=== PATIENT | male | born 1950 | race Caucasian/White ===

== ENCOUNTER 2018-02-13 09:49 | Inpatient (IN) | payer MEDICARE, MEDICAID ==
[~2018-02-13] VITALS: Ht 180.3 cm; Wt 82.2 kg
[~2018-02-13 09:49] MED LIST: FLUT110A INH; IPRIH IA; PREG100C PO
[2018-02-13 10:42] LABS: Basophils # (auto) 0 uL; Basophils % (auto) 0.3 % (0.0-2.0); Eosinophils # (auto) 0 uL; Hematocrit 46.7 % (41.0-53.0); Hemoglobin 15.4 g/dL (13.5-17.5); Lymphocytes % (auto) 6.3 % (10.0-50.0); Mean Corpuscular Hemoglobin 30.6 pg (28.0-32.0); Mean Corpuscular Hgb Conc. 33.1 g/dL (32.0-36.0); Mean Corpuscular Volume 92.4 fL (80.0-100.0); Monocytes # (auto) 0.9 uL; Monocytes % (auto) 5.9 % (0.0-12.0); Neutrophils # (auto) 13.7 uL; Neutrophils % (auto) 87.5 % (37.0-80.0); Platelet Count (auto) 348 10^3/uL (140-450); Red Blood Cells 5.05 10^6/uL (4.5-5.90); Red Cell Distribution Width 13.7 % (11.8-14.3); White Blood Cell 15.7 10^3/uL (4.4-10.8)
[2018-02-13 10:53] LABS: INR 0.99 (0.9-1.15); Prothrombin Time 10.8 sec (9.37-12.3)
[2018-02-13 10:57] LABS: Albumin 3.9 g/dL (3.4-5.0); BUN/Creatinine Ratio 20.5; Calcium 9.5 mg/dL (8.5-10.1); Magnesium 2.4 mg/dL (1.6-2.6); Potassium 4.2 mmol/L (3.5-5.1)
[2018-02-13 11:00] LABS: Lactic Acid w/Reflex 2.1 mmol/L (0.4-2.0)
[2018-02-13 11:02] LABS: Bilirubin, Total 0.5 mg/dL (0.2-1.0); Total Protein 8.6 g/dL (6.4-8.2)
[2018-02-13] MEDS ORDERED: SODIUM CHLORIDE 0.9% 1,000 ML IV ONE ×3 (12:41→13:30)
[2018-02-13] MEDS ORDERED: SODIUM BICARBONATE 8.4 % INJ 50ML VIAL IV ONE (12:45)
[2018-02-13] MEDS ORDERED: HYDROcodone-ACET 10/325MG TAB PO ONE (13:45)
[2018-02-13] MEDS ORDERED: NITROGLYCERIN 0.4 MG SL TAB SL PRN (15:45)
[2018-02-13] MEDS ORDERED: MORPHINE SULFATE 4 MG/ML SYR/VIAL IV PRN (15:45)
[2018-02-13] MEDS: SODIUM CHLORIDE 0.9% 1,000 ML IV SCH ×2 (15:54→22:10)
[2018-02-13] MEDS ORDERED: IPRATROPIUM BROM 0.5 MG/2.5ML INH SOL NEB SCH (18:00)
[2018-02-13] MEDS ORDERED: ALBUTEROL SULF 2.5 MG/0.5ML(0.5%) NEB SOLN NEB SCH (18:00)
[2018-02-13] MEDS ORDERED: IPRATROPIUM BROMIDE IA PRN (20:30)
[2018-02-13 21:02] VITALS: BP 155/99
[2018-02-13 22:00] VITALS: BP 140/84
[2018-02-13] MEDS: PREGABALIN 25 MG CAP PO SCH (22:09)
[2018-02-13] MEDS: IPRATROPIUM BROM 0.5 MG/2.5ML INH SOL NEB PRN (22:56)
[2018-02-13] MEDS: BUDESONIDE (INHALATION) 0.5 MG/2 ML NEB NEB SCH (22:56)
[2018-02-13] MEDS: ALBUTEROL SULF 2.5 MG/0.5ML(0.5%) NEB SOLN NEB PRN (22:56)
[2018-02-13 23:40] VITALS: BP 140/84
[2018-02-14] MEDS ORDERED: HYDR-4683 PO (00:45)
[2018-02-14] MEDS ORDERED: DOCU-94 PO (00:45)
[2018-02-14 05:30] VITALS: BP 151/78
[2018-02-14] MEDS: PREGABALIN 25 MG CAP PO SCH ×3 (06:00→21:31)
[2018-02-14] MEDS ORDERED: ZOLP-158 PO (06:27)
[2018-02-14 07:20] LABS: Basophils # (auto) 0 uL; Basophils % (auto) 0.3 % (0.0-2.0); Eosinophils # (auto) 0 uL; Eosinophils % (auto) 0.2 % (0.0-7.0); Hematocrit 43.3 % (41.0-53.0); Hemoglobin 14.8 g/dL (13.5-17.5); Lymphocytes # (auto) 2.4 uL; Lymphocytes % (auto) 16.8 % (10.0-50.0); Mean Corpuscular Hemoglobin 31.4 pg (28.0-32.0); Mean Corpuscular Hgb Conc. 34.3 g/dL (32.0-36.0); Mean Corpuscular Volume 91.5 fL (80.0-100.0); Monocytes # (auto) 1.1 uL; Monocytes % (auto) 7.9 % (0.0-12.0); Neutrophils # (auto) 10.7 uL; Neutrophils % (auto) 74.8 % (37.0-80.0); Nucleated Red Blood Cells % 0.1 %; Platelet Count (auto) 316 10^3/uL (140-450); Red Blood Cells 4.73 10^6/uL (4.5-5.90); Red Cell Distribution Width 13.5 % (11.8-14.3); White Blood Cell 14.3 10^3/uL (4.4-10.8)
[2018-02-14 07:43] LABS: BUN/Creatinine Ratio 21.3; Calcium 8.9 mg/dL (8.5-10.1); Potassium 3.5 mmol/L (3.5-5.1)
[2018-02-14 09:01] VITALS: BP 163/95
[2018-02-14 09:20] LABS: Urine Bacteria FEW /hpf (None Seen); Urine Blood 1+ /uL (Negative); Urine Mucus FEW (None Seen); Urine Specific Gravity 1.021 (1.001-1.035); Urine WBC 1 /hpf (0 - 3)
[2018-02-14] MEDS: IPRATROPIUM BROM 0.5 MG/2.5ML INH SOL NEB PRN (10:26)
[2018-02-14] MEDS: ALBUTEROL SULF 2.5 MG/0.5ML(0.5%) NEB SOLN NEB PRN (10:26)
[2018-02-14] MEDS: BUDESONIDE (INHALATION) 0.5 MG/2 ML NEB NEB SCH ×2 (10:26→21:42)
[2018-02-14] MEDS ORDERED: ATOR20TA PO (12:00)
[2018-02-14] MEDS ORDERED: ASPI81TA27 PO (12:00)
[2018-02-14] MEDS ORDERED: HYDR-3682 PO (12:00)
[2018-02-14] MEDS ORDERED: CLOP75TA28 PO (12:00)
[2018-02-14] MEDS ORDERED: DIPH25CA66 PO (12:00)
[2018-02-14] MEDS ORDERED: SENN1TAB14 PO (12:00)
[2018-02-14] MEDS ORDERED: ALPR1TAB2 PO (12:00)
[2018-02-14] MEDS ORDERED: QUET100T38 PO (12:00)
[2018-02-14] MEDS ORDERED: BACL10TA PO (12:00)
[2018-02-14] MEDS: SODIUM CHLORIDE 0.9% 1,000 ML IV SCH ×2 (12:03→21:22)
[2018-02-14 12:49] VITALS: BP 149/76
[2018-02-14 17:00] VITALS: BP 167/96
[2018-02-14 22:00] VITALS: BP 159/93
[2018-02-15] MEDS ORDERED: hydrALAZINE HCL 20 MG/ML VL IV PRN (04:30)
[2018-02-15] MEDS ORDERED: ACETAMINOPHEN 325 MG TAB PO PRN (04:30)
[2018-02-15 05:00] VITALS: BP 168/106
[2018-02-15] MEDS: PREGABALIN 25 MG CAP PO SCH (05:52)
[2018-02-15] MEDS ORDERED: hydrALAZINE HCL 20 MG/ML VL IV ONE (06:00)
[2018-02-15] MEDS: BUDESONIDE (INHALATION) 0.5 MG/2 ML NEB NEB SCH (07:06)
[2018-02-15] MEDS: SODIUM CHLORIDE 0.9% 1,000 ML IV SCH (07:45)
[2018-02-15 09:49] VITALS: BP 165/90
== END 2018-02-15 12:42 | disposition hospice, home (50) | DRG 56 ==
LOC: ER 09:49 → EDBD 09:49 → OVERFLOW 09:50 → TELE-WESTW 20:15 → WEST WING 02-14 21:24
PROVIDERS: ADMIT Hospitalist; ATTEND Internal Medicine
DX: G70.00 Myasthenia gravis without (acute) exacerbation (principal); G93.41 Metabolic encephalopathy; M62.82 Rhabdomyolysis; E11.51 Type 2 diabetes mellitus with diabetic peripheral angiopathy without gangrene; G62.9 Polyneuropathy, unspecified; F03.90 Unspecified dementia, unspecified severity, without behavioral disturbance, psychotic disturbance, mood disturbance, and anxiety; E86.0 Dehydration; M06.9 Rheumatoid arthritis, unspecified; D72.829 Elevated white blood cell count, unspecified; F17.210 Nicotine dependence, cigarettes, uncomplicated; F32.9 Major depressive disorder, single episode, unspecified; G40.909 Epilepsy, unspecified, not intractable, without status epilepticus; I10 Essential (primary) hypertension; J44.9 Chronic obstructive pulmonary disease, unspecified; K21.9 Gastro-esophageal reflux disease without esophagitis; K73.9 Chronic hepatitis, unspecified; Z90.81 Acquired absence of spleen; Z95.1 Presence of aortocoronary bypass graft; M19.90 Unspecified osteoarthritis, unspecified site; M54.9 Dorsalgia, unspecified
CPT/HCPCS: 36415; 70450; 70551; 72125; 74176; 80048; 80053; 81001; 82550; 83605; 83735; 84484; 85025; 85610; 87040; 87081; 93005; 94640; 94761; 96360; 96361

== ENCOUNTER 2018-12-15 10:13 | Emergency (ER) | payer MEDICARE, MEDICAID ==
[~2018-12-15] VITALS: Ht 180.3 cm; Wt 59.0 kg
[~2018-12-15 10:13] MED LIST changes: +ALPR1TAB2 PO; +ASPI81TA27 PO; +ATOR20TA PO; +CLOP75TA28 PO; +HYDR-4683 PO; +QUET100T38 PO; +SENN1TAB14 PO
[2018-12-15 10:21] VITALS: BP 118/82
[2018-12-15] MEDS ORDERED: HYDROcodone-ACET 7.5/325MG TAB PO ONE (11:30)
== END 2018-12-15 11:39 | disposition home or self-care (01) ==
LOC: ER 10:16
DX: M54.5 Low back pain (principal); G89.29 Other chronic pain; F41.9 Anxiety disorder, unspecified; J44.9 Chronic obstructive pulmonary disease, unspecified; F32.9 Major depressive disorder, single episode, unspecified; E11.9 Type 2 diabetes mellitus without complications; K21.9 Gastro-esophageal reflux disease without esophagitis; E78.5 Hyperlipidemia, unspecified; I10 Essential (primary) hypertension; F17.210 Nicotine dependence, cigarettes, uncomplicated; Z76.0 Encounter for issue of repeat prescription; Z95.1 Presence of aortocoronary bypass graft

== ENCOUNTER 2018-12-17 18:00 | Emergency (ER) | payer MEDICARE, MEDICAID ==
[~2018-12-17] VITALS: Ht 180.3 cm; Wt 68.0 kg
[2018-12-17 20:03] LABS: Basophils # (auto) 0.1 uL; Basophils % (auto) 1.5 % (0.0-2.0); Eosinophils # (auto) 0.1 uL; Hematocrit 44.7 % (41.0-53.0); Hemoglobin 14.7 g/dL (13.5-17.5); Lymphocytes % (auto) 31.7 % (10.0-50.0); Mean Corpuscular Hemoglobin 29.1 pg (28.0-32.0); Mean Corpuscular Hgb Conc. 32.9 g/dL (32.0-36.0); Mean Corpuscular Volume 88.4 fL (80.0-100.0); Monocytes % (auto) 10.1 % (0.0-12.0); Neutrophils # (auto) 5.3 uL; Neutrophils % (auto) 55.7 % (37.0-80.0); Nucleated Red Blood Cells % 0.2 %; Platelet Count (auto) 432 10^3/uL (140-450); Red Blood Cells 5.06 10^6/uL (4.5-5.90); Red Cell Distribution Width 15.9 % (11.8-14.3); White Blood Cell 9.5 10^3/uL (4.4-10.8)
[2018-12-17 20:20] LABS: Albumin 3.7 g/dL (3.4-5.0); Anion Gap 10 (5-15); Blood Urea Nitrogen 13 mg/dL (7-18); Calcium 9.5 mg/dL (8.5-10.1); Carbon Dioxide 18 mmol/L (21-32); Chloride 114 mmol/L (98-107); Glucose 103 mg/dL (74-106); Magnesium 2.4 mg/dL (1.6-2.6); Potassium 3.7 mmol/L (3.5-5.1); Sodium 142 mmol/L (136-145)
[2018-12-17 20:26] LABS: Alanine Aminotransferase 36 U/L (16-61); Alkaline Phosphatase 83 U/L (45-117); Aspartate Aminotransferase 26 U/L (15-37); BUN/Creatinine Ratio 14.8; Bilirubin, Total 0.3 mg/dL (0.2-1.0); GFR African American 111 mL/min; GFR Non-African American 92 mL/min; Total Protein 7.9 g/dL (6.4-8.2)
[2018-12-17] MEDS ORDERED: SODIUM CHLORIDE 0.9% 1,000 ML IV ONE (23:45)
[2018-12-17] MEDS ORDERED: HYDROcodone-ACET 5/325MG TAB PO ONE (23:45)
[2018-12-17] MEDS ORDERED: KETOROLAC TROMETH 30 MG/ML 1ML VIAL IV ONE (23:45)
[2018-12-18] MEDS ORDERED: SODIUM CHLORIDE 0.9% 1,000 ML IV ONE (05:45)
[2018-12-18] MEDS ORDERED: HYDROcodone-ACET 5/325MG TAB PO ONE (05:45)
[2018-12-18 07:44] VITALS: BP 140/85
== END 2018-12-18 11:26 | disposition home or self-care (01) ==
LOC: EDBD 18:00 → ER 18:00
DX: R19.7 Diarrhea, unspecified (principal); E86.0 Dehydration; M19.90 Unspecified osteoarthritis, unspecified site; J44.9 Chronic obstructive pulmonary disease, unspecified; E11.9 Type 2 diabetes mellitus without complications; K21.9 Gastro-esophageal reflux disease without esophagitis; E78.5 Hyperlipidemia, unspecified; I10 Essential (primary) hypertension; F17.210 Nicotine dependence, cigarettes, uncomplicated; Z79.01 Long term (current) use of anticoagulants; Z79.82 Long term (current) use of aspirin; Z79.899 Other long term (current) drug therapy; Z95.1 Presence of aortocoronary bypass graft
CPT/HCPCS: 36415; 71045; 74176; 80053; 82140; 83735; 84484; 85025; 93005; 96361; 96374; 99284; J1885; J7030

== ENCOUNTER 2019-07-21 01:35 | Emergency (ER) | payer OTHER, MEDICAID ==
[~2019-07-21] VITALS: Ht 180.3 cm; Wt 63.5 kg
[~2019-07-21 01:35] MED LIST changes: +ASPI-404 PO; -ASPI81TA27 PO; -HYDR-4683 PO; +HYDR-4833 PO
[2019-07-21] MEDS ORDERED: MORPHINE SULF INJ 2 MG/ML SYRINGE 1ML IV ONE (03:15)
[2019-07-21] MEDS ORDERED: ONDANSETRON HCL 4 MG/2 ML VIAL IV ONE (03:15)
[2019-07-21 03:16] LABS: Basophils # (auto) 0.1 uL; Basophils % (auto) 0.8 % (0.0-2.0); Eosinophils # (auto) 0.5 uL; Eosinophils % (auto) 4.9 % (0.0-7.0); Hematocrit 40.5 % (41.0-53.0); Hemoglobin 13.6 g/dL (13.5-17.5); Lymphocytes # (auto) 2.8 uL; Lymphocytes % (auto) 29.1 % (10.0-50.0); Mean Corpuscular Hemoglobin 31.1 pg (28.0-32.0); Mean Corpuscular Hgb Conc. 33.6 g/dL (32.0-36.0); Mean Corpuscular Volume 92.4 fL (80.0-100.0); Monocytes # (auto) 1.1 uL; Monocytes % (auto) 11.5 % (0.0-12.0); Neutrophils # (auto) 5.1 uL; Neutrophils % (auto) 53.7 % (37.0-80.0); Platelet Count (auto) 335 10^3/uL (140-450); Red Blood Cells 4.38 10^6/uL (4.5-5.90); Red Cell Distribution Width 14.1 % (11.8-14.3); White Blood Cell 9.6 10^3/uL (4.4-10.8)
[2019-07-21 03:45] LABS: Potassium 4.3 mmol/L (3.5-5.1)
[2019-07-21 03:49] LABS: Albumin 3.1 g/dL (3.4-5.0); BUN/Creatinine Ratio 21.3
[2019-07-21 03:52] LABS: Bilirubin, Total 0.2 mg/dL (0.2-1.0); Total Protein 6.7 g/dL (6.4-8.2)
[2019-07-21 06:54] VITALS: BP 129/87
[2019-07-21] MEDS ORDERED: NEOMYCIN-BACITRACIN-POLYM 15GM TOP OINT TOP ONE (07:00)
== END 2019-07-21 09:31 | disposition home or self-care (01) ==
LOC: EDBD 01:35 → ER 01:39
DX: S22.019A Unspecified fracture of first thoracic vertebra, initial encounter for closed fracture (principal); S00.01XA Abrasion of scalp, initial encounter; M54.2 Cervicalgia; J44.9 Chronic obstructive pulmonary disease, unspecified; M19.90 Unspecified osteoarthritis, unspecified site; E11.9 Type 2 diabetes mellitus without complications; K21.9 Gastro-esophageal reflux disease without esophagitis; E78.5 Hyperlipidemia, unspecified; I10 Essential (primary) hypertension; F17.210 Nicotine dependence, cigarettes, uncomplicated; Z86.2 Personal history of diseases of the blood and blood-forming organs and certain disorders involving the immune mechanism; Z95.0 Presence of cardiac pacemaker; Z79.899 Other long term (current) drug therapy; Z79.82 Long term (current) use of aspirin; W06.XXXA Fall from bed, initial encounter; Y93.89 Activity, other specified; Y92.89 Other specified places as the place of occurrence of the external cause; Y99.8 Other external cause status
CPT/HCPCS: 36415; 70450; 72125; 80053; 85025; 96374; 96375; 99284; J2270; J2405

== ENCOUNTER 2020-04-19 23:56 | Emergency (ER) | payer OTHER, MEDICAID ==
[~2020-04-19] VITALS: Ht 182.9 cm; Wt 81.6 kg
[~2020-04-19 23:56] MED LIST changes: -ASPI-404 PO; +ASPI-543 PO
[2020-04-20 00:41] LABS: Basophils # (auto) 0.1 10 ^3/uL (0-0.2); Eosinophils # (auto) 0.1 10 ^3/uL (0-0.8); Eosinophils % (auto) 1.2 % (0.0-7.0); Monocytes # (auto) 1.2 10 ^3/uL (0-1.3)
[2020-04-20 00:43] LABS: Basophils % (auto) 0.5 % (0.0-2.0); Hematocrit 47.8 % (41.0-53.0); Lymphocytes # (auto) 2.1 10 ^3/uL (0.4-5.4); Lymphocytes % (auto) 17.8 % (10.0-50.0); Mean Corpuscular Hemoglobin 31.1 pg (28.0-32.0); Mean Corpuscular Hgb Conc. 33.5 g/dL (32.0-36.0); Mean Corpuscular Volume 92.9 fL (80.0-100.0); Monocytes % (auto) 9.9 % (0.0-12.0); Neutrophils # (auto) 8.5 10 ^3/uL (1.6-8.6); Neutrophils % (auto) 70.6 % (37.0-80.0); Nucleated Red Blood Cells % 0.1 %; Platelet Count (auto) 469 10^3/uL (140-450); Red Blood Cells 5.14 10^6/uL (4.5-5.90); Red Cell Distribution Width 15.1 % (11.8-14.3)
[2020-04-20 00:59] LABS: INR 1.01 (0.9-1.15); Partial Thromboplastin Time 27.4 sec (23.64-32.05)
[2020-04-20 01:01] LABS: Alanine Aminotransferase 36 U/L (16-61); Albumin 3.3 g/dL (3.4-5.0); Anion Gap 7 (5-15); Aspartate Aminotransferase 31 U/L (15-37); BUN/Creatinine Ratio 17.8; Blood Urea Nitrogen 19 mg/dL (7-18); Calcium 8.7 mg/dL (8.5-10.1); Carbon Dioxide 22 mmol/L (21-32); Chloride 107 mmol/L (98-107); GFR African American 88 mL/min; GFR Non-African American 73 mL/min; Glucose 98 mg/dL (74-106); Magnesium 2.4 mg/dL (1.6-2.6); Potassium 3.8 mmol/L (3.5-5.1); Sodium 136 mmol/L (136-145)
[2020-04-20 01:08] LABS: Alkaline Phosphatase 96 U/L (45-117); Bilirubin, Total 0.4 mg/dL (0.2-1.0); Total Protein 7.6 g/dL (6.4-8.2)
[2020-04-20] MEDS ORDERED: HYDROcodone-ACET 5/325MG TAB PO ONE ×2 (06:15→13:00)
[2020-04-20] MEDS ORDERED: IOHEXOL 350 MG/ML 100ML IJ ONE ×4 (06:50→06:51)
[2020-04-20] MEDS ORDERED: FUROSEMIDE 20 MG TAB PO ONE (12:30)
[2020-04-20] MEDS ORDERED: SPIRONOLACTONE 25 MG TAB PO ONE (12:30)
[2020-04-20 13:30] VITALS: BP 164/105
== END 2020-04-20 14:20 | disposition home or self-care (01) ==
LOC: EDBD 23:56 → ER 04-20 00:02
DX: R07.89 Other chest pain (principal); J44.9 Chronic obstructive pulmonary disease, unspecified; F17.210 Nicotine dependence, cigarettes, uncomplicated; R55 Syncope and collapse
CPT/HCPCS: 36415; 71045; 71275; 80053; 83735; 83880; 84443; 84484; 85025; 85379; 85610; 85730; 93005; 99285; Q9967

== ENCOUNTER 2022-08-20 16:18 | Inpatient (IN) | payer OTHER, MEDICARE, MEDICAID ==
[~2022-08-20] VITALS: Ht 177.8 cm; Wt 78.7 kg
[2022-08-20 18:50] LABS: Basophils # (auto) 0.1 10 ^3/uL (0-0.2); Basophils % (auto) 0.8 % (0.0-2.0); Eosinophils # (auto) 0.1 10 ^3/uL (0-0.8); Eosinophils % (auto) 0.4 % (0.0-7.0); Hematocrit 51.8 % (41.0-53.0); Lymphocytes # (auto) 1.9 10 ^3/uL (0.4-5.4); Lymphocytes % (auto) 15.2 % (10.0-50.0); Mean Corpuscular Hemoglobin 30.7 pg (28.0-32.0); Mean Corpuscular Hgb Conc. 32.7 g/dL (32.0-36.0); Mean Corpuscular Volume 93.7 fL (80.0-100.0); Monocytes # (auto) 0.9 10 ^3/uL (0-1.3); Monocytes % (auto) 7.4 % (0.0-12.0); Neutrophils # (auto) 9.6 10 ^3/uL (1.6-8.6); Neutrophils % (auto) 76.2 % (37.0-80.0); Nucleated Red Blood Cells % 0.1 %; Red Blood Cells 5.53 10^6/uL (4.5-5.90); Red Cell Distribution Width 14.3 % (11.8-14.3); White Blood Cell 12.6 10^3/uL (4.4-10.8)
[2022-08-20 19:02] LABS: Albumin 2.7 g/dL (3.4-5.0); BUN/Creatinine Ratio 9.4; Calcium 8.7 mg/dL (8.5-10.1); Potassium 3.4 mmol/L (3.5-5.1)
[2022-08-20 19:05] LABS: Bilirubin, Total 0.8 mg/dL (0.2-1.0); Total Protein 6.4 g/dL (6.4-8.2)
[2022-08-20 22:54] LABS: Urine Bacteria FEW /hpf (None Seen); Urine Blood 3+ /uL (Negative); Urine Specific Gravity 1.012 (1.001-1.035); Urine WBC 152 /hpf (0 - 3); Urine WBC Clumps PRESENT /hpf (None Seen)
[2022-08-21] MEDS ORDERED: MORPHINE SULFATE INJ 2 MG/ml SYRG IV PRN (11:15)
[2022-08-21] MEDS ORDERED: SENNA 8.6 MG TAB PO PRN (11:15)
[2022-08-21] MEDS ORDERED: PANTOPRAZOLE 40 MG/10 ML VIAL INJ IV ONE (11:15)
[2022-08-21] MEDS ORDERED: ACETAMINOPHEN 325 MG TAB PO PRN (11:15)
[2022-08-21] MEDS ORDERED: NITROGLYCERIN 0.4 MG SL TAB SL PRN (11:15)
[2022-08-21 13:05] LABS: Cholesterol 166 mg/dL (< 200); LDL Cholesterol 108 mg/dL (< 100); Triglycerides 105 mg/dL (< 150)
[2022-08-21 13:06] LABS: HDL Cholesterol 52 mg/dL (40-59)
[2022-08-21] MEDS: SODIUM CHLORIDE 0.9% 1,000 ML IV SCH ×2 (13:44→22:12)
[2022-08-21] MEDS ORDERED: POTASSIUM CHL 20 Meq TABLET PO ONE (14:00)
[2022-08-21] MEDS: PREGABALIN 25 MG CAP PO SCH ×2 (14:16→22:11)
[2022-08-21] MEDS ORDERED: IOHEXOL 350 MG/ML 100ML IJ ONE (14:25)
[2022-08-21 18:40] VITALS: BP 161/85
[2022-08-21] MEDS ORDERED: OXYC325T14 PO (19:56)
[2022-08-21] MEDS ORDERED: FURO40TA4 PO (19:56)
[2022-08-21] MEDS ORDERED: OLAN1TAB7 PO (19:56)
[2022-08-21] MEDS ORDERED: GAB100C PO (19:56)
[2022-08-21] MEDS ORDERED: DIVA1TAB38 PO (19:56)
[2022-08-21] MEDS ORDERED: FLUO10TA18 PO (19:56)
[2022-08-21 21:46] VITALS: BP 161/85
[2022-08-21] MEDS ORDERED: ATORVASTATIN 20 MG TAB PO SCH (22:00)
[2022-08-21] MEDS ORDERED: QUEtiapine FUMARATE 100 MG TAB PO SCH (22:00)
[2022-08-21] MEDS: ATORVASTATIN 20 MG TAB PO SCH (22:11)
[2022-08-21] MEDS: QUEtiapine FUMARATE 100 MG TAB PO SCH (22:11)
[2022-08-22] MEDS: ACETAMINOPHEN 325 MG TAB PO PRN ×2 (03:43→20:06)
[2022-08-22 04:46] VITALS: BP 160/83
[2022-08-22] MEDS: PREGABALIN 25 MG CAP PO SCH ×3 (06:00→22:17)
[2022-08-22] MEDS: SODIUM CHLORIDE 0.9% 1,000 ML IV SCH ×3 (07:15→20:07)
[2022-08-22 09:18] VITALS: BP 128/73
[2022-08-22] MEDS ORDERED: ASPirin-EC 81 mg tab PO SCH (10:00)
[2022-08-22] MEDS ORDERED: CLOPIDOGREL BISULFATE 75 MG TAB PO SCH (10:00)
[2022-08-22] MEDS ORDERED: ENOXAPARIN SOD 40 MG/0.4 ML SYRINGE SC SCH (10:00)
[2022-08-22] MEDS: ASPirin-EC 81 mg tab PO SCH (10:17)
[2022-08-22] MEDS: CLOPIDOGREL BISULFATE 75 MG TAB PO SCH (10:18)
[2022-08-22] MEDS: ENOXAPARIN SOD 40 MG/0.4 ML SYRINGE SC SCH (10:18)
[2022-08-22] MEDS: PANTOPRAZOLE 40 MG/10 ML VIAL INJ IV SCH (10:18)
[2022-08-22] MEDS: cefTRIAXone 1GM/50ML D5W 50 ML IV SCH (10:18)
[2022-08-22 13:00] VITALS: BP 115/70
[2022-08-22 17:00] VITALS: BP 135/78
[2022-08-22 20:00] VITALS: BP 145/79
[2022-08-22 20:42] LABS: Basophils # (auto) 0.1 10 ^3/uL (0-0.2); Basophils % (auto) 0.8 % (0.0-2.0); Eosinophils # (auto) 0.2 10 ^3/uL (0-0.8); Eosinophils % (auto) 2.5 % (0.0-7.0); Hematocrit 45.2 % (41.0-53.0); Hemoglobin 14.8 g/dL (13.5-17.5); Lymphocytes # (auto) 1.1 10 ^3/uL (0.4-5.4); Lymphocytes % (auto) 11.8 % (10.0-50.0); Mean Corpuscular Hemoglobin 31.5 pg (28.0-32.0); Mean Corpuscular Hgb Conc. 32.8 g/dL (32.0-36.0); Mean Corpuscular Volume 95.9 fL (80.0-100.0); Monocytes # (auto) 0.7 10 ^3/uL (0-1.3); Neutrophils # (auto) 7.5 10 ^3/uL (1.6-8.6); Neutrophils % (auto) 77.9 % (37.0-80.0); Red Blood Cells 4.71 10^6/uL (4.5-5.90); Red Cell Distribution Width 14.4 % (11.8-14.3); White Blood Cell 9.6 10^3/uL (4.4-10.8)
[2022-08-22 21:03] LABS: Albumin 2.2 g/dL (3.4-5.0); BUN/Creatinine Ratio 18.1; Calcium 8.2 mg/dL (8.5-10.1); Potassium 4.2 mmol/L (3.5-5.1)
[2022-08-22 21:06] LABS: Bilirubin, Total 0.2 mg/dL (0.2-1.0); Total Protein 5.8 g/dL (6.4-8.2)
[2022-08-22 22:00] VITALS: BP 145/79
[2022-08-22] MEDS: ATORVASTATIN 20 MG TAB PO SCH (22:18)
[2022-08-22] MEDS: QUEtiapine FUMARATE 100 MG TAB PO SCH (22:18)
[2022-08-23 05:00] VITALS: BP 109/79
[2022-08-23] MEDS: PREGABALIN 25 MG CAP PO SCH ×3 (05:45→21:40)
[2022-08-23 06:15] LABS: Basophils # (auto) 0.1 10 ^3/uL (0-0.2); Eosinophils # (auto) 0.3 10 ^3/uL (0-0.8); Eosinophils % (auto) 2.9 % (0.0-7.0); Hemoglobin 14.3 g/dL (13.5-17.5); Lymphocytes # (auto) 1.4 10 ^3/uL (0.4-5.4); Lymphocytes % (auto) 15.3 % (10.0-50.0); Mean Corpuscular Hemoglobin 30.7 pg (28.0-32.0); Mean Corpuscular Hgb Conc. 32.5 g/dL (32.0-36.0); Mean Corpuscular Volume 94.4 fL (80.0-100.0); Monocytes # (auto) 0.7 10 ^3/uL (0-1.3); Monocytes % (auto) 7.2 % (0.0-12.0); Neutrophils # (auto) 6.6 10 ^3/uL (1.6-8.6); Neutrophils % (auto) 73.6 % (37.0-80.0); Red Blood Cells 4.66 10^6/uL (4.5-5.90); Red Cell Distribution Width 14.2 % (11.8-14.3)
[2022-08-23] MEDS: SODIUM CHLORIDE 0.9% 1,000 ML IV SCH (06:28)
[2022-08-23 07:05] LABS: BUN/Creatinine Ratio 23.3; Calcium 7.9 mg/dL (8.5-10.1); Potassium 4.3 mmol/L (3.5-5.1)
[2022-08-23 08:00] VITALS: BP 145/79
[2022-08-23 08:30] VITALS: BP 139/84
[2022-08-23] MEDS: cefTRIAXone 1GM/50ML D5W 50 ML IV SCH (10:33)
[2022-08-23] MEDS: PANTOPRAZOLE 40 MG/10 ML VIAL INJ IV SCH (10:34)
[2022-08-23] MEDS: CLOPIDOGREL BISULFATE 75 MG TAB PO SCH (10:36)
[2022-08-23] MEDS: ENOXAPARIN SOD 40 MG/0.4 ML SYRINGE SC SCH (10:36)
[2022-08-23] MEDS: ASPirin-EC 81 mg tab PO SCH (10:47)
[2022-08-23 12:30] VITALS: BP 120/72
[2022-08-23] MEDS ORDERED: DIVA1TAB58 PO (14:18)
[2022-08-23] MEDS ORDERED: TRAM50TA2 PO (14:18)
[2022-08-23 16:30] VITALS: BP 137/78
[2022-08-23] MEDS ORDERED: LORazepam 2MG/ML-1ML VIAL IV PRN (21:15)
[2022-08-23] MEDS: ATORVASTATIN 20 MG TAB PO SCH (21:41)
[2022-08-23] MEDS: QUEtiapine FUMARATE 100 MG TAB PO SCH (21:41)
[2022-08-23] MEDS: ACETAMINOPHEN 325 MG TAB PO PRN (21:50)
[2022-08-23 22:00] VITALS: BP 162/85
[2022-08-23] MEDS ORDERED: HYDROcodone-ACET 5/325MG TAB PO ONE (22:15)
[2022-08-24] VITALS (21 sets, daily range): BP systolic 95–165; BP diastolic 62–91
[2022-08-24 05:43] LABS: Basophils # (auto) 0.1 10 ^3/uL (0-0.2); Basophils % (auto) 0.8 % (0.0-2.0); Eosinophils # (auto) 0.3 10 ^3/uL (0-0.8); Eosinophils % (auto) 3.4 % (0.0-7.0); Hematocrit 47.1 % (41.0-53.0); Hemoglobin 15.4 g/dL (13.5-17.5); Lymphocytes # (auto) 1.8 10 ^3/uL (0.4-5.4); Lymphocytes % (auto) 17.9 % (10.0-50.0); Mean Corpuscular Hemoglobin 30.6 pg (28.0-32.0); Mean Corpuscular Hgb Conc. 32.6 g/dL (32.0-36.0); Mean Corpuscular Volume 93.7 fL (80.0-100.0); Monocytes # (auto) 0.8 10 ^3/uL (0-1.3); Monocytes % (auto) 8.4 % (0.0-12.0); Neutrophils % (auto) 69.5 % (37.0-80.0); Nucleated Red Blood Cells % 0.1 %; Red Blood Cells 5.03 10^6/uL (4.5-5.90); White Blood Cell 10.1 10^3/uL (4.4-10.8)
[2022-08-24] MEDS: PREGABALIN 25 MG CAP PO SCH ×3 (06:00→21:37)
[2022-08-24 06:02] LABS: Calcium 8.9 mg/dL (8.5-10.1); Potassium 3.8 mmol/L (3.5-5.1)
[2022-08-24 06:03] LABS: BUN/Creatinine Ratio 17.4
[2022-08-24 06:09] LABS: INR 0.97 (0.9-1.15); Partial Thromboplastin Time 29.5 sec (24.6-33.4)
[2022-08-24 06:15] LABS: Folate (Folic Acid) 5.33 ng/mL (5.38-24)
[2022-08-24] MEDS ORDERED: LIDOCAINE 2%HCL (LOCAL ANESTH.) INJ 20ML MDV ONE ×4 (07:21→13:36)
[2022-08-24] MEDS ORDERED: IODIXANOL 320MG/ML 100ML BTL IV ONE (07:21)
[2022-08-24] MEDS ORDERED: IOHEXOL 350 MG/ML 100ML IJ ONE ×2 (07:21→13:18)
[2022-08-24] MEDS ORDERED: ANGIOMAX 250 MG VIAL IV ONE ×2 (07:42→13:25)
[2022-08-24] MEDS ORDERED: VERAPAMIL 2.5MG/ML INJ 2ML VIAL IV ONE (07:43)
[2022-08-24] MEDS ORDERED: fentaNYL CITRATE 100 MCG/2 ML VL ONE ×2 (07:43→13:26)
[2022-08-24] MEDS ORDERED: MIDAZOLAM HCL 2MG/2ML 2ml VIAL (1mg/ml) ONE ×2 (07:43→13:26)
[2022-08-24] MEDS ORDERED: HEPARIN SODIUM (PORCINE) 5000 UNITS/ML 1ML VIAL ONE (07:43)
[2022-08-24] MEDS ORDERED: SODIUM CHL 0.9% 0 ML ONE (07:43)
[2022-08-24] MEDS: ASPirin-EC 81 mg tab PO SCH (09:28)
[2022-08-24] MEDS: PANTOPRAZOLE 40 MG/10 ML VIAL INJ IV SCH (09:28)
[2022-08-24] MEDS: cefTRIAXone 1GM/50ML D5W 50 ML IV SCH (09:28)
[2022-08-24] MEDS: CLOPIDOGREL BISULFATE 75 MG TAB PO SCH (09:29)
[2022-08-24] MEDS ORDERED: PERCOT PO (13:24)
[2022-08-24] MEDS ORDERED: SODIUM CHL 0.9% 50 ML ONE (13:26)
[2022-08-24] MEDS ORDERED: ASPirin 81 mg TAB ONE (13:59)
[2022-08-24] MEDS ORDERED: CLOPIDOGREL BISULFATE 75 MG TAB ONE (13:59)
[2022-08-24] MEDS: ACETAMINOPHEN 325 MG TAB PO PRN (17:41)
[2022-08-24] MEDS: SODIUM CHLORIDE 0.9% 1,000 ML IV SCH (20:54)
[2022-08-24] MEDS: ATORVASTATIN 20 MG TAB PO SCH (21:33)
[2022-08-24] MEDS: QUEtiapine FUMARATE 100 MG TAB PO SCH (21:37)
[2022-08-25 05:00] VITALS: BP 136/86
[2022-08-25] MEDS: PREGABALIN 25 MG CAP PO SCH ×3 (05:56→22:32)
[2022-08-25] MEDS: SODIUM CHLORIDE 0.9% 1,000 ML IV SCH ×2 (06:29→17:00)
[2022-08-25 09:00] VITALS: BP 145/86
[2022-08-25] MEDS: cefTRIAXone 1GM/50ML D5W 50 ML IV SCH (10:11)
[2022-08-25] MEDS: ASPirin-EC 81 mg tab PO SCH (10:11)
[2022-08-25] MEDS: PANTOPRAZOLE 40 MG/10 ML VIAL INJ IV SCH (10:11)
[2022-08-25] MEDS: CLOPIDOGREL BISULFATE 75 MG TAB PO SCH (10:12)
[2022-08-25 13:00] VITALS: BP 129/78
[2022-08-25] MEDS: FOLIC ACID 1 MG in D5W 5% 50 ML INJ SCH (13:05)
[2022-08-25 17:00] VITALS: BP 138/75
[2022-08-25 22:00] VITALS: BP 131/71
[2022-08-25] MEDS: ATORVASTATIN 20 MG TAB PO SCH (22:33)
[2022-08-25] MEDS: QUEtiapine FUMARATE 100 MG TAB PO SCH (22:33)
[2022-08-26] MEDS: ACETAMINOPHEN 325 MG TAB PO PRN (00:43)
[2022-08-26] MEDS ORDERED: TEMAZEPAM 15 MG CAP PO ONE (02:45)
[2022-08-26] MEDS: SODIUM CHLORIDE 0.9% 1,000 ML IV SCH ×3 (03:00→23:00)
[2022-08-26 05:00] VITALS: BP 116/75
[2022-08-26] MEDS: PREGABALIN 25 MG CAP PO SCH ×2 (06:12→14:18)
[2022-08-26 09:00] VITALS: BP 139/86
[2022-08-26] MEDS: CLOPIDOGREL BISULFATE 75 MG TAB PO SCH (09:31)
[2022-08-26] MEDS: PANTOPRAZOLE 40 MG/10 ML VIAL INJ IV SCH (09:31)
[2022-08-26] MEDS: ASPirin-EC 81 mg tab PO SCH (09:31)
[2022-08-26] MEDS: cefTRIAXone 1GM/50ML D5W 50 ML IV SCH (09:31)
[2022-08-26] MEDS: FOLIC ACID 1 MG in D5W 5% 50 ML INJ SCH (12:18)
[2022-08-26 12:48] VITALS: BP 101/59
[2022-08-26 17:00] VITALS: BP 117/76
[2022-08-26 22:00] VITALS: BP 115/66
[2022-08-27] MEDS: QUEtiapine FUMARATE 100 MG TAB PO SCH (02:05)
[2022-08-27] MEDS: ATORVASTATIN 20 MG TAB PO SCH (02:05)
[2022-08-27] MEDS: PREGABALIN 25 MG CAP PO SCH ×3 (02:05→13:58)
[2022-08-27 04:58] VITALS: BP 135/68
[2022-08-27 05:14] LABS: Basophils # (auto) 0.1 10 ^3/uL (0-0.2); Basophils % (auto) 1.4 % (0.0-2.0); Eosinophils # (auto) 0.4 10 ^3/uL (0-0.8); Eosinophils % (auto) 4.8 % (0.0-7.0); Hematocrit 45.3 % (41.0-53.0); Hemoglobin 14.8 g/dL (13.5-17.5); Lymphocytes % (auto) 23.8 % (10.0-50.0); Mean Corpuscular Hemoglobin 30.9 pg (28.0-32.0); Mean Corpuscular Hgb Conc. 32.8 g/dL (32.0-36.0); Mean Corpuscular Volume 94.2 fL (80.0-100.0); Monocytes # (auto) 0.8 10 ^3/uL (0-1.3); Monocytes % (auto) 9.5 % (0.0-12.0); Neutrophils # (auto) 5.1 10 ^3/uL (1.6-8.6); Neutrophils % (auto) 60.5 % (37.0-80.0); Nucleated Red Blood Cells % 0.3 %; Red Blood Cells 4.81 10^6/uL (4.5-5.90); Red Cell Distribution Width 14.5 % (11.8-14.3); White Blood Cell 8.5 10^3/uL (4.4-10.8)
[2022-08-27 05:29] LABS: Albumin 2.3 g/dL (3.4-5.0); BUN/Creatinine Ratio 23.2; Calcium 8.5 mg/dL (8.5-10.1); Potassium 4.7 mmol/L (3.5-5.1)
[2022-08-27 05:32] LABS: Bilirubin, Total 0.2 mg/dL (0.2-1.0); Total Protein 5.6 g/dL (6.4-8.2)
[2022-08-27 08:00] VITALS: BP 100/63
[2022-08-27 09:00] VITALS: BP 100/63
[2022-08-27] MEDS: SODIUM CHLORIDE 0.9% 1,000 ML IV SCH (09:00)
[2022-08-27] MEDS: cefTRIAXone 1GM/50ML D5W 50 ML IV SCH (09:13)
[2022-08-27] MEDS: CLOPIDOGREL BISULFATE 75 MG TAB PO SCH (09:14)
[2022-08-27] MEDS: ASPirin-EC 81 mg tab PO SCH (09:14)
[2022-08-27] MEDS: FOLIC ACID 1 MG in D5W 5% 50 ML INJ SCH (09:15)
[2022-08-27] MEDS ORDERED: PANTOPRAZOLE 40 MG TAB PO SCH (10:00)
[2022-08-27 12:38] VITALS: BP 120/71
[2022-08-27] MEDS ORDERED: ASPI1TAB20 PO (14:26)
[2022-08-27] MEDS ORDERED: CLOP75TA28 PO (14:26)
[2022-08-27] MEDS ORDERED: ATOR20TA50 PO (14:27)
[2022-08-27 17:10] VITALS: BP 114/68
== END 2022-08-27 18:00 | disposition hospice, home (50) | DRG 247 ==
LOC: EDBD 16:18 → ER 16:22 → TELE 08-21 11:11 → TELE-CENTR 08-21 18:41
PROVIDERS: ADMIT Nurse Practitioner Family; ATTEND Internal Medicine
PROC: 027034Z Dilation of Coronary Artery, One Artery with Drug-eluting Intraluminal Device, Percutaneous Approach (ICD-10-PCS; principal; 2022-08-24)
PROC: 02703ZZ Dilation of Coronary Artery, One Artery, Percutaneous Approach (ICD-10-PCS; 2022-08-24)
PROC: 4A023N7 Measurement of Cardiac Sampling and Pressure, Left Heart, Percutaneous Approach (ICD-10-PCS; 2022-08-24)
PROC: B211YZZ Fluoroscopy of Multiple Coronary Arteries using Other Contrast (ICD-10-PCS; 2022-08-24)
PROC: B215YZZ Fluoroscopy of Left Heart using Other Contrast (ICD-10-PCS; 2022-08-24)
DX: I24.9 Acute ischemic heart disease, unspecified (principal); T82.855A Stenosis of coronary artery stent, initial encounter; E46 Unspecified protein-calorie malnutrition; N39.0 Urinary tract infection, site not specified; I25.10 Atherosclerotic heart disease of native coronary artery without angina pectoris; I95.1 Orthostatic hypotension; E78.5 Hyperlipidemia, unspecified; E87.6 Hypokalemia; E53.8 Deficiency of other specified B group vitamins; Z20.822 Contact with and (suspected) exposure to COVID-19; D72.829 Elevated white blood cell count, unspecified; Y83.1 Surgical operation with implant of artificial internal device as the cause of abnormal reaction of the patient, or of later complication, without mention of misadventure at the time of the procedure; I10 Essential (primary) hypertension; G62.9 Polyneuropathy, unspecified; F17.210 Nicotine dependence, cigarettes, uncomplicated; J44.9 Chronic obstructive pulmonary disease, unspecified; Z99.81 Dependence on supplemental oxygen; Z82.49 Family history of ischemic heart disease and other diseases of the circulatory system; Z90.81 Acquired absence of spleen; Z80.42 Family history of malignant neoplasm of prostate; Z68.24 Body mass index [BMI] 24.0-24.9, adult; Y92.89 Other specified places as the place of occurrence of the external cause
CPT/HCPCS: 36415; 70450; 71045; 71275; 80048; 80053; 80061; 81001; 82607; 82746; 83036; 83735; 84155; 84165; 84443; 84484; 85025; 85610; 85730; 87040; 87081; 87426; 92920; 92928; 93005; 93306; 93458; 93886; 95819; 96374; 99152; 99153; C1874; C9113; G0378; J0696; J2250; J7060; Q9967

== ENCOUNTER 2022-09-19 11:34 | Inpatient (IN) | payer OTHER, MEDICARE, MEDICAID ==
[~2022-09-19] VITALS: Ht 185.4 cm; Wt 79.0 kg
[~2022-09-19 11:34] MED LIST changes: -ALPR1TAB2 PO; +ASPI1TAB20 PO; +ATOR20TA50 PO; +DIVA1TAB58 PO; +FLUO10TA18 PO; +FURO40TA4 PO; +GAB100C PO; -HYDR-4833 PO; +OLAN1TAB7 PO; +PERCOT PO; +TRAM50TA2 PO
[2022-09-19] MEDS ORDERED: SODIUM CHLORIDE 0.9% 1,000 ML IV ONE (12:30)
[2022-09-19] MEDS ORDERED: SODIUM CHLORIDE 0.9% 500 ML IVB ONE (12:30)
[2022-09-19 14:10] LABS: Basophils # (auto) 0.1 10 ^3/uL (0-0.2); Basophils % (auto) 0.9 % (0.0-2.0); Eosinophils # (auto) 0.1 10 ^3/uL (0-0.8); Eosinophils % (auto) 1.1 % (0.0-7.0); Hematocrit 48.2 % (41.0-53.0); Hemoglobin 15.6 g/dL (13.5-17.5); Lymphocytes # (auto) 2.5 10 ^3/uL (0.4-5.4); Lymphocytes % (auto) 22.8 % (10.0-50.0); Mean Corpuscular Hemoglobin 30.4 pg (28.0-32.0); Mean Corpuscular Hgb Conc. 32.4 g/dL (32.0-36.0); Mean Corpuscular Volume 93.8 fL (80.0-100.0); Monocytes # (auto) 1.3 10 ^3/uL (0-1.3); Monocytes % (auto) 12.1 % (0.0-12.0); Neutrophils % (auto) 63.1 % (37.0-80.0); Nucleated Red Blood Cells % 0.1 %; Red Blood Cells 5.14 10^6/uL (4.5-5.90); Red Cell Distribution Width 15.2 % (11.8-14.3); White Blood Cell 11.1 10^3/uL (4.4-10.8)
[2022-09-19 14:36] LABS: Albumin 2.4 g/dL (3.4-5.0); Calcium 8.6 mg/dL (8.5-10.1)
[2022-09-19 14:40] LABS: BUN/Creatinine Ratio 7.8; Bilirubin, Total 0.7 mg/dL (0.2-1.0); Total Protein 7.5 g/dL (6.4-8.2)
[2022-09-19 14:42] LABS: Potassium 2.9 mmol/L (3.5-5.1)
[2022-09-19] MEDS ORDERED: POTASSIUM EFFERVESENT TAB 25 MEQ PO ONE (15:00)
[2022-09-19] MEDS ORDERED: NITROGLYCERIN 0.4 MG SL TAB SL PRN (17:30)
[2022-09-19] MEDS ORDERED: FUROSEMIDE 40 MG/4 ML VIAL IV ONE (17:30)
[2022-09-19] MEDS ORDERED: MORPHINE SULFATE INJ 2 MG/ml SYRG IV PRN (17:30)
[2022-09-19 17:35] LABS: Urine Bacteria NONE SEEN /hpf (None Seen); Urine Blood Negative /uL (Negative); Urine Specific Gravity 1.006 (1.001-1.035); Urine WBC 1 /hpf (0 - 3)
[2022-09-19 17:53] LABS: Alcohol, Urine < 3.0 mg/dL (0-10); Amphetamine Screen, Urine NEGATIVE (NEGATIVE); Barbiturate Scree,Urine NEGATIVE (NEGATIVE); Benzodiazephine Screen, Urine NEGATIVE (NEGATIVE); Cannabinoid Screen, Urine NEGATIVE (NEGATIVE); Cocaine Screen, Urine NEGATIVE (NEGATIVE); Opiate Scree,Urine NEGATIVE (NEGATIVE); Phencyclidine Screen, Urine NEGATIVE (NEGATIVE)
[2022-09-19] MEDS: D5W/SOD CHL 0.45%/KCL 40MEQ 1,000 ML IV SCH (18:41)
[2022-09-19 20:27] LABS: INR 1.07 (0.9-1.15); Partial Thromboplastin Time 27.4 sec (24.6-33.4)
[2022-09-19 20:49] LABS: Cholesterol 124 mg/dL (< 200)
[2022-09-19 20:52] LABS: HDL Cholesterol 37 mg/dL (40-59); LDL Cholesterol 79 mg/dL (< 100); Triglycerides 97 mg/dL (< 150)
[2022-09-19] MEDS: PREGABALIN 100 MG PO SCH (22:00)
[2022-09-19] MEDS ORDERED: IOHEXOL 350 MG/ML 100ML IJ ONE (23:03)
[2022-09-19] MEDS: GABAPENTIN 100 MG CAP PO SCH (23:34)
[2022-09-20] MEDS: QUEtiapine FUMARATE 100 MG TAB PO SCH ×2 (00:15→22:46)
[2022-09-20] MEDS: PREGABALIN 100 MG PO SCH ×3 (06:00→22:00)
[2022-09-20] MEDS: GABAPENTIN 100 MG CAP PO SCH ×3 (06:46→22:46)
[2022-09-20 07:37] LABS: Basophils # (auto) 0.1 10 ^3/uL (0-0.2); Basophils % (auto) 0.9 % (0.0-2.0); Eosinophils # (auto) 0.2 10 ^3/uL (0-0.8); Eosinophils % (auto) 1.5 % (0.0-7.0); Hematocrit 45.8 % (41.0-53.0); Hemoglobin 14.9 g/dL (13.5-17.5); Lymphocytes # (auto) 2.1 10 ^3/uL (0.4-5.4); Lymphocytes % (auto) 17.8 % (10.0-50.0); Mean Corpuscular Hemoglobin 30.2 pg (28.0-32.0); Mean Corpuscular Hgb Conc. 32.5 g/dL (32.0-36.0); Monocytes % (auto) 8.7 % (0.0-12.0); Neutrophils # (auto) 8.3 10 ^3/uL (1.6-8.6); Neutrophils % (auto) 71.1 % (37.0-80.0); Nucleated Red Blood Cells % 0.1 %; Red Blood Cells 4.93 10^6/uL (4.5-5.90); Red Cell Distribution Width 15.3 % (11.8-14.3); White Blood Cell 11.6 10^3/uL (4.4-10.8)
[2022-09-20 07:57] LABS: Albumin 2.2 g/dL (3.4-5.0); Calcium 8.3 mg/dL (8.5-10.1); Potassium 4.2 mmol/L (3.5-5.1)
[2022-09-20 08:01] LABS: BUN/Creatinine Ratio 7.7; Bilirubin, Total 0.8 mg/dL (0.2-1.0); Total Protein 6.5 g/dL (6.4-8.2)
[2022-09-20] MEDS: FUROSEMIDE 20 MG/2 ML VIAL IV SCH (10:21)
[2022-09-20] MEDS: FLUoxetine HCL 10 MG CAP PO SCH (10:22)
[2022-09-20] MEDS: ASPirin-EC 81 mg tab PO SCH (10:22)
[2022-09-20] MEDS: ATORVASTATIN 20 MG TAB PO SCH (10:22)
[2022-09-20] MEDS: OLANZapine 5 MG TAB PO SCH (10:22)
[2022-09-20] MEDS: ENOXAPARIN SOD 40 MG/0.4 ML SYRINGE SC SCH (10:24)
[2022-09-20] MEDS: NICOTINE 7MG/24HR TOPICAL PATCH TD SCH (10:30)
[2022-09-20] MEDS: D5W/SOD CHL 0.45%/KCL 40MEQ 1,000 ML IV SCH (13:51)
[2022-09-20] MEDS: cefTRIAXone 1GM/50ML D5W 50 ML IV SCH (14:29)
[2022-09-20] MEDS: AZITHROMYCIN 500MG/ 250ML 250 ML IV SCH (15:22)
[2022-09-21 05:00] VITALS: BP 92/68
[2022-09-21] MEDS: GABAPENTIN 100 MG CAP PO SCH ×2 (05:09→13:56)
[2022-09-21] MEDS: PREGABALIN 100 MG PO SCH ×2 (05:11→14:00)
[2022-09-21 06:32] LABS: Chloride 104 mmol/L (98-107); Sodium 142 mmol/L (136-145)
[2022-09-21 06:41] LABS: BUN/Creatinine Ratio 11.5; Blood Urea Nitrogen 11 mg/dL (7-18); Calcium 8.4 mg/dL (8.5-10.1); GFR African American 99 mL/min; GFR Non-African American 82 mL/min; Glucose 98 mg/dL (74-106)
[2022-09-21 07:28] LABS: Basophils # (auto) 0 10 ^3/uL (0-0.2); Basophils % (auto) 0.4 % (0.0-2.0); Eosinophils # (auto) 0.4 10 ^3/uL (0-0.8); Eosinophils % (auto) 4.1 % (0.0-7.0); Hematocrit 44.1 % (41.0-53.0); Hemoglobin 15.3 g/dL (13.5-17.5); Lymphocytes # (auto) 1.3 10 ^3/uL (0.4-5.4); Mean Corpuscular Hemoglobin 32.4 pg (28.0-32.0); Mean Corpuscular Hgb Conc. 34.8 g/dL (32.0-36.0); Mean Corpuscular Volume 93.1 fL (80.0-100.0); Monocytes # (auto) 0.6 10 ^3/uL (0-1.3); Monocytes % (auto) 6.1 % (0.0-12.0); Neutrophils # (auto) 7.4 10 ^3/uL (1.6-8.6); Neutrophils % (auto) 76.4 % (37.0-80.0); Nucleated Red Blood Cells % 0.1 %; Red Blood Cells 4.74 10^6/uL (4.5-5.90); Red Cell Distribution Width 15.3 % (11.8-14.3); White Blood Cell 9.7 10^3/uL (4.4-10.8)
[2022-09-21 08:27] LABS: Anion Gap 10 (5-15); Carbon Dioxide 28 mmol/L (21-32); Potassium 3.7 mmol/L (3.5-5.1)
[2022-09-21 09:00] VITALS: BP 113/75
[2022-09-21] MEDS: cefTRIAXone 1GM/50ML D5W 50 ML IV SCH (09:06)
[2022-09-21] MEDS: FUROSEMIDE 20 MG/2 ML VIAL IV SCH ×3 (09:07→22:32)
[2022-09-21] MEDS: ENOXAPARIN SOD 40 MG/0.4 ML SYRINGE SC SCH (09:09)
[2022-09-21] MEDS: NICOTINE 7MG/24HR TOPICAL PATCH TD SCH (09:09)
[2022-09-21] MEDS: OLANZapine 5 MG TAB PO SCH (09:11)
[2022-09-21] MEDS: ASPirin-EC 81 mg tab PO SCH (09:20)
[2022-09-21] MEDS: ATORVASTATIN 20 MG TAB PO SCH (09:20)
[2022-09-21] MEDS: AZITHROMYCIN 500MG/ 250ML 250 ML IV SCH (09:21)
[2022-09-21] MEDS: D5W/SOD CHL 0.45%/KCL 40MEQ 1,000 ML IV SCH (09:21)
[2022-09-21] MEDS: FLUoxetine HCL 10 MG CAP PO SCH (09:31)
[2022-09-21] MEDS ORDERED: FUROSEMIDE 20 MG/2 ML VIAL IV ONE (10:00)
[2022-09-21] MEDS ORDERED: CLOPIDOGREL 300 MG TAB PO ONE (10:00)
[2022-09-21 13:00] VITALS: BP 81/52
[2022-09-21] MEDS: ALBUMIN 25% 50 ML IV SCH ×2 (14:04→19:57)
[2022-09-21] MEDS: PREGABALIN 25 MG CAP PO SCH ×2 (16:46→22:22)
[2022-09-21 17:00] VITALS: BP 111/70
[2022-09-21 22:00] VITALS: BP 103/71
[2022-09-21] MEDS: QUEtiapine FUMARATE 100 MG TAB PO SCH (22:22)
[2022-09-22] MEDS: ALBUMIN 25% 50 ML IV SCH ×2 (03:53→21:00)
[2022-09-22 05:00] VITALS: BP 105/67
[2022-09-22] MEDS: PREGABALIN 25 MG CAP PO SCH ×3 (05:30→22:35)
[2022-09-22 09:00] VITALS: BP 109/72
[2022-09-22] MEDS: ASPirin-EC 81 mg tab PO SCH (09:02)
[2022-09-22] MEDS: FLUoxetine HCL 10 MG CAP PO SCH (09:03)
[2022-09-22] MEDS: CLOPIDOGREL BISULFATE 75 MG TAB PO SCH (09:03)
[2022-09-22] MEDS: OLANZapine 5 MG TAB PO SCH (09:03)
[2022-09-22] MEDS: FUROSEMIDE 20 MG/2 ML VIAL IV SCH ×2 (09:04→22:00)
[2022-09-22] MEDS: cefTRIAXone 1GM/50ML D5W 50 ML IV SCH (09:09)
[2022-09-22] MEDS: AZITHROMYCIN 500MG/ 250ML 250 ML IV SCH (09:10)
[2022-09-22] MEDS: ATORVASTATIN 20 MG TAB PO SCH (09:44)
[2022-09-22] MEDS: ENOXAPARIN SOD 40 MG/0.4 ML SYRINGE SC SCH (09:44)
[2022-09-22] MEDS: NICOTINE 7MG/24HR TOPICAL PATCH TD SCH (09:52)
[2022-09-22 13:00] VITALS: BP 99/64
[2022-09-22 16:38] VITALS: BP 117/71
[2022-09-22] MEDS ORDERED: SODIUM CHLORIDE 0.9% 250 ML IV ONE (20:30)
[2022-09-22] MEDS ORDERED: PREGABALIN 25 MG CAP PO ONE (20:30)
[2022-09-22] MEDS ORDERED: ALBUMIN 25% 100 ML IV SCH (20:30)
[2022-09-22 22:00] VITALS: BP 99/68
[2022-09-22] MEDS: QUEtiapine FUMARATE 100 MG TAB PO SCH (22:36)
[2022-09-23 05:00] VITALS: BP 88/57
[2022-09-23] MEDS: ALBUMIN 25% 50 ML IV SCH ×2 (05:00→14:10)
[2022-09-23] MEDS: PREGABALIN 25 MG CAP PO SCH ×3 (05:34→22:21)
[2022-09-23 08:26] LABS: Basophils # (auto) 0 10 ^3/uL (0-0.2); Basophils % (auto) 0.6 % (0.0-2.0); Eosinophils # (auto) 0.7 10 ^3/uL (0-0.8); Eosinophils % (auto) 12.2 % (0.0-7.0); Hematocrit 45.2 % (41.0-53.0); Hemoglobin 14.7 g/dL (13.5-17.5); Lymphocytes # (auto) 1.2 10 ^3/uL (0.4-5.4); Mean Corpuscular Hemoglobin 31.3 pg (28.0-32.0); Mean Corpuscular Hgb Conc. 32.5 g/dL (32.0-36.0); Mean Corpuscular Volume 96.1 fL (80.0-100.0); Monocytes # (auto) 0.6 10 ^3/uL (0-1.3); Neutrophils # (auto) 3.2 10 ^3/uL (1.6-8.6); Neutrophils % (auto) 56.2 % (37.0-80.0); Nucleated Red Blood Cells % 0.1 %; Red Blood Cells 4.71 10^6/uL (4.5-5.90); Red Cell Distribution Width 15.8 % (11.8-14.3); White Blood Cell 5.8 10^3/uL (4.4-10.8)
[2022-09-23 08:46] LABS: BUN/Creatinine Ratio 26.1; Potassium 3.3 mmol/L (3.5-5.1)
[2022-09-23 09:00] VITALS: BP 116/70
[2022-09-23] MEDS ORDERED: POTASSIUM EFFERVESENT TAB 25 MEQ PO ONE (09:00)
[2022-09-23] MEDS: ATORVASTATIN 20 MG TAB PO SCH (09:27)
[2022-09-23] MEDS: ASPirin-EC 81 mg tab PO SCH (09:27)
[2022-09-23] MEDS: AZITHROMYCIN 250 MG TAB PO SCH (09:27)
[2022-09-23] MEDS: CLOPIDOGREL BISULFATE 75 MG TAB PO SCH (09:27)
[2022-09-23] MEDS: FLUoxetine HCL 10 MG CAP PO SCH (09:27)
[2022-09-23] MEDS: cefTRIAXone 1GM/50ML D5W 50 ML IV SCH (09:28)
[2022-09-23] MEDS: ENOXAPARIN SOD 40 MG/0.4 ML SYRINGE SC SCH (09:28)
[2022-09-23] MEDS: FUROSEMIDE 20 MG/2 ML VIAL IV SCH ×2 (09:34→22:21)
[2022-09-23] MEDS: OLANZapine 5 MG TAB PO SCH (09:41)
[2022-09-23] MEDS: NICOTINE 7MG/24HR TOPICAL PATCH TD SCH (09:43)
[2022-09-23] MEDS ORDERED: AZIT500T66 PO (09:59)
[2022-09-23] MEDS ORDERED: MID10T PO (10:00)
[2022-09-23 12:29] VITALS: BP 116/70
[2022-09-23 13:00] VITALS: BP 92/60
[2022-09-23] MEDS: MIDODRINE HCL 10 MG TAB PO SCH ×2 (13:13→18:01)
[2022-09-23 17:00] VITALS: BP 109/76
[2022-09-23 22:00] VITALS: BP 143/78
[2022-09-23] MEDS: QUEtiapine FUMARATE 100 MG TAB PO SCH (22:21)
[2022-09-24 05:00] VITALS: BP 91/61
[2022-09-24] MEDS: MIDODRINE HCL 10 MG TAB PO SCH ×2 (05:59→12:08)
[2022-09-24] MEDS: PREGABALIN 25 MG CAP PO SCH (05:59)
[2022-09-24] MEDS ORDERED: POTASSIUM EFFERVESENT TAB 25 MEQ PO ONE (08:15)
[2022-09-24] MEDS: cefTRIAXone 1GM/50ML D5W 50 ML IV SCH (09:00)
[2022-09-24] MEDS: FUROSEMIDE 20 MG/2 ML VIAL IV SCH (10:00)
[2022-09-24] MEDS: AZITHROMYCIN 250 MG TAB PO SCH (10:00)
[2022-09-24] MEDS: ATORVASTATIN 20 MG TAB PO SCH (10:26)
[2022-09-24] MEDS: CLOPIDOGREL BISULFATE 75 MG TAB PO SCH (10:26)
[2022-09-24] MEDS: OLANZapine 5 MG TAB PO SCH (10:26)
[2022-09-24] MEDS: FLUoxetine HCL 10 MG CAP PO SCH (10:26)
[2022-09-24] MEDS: ASPirin-EC 81 mg tab PO SCH (10:26)
[2022-09-24] MEDS: NICOTINE 7MG/24HR TOPICAL PATCH TD SCH (10:27)
[2022-09-24] MEDS: ENOXAPARIN SOD 40 MG/0.4 ML SYRINGE SC SCH (10:27)
== END 2022-09-24 12:45 | disposition hospice, home (50) | DRG 280 ==
LOC: EDBD 11:34 → ER 11:34 → TELE 17:57 → TELE-CENTR 09-20 21:00
PROVIDERS: ADMIT Registered Nurse; ATTEND Internal Medicine
DX: I11.0 Hypertensive heart disease with heart failure (principal); I21.A1 Myocardial infarction type 2; I50.31 Acute diastolic (congestive) heart failure; J18.9 Pneumonia, unspecified organism; J96.21 Acute and chronic respiratory failure with hypoxia; J44.0 Chronic obstructive pulmonary disease with (acute) lower respiratory infection; E87.6 Hypokalemia; E78.5 Hyperlipidemia, unspecified; E86.0 Dehydration; E86.1 Hypovolemia; F17.210 Nicotine dependence, cigarettes, uncomplicated; F31.9 Bipolar disorder, unspecified; G62.9 Polyneuropathy, unspecified; I25.10 Atherosclerotic heart disease of native coronary artery without angina pectoris; G89.29 Other chronic pain; M54.9 Dorsalgia, unspecified; M19.90 Unspecified osteoarthritis, unspecified site; Z20.822 Contact with and (suspected) exposure to COVID-19; Z98.61 Coronary angioplasty status; Z80.42 Family history of malignant neoplasm of prostate; Z71.6 Tobacco abuse counseling; Z68.23 Body mass index [BMI] 23.0-23.9, adult
CPT/HCPCS: 36415; 71045; 71275; 80048; 80053; 80061; 80307; 81001; 83605; 83735; 83880; 84132; 84443; 84484; 84520; 85025; 85379; 85610; 85730; 87040; 87081; 87426; 87804; 93005; 93970; 96361; 96365; 96367; 96368; 96372; 96375; 96376; 97110; 97116; 97163; 97530; G0378; J0696; P9047

== ENCOUNTER 2023-03-22 16:37 | Inpatient (IN) | payer MEDICARE, MEDICAID ==
[~2023-03-22] VITALS: Ht 182.9 cm; Wt 80.0 kg
[~2023-03-22 16:37] MED LIST changes: +AZIT500T66 PO; +MID10T PO
[2023-03-22 20:06] LABS: Basophils # (auto) 0.1 10 ^3/uL (0-0.2); Eosinophils # (auto) 0.5 10 ^3/uL (0-0.8); Eosinophils % (auto) 4.4 % (0.0-7.0); Hematocrit 50.6 % (41.0-53.0); Hemoglobin 16.9 g/dL (13.5-17.5); Lymphocytes # (auto) 3.2 10 ^3/uL (0.4-5.4); Lymphocytes % (auto) 27.5 % (10.0-50.0); Mean Corpuscular Hemoglobin 31.7 pg (28.0-32.0); Mean Corpuscular Hgb Conc. 33.5 g/dL (32.0-36.0); Mean Corpuscular Volume 94.7 fL (80.0-100.0); Monocytes # (auto) 1.3 10 ^3/uL (0-1.3); Monocytes % (auto) 11.5 % (0.0-12.0); Neutrophils # (auto) 6.4 10 ^3/uL (1.6-8.6); Neutrophils % (auto) 55.6 % (37.0-80.0); Nucleated Red Blood Cells % 0.1 %; Red Blood Cells 5.35 10^6/uL (4.5-5.90); Red Cell Distribution Width 15.1 % (11.8-14.3); White Blood Cell 11.6 10^3/uL (4.4-10.8)
[2023-03-22 20:10] LABS: Albumin 2.9 g/dL (3.4-5.0); Calcium 8.4 mg/dL (8.5-10.1); Potassium 4.3 mmol/L (3.5-5.1)
[2023-03-22 20:11] LABS: Lactic Acid w/Reflex 2.2 mmol/L (0.4-2.0)
[2023-03-22 20:13] LABS: BUN/Creatinine Ratio 8.7 (10.0-20.0); Bilirubin, Total 0.4 mg/dL (0.2-1.0); CRP High Sensitivity 0.48 mg/dL (< 0.3); Total Protein 8.2 g/dL (6.4-8.2)
[2023-03-22] MEDS ORDERED: HYDROcodone-ACET 5/325MG TAB PO ONE (21:30)
[2023-03-22] MEDS ORDERED: CLINDAMYCIN 900MG IV 50 ML IV ONE (21:45)
[2023-03-22] MEDS ORDERED: VANCOMYCIN PER PHARMACY 0 MG IV SCH (22:00)
[2023-03-22] MEDS ORDERED: ACETAMINOPHEN 325 MG TAB PO PRN (22:00)
[2023-03-22] MEDS ORDERED: TEMAZEPAM 15 MG CAP PO PRN (22:00)
[2023-03-22] MEDS ORDERED: ALBUTEROL SULF 2.5 MG/0.5ML(0.5%) NEB SOLN NEB PRN (22:00)
[2023-03-22] MEDS ORDERED: ONDANSETRON HCL 4 MG/2 ML VIAL IV PRN (22:00)
[2023-03-22] MEDS ORDERED: VANCOMYCIN 1GM/250ML 250 ML IV NR (23:00)
[2023-03-22 23:21] VITALS: BP 100/61
[2023-03-23] MEDS: ATORVASTATIN 20 MG TAB PO SCH ×2 (01:16→22:00)
[2023-03-23] MEDS: CLINDAMYCIN HCL 150 MG CAP PO SCH ×3 (06:50→22:00)
[2023-03-23 08:52] LABS: Basophils # (auto) 0.1 10 ^3/uL (0-0.2); Basophils % (auto) 0.9 % (0.0-2.0); Eosinophils # (auto) 0.3 10 ^3/uL (0-0.8); Eosinophils % (auto) 4.2 % (0.0-7.0); Hematocrit 44.4 % (41.0-53.0); Hemoglobin 14.9 g/dL (13.5-17.5); Lymphocytes # (auto) 2.5 10 ^3/uL (0.4-5.4); Lymphocytes % (auto) 31.1 % (10.0-50.0); Mean Corpuscular Hemoglobin 31.4 pg (28.0-32.0); Mean Corpuscular Hgb Conc. 33.5 g/dL (32.0-36.0); Mean Corpuscular Volume 93.7 fL (80.0-100.0); Monocytes # (auto) 1.1 10 ^3/uL (0-1.3); Monocytes % (auto) 14.3 % (0.0-12.0); Neutrophils % (auto) 49.5 % (37.0-80.0); Nucleated Red Blood Cells % 0.1 %; Red Blood Cells 4.74 10^6/uL (4.5-5.90); Red Cell Distribution Width 14.6 % (11.8-14.3)
[2023-03-23 09:01] LABS: Potassium 3.6 mmol/L (3.5-5.1)
[2023-03-23 09:11] LABS: Albumin 2.5 g/dL (3.4-5.0); BUN/Creatinine Ratio 11.2 (10.0-20.0); Bilirubin, Total 0.6 mg/dL (0.2-1.0); Calcium 8.1 mg/dL (8.5-10.1); Total Protein 6.7 g/dL (6.4-8.2)
[2023-03-23] MEDS ORDERED: ENOXAPARIN SOD 40 MG/0.4 ML SYRINGE SC SCH (10:00)
[2023-03-23] MEDS ORDERED: PANTOPRAZOLE 40 MG TAB PO SCH (10:00)
[2023-03-23] MEDS: CLOPIDOGREL BISULFATE 75 MG TAB PO SCH (10:55)
[2023-03-23] MEDS: ASPirin 81 mg TAB PO SCH (10:55)
[2023-03-23] MEDS: FUROSEMIDE 40 MG TAB PO SCH (10:56)
[2023-03-23] MEDS: ENOXAPARIN SOD 100 MG/1 ML SYRINGE SC SCH ×2 (10:58→22:01)
[2023-03-23 13:26] VITALS: BP 142/68
[2023-03-23] MEDS: HYDROcodone-ACET 5/325MG TAB PO PRN ×2 (15:33→20:01)
[2023-03-23 16:59] VITALS: BP 119/67
[2023-03-23 22:00] VITALS: BP 104/64
[2023-03-24] MEDS: HYDROcodone-ACET 5/325MG TAB PO PRN ×4 (02:35→21:44)
[2023-03-24 05:00] VITALS: BP 147/64
[2023-03-24] MEDS: CLINDAMYCIN HCL 150 MG CAP PO SCH ×3 (05:53→21:45)
[2023-03-24 08:00] VITALS: BP 156/71
[2023-03-24 09:05] VITALS: BP_SYST 103; BP_SYST 151; BP_SYST 156; BP_DIAS 70; BP_DIAS 71
[2023-03-24] MEDS: ASPirin 81 mg TAB PO SCH (10:19)
[2023-03-24] MEDS: CLOPIDOGREL BISULFATE 75 MG TAB PO SCH (10:20)
[2023-03-24] MEDS: FUROSEMIDE 40 MG TAB PO SCH (10:20)
[2023-03-24] MEDS: ENOXAPARIN SOD 100 MG/1 ML SYRINGE SC SCH ×2 (10:20→21:44)
[2023-03-24 12:27] VITALS: BP 129/70
[2023-03-24 16:00] VITALS: BP 101/66
[2023-03-24] MEDS: ATORVASTATIN 20 MG TAB PO SCH (21:44)
[2023-03-24 22:00] VITALS: BP 132/70
[2023-03-25 05:00] VITALS: BP 100/61
[2023-03-25] MEDS: CLINDAMYCIN HCL 150 MG CAP PO SCH ×3 (05:21→21:44)
[2023-03-25] MEDS: HYDROcodone-ACET 5/325MG TAB PO PRN ×3 (05:29→21:43)
[2023-03-25 09:02] VITALS: BP 122/71
[2023-03-25] MEDS: FUROSEMIDE 40 MG TAB PO SCH (10:18)
[2023-03-25] MEDS: ASPirin 81 mg TAB PO SCH (10:18)
[2023-03-25] MEDS: CLOPIDOGREL BISULFATE 75 MG TAB PO SCH (10:18)
[2023-03-25] MEDS: ENOXAPARIN SOD 100 MG/1 ML SYRINGE SC SCH (10:21)
[2023-03-25 12:26] VITALS: BP 107/62
[2023-03-25 17:13] VITALS: BP 90/45
[2023-03-25] MEDS: APIXABAN 5 MG TAB PO SCH ×2 (21:43→22:00)
[2023-03-25] MEDS: ATORVASTATIN 20 MG TAB PO SCH (21:44)
[2023-03-25 22:00] VITALS: BP 116/70
[2023-03-26 02:17] VITALS: BP 116/70
[2023-03-26 05:19] VITALS: BP 121/60
[2023-03-26] MEDS: CLINDAMYCIN HCL 150 MG CAP PO SCH ×2 (06:14→14:03)
[2023-03-26] MEDS: HYDROcodone-ACET 5/325MG TAB PO PRN ×2 (06:15→10:23)
[2023-03-26 08:00] VITALS: BP 131/71
[2023-03-26 09:00] VITALS: BP 131/71
[2023-03-26] MEDS: APIXABAN 5 MG TAB PO SCH ×2 (10:00→10:24)
[2023-03-26] MEDS: FUROSEMIDE 40 MG TAB PO SCH (10:22)
[2023-03-26] MEDS: CLOPIDOGREL BISULFATE 75 MG TAB PO SCH (10:22)
[2023-03-26] MEDS: ASPirin 81 mg TAB PO SCH (10:22)
[2023-03-26 12:37] VITALS: BP 116/68
[2023-03-26] MEDS ORDERED: APIX5TAB PO (14:18)
[2023-03-26] MEDS ORDERED: CLIN300C70 PO (14:18)
[2023-03-26 15:11] VITALS: BP 116/68
== END 2023-03-26 15:41 | disposition home or self-care (01) | DRG 300 ==
LOC: EDBD 16:37 → ER 16:42 → OVERFLOW 21:55 → WEST WING 03-23 13:30
PROVIDERS: ADMIT Nurse Practitioner; ATTEND Internal Medicine
DX: I82.432 Acute embolism and thrombosis of left popliteal vein (principal); E44.0 Moderate protein-calorie malnutrition; L03.115 Cellulitis of right lower limb; L03.116 Cellulitis of left lower limb; I11.0 Hypertensive heart disease with heart failure; J44.9 Chronic obstructive pulmonary disease, unspecified; I50.9 Heart failure, unspecified; F17.210 Nicotine dependence, cigarettes, uncomplicated; G89.29 Other chronic pain; Z90.81 Acquired absence of spleen; Z68.23 Body mass index [BMI] 23.0-23.9, adult
CPT/HCPCS: 36415; 71045; 80053; 83605; 83880; 85025; 85652; 86141; 87040; 87081; 93970; G0378; J3490

== ENCOUNTER 2024-02-10 15:51 | Inpatient (IN) | payer MEDICARE, MEDICAID ==
[~2024-02-10] VITALS: Ht 180.3 cm; Wt 96.0 kg
[~2024-02-10 15:51] MED LIST changes: +APIX5TAB PO; +CLIN1CAP70 PO
[2024-02-10 16:10] VITALS: PULSE 84; RESP 17; O2SAT 92
[2024-02-10 16:58] LABS: Base Excess 5.9 mmol/L (-2.0-2.0)
[2024-02-10 18:08] LABS: Basophils # (auto) 0.1 10 ^3/uL (0-0.2); Basophils % (auto) 0.5 % (0.0-2.0); Eosinophils # (auto) 0.1 10 ^3/uL (0-0.8); Eosinophils % (auto) 0.3 % (0.0-7.0); Hematocrit 48.1 % (41.0-53.0); Lymphocytes # (auto) 2.1 10 ^3/uL (0.4-5.4); Mean Corpuscular Hemoglobin 30.7 pg (28.0-32.0); Mean Corpuscular Hgb Conc. 33.3 g/dL (32.0-36.0); Mean Corpuscular Volume 92.2 fL (80.0-100.0); Monocytes # (auto) 1.2 10 ^3/uL (0-1.3); Monocytes % (auto) 6.1 % (0.0-12.0); Neutrophils # (auto) 15.8 10 ^3/uL (1.6-8.6); Neutrophils % (auto) 82.1 % (37.0-80.0); Red Blood Cells 5.22 10^6/uL (4.5-5.90); Red Cell Distribution Width 14.3 % (11.8-14.3); White Blood Cell 19.2 10^3/uL (4.4-10.8)
[2024-02-10 18:25] LABS: Alanine Aminotransferase 38 U/L (7-40); Albumin 4.3 g/dL (3.2-4.8); Alkaline Phosphatase 96 U/L (46-116); Anion Gap 8 (5-15); Aspartate Aminotransferase 39 U/L (13-40); BUN/Creatinine Ratio 7.8 (10.0-20.0); Bilirubin, Total 0.7 mg/dL (0.2-1.0); Blood Urea Nitrogen 10 mg/dL (9-23); Calcium 9.1 mg/dL (8.7-10.4); Carbon Dioxide 34 mmol/L (20-30); Chloride 97 mmol/L (98-107); Glucose 118 mg/dL (74-106); Lipase 55 U/L (12-53); Potassium 2.6 mmol/L (3.5-5.1); Sodium 139 mmol/L (136-145); Total Protein 7.8 g/dL (5.7-8.2)
[2024-02-10 19:30] VITALS: PULSE 71; RESP 18; O2SAT 91
[2024-02-10] MEDS: POTASSIUM CHL 20MEQ/100ML 100 ML IV SCH (20:44)
[2024-02-10] MEDS ORDERED: ONDANSETRON HCL 4 MG/2 ML VIAL IV PRN (22:45)
[2024-02-10] MEDS ORDERED: DOCUSATE SOD 100 MG CAP PO PRN (22:45)
[2024-02-10 23:44] VITALS: O2SAT 93
[2024-02-10 23:45] VITALS: BP 111/68; PULSE 82; RESP 20; TEMP 98; O2SAT 93
[2024-02-10] MEDS: cefTRIAXone 1GM/50ML D5W 50 ML IV ONE (23:48)
[2024-02-11] MEDS ORDERED: NITROGLYCERIN 0.4 MG SL TAB SL PRN
[2024-02-11] MEDS ORDERED: MORPHINE SULFATE INJ 2 MG/ml SYRG IV PRN
[2024-02-11 03:08] LABS: Urine Bacteria FEW /hpf (None Seen); Urine Blood Negative /uL (Negative); Urine Clarity Turbid (Clear); Urine Color Yellow (Yellow); Urine Hyaline Cast FEW /lpf (0 - 2); Urine Mucus FEW (None Seen); Urine Protein, UAD Negative (Negative); Urine Specific Gravity 1.012 (1.001-1.035); Urine Urobilinogen Normal (Negative); Urine WBC 2 /hpf (0 - 3)
[2024-02-11] MEDS: ACETAMINOPHEN 325 MG TAB PO PRN (05:44)
[2024-02-11] MEDS: SODIUM CHLOR 0.9% PF (SALINE LOCK) 10ML VIAL/SYR IV SCH (06:13)
[2024-02-11 06:16] LABS: Hematocrit 44.7 % (41.0-53.0); Hemoglobin 14.8 g/dL (13.5-17.5); Mean Corpuscular Hemoglobin 30.9 pg (28.0-32.0); Mean Corpuscular Hgb Conc. 33.2 g/dL (32.0-36.0); Mean Corpuscular Volume 93.1 fL (80.0-100.0); Red Blood Cells 4.81 10^6/uL (4.5-5.90); Red Cell Distribution Width 14.6 % (11.8-14.3); White Blood Cell 24.8 10^3/uL (4.4-10.8)
[2024-02-11 06:34] LABS: Alanine Aminotransferase 33 U/L (7-40); Albumin 3.5 g/dL (3.2-4.8); Alkaline Phosphatase 82 U/L (46-116); Anion Gap 8 (5-15); Aspartate Aminotransferase 48 U/L (13-40); BUN/Creatinine Ratio 11.5 (10.0-20.0); Blood Urea Nitrogen 11 mg/dL (9-23); Calcium 8.3 mg/dL (8.7-10.4); Carbon Dioxide 28 mmol/L (20-30); Chloride 103 mmol/L (98-107); Glucose 107 mg/dL (74-106); Potassium 2.6 mmol/L (3.5-5.1); Sodium 139 mmol/L (136-145)
[2024-02-11 06:35] LABS: Total Protein 6.5 g/dL (5.7-8.2)
[2024-02-11 07:06] LABS: Basophils % (manual) 0 (0.0-2.0); Blast Cells 0; Eosinophils % (manual) 0 (0-7); Metamyelocytes % 0; Myelocytes % 0; Promyelocytes % 0; Reactive Lymphocytes 0
[2024-02-11 08:00] VITALS: PULSE 82; RESP 15; O2SAT 93
[2024-02-11] MEDS: POTASSIUM CHL 20MEQ/100ML 100 ML IV SCH ×2 (08:12→15:53)
[2024-02-11 08:31] LABS: Band Neutrophils % (manual) 17; Lymphocytes % (manual) 5 (10.0-50.0); Monocytes % (manual) 8 (0-12)
[2024-02-11 08:32] LABS: Platelet Estimate Adequate
[2024-02-11] MEDS: APIXABAN 5 MG TAB PO SCH (10:45)
[2024-02-11 10:52] VITALS: O2SAT 92
[2024-02-11] MEDS ORDERED: VANCOMYCIN PER PHARMACY 0 MG IV SCH (13:45)
[2024-02-11] MEDS ORDERED: VANCOMYCIN 1GM/200ML 200 ML IV ONE (13:45)
[2024-02-11] MEDS ORDERED: POTASSIUM CHL 20MEQ/100ML 100 ML IV SCH (13:45)
[2024-02-11] MEDS: VANCOMYCIN 1GM/200ML 200 ML IV SCH (14:42)
[2024-02-11 20:47] VITALS: BP 116/72; PULSE 82; RESP 16; TEMP 99.3; O2SAT 98
[2024-02-11 21:00] VITALS: BP 84/46; PULSE 82; RESP 16; TEMP 100.4; O2SAT 91
[2024-02-11] MEDS: ATORVASTATIN 20 MG TAB PO SCH (21:13)
[2024-02-11] MEDS: cefTRIAXone 1GM/50ML D5W 50 ML IV SCH (21:15)
[2024-02-11 23:56] VITALS: BP 116/72; PULSE 82; TEMP 99.3; O2SAT 98
[2024-02-12] VITALS (10 sets, daily range): BP systolic 95–137; BP diastolic 61–81; PULSE 42–91; RESP 17–20; TEMP 98–99.3; O2SAT 91–96
[2024-02-12] MEDS ORDERED: DICL1GEL73 TD (00:53)
[2024-02-12] MEDS ORDERED: ATOR-47 PO (00:53)
[2024-02-12] MEDS ORDERED: POTA-36 PO (00:53)
[2024-02-12] MEDS ORDERED: NITR0.4S29 SL (00:53)
[2024-02-12 05:55] LABS: Basophils # (auto) 0 10 ^3/uL (0-0.2); Basophils % (auto) 0.1 % (0.0-2.0); Eosinophils # (auto) 0.5 10 ^3/uL (0-0.8); Eosinophils % (auto) 2.7 % (0.0-7.0); Hematocrit 40.8 % (41.0-53.0); Hemoglobin 13.5 g/dL (13.5-17.5); Lymphocytes % (auto) 4.9 % (10.0-50.0); Mean Corpuscular Hemoglobin 31.2 pg (28.0-32.0); Mean Corpuscular Hgb Conc. 33.1 g/dL (32.0-36.0); Mean Corpuscular Volume 94.1 fL (80.0-100.0); Neutrophils % (auto) 87.3 % (37.0-80.0); Nucleated Red Blood Cells % 0.1 %; Red Blood Cells 4.33 10^6/uL (4.5-5.90); Red Cell Distribution Width 14.9 % (11.8-14.3); White Blood Cell 19.5 10^3/uL (4.4-10.8)
[2024-02-12 07:24] LABS: Alanine Aminotransferase 27 U/L (7-40); Albumin 3.3 g/dL (3.2-4.8); Alkaline Phosphatase 71 U/L (46-116); Anion Gap 9 (5-15); Aspartate Aminotransferase 45 U/L (13-40); BUN/Creatinine Ratio 15.8 (10.0-20.0); Bilirubin, Total 0.6 mg/dL (0.2-1.0); Blood Urea Nitrogen 12 mg/dL (9-23); Calcium 8.7 mg/dL (8.5-10.1); Carbon Dioxide 22 mmol/L (20-30); Chloride 108 mmol/L (98-107); Glucose 92 mg/dL (74-106); Potassium 3.7 mmol/L (3.5-5.1); Sodium 139 mmol/L (136-145)
[2024-02-12] MEDS: HYDROcodone-ACET 5/325MG TAB PO PRN (09:34)
[2024-02-12] MEDS: ALBUTEROL SULF 2.5 MG/0.5ML(0.5%) NEB SOLN NEB PRN (15:41)
[2024-02-12] MEDS: IPRATROPIUM BROM 0.5 MG/2.5ML INH SOL NEB PRN (15:41)
[2024-02-12 18:10] LABS: COVID19 ANTIGEN SOFIA FIA NEGATIVE (NEGATIVE); Rapid Influenza A Negative (Negative); Rapid Influenza B Negative (Negative)
[2024-02-13] VITALS (10 sets, daily range): BP systolic 98–152; BP diastolic 58–83; PULSE 75–93; RESP 18–21; TEMP 97.1–99.1; O2SAT 90–96
[2024-02-13 06:47] LABS: Basophils # (auto) 0 10 ^3/uL (0-0.2); Basophils % (auto) 0.3 % (0.0-2.0); Eosinophils # (auto) 0.6 10 ^3/uL (0-0.8); Eosinophils % (auto) 3.8 % (0.0-7.0); Hematocrit 41.7 % (41.0-53.0); Hemoglobin 13.5 g/dL (13.5-17.5); Lymphocytes # (auto) 1.5 10 ^3/uL (0.4-5.4); Lymphocytes % (auto) 10.3 % (10.0-50.0); Mean Corpuscular Hemoglobin 30.5 pg (28.0-32.0); Mean Corpuscular Hgb Conc. 32.4 g/dL (32.0-36.0); Mean Corpuscular Volume 94.1 fL (80.0-100.0); Monocytes # (auto) 1.3 10 ^3/uL (0-1.3); Monocytes % (auto) 9.1 % (0.0-12.0); Neutrophils # (auto) 11.3 10 ^3/uL (1.6-8.6); Neutrophils % (auto) 76.5 % (37.0-80.0); Red Blood Cells 4.43 10^6/uL (4.5-5.90); Red Cell Distribution Width 14.6 % (11.8-14.3); White Blood Cell 14.8 10^3/uL (4.4-10.8)
[2024-02-13 07:45] LABS: Alanine Aminotransferase 25 U/L (7-40); Albumin 3.4 g/dL (3.2-4.8); Alkaline Phosphatase 72 U/L (46-116); Anion Gap 7 (5-15); Aspartate Aminotransferase 38 U/L (13-40); BUN/Creatinine Ratio 14.7 (10.0-20.0); Blood Urea Nitrogen 10 mg/dL (9-23); Calcium 8.8 mg/dL (8.5-10.1); Carbon Dioxide 24 mmol/L (20-30); Chloride 106 mmol/L (98-107); Glucose 83 mg/dL (74-106); Potassium 3.5 mmol/L (3.5-5.1); Sodium 137 mmol/L (136-145)
[2024-02-13 07:46] LABS: Bilirubin, Total 0.6 mg/dL (0.2-1.0)
[2024-02-13] MEDS: GABAPENTIN 100 MG CAP PO SCH (14:48)
[2024-02-13] MEDS ORDERED: LORazepam 2MG/ML-1ML VIAL IV PRN (23:00)
[2024-02-14] VITALS (8 sets, daily range): BP systolic 94–169; BP diastolic 54–102; PULSE 69–102; RESP 16–20; TEMP 97–98.6; O2SAT 90–100
[2024-02-14 06:54] LABS: Basophils # (auto) 0 10 ^3/uL (0-0.2); Basophils % (auto) 0.5 % (0.0-2.0); Eosinophils # (auto) 0.6 10 ^3/uL (0-0.8); Hematocrit 39.4 % (41.0-53.0); Hemoglobin 13.2 g/dL (13.5-17.5); Lymphocytes % (auto) 20.1 % (10.0-50.0); Mean Corpuscular Hemoglobin 31.2 pg (28.0-32.0); Mean Corpuscular Hgb Conc. 33.6 g/dL (32.0-36.0); Mean Corpuscular Volume 92.9 fL (80.0-100.0); Monocytes # (auto) 1.3 10 ^3/uL (0-1.3); Monocytes % (auto) 13.8 % (0.0-12.0); Neutrophils # (auto) 5.8 10 ^3/uL (1.6-8.6); Neutrophils % (auto) 59.6 % (37.0-80.0); Nucleated Red Blood Cells % 0.1 %; Red Blood Cells 4.24 10^6/uL (4.5-5.90); Red Cell Distribution Width 14.2 % (11.8-14.3); White Blood Cell 9.7 10^3/uL (4.4-10.8)
[2024-02-14 07:23] LABS: Alanine Aminotransferase 23 U/L (7-40); Albumin 3.3 g/dL (3.2-4.8); Alkaline Phosphatase 65 U/L (46-116); Anion Gap 5 (5-15); Aspartate Aminotransferase 27 U/L (13-40); BUN/Creatinine Ratio 20.3 (10.0-20.0); Blood Urea Nitrogen 12 mg/dL (9-23); Calcium 8.6 mg/dL (8.7-10.4); Carbon Dioxide 27 mmol/L (20-30); Chloride 106 mmol/L (98-107); Glucose 91 mg/dL (74-106); Sodium 138 mmol/L (136-145)
[2024-02-14 07:24] LABS: Total Protein 5.9 g/dL (5.7-8.2)
[2024-02-14 07:26] LABS: Bilirubin, Total 0.6 mg/dL (0.2-1.0); Free T4 (Free Thyroxine) 1.24 ng/dL (0.89-1.76)
[2024-02-14 07:45] LABS: Folate (Folic Acid) 8.66 ng/mL (>5.38)
[2024-02-14] MEDS: FUROSEMIDE 40 MG TAB PO SCH (10:00)
[2024-02-14] MEDS: OLANZapine 5 MG TAB PO SCH (11:00)
[2024-02-14] MEDS: POTASSIUM EFFERVESENT TAB 25 MEQ PO ONE (12:56)
[2024-02-14] MEDS: NICOTINE 21MG/24 HR TOPICAL PATCH TD ONE (15:27)
[2024-02-14] MEDS: POTASSIUM EFFERVESENT TAB 25 MEQ PO SCH (18:40)
[2024-02-15] VITALS (8 sets, daily range): BP systolic 107–160; BP diastolic 66–82; PULSE 76–86; RESP 18–20; TEMP 97.8–98.4; O2SAT 92–95
[2024-02-15 06:23] LABS: Basophils # (auto) 0.1 10 ^3/uL (0-0.2); Basophils % (auto) 0.7 % (0.0-2.0); Eosinophils # (auto) 0.5 10 ^3/uL (0-0.8); Eosinophils % (auto) 4.4 % (0.0-7.0); Hematocrit 40.8 % (41.0-53.0); Hemoglobin 13.6 g/dL (13.5-17.5); Lymphocytes # (auto) 2.4 10 ^3/uL (0.4-5.4); Lymphocytes % (auto) 22.6 % (10.0-50.0); Mean Corpuscular Hgb Conc. 33.4 g/dL (32.0-36.0); Mean Corpuscular Volume 92.8 fL (80.0-100.0); Monocytes # (auto) 1.4 10 ^3/uL (0-1.3); Monocytes % (auto) 13.4 % (0.0-12.0); Neutrophils # (auto) 6.4 10 ^3/uL (1.6-8.6); Neutrophils % (auto) 58.9 % (37.0-80.0); Nucleated Red Blood Cells % 0.1 %; Red Blood Cells 4.39 10^6/uL (4.5-5.90); Red Cell Distribution Width 14.3 % (11.8-14.3); White Blood Cell 10.8 10^3/uL (4.4-10.8)
[2024-02-15 06:37] LABS: Alanine Aminotransferase 21 U/L (7-40); Alkaline Phosphatase 66 U/L (46-116); Anion Gap 4 (5-15); Aspartate Aminotransferase 25 U/L (13-40); BUN/Creatinine Ratio 20.7 (10.0-20.0); Blood Urea Nitrogen 12 mg/dL (9-23); Calcium 8.7 mg/dL (8.7-10.4); Carbon Dioxide 27 mmol/L (20-30); Chloride 107 mmol/L (98-107); Glucose 92 mg/dL (74-106); Potassium 3.3 mmol/L (3.5-5.1); Sodium 138 mmol/L (136-145)
[2024-02-15 06:38] LABS: Albumin 3.3 g/dL (3.2-4.8); Bilirubin, Total 0.3 mg/dL (0.2-1.0); Total Protein 6.2 g/dL (5.7-8.2)
[2024-02-15] MEDS: NICOTINE 21MG/24 HR TOPICAL PATCH TD SCH (09:36)
[2024-02-15 13:17] LABS: INR 1.06 (0.9-1.15); Partial Thromboplastin Time 27.4 SEC (24.5-34.5); Prothrombin Time 11.2 sec (9.3-11.8)
[2024-02-15] MEDS: LIDOCAINE 1% (LOCAL ANESTH.) PF 5ml SDV ID ONE (15:15)
[2024-02-15] MEDS ORDERED: SODIUM CHLOR 0.9% PF (SALINE LOCK) 10ML VIAL/SYR IV SCH (22:00)
== END 2024-02-15 19:00 | DRG 871 ==
LOC: EDBD 15:51 → ER 15:51 → TELE 02-11 → TELE-WESTW 02-11 20:15
PROVIDERS: ADMIT Nurse Practitioner Family; ATTEND Family Medicine
PROC: 4A00X4Z Measurement of Central Nervous Electrical Activity, External Approach (ICD-10-PCS; principal; 2024-02-14)
PROC: 02H633Z Insertion of Infusion Device into Right Atrium, Percutaneous Approach (ICD-10-PCS; 2024-02-15)
DX: A41.9 Sepsis, unspecified organism (principal); G93.41 Metabolic encephalopathy; R65.21 Severe sepsis with septic shock; J69.0 Pneumonitis due to inhalation of food and vomit; J18.9 Pneumonia, unspecified organism; J44.1 Chronic obstructive pulmonary disease with (acute) exacerbation; F02.83 Dementia in other diseases classified elsewhere, unspecified severity, with mood disturbance; J44.0 Chronic obstructive pulmonary disease with (acute) lower respiratory infection; I50.32 Chronic diastolic (congestive) heart failure; I11.0 Hypertensive heart disease with heart failure; Z20.822 Contact with and (suspected) exposure to COVID-19; E87.6 Hypokalemia; D72.829 Elevated white blood cell count, unspecified; E78.00 Pure hypercholesterolemia, unspecified; F32.A Depression, unspecified; K40.20 Bilateral inguinal hernia, without obstruction or gangrene, not specified as recurrent; N20.0 Calculus of kidney; I48.91 Unspecified atrial fibrillation; G62.9 Polyneuropathy, unspecified; G30.9 Alzheimer's disease, unspecified; F17.210 Nicotine dependence, cigarettes, uncomplicated; Z79.01 Long term (current) use of anticoagulants; Z79.899 Other long term (current) drug therapy; Z80.42 Family history of malignant neoplasm of prostate; Z82.49 Family history of ischemic heart disease and other diseases of the circulatory system; Z90.81 Acquired absence of spleen
CPT/HCPCS: 36415; 36600; 70450; 70551; 71045; 74176; 80053; 80202; 81001; 82140; 82607; 82746; 82805; 83690; 83735; 83880; 84132; 84439; 84443; 84484; 85007; 85025; 85027; 85610; 85730; 87040; 87086; 87426; 87804; 93005; 93306; 94640; 95819; 96365; 96366; 96368; 97163; G0378; J3480

== ENCOUNTER 2024-10-15 23:28 | Inpatient (IN) | payer MEDICARE, MEDICAID ==
[~2024-10-15] VITALS: Ht 180.3 cm; Wt 78.2 kg
[~2024-10-15 23:28] MED LIST changes: -APIX5TAB PO; -ASPI-543 PO; -ASPI1TAB20 PO; +ATOR-47 PO; -ATOR20TA PO; -ATOR20TA50 PO; -AZIT500T66 PO; -CLIN1CAP70 PO; -CLOP75TA28 PO; +DICL1GEL73 TD; -FLUT110A INH; -IPRIH IA; -MID10T PO; +NITR0.4S29 SL; -PERCOT PO; +POTA-36 PO; -PREG100C PO; -QUET100T38 PO; -SENN1TAB14 PO; -TRAM50TA2 PO
[2024-10-15 23:45] VITALS: RESP 22; O2SAT 94
--- NOTE | 2024-10-15 23:49 | ECG ---
[facility] Test Date: 2024-10-15 Test Time: 23:32:12 Pat Name: ELVIS SHARMA Department: ED Room: 0274T Gender: M Teaching Fellow: MANDEEP : 1950 Requested By: EMERGENCY EMERGENCY Order Number: [id number] Reading MD: Sean Beverly Measurements Intervals [place] Rate: 89 P: 30 OK: 160 QRS: 20 QRSD: 93 T: 32 QT: 436 QTc: 531 Interpretive Statements Sinus rhythm Low voltage, precordial leads Minimal ST depression, diffuse leads Prolonged QT interval Electronically Signed On 10-21-2024 15:11:57 PST by Sean Beverly Please click the below link to view image of tracing.
[2024-10-16] VITALS (36 sets, daily range): BP systolic 96–122; BP diastolic 59–85; PULSE 75–156; RESP 14–35; TEMP 97.7–97.9; O2SAT 85–100
[2024-10-16 00:16] LABS: Urine Bacteria None Seen /hpf (None Seen)
[2024-10-16] MEDS: SODIUM CHLORIDE 0.9% 1,000 ML IV ONE ×3 (00:29→02:04)
[2024-10-16] MEDS: ALBUTEROL SULF 2.5 MG/0.5ML(0.5%) NEB SOLN NEB ONE (00:38)
[2024-10-16] MEDS: IPRATROPIUM BROM 0.5 MG/2.5ML INH SOL NEB ONE ×2 (00:39→04:09)
[2024-10-16 00:43] LABS: Base Excess -4.4 mmol/L (-2.0-3.0)
[2024-10-16 00:44] LABS: Urine Blood Negative /uL (Negative); Urine Clarity Clear (Clear); Urine Color Yellow (Yellow); Urine Hyaline Cast FEW /lpf (0 - 2); Urine Protein, UAD Negative (Negative); Urine Specific Gravity 1.018 (1.001-1.035); Urine Squamous Epithelial Cell FEW /hpf (<5); Urine Urobilinogen 2 mg/dL (Negative); Urine WBC 1 /hpf (0 - 3)
[2024-10-16 00:54] LABS: Hematocrit 30.6 % (41.0-53.0); Hemoglobin 10.1 g/dL (13.5-17.5); Mean Corpuscular Hemoglobin 31.4 pg (28.0-32.0); Mean Corpuscular Hgb Conc. 33.2 g/dL (32.0-36.0); Mean Corpuscular Volume 94.6 fL (80.0-100.0); Platelet Count (auto) 385 10^3/uL (140-450); Red Blood Cells 3.24 10^6/uL (4.5-5.90); Red Cell Distribution Width 14.5 % (11.8-14.3); White Blood Cell 26.3 10^3/uL (4.4-10.8)
[2024-10-16 00:58] LABS: Basophils % (manual) 0 (0.0-2.0); Blast Cells 0; Eosinophils % (manual) 0 (0-7); Metamyelocytes % 0; Myelocytes % 0; Promyelocytes % 0; Reactive Lymphocytes 0
--- NOTE | 2024-10-16 01:04 | ED.PDOC ---
History of Present Illness HPI Comments 74 M presents via EMS after he slipped and fell and couldnt get up. He is reporting shortness of breath ongoing for a long time. He has redness and swelling of the left ankle which she states is also ongoing for a long time. Patient is a poor historian. Patient's past medical history of COPD, smoking and diabetes. Per EMS He is found to be 70% on room air by EMS he was started on 15 L non-rebreather mask. He was found to be hypotensive with a blood pressure 63/44. Chief Complaint: Shortness of Breath Time Seen by MD: 00:24 Primary Care Provider: UNKNOWN Allergies: Coded Allergies: NO KNOWN ALLERGIES (Unverified , 03/22/23) Home Meds Reported Medications Diclofenac Sodium (Topical) (Diclofenac Sodium) 1 % Gel, 1 % TD DAILY, GEL 02/12/24 Atorvastatin Calcium (ATORVASTATIN CALCIUM) 80 Mg Tab, 80 MG PO HS, TAB 02/12/24 Nitroglycerin (NTROSTAT SUBLINGUAL) 0.4 Mg Sl, 0.4 MG SL PRN PRN for FOR CHEST PAIN, TAB *MAY REPEAT EVERY 5 MINUTES X 3 TOTAL IF NO RELIEF, INITIATE ANALGESIC THERAPY. NOTIFY PHYSICIAN *Do not crush. 02/12/24 Potassium Chloride (POTASSIUM CHLORIDE CR) 10 Meq Tb, 10 MEQ PO BID, TAB 02/12/24 Divalproex Sodium (Divalproex Sodium Dr) 250 Mg Tab, 1 TAB PO TID, TAB 08/23/22 Olanzapine (OLANZAPINE) 5 Mg Tab, 1 TAB PO DAILY 08/21/22 Fluoxetine Hcl (Fluoxetine Hcl) 10 Mg Tab, 1 TAB PO DAILY 08/21/22 Furosemide (Furosemide) 40 Mg Tab, 1 TAB PO DAILY 08/21/22 Gabapentin (Gabapentin) 100 Mg Cap, 1 CAP PO TID 08/21/22 Mode of Arrival: EMS Review of Systems: As stated in HPI Vital Signs Vital Signs Date Time Temp Pulse Resp B/P (MAP) Pulse Ox O2 Delivery O2 Flow Rate FiO2 10/16/24 02:30 87 15 73/46 (55) 89 10/16/24 00:46 Nasal Cannula* 2 28 10/15/24 23:42 97.7 97.7 Physical Exam General: Awake, alert and oriented. No acute distress. Skin: Skin in warm, dry and intact. Appropriate color for ethnicity. Nailbeds pink with no cyanosis. HEENT: The head is normocephalic and atraumatic. Conjunctivae are clear without exudates or hemorrhage. Sclera is non-icteric. EOM are intact. No signs of nystagmus. Eyelids are normal in appearance without swelling or lesions. Oral mucosa is pink and moist Neck: The neck is supple with normal range of motion. No JVD. Cardiac: Heart rate and rhythm are normal. No murmurs, gallops, or rubs are auscultated. Respiratory: Nasal cannula in place, wheezes in rhonchi noted next. Abdominal: Abdomen is soft, non-tender without distention. Bowel sounds are pre sent and normoactive in all four quadrants. Extremities: Left lower extremity edematous, erythematous, tender with multiple overlying ulcerations Neurological: The patient is awake, alert and oriented to person, place, and time with normal speech. Speech is clear. There is no facial asymmetry. Psychiatric: Appropriate mood and affect. Good judgement and insight. No visual or auditory hallucinations. Past Medical History PAST MEDICAL HISTORY: Arthritis, CHF, COPD, HTN Surgical History: Tonsillectomy Family History Family History: Reviewed,noncontributory to illness Social History Smoker: Cigarettes, Less Than 1 Pack/Day Alcohol: Denies ETOH Use Drugs: Denies Drug Use Lives In: Home Was a procedure done? Was a procedure done?: No Differential Dx Considerations may include: Differential diagnoses considered includebut arenot limited to acute Bronchitis, Asthma, COPD, Pneumothorax, PE, CHF, Pulmonary HTN, Anemia, CO Poisoning, Methemoglobinemia, Hyperventilation, Metabolic Acidosis, Pulmonary Edema, Pneumonia, ACS, Pericardial Tamponade, Anxiety, other X-Ray, Labs, Meds, VS Vital Signs Date Time Temp Pulse Resp B/P (MAP) Pulse Ox O2 Delivery O2 Flow Rate FiO2 10/16/24 02:30 87 15 73/46 (55) 89 10/16/24 02:15 80 15 87/47 (60) 92 10/16/24 02:00 96 15 95/52 (66) 93 10/16/24 01:00 86 15 92/42 (59) 93 10/16/24 00:46 20 92 Nasal Cannula* 2 28 10/16/24 00:00 95 15 109/92 (98) 91 10/15/24 23:45 22 94 Nasal Cannula* 2 10/15/24 23:42 97.7 88 17 74/39 (51) 100 97.7 10/15/24 23:42 97.7 90 18 63/44 (50) 96 10/15/24 23:40 20 94 Nasal Cannula* 2 10/15/24 23:32 89 Lab Test 10/16/24 02:26 10/16/24 00:36 10/16/24 00:32 10/16/24 00:20 Range/Units Lactic Acid Level 2.0 3.7 *H 0.4-2.0 mmol/L Blood Gas Specimen Type Arterial Blood Gas Sample Site Right radial Blood Gas Patient Temperature 37.0 Arterial Blood Date Drawn [id number] Arterial Blood pH 7.370 7.350-7.450 Arterial Blood Partial Pressure CO2 35.9 35.0-48.0 mmHg Arterial Blood Partial Pressure O2 54.1 *L 83.0-108.0 mmHg Arterial Blood HCO3 20.3 L 21.0-28.0 mmol/L Arterial Blood Oxygen Saturation 83.8 *L 94.0-98.0 % Arterial Blood Base Excess -4.4 L -2.0-3.0 mmol/L Arterial Blood Oxyhemoglobin 81.8 L 94.0-98.0 % Arterial Blood Carboxyhemoglobin 2.2 H 0.5-1.5 % Arterial Blood Methemoglobin 0.2 0.0-1.5 % Jony Test Yes Blood Gas Total Hemoglobin 10.40 L 13.5-17.5 g/dL Blood Gas Liter Flow 2.00 Blood Gas Modality Nasal cannula Blood Gas Spontaneous Rate 18 FiO2 % 28.0 Specimen Drawn By Kylie brady Blood Gas Critical Value Read Back Yes Blood Gas Notified Whom ilan Venegas md Blood Gas Notified Time [id number] Blood Gas Notified By Kylie bolton rt White Blood Count 26.3 H 4.4-10.8 10^3/uL Red Blood Count 3.24 L 4.5-5.90 10^6/uL Hemoglobin 10.1 L 13.5-17.5 g/dL Hematocrit 30.6 L 41.0-53.0 % Mean Corpuscular Volume 94.6 80.0-100.0 fL Mean Corpuscular Hemoglobin 31.4 28.0-32.0 pg Mean Corpuscular Hemoglobin Concent 33.2 32.0-36.0 g/dL Red Cell Distribution Width 14.5 H 11.8-14.3 % Platelet Count 385 140-450 10^3/uL Mean Platelet Volume 7.8 6.9-10.8 fL Neutrophils (%) (Auto) 37.0-80.0 % Lymphocytes (%) (Auto) 10.0-50.0 % Monocytes (%) (Auto) 0.0-12.0 % Basophils (%) (Auto) 0.0-2.0 % Neutrophils # (Auto) 1.6-8.6 10 ^3/uL Lymphocytes # (Auto) 0.4-5.4 10 ^3/uL Monocytes # (Auto) 0-1.3 10 ^3/uL Differential Total Cells Counted 100.0 100 Neutrophils % (Manual) 71 37.0-80.0 Band Neutrophils % (Manual) 14 Lymphocytes % (Manual) 11 10.0-50.0 Monocytes % (Manual) 4 0-12 Eosinophils % (Manual) 0 0-7 Basophils % (Manual) 0 0.0-2.0 Metamyelocytes % (manual) 0 Myelocytes % (Manual) 0 Promyelocytes % (Manual) 0 Blast Cells % (Manual) 0 Reactive Lymphocytes 0 Platelet Estimate Adequate Anisocytosis (manual) Slight Ranjit Cells Few Schistocytes Few Sodium Level 137 136-145 mmol/L Potassium Level 3.9 3.5-5.1 mmol/L Chloride Level 104 98-107 mmol/L Carbon Dioxide Level 21 20-31 mmol/L Anion Gap 12 5-15 Blood Urea Nitrogen 45 H 9-23 mg/dL Creatinine 1.37 H 0.700-1.30 mg/dL Glomerular Filtration Rate Calc 54 >90 mL/min BUN/Creatinine Ratio 32.8 H 10.0-20.0 Serum Glucose 94 74-106 mg/dL Calcium Level 8.7 8.7-10.4 mg/dL Total Bilirubin 0.4 0.2-1.0 mg/dL Aspartate Amino Transferase (AST) 89 H 13-40 U/L Alanine Aminotransferase (ALT) 25 7-40 U/L Alkaline Phosphatase 70 46-116 U/L B-Type Natriuretic Peptide 511.92 0-100 pg/mL Total Protein 5.9 5.7-8.2 g/dL Albumin 3.2 3.2-4.8 g/dL Urine Creatinine 80.29 30.0-125.0 mg/dL Urine Sodium 14 L 40-220 mmol/L Urine Opiates Screen Pos NEGATIVE Urine Fentanyl Screen Neg NEGATIVE Urine Barbiturates Screen Neg NEGATIVE Urine Phencyclidine Screen Neg NEGATIVE Urine Amphetamines Screen Neg NEGATIVE Urine Benzodiazepines Screen Neg NEGATIVE Urine Cocaine Screen Neg NEGATIVE Urine Cannabinoids Screen Neg NEGATIVE Test 10/16/24 00:00 Range/Units Urine Color Yellow Yellow Urine Clarity Clear Clear Urine pH 5.0 5.0-9.0 Urine Specific [place] 1.018 1.001-1.035 Urine Protein Negative Negative Urine Ketones Negative Negative Urine Blood Negative Negative /uL Urine Nitrite Negative Negative Urine Bilirubin Negative Negative Urine Urobilinogen 2 H Negative mg/dL Urine Leukocyte Esterase Negative Negative /uL Urine RBC 3 0 - 3 /hpf Urine WBC 1 0 - 3 /hpf Urine Squamous Epithelial Cells Few <5 /hpf Urine Bacteria None seen None Seen /hpf Urine Hyaline Casts Few 0 - 2 /lpf Urine Glucose Normal Normal mg/dL Current Medications Medications (Trade) Dose Ordered Sig/Roseanna Route Start Time Stop Time Status Last Admin Sodium Chloride 1,000 ml @ 1,000 mls/hr Q1H ONCE IV 10/16/24 00:30 10/16/24 01:29 DC 10/16/24 00:29 Albuterol (Ventolin Medneb) 2.5 mg ONCE ONCE NEB 10/16/24 00:30 10/16/24 00:31 DC 10/16/24 00:38 Ipratropium [place] (Atrovent Medneb) 0.5 mg ONCE ONCE NEB 10/16/24 00:30 10/16/24 00:31 DC 10/16/24 00:39 Methylprednisolone Sodium Succinate (Solu Medrol) 80 mg ONCE ONCE IV 10/16/24 01:00 10/16/24 01:01 DC 10/16/24 01:27 Ceftriaxone Sodium 50 ml @ 100 mls/hr ONCE ONCE IV 10/16/24 01:00 10/16/24 01:29 DC 10/16/24 01:27 Sodium Chloride 1,000 ml @ 1,000 mls/hr Q1H ONCE IV 10/16/24 01:15 10/16/24 02:14 DC 10/16/24 01:27 Sodium Chloride 1,000 ml @ 130 mls/hr Q7H42M ONCE IV 10/16/24 01:15 10/16/24 03:50 DC 10/16/24 02:04 Vancomycin HCl 250 ml @ 250 mls/hr ONCE ONCE IV 10/16/24 02:00 10/16/24 02:59 DC 10/16/24 02:04 Time of 1ST Reevaluation: 01:03 Reevaluation 1ST: Unchanged Patient Education/Counseling: Diagnosis, Treatment, Other (Need for admission) Family Education/Counseling: No Family Present Departure 1 Departure Time of Disposition: 01:03 Impression: Primary Impression: acute exacerbation of COPD Additional Impressions: Sepsis Lower extremity cellulitis Disposition: 09 ADMITTED INPATIENT Condition: Stable Comments 74-year-old male presenting with dyspnea. Appears to be septic source possibly pulmonary or cellulitis of the left lower extremity. IV fluids, antibiotics, respiratory treatments initiated in the emergency department. Patient admitted for further treatment, evaluation and monitoring. Extensive evaluation was performed in attempt to identify or rule out: (See differential diagnosis section) The following tests were ordered, and results were reviewed by me: (See diagnostic results section) The following test were independently interpreted by me: EKG I reviewed and agreed with the following test results read by other providers: Chest x-ray I reviewed the following notes from the pt's past medical encounters: February 20, 2024 for metabolic encephalopathy. Additional information was gathered from interviewing the following independent historians: N/A Discussion of management or test interpretation with external physician/other qualified health care mgr: N/A Addressed an acute or chronic illness that poses a threat to life or bodily func tion: Hypoxia, sepsis, COPD exacerbation, cellulitis Decision regarding hospitalization or escalation of hospital level of care: Risk and benefits of admission for further treatment of patient's condition was considered. Due to patient's current clinical condition, high risk of decline and poor outcome if discharged and need for further inpatient management and monitoring, patient will be admitted to the hospital. Drug therapy requiring intensive monitoring for toxicity: N/A Parenteral controlled substances: N/A Decision regarding elective major surgery with identified patient or procedure risk factors: N/A Decision regarding emergency major surgery: N/A Decision not to resuscitate or to de-escalate care because of poor prognosis: N/A Diagnosis or treatment significantly limited by social determinants of health: N/A Critical Care Note Critical Care Time?: No Stability Stability form required: CAMILLA Sheriff MD Oct 16, 2024 01:03
[2024-10-16 01:06] LABS: Alanine Aminotransferase 25 U/L (7-40); Alkaline Phosphatase 70 U/L (46-116); Anion Gap 12 (5-15); BUN/Creatinine Ratio 32.8 (10.0-20.0); Bilirubin, Total 0.4 mg/dL (0.2-1.0); Carbon Dioxide 21 mmol/L (20-31); Chloride 104 mmol/L (98-107); Glucose 94 mg/dL (74-106); Potassium 3.9 mmol/L (3.5-5.1); Sodium 137 mmol/L (136-145)
[2024-10-16 01:07] LABS: Total Protein 5.9 g/dL (5.7-8.2)
[2024-10-16 01:11] LABS: Albumin 3.2 g/dL (3.2-4.8); Aspartate Aminotransferase 89 U/L (13-40); Blood Urea Nitrogen 45 mg/dL (9-23); Calcium 8.7 mg/dL (8.7-10.4)
[2024-10-16 01:17] LABS: Lactic Acid w/Reflex 3.7 mmol/L (0.4-2.0)
[2024-10-16 01:23] LABS: Anisocytosis Slight; Band Neutrophils % (manual) 14; Lymphocytes % (manual) 11 (10.0-50.0); Monocytes % (manual) 4 (0-12); Platelet Estimate Adequate
[2024-10-16] MEDS: methylPREDNISolone SOD SUCC 125 MG/2 ML VL IV ONE (01:27)
[2024-10-16] MEDS: cefTRIAXone 1GM/50ML D5W 50 ML IV ONE ×2 (01:27→03:50)
--- NOTE | 2024-10-16 01:32 | DVH ---
CHEST RADIOGRAPH Indication: Suspected Sepsis Technique: Single frontal view of the chest was obtained COMPARISON: XY CHEST PORTABLE on DOS: 02/15/24, XY CHEST XRAY 1 VIEW on DOS: 02/12/24, XY CHEST XRAY 1 VIEW on DOS: 03/22/23, CHEST PORTABLE on DOS: 09/19/22, CXRP on DOS: 09/19/22 FINDINGS: Lines and Tubes: None Lungs: Multifocal pneumonia throughout both lungs Pleura: Small left effusion No pneumothorax. Cardiomediastinal contours: Unremarkable Bones: Unremarkable IMPRESSION: 1. Multifocal pneumonia throughout both lungs. 2. Small left effusion.
[2024-10-16] MEDS: VANCOMYCIN 1GM/250ML KIT 250 ML IV ONE (02:04)
--- NOTE | 2024-10-16 02:06 | DVH ---
INDICATION: r/o Left ankle osteomyelitis left ankle pain COMPARISON: None TECHNIQUE: CT of the left ankle was performed without contrast. Volume transverse images were obtaine d and reconstructed in multiple planes using bone and soft tissue algorithms. All CT scans at this medical facility are performed using dose modulation techniques as appropriate t o a performed exam including the following: Automated exposure control was utilized; adjustment of th e MA and/or KV according to patient size; and use of iterative reconstruction technique. Radiation Dose Information: CT Dose: CTDI volume is 7.75 mGy. Dose-length product is 300.07 mGy*cm FINDINGS: There is bony demineralization. Alignment is maintained. Ankle mortise is intact. There is no acute fracture. No focal osteopenia or cortical destruction to suggest osteomyelitis. There is no fluid col lection or soft tissue gas. There is calcified atherosclerosis. There is mild subcutaneous edema in t he distal left lower extremity and about the left ankle more pronounced laterally. The tendons and li gaments are grossly intact although not optimally evaluated by CT. IMPRESSION: 1. Bony demineralization. No acute fracture or traumatic malalignment. 2. No definite acute osteomyelitis although bony demineralization slightly limits evaluation. 3. No fluid collection or soft tissue gas 4. Mild subcutaneous edema in the distal left lower extremity and about the left ankle, more pronounc ed laterally.
[2024-10-16] MEDS ORDERED: NITROGLYCERIN 0.4 MG SL TAB SL PRN (02:45)
[2024-10-16 03:18] LABS: Rapid Influenza A Negative (Negative); Rapid Influenza B Negative (Negative)
[2024-10-16 03:19] LABS: COVID19 ANTIGEN SOFIA FIA NEGATIVE (NEGATIVE)
[2024-10-16] MEDS ORDERED: VANCOMYCIN PER PHARMACY 0 MG IV SCH ×2 (03:30→12:30)
[2024-10-16] MEDS ORDERED: DOXYCYCLINE 100MG/100ML 100 ML IV SCH ×2 (03:30→16:00)
[2024-10-16] MEDS: DOXYCYCLINE 100MG/100ML 100 ML IV ONE (03:56)
--- NOTE | 2024-10-16 04:22 | DVH ---
EXAM: CT STROKE CTH INDICATION: Hx of fall TECHNIQUE: CT of the head without intravenous contrast. Coronal and sagittal reformatted images are submitted. Radiation Dose : 1. Head: CT Dose: CTDI volume is 55.66 mGy. Dose-length product is 892.27 mGy*cm The dose indicators for CT are the volume Computed Tomography (CT) Dose Index (CTDIvol) and the Dose Length Product (DLP), and are measured in units of mGy and mGy-cm, respectively. These indicators are not patient dose, but values generated from the CT scanner acquisition factors. The report includes radiation exposure data for exposures received during this examination. All CT scans at this medical facility are performed using dose modulation techniques as appropriate to a performed exam including the following: Automated exposure control was utilized; adjustment of the MA and/or KV according to patient size; and use of iterative reconstruction technique. COMPARISON: CT HEAD WITHOUT CONTRAST on DOS: 02/10/24 FINDINGS: There is no evidence of acute intracranial hemorrhage, extra-axial collection, mass effect, midline s hift, herniation or hydrocephalus. There are periventricular and subcortical hypodensities, nonspecific, but likely reflecting sequelae of chronic microvascular ischemic changes. The ventricles, sulci and cisterns are age appropriate. The stewart-white differentiation is intact. The visualized paranasal sinuses and mastoid air cells are clear. No depressed calvarial fracture. The surrounding soft tissues are unremarkable. IMPRESSION: 1. No evidence of acute intracranial abnormality. Critical result: Negative code stroke Findings discussed with Dr. Venegas on at 6:19 a.m. 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
[2024-10-16 04:24] LABS: Amphetamine Screen, Urine Neg (NEGATIVE); Cannabinoid Screen, Urine Neg (NEGATIVE); Creatinine, Urine 80.29 mg/dL (30.0-125.0)
--- NOTE | 2024-10-16 04:25 | DVHHPRES ---
History of Present Illness Resident Creating Document: SHI ACOSTA RESDIENT History of Present Illness This is a 47-year-old male with past medical history of hypertension, hyperlipidemia, atrial fibrillation, COPD (on home oxygen), depression brought from [facility]ber living [facility] after a fall. Per patient, he has shortness of breaths and productive cough with sputum since 1 week which has progressively worsened. He was also complaining generalized weakness. Today, patient fell and hit the head. Patient denies fever, nausea, vomiting, abdominal pain, any recent changes in bowel and bladder habits, and sick contact. PMHx: hypertension, hyperlipidemia, atrial fibrillation, COPD (on home oxygen), depression, left lower limb DVT, bilateral lower limb cellulitis PSHx: tonsillectomy Family history: Noncontributing Social history: Patient lives in a sober living facility, current smoker, denies drinking alcohol or any other drug use. Home medication: Insulin Allergic history: Noncontributing PCP: Dr. Shaw Review of Systems Review of Systems General: patient denies fever, sweating, any recent changes in appetite and weight weakness and fatigue HEENT: No headaches, visiual changes, hearing loss, tinnitus, nasal congestion and discharge, and sore throat. Cardiovascular: Denies chest pain, palpitations, dyspnea on exertion, orthopnea, or claudication. Respiratory: Reports shortness of breath, cough and sputum Gastrointestinal: Denies nausea, vomiting, dysphagia, odynophagia, heartburn, abdominal pain, flatulence, bloating, diarrhea, constipation, change in stool, or blood in stool. Genitourinary: No dysuria, hematuria, discharge, frequency, urgency, nocturia, incontinence, and urinary retention. Endocrine: No heat or cold intolerance, polydipsia, polyuria, and polyphagia. Neurological: No dizziness, extremity weakness and numbness, tremors, gait dist urbance, seizures, and memory impairment. Psychiatric: Denies depression, anxiety,or insomnia. Musculoskeletal: Denies neck pain, stiffness and swelling, back pain, muscle weakness, joint pain, stiffness, swelling, or limited range of motion. Skin: No rashes, itching, skin lesion, changes in hair, nail, skin texture and breast. Hematologic/Lymphatic: Denies easy bruising, bleeding tendencies, or lymph node enlargement. Allergies: Coded Allergies: NO KNOWN ALLERGIES (Unverified , 03/22/23) Medications Current Medications Medications Dose Ordered Sig/Roseanna Route Start Time Stop Time Status Last Admin Dose Admin Nitroglycerin 0.4 mg Q5MINP PRN SL 10/16/24 02:45 Norepinephrine Bitartrate 250 ml @ 3.75 mls/hr Q24H IV 10/16/24 03:30 UNV Vancomycin HCl 0 ml @ 0 mls/hr UD IV 10/16/24 03:30 UNV Levalbuterol HCl 0.625 mg Q6HR NEB 10/16/24 06:00 UNV Doxycycline Hyclate 100 ml @ 50 mls/hr Q12H IV 10/16/24 03:30 UNV Exam Vital Signs Vital Signs Date Time Temp Pulse Resp B/P (MAP) Pulse Ox O2 Delivery O2 Flow Rate FiO2 10/16/24 02:44 87 15 85/43 (57) 96 10/16/24 00:46 Nasal Cannula* 2 28 10/15/24 23:42 97.7 97.7 Exam General Appearance: Alert, Oriented X3, Cooperative, in moderate respiratory distress HEENT: Atraumatic, PERRLA, EOMI, Mucous membrane moist/pink Respiratory: Bilaterally crackles, more on the right side Cardiovascular: Regular rate, Normal S1, Normal S2, No murmurs, no chest wall tenderness Abdominal: Normal bowel sounds, Soft, No tenderness, No hepatospenomegaly, No masses Extremities: Bilateral upper limb ecchymosis, left lower limb erythema with superficial ulcers at ankle level Skin: No rashes, No breakdown, No significant lesion Neuro: Grossly intact Labs/Xrays Labs Test 10/16/24 02:35 10/16/24 02:26 10/16/24 00:36 10/16/24 00:32 Range/Units Influenza Type A Antigen Negative Negative Influenza Type B Antigen Negative Negative SARS-CoV-2 Antigen (Rapid) Negative NEGATIVE Blood Gas Specimen Type Arterial Blood Gas Sample Site Right radial Blood Gas Patient Temperature 37.0 Arterial Blood Date Drawn [id number] Arterial Blood pH 7.370 7.350-7.450 Arterial Blood Partial Pressure CO2 35.9 35.0-48.0 mmHg Arterial Blood Partial Pressure O2 54.1 *L 83.0-108.0 mmHg Arterial Blood HCO3 20.3 L 21.0-28.0 mmol/L Arterial Blood Oxygen Saturation 83.8 *L 94.0-98.0 % Arterial Blood Base Excess -4.4 L -2.0-3.0 mmol/L Arterial Blood Oxyhemoglobin 81.8 L 94.0-98.0 % Arterial Blood Carboxyhemoglobin 2.2 H 0.5-1.5 % Arterial Blood Methemoglobin 0.2 0.0-1.5 % Jony Test Yes Blood Gas Total Hemoglobin 10.40 L 13.5-17.5 g/dL Blood Gas Liter Flow 2.00 Blood Gas Modality Nasal cannula Blood Gas Spontaneous Rate 18 FiO2 % 28.0 Specimen Drawn By Kylie brayd Blood Gas Critical Value Read Back Yes Blood Gas Notified Whom ilan Venegas md Blood Gas Notified Time [id number] Blood Gas Notified By Kylie bolton rt White Blood Count 26.3 H 4.4-10.8 10^3/uL Red Blood Count 3.24 L 4.5-5.90 10^6/uL Hemoglobin 10.1 L 13.5-17.5 g/dL Hematocrit 30.6 L 41.0-53.0 % Mean Corpuscular Volume 94.6 80.0-100.0 fL Mean Corpuscular Hemoglobin 31.4 28.0-32.0 pg Mean Corpuscular Hemoglobin Concent 33.2 32.0-36.0 g/dL Red Cell Distribution Width 14.5 H 11.8-14.3 % Platelet Count 385 140-450 10^3/uL Mean Platelet Volume 7.8 6.9-10.8 fL Neutrophils (%) (Auto) 37.0-80.0 % Lymphocytes (%) (Auto) 10.0-50.0 % Monocytes (%) (Auto) 0.0-12.0 % Basophils (%) (Auto) 0.0-2.0 % Neutrophils # (Auto) 1.6-8.6 10 ^3/uL Lymphocytes # (Auto) 0.4-5.4 10 ^3/uL Monocytes # (Auto) 0-1.3 10 ^3/uL Differential Total Cells Counted 100.0 100 Neutrophils % (Manual) 71 37.0-80.0 Band Neutrophils % (Manual) 14 Lymphocytes % (Manual) 11 10.0-50.0 Monocytes % (Manual) 4 0-12 Eosinophils % (Manual) 0 0-7 Basophils % (Manual) 0 0.0-2.0 Metamyelocytes % (manual) 0 Myelocytes % (Manual) 0 Promyelocytes % (Manual) 0 Blast Cells % (Manual) 0 Reactive Lymphocytes 0 Platelet Estimate Adequate Anisocytosis (manual) Slight Ranjit Cells Few Schistocytes Few Sodium Level 137 136-145 mmol/L Potassium Level 3.9 3.5-5.1 mmol/L Chloride Level 104 98-107 mmol/L Carbon Dioxide Level 21 20-31 mmol/L Anion Gap 12 5-15 Blood Urea Nitrogen 45 H 9-23 mg/dL Creatinine 1.37 H 0.700-1.30 mg/dL Glomerular Filtration Rate Calc 54 >90 mL/min BUN/Creatinine Ratio 32.8 H 10.0-20.0 Serum Glucose 94 74-106 mg/dL Calcium Level 8.7 8.7-10.4 mg/dL Total Bilirubin 0.4 0.2-1.0 mg/dL Aspartate Amino Transferase (AST) 89 H 13-40 U/L Alanine Aminotransferase (ALT) 25 7-40 U/L Alkaline Phosphatase 70 46-116 U/L B-Type Natriuretic Peptide 511.92 0-100 pg/mL Total Protein 5.9 5.7-8.2 g/dL Albumin 3.2 3.2-4.8 g/dL Test 10/16/24 00:00 Range/Units Urine Color Yellow Yellow Urine Clarity Clear Clear Urine pH 5.0 5.0-9.0 Urine Specific [place] 1.018 1.001-1.035 Urine Protein Negative Negative Urine Ketones Negative Negative Urine Blood Negative Negative /uL Urine Nitrite Negative Negative Urine Bilirubin Negative Negative Urine Urobilinogen 2 H Negative mg/dL Urine Leukocyte Esterase Negative Negative /uL Urine RBC 3 0 - 3 /hpf Urine WBC 1 0 - 3 /hpf Urine Squamous Epithelial Cells Few <5 /hpf Urine Bacteria None seen None Seen /hpf Urine Hyaline Casts Few 0 - 2 /lpf Urine Glucose Normal Normal mg/dL Assessment/Plan Assessment/Plan Acute metabolic encephalopathy, likely due to respiratory failure/sepsis Septic shock, likely due to pneumonia/cellulitis Acute on chronic hypoxic respiratory failure, likely due to COPD exacerbation Chronic respiratory failure, likely due to COPD COPD exacerbation Acute pneumonitis Pneumonia, likely due to Gram-positive Gram-negative/viral Left-sided effusion, likely parapneumonic Lactic acidosis Chest x-ray shows multifocal pneumonia throughout the both lung, with small left effusion WBCs raised at 26.3, lactic acid is raised at 3.7 Influenza type a, B and COVID-19 negative ABGs shows metabolic acidosis with respiratory compensation Check MRSA nares, blood/sputum/urine culture Empiric antibiotics including vancomycin, cefepime and doxycycline Breathing treatment Oxygen through nasal cannula IV normal saline Levophed drip History of fall Patient has bruising on the right forehead Head CT scan is normal History of AFib and DVT EKG shows, normal sinus rate Doppler of lower limb Possible acute on chronic diastolic heart failure History of hypertension BNP is raised at 519, Due to low BP, no antihypertensive indicated Echo 02/11/2024 shows, normal left ventricular systolic function estimated ejection fraction of 60%. There is a grade 1 diastolic dysfunction Left leg Cellulitis CT scan of the leg shows, bony demineralization and mild subcutaneous edema in distal left lower extremity. No acute fracture or traumatic malalignment Wound consultation Empiric IV antibiotics BRENNAN, likely VMN Check FENa Transaminitis Mild protein malnutrition Albumin is decreased at 3.2 Nutrition consultation DIET: Diabetic diet DVT PROPHYLAXIS: Lovenox CODE STATUS: Goal of care discussed for more than 23 minutes, full code DISPOSITION: ICU status, patient requires vasopressor Patient's status discussed with the patient. Case discussed with Dr. Carreno Plan discussed with: Patient, Other (RN) My Orders Orders - SHI ACOSTA RESDIBÁRBARA Procedure Category Date Status Time Admit ADMIT 10/16/24 Transmitted 02:33 Oxygen By Nasal RT 10/16/24 Transmitted Cannula 02:33 Notify Of Changes CARMELINA 10/16/24 In Process From Base 02:33 Nurse Plastics For CARMELINA 10/16/24 In Process 24 Hours 02:33 Nitroglycerin PHA 10/16/24 In Process Sublingual (Ntrostat 02:45 Norepinephrine 8 PHA 10/16/24 Logged Mg/250ml Kit 03:30 Vancomycin Per PHA 10/16/24 Logged Pharmacy 03:30 Ceftriaxone 1gm/50ml PHA 10/16/24 Logged D5w (Rocephin) 03:30 Levalbuterol Hcl PHA 10/16/24 Transmitted (Xopenex Medneb) 06:00 Ipratropium Medneb PHA 10/16/24 Transmitted (Atrovent Medneb) 03:[address] 10/16/24 Logged 03:28 * Wound Consult CONS 10/16/24 Transmitted Magnesium LAB 10/16/24 Logged 03:28 Urine Sodium LAB 10/16/24 Logged 03:28 Urine Creatinine LAB 10/16/24 Logged 03:28 Acute Hepatitis Panel LAB 10/16/24 Logged 03:28 Hiv 1&2 Antibody LAB 10/16/24 Logged 03:28 Drug Screen LAB 10/16/24 Logged 03:28 Vitamin B12 LAB 10/16/24 Logged 03:28 Vitamin D, 25-Hydroxy LAB 10/16/24 Logged 03:28 Folate (Folic Acid) LAB 10/16/24 Logged 03:28 Blood Alcohol LAB 10/16/24 Logged 03:28 Mrsa Screen RAMO 10/16/24 Logged 03:28 Rapid Influenza A&B LAB 10/16/24 Logged 03:28 Lactic Acid W/ Reflex LAB 10/16/24 Logged Order 03:28 Hemoglobin A1c LAB 10/16/24 Logged 03:28 Urine Bacterial RAMO 10/16/24 Logged Culture 03:28 Respiratory Culture RAMO 10/16/24 Logged W/ Gs 03:28 Doxycycline PHA 10/16/24 Transmitted 100mg/100ml 03:30 Doxycycline PHA 10/16/24 Transmitted 100mg/100ml 03:30 Date of Service: Oct 16, 2024 Billing Provider: MARCIAL CARRENO MD Common Visit Codes: [id number] INP/OBS CARE (HIGH) ANKITANIKKOSHI EDWARDS RESDIENT Oct 16, 2024 04:25 MARCIAL CARRENO MD Oct 18, 2024 22:29
[2024-10-16 04:34] LABS: Barbiturate Scree,Urine Neg (NEGATIVE); Benzodiazephine Screen, Urine Neg (NEGATIVE); Cocaine Screen, Urine Neg (NEGATIVE); Opiate Scree,Urine Pos (NEGATIVE); Phencyclidine Screen, Urine Neg (NEGATIVE)
[2024-10-16 04:45] LABS: Magnesium 2.2 mg/dL (1.6-2.6)
[2024-10-16 04:46] LABS: Folate (Folic Acid) 8.75 ng/mL (>5.38)
[2024-10-16 04:50] LABS: Blood Alcohol < 3.0 mg/dL (<10)
[2024-10-16 05:45] LABS: % Iron Saturation 8.8 % (20-55)
[2024-10-16] MEDS: SODIUM CHLORIDE 0.9% 1,000 ML IV SCH (05:45)
[2024-10-16] MEDS ORDERED: LEVALBUTEROL HCL 1.25 MG/3 ML NEB NEB SCH ×2 (06:00)
[2024-10-16] MEDS ORDERED: IPRATROPIUM BROM 0.5 MG/2.5ML INH SOL NEB SCH (06:00)
[2024-10-16] MEDS: NOREPINEPHRINE 8 MG/250ML KIT 250 ML IV SCH (06:12)
[2024-10-16 06:28] LABS: Basophils # (auto) 0.1 10 ^3/uL (0-0.2); Basophils % (auto) 0.2 % (0.0-2.0); Eosinophils # (auto) 0 10 ^3/uL (0-0.8); Hematocrit 29.5 % (41.0-53.0); Lymphocytes # (auto) 0.7 10 ^3/uL (0.4-5.4); Mean Corpuscular Hemoglobin 31.7 pg (28.0-32.0); Mean Corpuscular Hgb Conc. 33.7 g/dL (32.0-36.0); Mean Corpuscular Volume 94.2 fL (80.0-100.0); Monocytes # (auto) 1.2 10 ^3/uL (0-1.3); Monocytes % (auto) 4.9 % (0.0-12.0); Neutrophils # (auto) 21.9 10 ^3/uL (1.6-8.6); Neutrophils % (auto) 91.9 % (37.0-80.0); Platelet Count (auto) 334 10^3/uL (140-450); Red Blood Cells 3.13 10^6/uL (4.5-5.90); Red Cell Distribution Width 14.2 % (11.8-14.3); White Blood Cell 23.8 10^3/uL (4.4-10.8)
[2024-10-16] MEDS: IPRATROPIUM BROM 0.5 MG/2.5ML INH SOL NEB SCH (06:48)
[2024-10-16] MEDS: LEVALBUTEROL HCL 1.25 MG/3 ML NEB NEB SCH (06:48)
[2024-10-16 06:58] LABS: Alanine Aminotransferase 26 U/L (7-40); Alkaline Phosphatase 70 U/L (46-116); Anion Gap 8 (5-15); BUN/Creatinine Ratio 38.3 (10.0-20.0); Carbon Dioxide 25 mmol/L (20-31); Potassium 3.6 mmol/L (3.5-5.1); Sodium 140 mmol/L (136-145)
[2024-10-16 07:00] LABS: Bilirubin, Total 0.3 mg/dL (0.2-1.0); Total Protein 5.7 g/dL (5.7-8.2)
[2024-10-16 07:01] LABS: Lactic Acid w/Reflex 2.2 mmol/L (0.4-2.0)
[2024-10-16 07:02] LABS: Albumin 3.1 g/dL (3.2-4.8); Aspartate Aminotransferase 96 U/L (13-40); Blood Urea Nitrogen 49 mg/dL (9-23); Calcium 8.3 mg/dL (8.7-10.4); Chloride 107 mmol/L (98-107); Glucose 122 mg/dL (74-106)
--- NOTE | 2024-10-16 08:18 | DVH ---
Bilateral Chest Sonogram Date: 10/16/2024 07:22 AM Clinical history: left pleural effusion Technique: Limited sonographic evaluation of the bilateral chest was performed to evaluate for pleur al effusion. Finding/Impression: There are no pleural effusions visualized.
--- NOTE | 2024-10-16 09:50 | DVH ---
Procedure: CT CHEST WITHOUT CONTRAST Reason for study/Clinical History: Pneumonia Comparison Study: Chest radiograph performed same date. Exam Date: 10/16/2024 08:40 AM TECHNIQUE: Multidetector CT of the chest was performed from the lung apices to the upper abdomen with out the use of intravenous contract. Axial, coronal and sagittal multiplanar reformats were performed . Radiation Dose Information: CT Dose: CTDI volume is 14.45 mGy. Dose-length product is 513.52 mGy*cm The dose indicators for CT are the volume Computed Tomography (CT) Dose Index (CTDIvol) and the Dose Length Product (DLP), and are measured in units of mGy and mGy-cm, respectively. These indicators are not patient dose, but values generated from the CT scanner acquisition factors. The report includes radiation exposure data for exposures received during this examination. FINDINGS: Lower neck: Normal thyroid. Lungs: Diffuse bilateral ground-glass opacities. Bibasilar atelectasis. Emphysema. Trachea and central airways: Patent. Heart/Vascular Structures: Normal heart size. Coronary artery calcifications. No pericardial effusion . Lymph Nodes: There is an enlarged right paratracheal lymph node which measures 2.0 cm in short axis. Pleura: No pleural effusion or significant pneumothorax. Musculoskeletal: No acute osseous abnormality. Subacute to chronic right posterior 11th rib fracture. Soft tissues: Normal. Upper abdomen: Limited portions of the upper abdomen are unremarkable. IMPRESSION: 1. Diffuse bilateral infiltrates which may reflect pneumonitis or pneumonia. 2. Emphysema. 3. Coronary artery disease. Radiation optimization: All CT scans at this facility use at least one of these dose optimization libertad hniques: automated exposure control mA and/or kV adjustment per patient size (includes targeted exam s where dose is matched to clinical indication) or iterative reconstruction.
[2024-10-16] MEDS ORDERED: ENOXAPARIN SOD 40 MG/0.4 ML SYRINGE SC SCH (10:00)
[2024-10-16] MEDS: CEFEPIME 1GM/ 50ML 50 ML IV SCH (10:29)
[2024-10-16] MEDS: ENOXAPARIN SOD 100 MG/1 ML SYRINGE SC SCH (10:29)
--- NOTE | 2024-10-16 10:41 | DVH ---
BILATERAL LOWER EXTREMITY VENOUS DOPPLER CLINICAL HISTORY: bilateral leg swelling, redness, pain, r/o dvt Technique: Duplex Doppler evaluation of the deep venous systems of both lower extremities from the co mmon femoral veins to the popliteal veins including color Doppler and spectral/pulsed waveform analys is was performed. COMPARISON: US BILAT LOWER DVT on DOS: 03/22/23, BI LOWER DVT on DOS: 09/19/22 FINDINGS: The right and left common femoral, superficial femoral, popliteal, posterior tibial veins appear pat ent with normal augmentation, phasicity, compressibility and color-flow. IMPRESSION: 1. There is no sonographic evidence for DVT in the lower extremities. HS:Y
--- NOTE | 2024-10-16 10:45 | DVHPNRES ---
Progress Note Date Seen: Oct 16, 2024 Resident Creating Document: MURPHY MARTINEZ RESIDENT Has the PT tested + for MRSA If YES, has PT been informed?: No Medical Necessity Reason Pt with a Central, PICC or Fol: Yes The following are medically ne: Central Line Subjective Review of Systems ELVIS SHARMA is a 74 with a PMH of HTN, HLA, AFib, COPD on home oxygen as needed, CHF,CAD, depression, left lower limb DVT, bilateral lower limb cellulitis, peripheral vascular disease, peripheral neuropathy brought to the ED from [facility]ber living [facility] after multiple falls. Patient reported for due times on the day of admission and day before admission Without LOC from bed. Per patient, he has shortness of breaths and productive cough with sputum since 1 week which has progressively worsened. He was also complaining generalized weakness. Patient denies fever, nausea, vomiting, abdominal pain, any recent changes in bowel and bladder habits, and sick contact. Surgical history: Tonsillectomy,S/P angioplasty stent placement in circumflex artery, peripheral vascular disease s/p stenting in lower extremities Family history: Noncontributing Social history: Patient lives in a sober living facility, current smoker, denies drinking alcohol or any other drug use. Home medication: Insulin Allergic history: Noncontributing Previous admissions: Due to pneumonia, DVT/cellulitis, S/P angioplasty stent placement in circumflex artery, peripheral vascular disease s/p stenting in lower extremities Patient seen and examined at bedside. Patient is afebrile, reported no new complaints except sob,cough. Patient is currently Bipap. Due to low bloodpressure patient is started on Levophed. Objective vital signs Vital Sign Date Time Temp Pulse Resp B/P (MAP) Pulse Ox O2 Delivery O2 Flow Rate FiO2 10/16/24 10:00 91 Nasal Cannula 4.0 10/16/24 10:00 36 10/16/24 10:00 85 18 10/16/24 10:00 100/58 10/16/24 07:30 98.3 98.3 Total Intake and Output 10/15/24 10/15/24 10/16/24 15:00 23:00 07:00 Intake Total 2432.8125 ml Output Total 400 ml Balance 2032.8125 ml medications Current Medications Medications Dose Ordered Sig/Roseanna Route Start Time Stop Time Status Last Admin Dose Admin Nitroglycerin 0.4 mg Q5MINP PRN SL 10/16/24 02:45 Norepinephrine Bitartrate 250 ml @ 3.75 mls/hr Q24H IV 10/16/24 03:30 10/16/24 06:12 3.75 MLS/HR Vancomycin HCl 0 ml @ 0 mls/hr UD IV 10/16/24 03:30 UNV Doxycycline Hyclate 100 ml @ 50 mls/hr Q12H IV 10/16/24 16:00 Cefepime HCl 50 ml @ 12.5 mls/hr Q12HR IV 10/16/24 10:00 10/16/24 10:29 12.5 MLS/HR Ipratropium [place] 0.5 mg Q4HR NEB 10/16/24 04:15 10/16/24 10:00 0.5 MG Levalbuterol HCl 0.625 mg Q4HR NEB 10/16/24 04:15 10/16/24 09:59 0.625 MG Enoxaparin Sodium 80 mg Q12HR SC 10/16/24 10:00 10/16/24 10:29 80 MG Sodium Chloride 1,000 ml @ 130 mls/hr Q7H42M IV 10/16/24 05:45 Examination Male patient lying on bed, in moderate respiratory distress General:Alert, Oriented X3, Cooperative, moderate distress HEENT: Atraumatic, PERRLA, EOMI, Mucous membrane moist/pink Cardiovascular: Regular S1 and S2. No murmurs, gallops or rubs. No JVD elevation. Respiratory: Decreased basilar b/l breath sounds. B/l crackles, more on the right side Abdominal: Normal bowel sounds, Soft, No tenderness, No hepatospenomegaly, No masses Genitourinary: Deferred MSK/skin: Skin is dry and warm Neurological: Pupils are constricted and sluggish to light reflex. No sensory motor deficits for now laboratory and microbiology Laboratory Tests 10/16/24 06:04 Test 10/16/24 06:04 Range/Units Serum Glucose 122 H 74-106 mg/dL Labs and/or images reviewed: Labs reviewed by me, Image(s) reviewed by me Problem List/Assessment/Plan Problem List/Assessment/Plan NEUROLOGY # Mechanical fall without LOC # ?Acute metabolic encephalopathy likely secondary to likely due to respiratory failure/sepsis # H/o peripheral neuropathy - Patient has bruising on the right forehead - Head CT scan is normal CARDIOVASCULAR # ? Acute on chronic diastolic heart failure # History of AFib with secondary Hypercoagulable state # H/O CAD with S/P angioplasty stent placement in circumflex artery # H/o peripheral vascular disease s/p stenting in lower extremities # H/o DVT # HTN # HLD - echocardiogram, pending - elevated BNP - EKG shows, normal sinus rate - Due to low BP, no antihypertensive indicated - Started on Levophed for blood pressure support - discontinued cefepime and doxycycline today - IV antibiotics Zosyn and vancomycin 10/16 - Currently diuresing with lasix 20. - Strict I&Os, discontinued IVF, fluid restriction - Lower extremity venous Doppler negative for DVT - lower extremity arterial Doppler showed occlusion of the left superficial femoral artery from the proximal to the distal segment no intraluminal flow - Lovenox 60 bid - ativan for anxiety RESPIRATORY # Acute hypoxic respiratory failure in setting of pneumonia/COPD exacerbation # COPD exacerbation # ? acute Gram-positive/negative bacterial PNA # Acute pneumonitis # Left-sided effusion, likely parapneumonic # Septic shock, likely due to pneumonia/cellulitis - Chest x-ray shows multifocal pneumonia throughout the both lung, with small left effusion - WBCs raised at 26.3, lactic acid is raised at 3.7 - Influenza type a, B and COVID-19 negative - discontinued cefepime and doxycycline today - IV antibiotics Zosyn and vancomycin 10/16 along with breathing treatments - ABGs shows metabolic acidosis with respiratory compensation - Diurese w/ Lasix, monitor renal function and electrolytes - ordered respiratory and blood culture, pending - chest CT showed diffuse bilateral infiltrates, emphysema, CAD - Initially given 1 dose of 80 methyl pred, later changed to 40 mg bid - Due to desaturation patient is on BiPAP GI - Diabetic diet # Mild protein malnutrition # Transaminitis - Albumin is decreased at 3.2 - Nutrition consultation - monitor lab /KIDNEY # BRENNAN likely VMN on chronic # Lactic acidosis - Diurese w/ Lasix, monitor renal function and electrolytes ENDO # Hyperglycemia likely in setting of sepsis - HbA1c 5.3 - mild ISS # vitamin-D deficiency - rebleeding MUSCULOSKELETAL # Left leg Cellulitis - CT scan of the leg shows, bony demineralization and mild subcutaneous edema in distal left lower extremity. No acute fracture or traumatic malalignment - Wound consultation - Empiric IV antibiotics HEME-ONC # Normocytic anemia # ? iron deficiency anemia # Ruled out DVT/PE - monitor lab - venous Doppler showed no signs of dvt - ordered iron panel LINES Central line on right internal jugular vein today DRIPS Levophed started today PUD prophylaxis:Not indicated DVT PPX: Lovenox for now Goals of care discussed with the patient for more than 27 minutes, full code status Critical care time spent with patient discussing and formulating plan of care, monitoring blood gases, bipap settings: 83 minutes. This does not include time spent performing procedures. Patient reported, is going to arrange phone number tomorrow to call and update family regarding patient clinical status. Case discussed with Dr Westfall Plan discussed with: Patient Date of Service: Oct 16, 2024 Billing Provider: LEEANNE WESTFALL MD Common Visit Codes: [id number] CARE 30-74 MIN, [id number] CARE-EACH +30MIN MURPHY MARTINEZ RESIDENT Oct 16, 2024 10:45 LEEANNE WESTFALL MD Oct 17, 2024 16:11
--- NOTE | 2024-10-16 10:57 | DVH ---
Left lower EXTREMITY ARTERIAL DOPPLER EXAM CLINICAL HISTORY: foot ulcer, possible art insuficiency TECHNIQUE: Left lower extremity arterial Doppler ultrasound evaluation. COMPARISON: None FINDINGS: There is occlusion of the left superficial femoral artery from the proximal to the distal segment no intraluminal flow. There are predominantly monophasic waveforms throughout the remaining lower extremity arteries. There are decreased peak systolic velocities distal to left SFA occlusion. There is elevated peak systolic velocity in the left profunda measuring 375 cm/s. IMPRESSION: 1. Occlusion of the left superficial femoral artery from the proximal to the distal segment no intral uminal flow. 2. Elevated peak systolic velocity in the left profunda artery corresponding to 50-75% flow limiting stenosis. Further evaluation with CT angiography is recommended. HS:Y
[2024-10-16] MEDS ORDERED: DEXTROSE (50%) 50ML SYRG IV PRN (12:30)
--- NOTE | 2024-10-16 12:37 | DVH ---
EXAM: XY CHEST PORTABLE Indication: s/p central line placement Technique: Single frontal view of the chest was obtained Comparison: XY CHEST XRAY 1 VIEW on DOS: 10/16/24, XY CHEST PORTABLE on DOS: 02/15/24, XY CHEST XRAY 1 VIEW on DOS: 02/12/24, XY CHEST XRAY 1 VIEW on DOS: 03/22/23, CHEST PORTABLE on DOS: 09/19/22 FINDINGS: Lines and Tubes: Right internal jugular central venous catheter tip projects over the superior vena c deion. Lungs: Diffuse interstitial opacities. Pleura: No effusion. No pneumothorax. Cardiomediastinal contours: Unchanged. Bones: No acute osseous abnormality. IMPRESSION: Right internal jugular central venous catheter tip projects in appropriate position. Multifocal pneum onia versus pulmonary edema.
[2024-10-16] MEDS: PIPERACILLIN-TAZO 4.5GM 100 ML IV ONE (12:39)
[2024-10-16] MEDS: PIPERACILLIN-TAZOB 3.375GM 100 ML IV SCH (14:17)
[2024-10-16] MEDS: FUROSEMIDE 20 MG/2 ML VIAL IV ONE ×2 (15:20→16:46)
[2024-10-16] MEDS: NICOTINE 14 MG/24HR TOPICAL PATCH TD ONE (15:35)
[2024-10-16 15:49] LABS: Lactic Acid w/Reflex 3.4 mmol/L (0.4-2.0)
[2024-10-16] MEDS ORDERED: LORazepam 2MG/ML-1ML VIAL IV PRN (16:30)
[2024-10-16] MEDS: methylPREDNISolone SOD SUCC 40 MG/ML VL IV ONE (16:43)
[2024-10-16 16:57] LABS: Base Excess -0.1 mmol/L (-2.0-3.0)
[2024-10-16] MEDS: ACCU-CHEK COMFORT CURVE STRIP VI SCH (17:32)
[2024-10-16] MEDS: InsuLIN REG 1unit/0.01ml Soln (100units/ml) SC SCH (17:33)
[2024-10-16 17:38] LABS: INR 1.48 (0.9-1.15); Prothrombin Time 15.1 sec (9.3-11.8)
--- NOTE | 2024-10-16 21:27 | DVHNC2 ---
Central Line Recorder of insertion practice: Professor Of Economics (resident physician) Indication: Hypotension, Inability to obtain IV Room prepared for procedure: Yes Professor Of Economics performed hand hygien: Yes Maximal sterile barrier precau: Mask/Eye shield, Sterile gown, Cap, Sterlie gloves, Large sterlie drape Skin Preparation: Chlorhexidine gluconate Skin preparation completely dr: Yes Insertion site: Right, Internal jugular Central line catheter type: [id number] dialysis Number of lumens: 3 Post Assessment: Chest X-Ray Notes The patient was lying in the Trendelenburg position with head turned 30 degrees away from the insertion site. The skin was thoroughly sponged with chlorhexidine and allowed to dry. All persons involved were shielded with hair nets, face masks and sterile gowns. With sterile-gloved hands the right neck area was draped with the large disposable sterile field provided in the pre-manufactured kit. The skin and subcutaneous tissues superficial to the RIGHT internal jugular vein were anesthetized with 2 mL of 1% lidocaine. The RIGHT internal jugular vein was identified on ultrasound from the angle of t he mandible down into the supraclavicular fossa using the linear ultrasound probe in the transverse orientation. The carotid artery was identified and avoided utilizing color-flow. The internal jugular vein was then placed in the center of the ultrasound field and compressed for patency. A movement artifact was identified as the needle was advanced through the skin and advanced toward the vessel. A real time hyperechoic signal revealed visualization of vascular needle entry into the lumen as blood was noted to flashback in the syringe. The needle was then held in place while the guide wire was advanced. The needle was then removed. Direct visualization of guide wire location within the vein was noted on ultrasound indicating proper placement and was document in the electronic medical record chart. A skin dilator was advanced over the guidewire and removed, and the triple-lumen catheter was then advanced over the guide wire into proper position. The guide wire was removed and discarded. The ports were aspirated which showed good blood return and then carefully flushed with normal saline. The catheter was stabilized and sutured to the skin with 2-0 silk at 2 anchor points. A sterile bio-patch and dressing was placed over the catheter, including the insertion site. The patient tolerated the procedure well. A chest x-ray was ordered for position confirmation. Post-procedure chest x-ray was ordered. Krista Marcelinoha, Joseph MD Date of Service: Oct 16, 2024 Billing Provider: LEEANNE WESTFALL MD Common Visit Codes: PROCEDURE ONLY Procedure Codes: [id number] NON-TUNNEL CV CATH KRISTA MARCELINO Oct 16, 2024 21:27 LEEANNE WESTFALL MD Oct 21, 2024 16:33
[2024-10-16] MEDS: methylPREDNISolone SOD SUCC 40 MG/ML VL IV SCH (22:22)
[2024-10-16] MEDS: ENOXAPARIN SOD 60 MG/0.6 ML SYRINGE SC SCH (22:23)
[2024-10-16] MEDS: LORazepam 2MG/ML-1ML VIAL IV PRN (23:27)
[2024-10-17] VITALS (43 sets, daily range): BP systolic 100–144; BP diastolic 59–104; PULSE 51–128; RESP 15–36; TEMP 97.7–98.2; O2SAT 83–96
[2024-10-17 00:03] LABS: Base Excess 3.7 mmol/L (-2.0-3.0)
[2024-10-17 06:24] LABS: Hemoglobin 10.5 g/dL (13.5-17.5); Platelet Count (auto) 410 10^3/uL (140-450)
[2024-10-17 06:25] LABS: Anion Gap 7 (5-15); Carbon Dioxide 31 mmol/L (20-31)
[2024-10-17 06:26] LABS: Calcium 9.6 mg/dL (8.7-10.4); Hematocrit 31.5 % (41.0-53.0); Mean Corpuscular Hemoglobin 31.4 pg (28.0-32.0); Mean Corpuscular Hgb Conc. 33.3 g/dL (32.0-36.0); Mean Corpuscular Volume 94.3 fL (80.0-100.0); Red Blood Cells 3.34 10^6/uL (4.5-5.90); Red Cell Distribution Width 14.4 % (11.8-14.3)
[2024-10-17 06:31] LABS: BUN/Creatinine Ratio 34.5 (10.0-20.0); Magnesium 2.2 mg/dL (1.6-2.6)
[2024-10-17 06:32] LABS: Blood Urea Nitrogen 38 mg/dL (9-23); Chloride 108 mmol/L (98-107); Glucose 133 mg/dL (74-106); Potassium 3.3 mmol/L (3.5-5.1); Sodium 146 mmol/L (136-145)
[2024-10-17 06:40] LABS: White Blood Cell 34.5 10^3/uL (4.4-10.8)
[2024-10-17 06:42] LABS: Basophils % (manual) 0 (0.0-2.0); Blast Cells 0; Eosinophils % (manual) 0 (0-7); Metamyelocytes % 0; Myelocytes % 0; Promyelocytes % 0; Reactive Lymphocytes 0
[2024-10-17 06:52] LABS: Band Neutrophils % (manual) 10; Lymphocytes % (manual) 9 (10.0-50.0); Monocytes % (manual) 5 (0-12); Platelet Estimate Adequate; Target Cell FEW
[2024-10-17] MEDS: POTASSIUM EFFERVESENT TAB 25 MEQ PO ONE (07:52)
[2024-10-17] MEDS: VANCOMYCIN 500mg/100mL 100 ML IV SCH (10:00)
[2024-10-17] MEDS: FUROSEMIDE 20 MG/2 ML VIAL IV SCH (10:08)
[2024-10-17] MEDS: NICOTINE 14 MG/24HR TOPICAL PATCH TD SCH (10:09)
--- NOTE | 2024-10-17 10:25 | DVHPNRES ---
Progress Note Date Seen: Oct 17, 2024 Resident Creating Document: MURPHY MARTINEZ RESIDENT Has the PT tested + for MRSA If YES, has PT been informed?: No Medical Necessity Reason Pt with a Central, PICC or Fol: Yes The following are medically ne: Central Line Subjective Review of Systems ELVIS SHARMA is a 74 with a PMH of HTN, HLA, AFib, COPD on home oxygen as needed, CHF,CAD, depression, left lower limb DVT, bilateral lower limb cellulitis, peripheral vascular disease, peripheral neuropathy brought [facility] the ED from [facility] after multiple falls. Patient reported for due times on the day of admission and day before admission Without LOC from bed. Per patient, he has shortness of breaths and productive cough with sputum since 1 week which has progressively worsened. He was also complaining generalized weakness. Patient denies fever, nausea, vomiting, abdominal pain, any recent changes in bowel and bladder habits, and sick contact. Patient seen and examined at bedside. Patient is afebrile, overnight events reviewed, reported no new complaints except sob,cough. Patient is currently Bipap. Discontinued Levophed yesterday. Currently CORA status. Objective vital signs Vital Sign Date Time Temp Pulse Resp B/P (MAP) Pulse Ox O2 Delivery O2 Flow Rate FiO2 10/17/24 10:03 85 117/70 93 Facial BiPAP Mask 50 10/17/24 09:30 20 10/17/24 07:30 98.1 98.1 10/16/24 15:14 8.0 Total Intake and Output 10/16/24 10/16/24 10/17/24 14:59 22:59 06:59 Intake Total 217.625 ml 100 ml 220 ml Output Total 200 ml 1300 ml Balance 217.625 ml -100 ml -1080 ml medications Current Medications Medications Dose Ordered Sig/Roseanna Route Start Time Stop Time Status Last Admin Dose Admin Norepinephrine Bitartrate 250 ml @ 3.75 mls/hr Q24H IV 10/16/24 03:30 10/16/24 06:12 3.75 MLS/HR Vancomycin HCl 0 ml @ 0 mls/hr UD IV 10/16/24 03:30 UNV Ipratropium [place] 0.5 mg Q4HR NEB 10/16/24 04:15 10/17/24 10:03 0.5 MG Levalbuterol HCl 0.625 mg Q4HR NEB 10/16/24 04:15 10/17/24 10:03 0.625 MG Vancomycin HCl 0 ml @ 0 mls/hr UD IV 10/16/24 12:30 Piperacillin Sod/ Tazobactam Sod 100 ml @ 25 mls/hr Q8HR IV 10/16/24 14:00 10/17/24 06:16 25 MLS/HR Diagnostic Test (Pha) 1 strip ACHS 10/16/24 17:00 10/17/24 07:12 1 STRIP Insulin Human Regular ACHS SC 10/16/24 17:00 10/16/24 17:33 2 UNITS Dextrose 50 ml UD PRN IV 10/16/24 12:30 Furosemide 20 mg DAILY IV 10/17/24 10:00 Nicotine 1 patch DAILY TD 10/17/24 10:00 Enoxaparin Sodium 60 mg Q12HR SC 10/16/24 22:00 10/16/24 22:23 60 MG Methylprednisolone Sodium Succinate 40 mg BID IV 10/16/24 22:00 10/16/24 22:22 40 MG Lorazepam 0.5 mg Q6HP PRN IV 10/16/24 17:30 10/16/24 23:27 0.5 MG Vancomycin HCl 100 ml @ 200 mls/hr Q12H IV 10/17/24 10:00 Examination Male patient lying on bed General:Alert, Oriented X3, Cooperative, mild distress HEENT: Atraumatic, PERRLA, EOMI, Mucous membrane moist/pink Cardiovascular: Regular S1 and S2. No murmurs, gallops or rubs. No JVD elevation. Respiratory: Decreased basilar b/l breath sounds. B/l crackles, more on the right side, on BiPAP Abdominal: Normal bowel sounds, Soft, No tenderness, No hepatospenomegaly, No masses Genitourinary: Herbert in place MSK/skin: Skin is dry and warm Neurological: Pupils are constricted and sluggish to light reflex. No sensory motor deficits for now laboratory and microbiology Laboratory Tests 10/17/24 05:41 Test 10/17/24 05:41 Range/Units Serum Glucose 133 H 74-106 mg/dL Microbiology Date/Time Source Procedure Growth Status 10/16/24 08:27 Nose MRSA Screen - Final Complete 1/14/25 00:32 Blood Blood Culture - Preliminary NO GROWTH AFTER 24 HOURS OF INCUBATION. Resulted Labs and/or images reviewed: Labs reviewed by me, Image(s) reviewed by me Problem List/Assessment/Plan Problem List/Assessment/Plan NEUROLOGY # Mechanical fall without LOC # ?Acute metabolic encephalopathy likely secondary to likely due to respiratory failure/sepsis # H/o peripheral neuropathy - Patient has bruising on the right forehead - Head CT scan is normal CARDIOVASCULAR # ? Acute on chronic diastolic heart failure # History of AFib with secondary Hypercoagulable state # H/O CAD with S/P angioplasty stent placement in circumflex artery # H/o peripheral vascular disease s/p stenting in lower extremities # H/o DVT # HTN # HLD - Currently CORA status, on BiPAP FiO2 50% saturating b/w - echocardiogram, ef 60% with diastolic dysfunction - elevated BNP - EKG shows, normal sinus rate - Due to low BP, no antihypertensive indicated - Started on Levophed for blood pressure support but discontinued yesterday 10/16 - discontinued cefepime and doxycycline yesterday 10/16, started below - IV antibiotics Zosyn and vancomycin 10/16 - Currently diuresing with lasix 20. - Strict I&Os, discontinued IVF, fluid restriction - Lower extremity venous Doppler negative for DVT - lower extremity arterial Doppler showed occlusion of the left superficial femoral artery from the proximal to the distal segment no intraluminal flow - Lovenox 60 bid - ativan for anxiety RESPIRATORY # Acute hypoxic respiratory failure in setting of pneumonia/COPD exacerbation # COPD exacerbation # ? acute Gram-positive/negative bacterial PNA # Acute pneumonitis # Left-sided effusion, likely parapneumonic # Septic shock, likely due to pneumonia/cellulitis - Currently CORA status, on BiPAP FiO2 50% saturating b/w - Chest x-ray shows multifocal pneumonia throughout the both lung, with small left effusion - Influenza type a, B and COVID-19 negative - IV antibiotics Zosyn and vancomycin 10/16 along with breathing treatments - ABGs reviewed and it is compensating - Diurese w/ Lasix, monitor renal function and electrolytes - ordered respiratory and blood culture, pending - chest CT showed diffuse bilateral infiltrates, emphysema, CAD - Initially given 1 dose of 80 methyl pred, later changed to 40 mg bid, to 20 mg today - Due to desaturation patient is on BiPAP - Monitor lab GI - Diabetic diet # Mild protein malnutrition # Transaminitis - Albumin is decreased at 3.2 - Nutrition consultation - monitor lab /KIDNEY/METABOLIC # BRENNAN likely VMN on chronic- improving # Lactic acidosis # Hypokalemia - Repleting - Monitor lab - Diurese w/ Lasix, monitor renal function and electrolytes - remove herbert tommorrow - IV lasix 40 dialy ENDO # Hyperglycemia likely in setting of sepsis - HbA1c 5.3 - mild ISS # vitamin-D deficiency - repleting MUSCULOSKELETAL # Left leg Cellulitis - CT scan of the leg shows, bony demineralization and mild subcutaneous edema in distal left lower extremity. No acute fracture or traumatic malalignment - Wound consultation - Empiric IV antibiotics HEME-ONC # Normocytic anemia # ? iron deficiency anemia # Ruled out DVT/PE - monitor lab - venous Doppler showed no signs of dvt - ordered iron panel LINES Central line on right internal jugular vein yesterdat 10/16 DRIPS Levophed stopped yesterday 10/16 PUD prophylaxis:Not indicated DVT PPX: Lovenox for now Goals of care discussed with the patient for more than 27 minutes, full code status Critical care time spent with patient discussing and formulating plan of care: 43 minutes. This does not include time spent performing procedures. Patient reported, is going to arrange phone number to call and update family regarding patient clinical status. Case discussed with Dr Westfall. Currently CORA status. Plan discussed with: Patient My Orders My Orders Orders - MURPHY MARTINEZ RESIDENT Procedure Category Date Status Time Vancomycin Per PHA 10/16/24 In Process Pharmacy 12:30 Piperacillin-Tazob PHA 10/16/24 In Process 3.375gm (Zosyn 3.375g 14:00 Glucose Blood PHA 10/16/24 In Process (Accu-Chek Comfort 17:00 Insulin R (Human) PHA 10/16/24 In Process (Insulin R) 17:00 Dextrose 50% Syringe PHA 10/16/24 In Process 12:30 Furosemide Injection PHA 10/17/24 In Process (Lasix Injection) 10:00 Nicotine 14mg/24hr PHA 10/17/24 In Process (Nicoderm 14mg/24hr) 10:00 Enoxaparin Sodium PHA 10/16/24 In Process (Lovenox) 22:00 Methylprednisolone PHA 10/16/24 In Process Sod Succ (Solu Medrol 22:00 Lorazepam 2mg/Ml Inj PHA 10/16/24 In Process (Ativan Inj) 17:30 Vancomycin 500mg/100ml PHA 10/17/24 In Process 10:00 Vancomycin Per CARMELINA 10/18/24 In Process Pharmacy Protoc 09:00 Vancomycin,Trough LAB 10/18/24 Verified 09:00 Basic Metabolic Panel LAB 10/18/24 Verified 04:00 Ergocalciferol PHA 10/17/24 Logged (Vitamin D 50,000 10:30 Date of Service: Oct 17, 2024 Billing Provider: LEEANNE WESTFALL MD Common Visit Codes: [id number] CARE 30-74 MIN MURPHY MARTINEZ RESIDENT Oct 17, 2024 10:25 LEEANNE WESTFALL MD Oct 18, 2024 15:35
[2024-10-17] MEDS: ERGOCALCIFEROL 50,000 UNIT(1.25MG) CAP PO SCH (10:46)
[2024-10-17 11:09] LABS: Base Excess 4.6 mmol/L (-2.0-3.0)
--- NOTE | 2024-10-17 11:58 | DVH ---
EXAM: XY CHEST XRAY 1 VIEW Indication: sob Technique: Single frontal view of the chest was obtained Comparison: XY CHEST PORTABLE on DOS: 10/16/24, XY CHEST XRAY 1 VIEW on DOS: 10/16/24, XY CHEST PORTABL E on DOS: 02/15/24, XY CHEST XRAY 1 VIEW on DOS: 02/12/24, XY CHEST XRAY 1 VIEW on DOS: 03/22/23 FINDINGS: Lines and Tubes: Right internal jugular central venous catheter tip projects over the superior vena c deion. Lungs: Multifocal consolidative opacities. Pleura: No effusion. No pneumothorax. Cardiomediastinal contours: Cardiomegaly. Bones: No acute osseous abnormality. IMPRESSION: No significant change compared to prior exam.
--- NOTE | 2024-10-17 12:43 | DVHSR ---
APPROVED REPORT EXAM: LIMITED Two-dimensional and M-mode echocardiogram with Doppler and color Doppler. Blood Pressure: 85/53 mmHg INDICATION elevated bnp RISK FACTORS Height: 5'11, Weight: 180 DIMENSIONS LVDd4.3 (3.8-5.7cm)LA (2D)2.8 (1.9-4.0cm)Aortic Root3.7 (2.0-3.7cm) LVDs2.8 (2.5-4.0cm)LA (MM) (1.9-4.0cm)Aortic Cusp Exc1.4 (1.5-2.0cm) EF (%) 60.0 (55-70%)Rt. Atrium (1.9-4.0cm)Asc. Aorta3.2 cm IVSd0.7 (0.7-1.1cm)RV (D) (1.8-2.4cm) PWd0.8 (0.7-1.1cm) Mitral Valve MitralMitral Stenosis E wave0.57m/sMV Mean GR.mmHg A wave0.75m/sMV Peak GR.mmHg E/A ratio0.82D MVAcm2 DECEL [id number] 1/2 Timems Aortic Valve Aortic ValveAortic Stenosis LVOT Diameter2.2 (1.8-2.4cm)Doppler AVAcm2 Pulmonic Valve V20.81m/s Other Information Quality : Technically LimitedRhythm : Technically limited study due to body habitus.patient position. Conclusion lvef 60% by visual estimate grade 1 diastolic dysfunction RV enlarged, abnormal function noted, no severe valve abnormalities noted
[2024-10-17] MEDS: FUROSEMIDE 20 MG/2 ML VIAL IV ONE (16:56)
[2024-10-17] MEDS: methylPREDNISolone SOD SUCC 40 MG/ML VL IV SCH (21:34)
[2024-10-18] VITALS (13 sets, daily range): BP systolic 115–141; BP diastolic 69–97; PULSE 80–105; RESP 20–24; O2SAT 91–95
--- NOTE | 2024-10-18 06:29 | DVH ---
CHEST RADIOGRAPH Indication: soc and chf Technique: Single frontal view of the chest was obtained Comparison: XY CHEST XRAY 1 VIEW on DOS: 10/17/24, XY CHEST PORTABLE on DOS: 10/16/24, XY CHEST XRAY 1 VIEW on DOS: 10/16/24, XY CHEST PORTABLE on DOS: 02/15/24, XY CHEST XRAY 1 VIEW on DOS: 02/12/24, XY ADELSO ST XRAY 1 VIEW on DOS: 10/17/24 FINDINGS: Lines and Tubes: Right internal jugular central venous catheter tip projects over the superior vena c deion. Lungs: Multifocal consolidative opacities. Pleura: No effusion. No pneumothorax. Cardiomediastinal contours: Cardiomegaly. Bones: No acute osseous abnormality. IMPRESSION: No significant change compared to prior exam.
[2024-10-18 06:36] LABS: Anion Gap 7 (5-15); Calcium 9.8 mg/dL (8.7-10.4); Carbon Dioxide 31 mmol/L (20-31); Potassium 3.5 mmol/L (3.5-5.1)
[2024-10-18 06:40] LABS: Glucose 106 mg/dL (74-106)
[2024-10-18 06:41] LABS: BUN/Creatinine Ratio 33.3 (10.0-20.0); Magnesium 2.3 mg/dL (1.6-2.6)
[2024-10-18 06:44] LABS: Blood Urea Nitrogen 31 mg/dL (9-23); Chloride 111 mmol/L (98-107); Sodium 149 mmol/L (136-145)
[2024-10-18 07:48] LABS: Hematocrit 30.5 % (41.0-53.0); Hemoglobin 9.8 g/dL (13.5-17.5); Mean Corpuscular Hemoglobin 30.3 pg (28.0-32.0); Mean Corpuscular Hgb Conc. 32.1 g/dL (32.0-36.0); Mean Corpuscular Volume 94.4 fL (80.0-100.0); Platelet Count (auto) 384 10^3/uL (140-450); Red Blood Cells 3.23 10^6/uL (4.5-5.90); Red Cell Distribution Width 14.6 % (11.8-14.3)
[2024-10-18 07:52] LABS: White Blood Cell 33.6 10^3/uL (4.4-10.8)
[2024-10-18 07:54] LABS: Basophils % (manual) 0 (0.0-2.0); Blast Cells 0; Eosinophils % (manual) 0 (0-7); Metamyelocytes % 0; Myelocytes % 0; Promyelocytes % 0; Reactive Lymphocytes 0
[2024-10-18 08:23] LABS: Band Neutrophils % (manual) 5; Lymphocytes % (manual) 10 (10.0-50.0); Monocytes % (manual) 6 (0-12)
[2024-10-18 08:25] LABS: Large Platelets FEW; Polychromasia Slight
[2024-10-18 08:26] LABS: Platelet Estimate Adequa
[2024-10-18] MEDS ORDERED: FUROSEMIDE 40 MG/4 ML VIAL IV SCH (10:00)
[2024-10-18] MEDS: NICOTINE 21MG/24 HR TOPICAL PATCH TD SCH (10:10)
[2024-10-18] MEDS: VANCOMYCIN 1.25GM/250ML 250 ML IV ONE (10:21)
[2024-10-18] MEDS: FUROSEMIDE 40 MG/4 ML VIAL IV SCH (10:22)
[2024-10-18 10:30] LABS: Hepatitis A Ab IgM Negative
[2024-10-18 10:31] LABS: Hepatitis B Surface Antigen Negative (Negative)
--- NOTE | 2024-10-18 10:31 | DVHPNRES ---
Progress Note Date Seen: Oct 18, 2024 Resident Creating Document: MURPYH MARTINEZ RESIDENT Has the PT tested + for MRSA If YES, has PT been informed?: No Medical Necessity Reason Pt with a Central, PICC or Fol: Yes The following are medically ne: Central Line Subjective Review of Systems ELVIS SHARMA is a 74 with a PMH of HTN, HLA, AFib, COPD on home oxygen as needed, CHF,CAD, depression, left lower limb DVT, bilateral lower limb cellulitis, peripheral vascular disease, peripheral neuropathy brought [facility] the ED from [facility] after multiple falls. Patient reported for due times on the day of admission and day before admission Without LOC from bed. Per patient, he has shortness of breaths and productive cough with sputum since 1 week which has progressively worsened. He was also complaining generalized weakness. Patient denies fever, nausea, vomiting, abdominal pain, any recent changes in bowel and bladder habits, and sick contact. Patient seen and examined at bedside. Patient is afebrile, overnight events reviewed, reported no new complaints except mild sob, but patient is little anxious agitated likely due to BiPAP/ nicotine cravings. Patient is switching to high-flow NC from BiPAP. Currently CORA status. Added Azithro. Objective vital signs Vital Sign Date Time Temp Pulse Resp B/P (MAP) Pulse Ox O2 Delivery O2 Flow Rate FiO2 10/18/24 09:31 101 141/97 91 Nasal BiPAP Mask 50 10/18/24 08:45 22 10/18/24 07:30 99.2 99.2 10/16/24 15:14 8.0 Total Intake and Output 10/17/24 10/17/24 10/18/24 15:00 23:00 07:00 Intake Total 200 ml 184 ml 150 ml Output Total 50 ml 1650 ml 1700 ml Balance 150 ml -1466 ml -1550 ml medications Current Medications Medications Dose Ordered Sig/Roseanna Route Start Time Stop Time Status Last Admin Dose Admin Norepinephrine Bitartrate 250 ml @ 3.75 mls/hr Q24H IV 10/16/24 03:30 10/16/24 06:12 3.75 MLS/HR Vancomycin HCl 0 ml @ 0 mls/hr UD IV 10/16/24 03:30 UNV Ipratropium [place] 0.5 mg Q4HR NEB 10/16/24 04:15 10/18/24 09:31 0.5 MG Levalbuterol HCl 0.625 mg Q4HR NEB 10/16/24 04:15 10/18/24 09:31 0.625 MG Vancomycin HCl 0 ml @ 0 mls/hr UD IV 10/16/24 12:30 Piperacillin Sod/ Tazobactam Sod 100 ml @ 25 mls/hr Q8HR IV 10/16/24 14:00 10/18/24 05:38 25 MLS/HR Diagnostic Test (Pha) 1 strip ACHS 10/16/24 17:00 10/18/24 06:36 1 STRIP Insulin Human Regular ACHS SC 10/16/24 17:00 10/17/24 11:28 2 UNITS Dextrose 50 ml UD PRN IV 10/16/24 12:30 Enoxaparin Sodium 60 mg Q12HR SC 10/16/24 22:00 10/17/24 21:34 60 MG Lorazepam 0.5 mg Q6HP PRN IV 10/16/24 17:30 10/17/24 22:43 0.5 MG Ergocalciferol 50,000 unit Q7D PO 10/17/24 10:30 10/17/24 10:46 50,000 UNIT Methylprednisolone Sodium Succinate 20 mg BID IV 10/17/24 22:00 10/17/24 21:34 20 MG Furosemide 40 mg DAILY IV 10/18/24 10:00 Nicotine 1 patch DAILY TD 10/18/24 10:00 10/18/24 10:10 1 PATCH Examination Male patient lying on bed General:Alert, Oriented X3, Cooperative, mild distress HEENT: Atraumatic, PERRLA, EOMI, Mucous membrane moist/pink Cardiovascular: Regular S1 and S2. No murmurs, gallops or rubs. No JVD elevation. Respiratory: Decreased basilar b/l breath sounds. B/l crackles, more on the right side, on BiPAP Abdominal: Normal bowel sounds, Soft, No tenderness, No hepatospenomegaly, No masses Genitourinary: Herbert in place MSK/skin: Skin is dry and warm Neurological: Pupils are constricted and sluggish to light reflex. No sensory motor deficits for now laboratory and microbiology Laboratory Tests 10/18/24 05:27 Test 10/18/24 05:27 Range/Units Serum Glucose 106 74-106 mg/dL Microbiology Date/Time Source Procedure Growth Status 10/16/24 08:27 Nose MRSA Screen - Final Complete 10/16/24 00:32 Blood Blood Culture - Preliminary NO GROWTH AFTER 48 HOURS OF INCUBATION. Resulted 10/16/24 00:20 Voided Urine Urine Culture - Preliminary Resulted Labs and/or images reviewed: Labs reviewed by me, Image(s) reviewed by me Problem List/Assessment/Plan Problem List/Assessment/Plan NEUROLOGY # Mechanical fall without LOC # ?Acute metabolic encephalopathy likely secondary to likely due to respiratory failure/sepsis # H/o peripheral neuropathy - Patient has bruising on the right forehead - Head CT scan is normal CARDIOVASCULAR # ? Acute on chronic diastolic heart failure # History of AFib with secondary Hypercoagulable state # H/O CAD with S/P angioplasty stent placement in circumflex artery # H/o peripheral vascular disease s/p stenting in lower extremities # H/o DVT # HTN # HLD - Currently CORA status, switching to high-flow NC from BiPAP. - echocardiogram, pending - elevated BNP - EKG shows, normal sinus rate - Started on Levophed for blood pressure support but discontinued 10/16 - discontinued cefepime and doxycycline 10/16, started below - IV antibiotics Zosyn and vancomycin 10/16 - Currently diuresing with lasix 40. - Strict I&Os, discontinued IVF, fluid restriction - Lower extremity venous Doppler negative for DVT - lower extremity arterial Doppler showed occlusion of the left superficial femoral artery from the proximal to the distal segment no intraluminal flow - Lovenox 60 bid - ativan for anxiety RESPIRATORY # Acute hypoxic respiratory failure in setting of pneumonia/COPD exacerbation # COPD exacerbation # ? acute Gram-positive/negative bacterial PNA # Acute pneumonitis # Left-sided effusion, likely parapneumonic # Septic shock, likely due to pneumonia/cellulitis - Currently CORA status, switching to high-flow NC from BiPAP. - Chest x-ray shows multifocal pneumonia throughout the both lung, with small left effusion - Influenza type a, B and COVID-19 negative - IV antibiotics Zosyn and vancomycin 10/16 along with breathing treatments - Started Azithromycin Today - ABGs reviewed and it is compensating - Diurese w/ Lasix, monitor renal function and electrolytes - ordered respiratory and blood culture, pending - chest CT showed diffuse bilateral infiltrates, emphysema, CAD - Repeat Chest CT today showed Severe bilateral pulmonary infiltrates, increased since the previous CT study of 10/16/2024 - Changed methylprednisolone dose to 20mg - Due to desaturation patient is on BiPAP initially but today changed to HIgh flow NC - Monitor lab GI/LIVER - Diabetic diet # Mild protein malnutrition # Transaminitis # Chronic HBV # Hepatitis C antibody positive status - Albumin is decreased at 3.2 - Nutrition consultation - monitor lab /KIDNEY/METABOLIC # BRENNAN likely VMN on chronic- improving # Lactic acidosis # Hypokalemia - Repleting - Monitor lab - Diurese w/ Lasix, monitor renal function and electrolytes - remove herbert tommorrow - IV lasix 40 dialy ENDO # Hyperglycemia likely in setting of sepsis - HbA1c 5.3 - mild ISS # vitamin-D deficiency - repleting MUSCULOSKELETAL # Left leg Cellulitis - CT scan of the leg shows, bony demineralization and mild subcutaneous edema in distal left lower extremity. No acute fracture or traumatic malalignment - Wound consultation - Empiric IV antibiotics HEME-ONC # Normocytic anemia # ? iron deficiency anemia # Ruled out DVT/PE - monitor lab - venous Doppler showed no signs of dvt - ordered iron panel # tobacco dependence # tobacco abuse disorder - counseled regarding cessation for more than 17 minutes - currently on nicotine patch LINES Central line on right internal jugular vein 10/16 DRIPS Levophed stopped 10/16 PUD prophylaxis:Not indicated DVT PPX: Lovenox for now Goals of care discussed with the patient for more than 27 minutes, full code status Critical care time spent with patient discussing and formulating plan of care: 43 minutes. This does not include time spent performing procedures. Patient reported, is unable to arrange phone number to update family regarding patient clinical status. Case discussed with Dr Westfall. Currently CORA status. Plan discussed with: Patient My Orders My Orders Orders - MURPHY MARTINEZ RESIDENT Procedure Category Date Status Time Sputum Induction RT 10/17/24 Logged 10:46 Respiratory Culture RAMO 10/17/24 Logged W/ Gs 10:46 Abg W/ Co-Ox RT 10/17/24 Logged 10:47 Chest Xray 1 View XY 10/17/24 Resulted 10:47 Furosemide Injection PHA 10/18/24 In Process (Lasix Injection) 10:00 Transfer Orders XFER 10/17/24 Transmitted 16:34 Chest Xray 1 View XY 10/18/24 Resulted 04:00 Nicotine 21mg/24hr PHA 10/18/24 In Process (Nicoderm 21mg/24hr) 10:00 Vancomycin PHA 10/18/24 In Process 1.25gm/250ml 10:15 Abg W/ Co-Ox RT 10/18/24 Logged 10:05 Abg W/ Co-Ox RT 10/18/24 Transmitted 12:00 Date of Service: Oct 18, 2024 Billing Provider: LEEANNE WESTFALL MD Common Visit Codes: [id number] CARE 30-74 MIN MURPHY MARTINEZ RESIDENT Oct 18, 2024 10:31 LEEANNE WESTFALL MD Oct 21, 2024 16:46
[2024-10-18 10:32] LABS: Hepatitis B Core IgM Positive (Negative); Hepatitis C Antibody Positive (Negative)
[2024-10-18 12:10] LABS: Base Excess 8.4 mmol/L (-2.0-3.0)
--- NOTE | 2024-10-18 12:54 | ECG ---
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
--- NOTE | 2024-10-18 15:52 | DVH ---
Procedure: CT CHEST WITHOUT CONTRAST Reason for study/Clinical History: severe pna Comparison Study: Chest X-ray 10/17 2024, CT study of 10/16/2024 Exam Date: 10/18/2024 03:23 PM TECHNIQUE: Multidetector CT of the chest was performed from the lung apices to the upper abdomen with out the use of intravenous contract. Axial, coronal and sagittal multiplanar reformats were performed . Radiation dose Information: CT Dose: CTDI volume is 18 mGy. Dose-length product is 693 mGy*cm The dose indicators for CT are the volume computed tomography (CT) dose index (CTDIvol) and the dose length product (DLP), and are measured in units of mGy and mGy-cm, respectively. These indicators are not patient dose, but values generated from the CT scanner acquisition factors. The report includes radiation exposure data for exposures received during this examination. FINDINGS: Lower neck: Normal thyroid. Lungs: Severe bilateral ground glass infiltrates in both lung acevedo, increase when compared to the p rior CTA 10/16/2024. No pneumothorax. No consolidation. Tiny right pleural effusion. Stable mild cardi omegaly. No aortic dissection. Vascular calcification of the thoracic aorta. No central airway lesion s. No malignant adenopathy. No adrenal mass is. No gallstones. Heart/Vascular Structures: Normal heart size. No pericardial effusion. Lymph Nodes: No adenopathy Pleura: No pleural effusion or significant pneumothorax. Musculoskeletal: No acute osseous abnormality. Soft tissues: Normal. Upper abdomen: Limited portions of the upper abdomen are unremarkable. IMPRESSION: 1. Severe bilateral pulmonary infiltrates, increased since the previous CT study of 10/16/2024. Radiation optimization: All CT scans at this facility use at least one of these dose optimization libertad hniques: Automated exposure control mA and/or kV adjustment per patient size (includes targeted exams where dose is matched to clinical indication) or iterative reconstruction.
[2024-10-18] MEDS: AZITHROMYCIN 500MG/ 250ML 250 ML IV ONE (17:31)
[2024-10-19] VITALS (14 sets, daily range): BP systolic 138–165; BP diastolic 77–90; PULSE 55–118; RESP 18–28; O2SAT 91–97
[2024-10-19] MEDS: VANCOMYCIN 1.25GM/250ML 250 ML IV SCH (03:10)
--- NOTE | 2024-10-19 05:25 | DVH ---
CHEST RADIOGRAPH Indication: PNA Technique: Single frontal view of the chest was obtained Comparison: XY CHEST XRAY 1 VIEW on DOS: 10/18/24 FINDINGS: Lines and Tubes: There is a right central venous catheter with its tip terminating in the superior ve na cava. Open reduction internal fixation left humeral head. Lungs: Bilateral interstitial prominence. Bilateral superimposed opacities. Pleura: No effusion. No pneumothorax. Cardiomediastinal contours: Unremarkable Bones: No acute osseous abnormality. IMPRESSION: 1. Diffuse bilateral interstitial prominence which may reflect interstitial lung disease. Bilateral p neumonia may be superimposed.
[2024-10-19 05:51] LABS: Mean Corpuscular Hemoglobin 31.4 pg (28.0-32.0); Mean Corpuscular Hgb Conc. 33.4 g/dL (32.0-36.0); Mean Corpuscular Volume 93.9 fL (80.0-100.0); Platelet Count (auto) 387 10^3/uL (140-450); Red Cell Distribution Width 14.5 % (11.8-14.3)
[2024-10-19 06:04] LABS: Potassium 3.6 mmol/L (3.5-5.1); White Blood Cell 32.6 10^3/uL (4.4-10.8)
[2024-10-19 06:05] LABS: Anion Gap 8 (5-15); Calcium 9.8 mg/dL (8.7-10.4); Carbon Dioxide 29 mmol/L (20-31)
[2024-10-19 06:07] LABS: Band Neutrophils % (manual) 0; Basophils % (manual) 0 (0.0-2.0); Blast Cells 0; Eosinophils % (manual) 0 (0-7); Metamyelocytes % 0; Myelocytes % 0; Promyelocytes % 0; Reactive Lymphocytes 0
[2024-10-19 06:10] LABS: BUN/Creatinine Ratio 27.8 (10.0-20.0); Magnesium 2.3 mg/dL (1.6-2.6)
[2024-10-19 06:20] LABS: Blood Urea Nitrogen 25 mg/dL (9-23); Chloride 108 mmol/L (98-107); Glucose 112 mg/dL (74-106); Sodium 145 mmol/L (136-145)
[2024-10-19 06:51] LABS: Lymphocytes % (manual) 14 (10.0-50.0); Monocytes % (manual) 7 (0-12)
[2024-10-19 06:52] LABS: Large Platelets FEW; Platelet Estimate Adequa
[2024-10-19 09:04] LABS: Base Excess 2.8 mmol/L (-2.0-3.0)
[2024-10-19] MEDS: AZITHROMYCIN 500MG/ 250ML 250 ML IV SCH (10:22)
--- NOTE | 2024-10-19 15:26 | ECG ---
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
--- NOTE | 2024-10-19 15:59 | DVHPNRES ---
Progress Note Date Seen: Oct 19, 2024 Resident Creating Document: MURPHY MARTINEZ RESIDENT Has the PT tested + for MRSA If YES, has PT been informed?: No Medical Necessity Reason Pt with a Central, PICC or Fol: Yes The following are medically ne: Central Line Subjective Review of Systems Patient seen and examined at bedside. Patient is afebrile, overnight events reviewed, reported no new complaints except mild sob. Patient is switched to Oxymizer Today. Downgraded to telemetry from CORA status. Patient reports: No new complaints, Feels better Objective vital signs Vital Sign Date Time Temp Pulse Resp B/P (MAP) Pulse Ox O2 Delivery O2 Flow Rate FiO2 10/19/24 13:39 94 18 96 10/19/24 13:31 Venturi Mask 12 N/A 10/19/24 11:04 134/86 (102) 10/19/24 07:30 98.3 98.3 Total Intake and Output 10/18/24 10/18/24 10/19/24 15:00 23:00 07:00 Intake Total 500 ml Output Total 2100 ml 3000 ml Balance -1600 ml -3000 ml medications Current Medications Medications Dose Ordered Sig/Roseanna Route Start Time Stop Time Status Last Admin Dose Admin Vancomycin HCl 0 ml @ 0 mls/hr UD IV 10/16/24 03:30 UNV Ipratropium [place] 0.5 mg Q4HR NEB 10/16/24 04:15 10/19/24 13:31 0.5 MG Levalbuterol HCl 0.625 mg Q4HR NEB 10/16/24 04:15 10/19/24 13:31 0.625 MG Vancomycin HCl 0 ml @ 0 mls/hr UD IV 10/16/24 12:30 Piperacillin Sod/ Tazobactam Sod 100 ml @ 25 mls/hr Q8HR IV 10/16/24 14:00 10/19/24 14:09 25 MLS/HR Diagnostic Test (Pha) 1 strip ACHS 10/16/24 17:00 10/19/24 11:25 1 STRIP Insulin Human Regular ACHS SC 10/16/24 17:00 10/17/24 11:28 2 UNITS Dextrose 50 ml UD PRN IV 10/16/24 12:30 Enoxaparin Sodium 60 mg Q12HR SC 10/16/24 22:00 10/19/24 10:31 60 MG Lorazepam 0.5 mg Q6HP PRN IV 10/16/24 17:30 10/17/24 22:43 0.5 MG Ergocalciferol 50,000 unit Q7D PO 10/17/24 10:30 10/17/24 10:46 50,000 UNIT Methylprednisolone Sodium Succinate 20 mg BID IV 10/17/24 22:00 10/19/24 10:24 20 MG Furosemide 40 mg DAILY IV 10/18/24 10:00 10/19/24 10:31 40 MG Nicotine 1 patch DAILY TD 10/18/24 10:00 10/19/24 10:38 1 PATCH Azithromycin 250 ml @ 125 mls/hr DAILY IV 10/19/24 10:00 10/19/24 10:22 125 MLS/HR Vancomycin HCl 250 ml @ 200 mls/hr Q16H IV 10/19/24 02:00 10/19/24 03:10 200 MLS/HR Examination Male patient lying on bed General:Alert, Oriented X3, Cooperative, mild distress HEENT: Atraumatic, PERRLA, EOMI, Mucous membrane moist/pink Cardiovascular: Regular S1 and S2. No murmurs, gallops or rubs. No JVD elevation. Respiratory: Decreased basilar b/l breath sounds. B/l crackles, more on the right side, on BiPAP Abdominal: Normal bowel sounds, Soft, No tenderness, No hepatospenomegaly, No masses Genitourinary: Herbert in place MSK/skin: Skin is dry and warm Neurological: Pupils are constricted and sluggish to light reflex. No sensory motor deficits for now laboratory and microbiology Laboratory Tests 10/19/24 05:33 Test 10/19/24 05:33 Range/Units Serum Glucose 112 H 74-106 mg/dL Microbiology Date/Time Source Procedure Growth Status 10/16/24 08:27 Nose MRSA Screen - Final Complete 10/16/24 00:32 Blood Blood Culture - Preliminary NO GROWTH AFTER 72 HOURS OF INCUBATION. Resulted 10/16/24 00:20 Voided Urine Urine Culture - Final Complete Labs and/or images reviewed: Labs reviewed by me, Image(s) reviewed by me Problem List/Assessment/Plan Problem List/Assessment/Plan NEUROLOGY # Mechanical fall without LOC # ?Acute metabolic encephalopathy likely secondary to likely due to respiratory failure/sepsis # H/o peripheral neuropathy - Patient has bruising on the right forehead - Head CT scan is normal CARDIOVASCULAR # ? Acute on chronic diastolic heart failure # History of AFib with secondary Hypercoagulable state # H/O CAD with S/P angioplasty stent placement in circumflex artery # H/o peripheral vascular disease s/p stenting in lower extremities # H/o DVT # HTN # HLD - Downgraded to telemetry from CORA status. - Patient is switching to Oxymizer - echocardiogram, LVEF 60% with a grade 1 diastolic dysfunction - EKG shows, normal sinus rate - Started on Levophed for blood pressure support but discontinued 10/16 - discontinued cefepime and doxycycline 10/16, started below - IV antibiotics Zosyn and vancomycin 10/16, started azithromycin on 10/18 - Currently diuresing with lasix 40. - Strict I&Os, discontinued IVF, fluid restriction - Lower extremity venous Doppler negative for DVT - lower extremity arterial Doppler showed occlusion of the left superficial femoral artery from the proximal to the distal segment no intraluminal flow - Lovenox 60 bid - ativan for anxiety RESPIRATORY # Acute hypoxic respiratory failure in setting of pneumonia/COPD exacerbation # COPD exacerbation # ? acute Gram-positive/negative bacterial PNA # Acute pneumonitis # Left-sided effusion, likely parapneumonic # Septic shock, likely due to pneumonia/cellulitis - Downgraded to telemetry from CORA status. - Patient is switching to Oxymizer- Chest x-ray shows multifocal pneumonia throughout the both lung, with small left effusion - Influenza type a, B and COVID-19 negative - IV antibiotics Zosyn and vancomycin 10/16 along with breathing treatments - started azithromycin on 10/18 - ABGs reviewed and it is compensating - Diurese w/ Lasix, monitor renal function and electrolytes - ordered respiratory and blood culture, pending - chest CT showed diffuse bilateral infiltrates, emphysema, CAD - Repeat Chest CT today showed Severe bilateral pulmonary infiltrates, increased since the previous CT study of 10/16/2024 - Changed methylprednisolone dose to 20mg - Monitor lab GI/LIVER - Diabetic diet # Mild protein malnutrition # Transaminitis # Chronic HBV # Hepatitis C antibody positive status - Albumin is decreased at 3.2 - Nutrition consultation - monitor lab /KIDNEY/METABOLIC # BRENNAN likely VMN on chronic- improving # Lactic acidosis # Hypokalemia - Repleting - Monitor lab - Diurese w/ Lasix, monitor renal function and electrolytes - remove herbert tommorrow - IV lasix 40 dialy ENDO # Hyperglycemia likely in setting of sepsis - HbA1c 5.3 - mild ISS # vitamin-D deficiency - repleting MUSCULOSKELETAL # Left leg Cellulitis - CT scan of the leg shows, bony demineralization and mild subcutaneous edema in distal left lower extremity. No acute fracture or traumatic malalignment - Wound consultation - Empiric IV antibiotics HEME-ONC # Normocytic anemia # ? iron deficiency anemia # Ruled out DVT/PE - monitor lab - venous Doppler showed no signs of dvt - ordered iron panel # tobacco dependence # tobacco abuse disorder - counseled regarding cessation for more than 17 minutes - currently on nicotine patch LINES Central line on right internal jugular vein 10/16 DRIPS Levophed stopped 10/16 PUD prophylaxis:Not indicated DVT PPX: Lovenox for now Goals of care discussed with the patient for more than 27 minutes, full code status Critical care time spent with patient discussing and formulating plan of care: 43 minutes. This does not include time spent performing procedures. Patient reported, is unable to arrange phone number to update family regarding patient clinical status. Case discussed with Dr Millan Plan discussed with: Patient My Orders My Orders Orders - MURPHY MARTINEZ RESIDENT Procedure Category Date Status Time Vancomycin PHA 10/19/24 In Process 1.25gm/250ml 02:00 Vancomycin,Trough LAB 10/20/24 Verified 09:00 Vancomycin Per CARMELINA 10/20/24 In Process Pharmacy Protoc 10:00 Creatinine LAB 10/20/24 Verified 09:00 Chest Xray 1 View XY 10/19/24 Resulted 04:00 Abg W/ Co-Ox RT 10/19/24 Logged 07:00 MURPHY MARTINEZ RESIDENT Oct 19, 2024 15:59
[2024-10-20] VITALS (18 sets, daily range): BP systolic 98–135; BP diastolic 53–72; PULSE 66–87; RESP 18–24; TEMP 98–98.8; O2SAT 90–99
[2024-10-20 05:07] LABS: Hematocrit 29.9 % (41.0-53.0); Hemoglobin 9.9 g/dL (13.5-17.5); Mean Corpuscular Hemoglobin 31.1 pg (28.0-32.0); Mean Corpuscular Volume 94.4 fL (80.0-100.0); Platelet Count (auto) 409 10^3/uL (140-450); Red Blood Cells 3.17 10^6/uL (4.5-5.90); Red Cell Distribution Width 14.9 % (11.8-14.3); White Blood Cell 27.6 10^3/uL (4.4-10.8)
[2024-10-20 05:26] LABS: Potassium 3.5 mmol/L (3.5-5.1)
[2024-10-20 05:27] LABS: Anion Gap 7 (5-15); Calcium 9.6 mg/dL (8.7-10.4); Carbon Dioxide 30 mmol/L (20-31)
[2024-10-20 05:32] LABS: BUN/Creatinine Ratio 30.4 (10.0-20.0); Band Neutrophils % (manual) 0; Basophils % (manual) 0 (0.0-2.0); Blast Cells 0; Eosinophils % (manual) 0 (0-7); Metamyelocytes % 0; Myelocytes % 0; Promyelocytes % 0; Reactive Lymphocytes 0
[2024-10-20 05:36] LABS: Blood Urea Nitrogen 28 mg/dL (9-23); Chloride 110 mmol/L (98-107); Glucose 124 mg/dL (74-106); Sodium 147 mmol/L (136-145)
--- NOTE | 2024-10-20 06:06 | DVH ---
CHEST RADIOGRAPH Indication: PNA Technique: Single frontal view of the chest was obtained Comparison: XY CHEST XRAY 1 VIEW on DOS: 10/19/24, XY CHEST XRAY 1 VIEW on DOS: 10/18/24, XY CHEST XRAY 1 VIEW on DOS: 10/17/24 IMPRESSION: Heart is prominent size. There are coarsened interstitial markings. No focal airspace opacity, sizab le effusion or pneumothorax. Right IJ catheter tip in the region of the superior vena cava.
[2024-10-20 07:39] LABS: Lymphocytes % (manual) 15 (10.0-50.0); Monocytes % (manual) 5 (0-12)
[2024-10-20 07:41] LABS: Large Platelets FEW; Platelet Estimate Adequa
--- NOTE | 2024-10-20 20:59 | DVHPN2 ---
Subjective in bed resting Changes from previous H/P or p: No Changes Objective Vitals Vital Signs Date Time Temp Pulse Resp B/P (MAP) Pulse Ox O2 Delivery O2 Flow Rate FiO2 10/20/24 18:45 72 20 99 10/20/24 18:35 Oxymizer 10 N/A 10/20/24 17:02 98.0 104/60 (75) 98.0 Intake/Output Intake and Output 10/20/24 04:59 Intake Total 775 ml Output Total 2950 ml Balance -2175 ml IV Total 775 ml Output Urine Total 2950 ml Medications Current Medications Medications Dose Ordered Sig/Roseanna Route Start Time Stop Time Status Last Admin Dose Admin Vancomycin HCl 0 ml @ 0 mls/hr UD IV 10/16/24 03:30 UNV Ipratropium [place] 0.5 mg Q4HR NEB 10/16/24 04:15 10/20/24 18:35 0.5 MG Levalbuterol HCl 0.625 mg Q4HR NEB 10/16/24 04:15 10/20/24 18:35 0.625 MG Vancomycin HCl 0 ml @ 0 mls/hr UD IV 10/16/24 12:30 Piperacillin Sod/ Tazobactam Sod 100 ml @ 25 mls/hr Q8HR IV 10/16/24 14:00 10/20/24 16:11 25 MLS/HR Diagnostic Test (Pha) 1 strip ACHS 10/16/24 17:00 10/20/24 16:28 1 STRIP Insulin Human Regular ACHS SC 10/16/24 17:00 10/20/24 11:30 2 UNITS Dextrose 50 ml UD PRN IV 10/16/24 12:30 Enoxaparin Sodium 60 mg Q12HR SC 10/16/24 22:00 10/20/24 10:35 60 MG Lorazepam 0.5 mg Q6HP PRN IV 10/16/24 17:30 10/20/24 00:06 0.5 MG Ergocalciferol 50,000 unit Q7D PO 10/17/24 10:30 10/17/24 10:46 50,000 UNIT Methylprednisolone Sodium Succinate 20 mg BID IV 10/17/24 22:00 10/20/24 10:00 20 MG Furosemide 40 mg DAILY IV 10/18/24 10:00 10/20/24 10:00 40 MG Nicotine 1 patch DAILY TD 10/18/24 10:00 10/20/24 10:35 1 PATCH Azithromycin 250 ml @ 125 mls/hr DAILY IV 10/19/24 10:00 10/20/24 10:34 125 MLS/HR Vancomycin HCl 250 ml @ 200 mls/hr Q16H IV 10/19/24 02:00 10/20/24 10:34 200 MLS/HR Laboratory Results Laboratory Tests 10/20/24 04:40 Chemistry Test 10/20/24 04:40 Calcium Level 9.6 mg/dL (8.7-10.4) Urinalysis Test 10/16/24 00:00 10/16/24 00:20 Urine Color Yellow (Yellow) Urine Clarity Clear (Clear) Urine pH 5.0 (5.0-9.0) Urine Specific [place] 1.018 (1.001-1.035) Urine Protein Negative (Negative) Urine Ketones Negative (Negative) Urine Blood Negative /uL (Negative) Urine Nitrite Negative (Negative) Urine Bilirubin Negative (Negative) Urine Urobilinogen 2 mg/dL (Negative) H Urine Leukocyte Esterase Negative /uL (Negative) Urine RBC 3 /hpf (0 - 3) Urine WBC 1 /hpf (0 - 3) Urine Squamous Epithelial Cells Few /hpf (<5) Urine Bacteria None seen /hpf (None Seen) Urine Hyaline Casts Few /lpf (0 - 2) Urine Glucose Normal mg/dL (Normal) Urine Creatinine 80.29 mg/dL (30.0-125.0) Urine Sodium 14 mmol/L (40-220) L Microbiology Microbiology Date/Time Source Procedure Growth Status 10/16/24 08:27 Nose MRSA Screen - Final Complete 10/16/24 00:32 Blood Blood Culture - Preliminary NO GROWTH AFTER 72 HOURS OF INCUBATION. Resulted 10/16/24 00:20 Voided Urine Urine Culture - Final Complete Assessment/Plan Assessment/Plan NEUROLOGY # Mechanical fall without LOC # ?Acute metabolic encephalopathy likely secondary to likely due to respiratory failure/sepsis # H/o peripheral neuropathy - Patient has bruising on the right forehead - Head CT scan is normal CARDIOVASCULAR # ? Acute on chronic diastolic heart failure # History of AFib with secondary Hypercoagulable state # H/O CAD with S/P angioplasty stent placement in circumflex artery # H/o peripheral vascular disease s/p stenting in lower extremities # H/o DVT # HTN # HLD - Downgraded to telemetry from CORA status. - Patient is switching to Oxymizer - echocardiogram, LVEF 60% with a grade 1 diastolic dysfunction - EKG shows, normal sinus rate - Started on Levophed for blood pressure support but discontinued 10/16 - discontinued cefepime and doxycycline 10/16, started below - IV antibiotics Zosyn and vancomycin 10/16, started azithromycin on 10/18 - Currently diuresing with lasix 40. - Strict I&Os, discontinued IVF, fluid restriction - Lower extremity venous Doppler negative for DVT - lower extremity arterial Doppler showed occlusion of the left superficial femoral artery from the proximal to the distal segment no intraluminal flow - Lovenox 60 bid - ativan for anxiety RESPIRATORY # Acute hypoxic respiratory failure in setting of pneumonia/COPD exacerbation # COPD exacerbation # ? acute Gram-positive/negative bacterial PNA # Acute pneumonitis # Left-sided effusion, likely parapneumonic # Septic shock, likely due to pneumonia/cellulitis - Downgraded to telemetry from CORA status. - Patient is switching to Oxymizer- Chest x-ray shows multifocal pneumonia throughout the both lung, with small left effusion - Influenza type a, B and COVID-19 negative - IV antibiotics Zosyn and vancomycin 10/16 along with breathing treatments - started azithromycin on 10/18 - ABGs reviewed and it is compensating - Diurese w/ Lasix, monitor renal function and electrolytes - ordered respiratory and blood culture, pending - chest CT showed diffuse bilateral infiltrates, emphysema, CAD - Repeat Chest CT today showed Severe bilateral pulmonary infiltrates, increased since the previous CT study of 10/16/2024 - Changed methylprednisolone dose to 20mg - Monitor lab GI/LIVER - Diabetic diet # Mild protein malnutrition # Transaminitis # Chronic HBV # Hepatitis C antibody positive status - Albumin is decreased at 3.2 - Nutrition consultation - monitor lab /KIDNEY/METABOLIC # BRENNAN likely VMN on chronic- improving # Lactic acidosis # Hypokalemia - Repleting - Monitor lab - Diurese w/ Lasix, monitor renal function and electrolytes - remove herbert tommorrow - IV lasix 40 dialy ENDO # Hyperglycemia likely in setting of sepsis - HbA1c 5.3 - mild ISS # vitamin-D deficiency - repleting MUSCULOSKELETAL # Left leg Cellulitis - CT scan of the leg shows, bony demineralization and mild subcutaneous edema in distal left lower extremity. No acute fracture or traumatic malalignment - Wound consultation - Empiric IV antibiotics HEME-ONC # Normocytic anemia # ? iron deficiency anemia # Ruled out DVT/PE - monitor lab - venous Doppler showed no signs of dvt - ordered iron panel # tobacco dependence # tobacco abuse disorder - counseled regarding cessation for more than 17 minutes - currently on nicotine patch LINES Central line on right internal jugular vein 10/16 DRIPS Levophed stopped 10/16 PUD prophylaxis:Not indicated DVT PPX: Lovenox for now Goals of care discussed with the patient for more than 27 minutes, full code status Critical care time spent with patient discussing and formulating plan of care: 43 minutes. This does not include time spent performing procedures. Plan discussed with: Patient Date of Service: Oct 20, 2024 Billing Provider: ZVE ALDANA MD Common Visit Codes: [id number] CARE 30-74 MIN ZEV ALDANA MD Oct 20, 2024 20:59
[2024-10-21] VITALS (18 sets, daily range): BP systolic 93–131; BP diastolic 54–69; PULSE 69–90; RESP 16–20; TEMP 98.6–98.9; O2SAT 91–99
--- NOTE | 2024-10-21 20:10 | DVHPN2 ---
Subjective in bed resting Changes from previous H/P or p: No Changes Objective Vitals Vital Signs Date Time Temp Pulse Resp B/P (MAP) Pulse Ox O2 Delivery O2 Flow Rate FiO2 10/21/24 18:35 82 18 94 10/21/24 18:25 Oxymizer 6.0 10/21/24 18:25 N/A 10/21/24 17:11 98.9 93/54 (67) 98.9 Intake/Output Intake and Output 10/21/24 05:00 Intake Total 2625 ml Output Total 1650 ml Balance 975 ml Intake Oral 2000 ml IV Total 625 ml Output Urine Total 1650 ml Medications Current Medications Medications Dose Ordered Sig/Roseanna Route Start Time Stop Time Status Last Admin Dose Admin Vancomycin HCl 0 ml @ 0 mls/hr UD IV 10/16/24 03:30 UNV Ipratropium [place] 0.5 mg Q4HR NEB 10/16/24 04:15 10/21/24 18:25 0.5 MG Levalbuterol HCl 0.625 mg Q4HR NEB 10/16/24 04:15 10/21/24 18:25 0.625 MG Vancomycin HCl 0 ml @ 0 mls/hr UD IV 10/16/24 12:30 Piperacillin Sod/ Tazobactam Sod 100 ml @ 25 mls/hr Q8HR IV 10/16/24 14:00 10/21/24 16:49 25 MLS/HR Diagnostic Test (Pha) 1 strip ACHS 10/16/24 17:00 10/21/24 16:52 1 STRIP Insulin Human Regular ACHS SC 10/16/24 17:00 10/21/24 17:01 2 UNITS Dextrose 50 ml UD PRN IV 10/16/24 12:30 Enoxaparin Sodium 60 mg Q12HR SC 10/16/24 22:00 10/21/24 09:32 60 MG Lorazepam 0.5 mg Q6HP PRN IV 10/16/24 17:30 10/20/24 00:06 0.5 MG Ergocalciferol 50,000 unit Q7D PO 10/17/24 10:30 10/17/24 10:46 50,000 UNIT Methylprednisolone Sodium Succinate 20 mg BID IV 10/17/24 22:00 10/21/24 09:31 20 MG Furosemide 40 mg DAILY IV 10/18/24 10:00 10/21/24 09:31 40 MG Nicotine 1 patch DAILY TD 10/18/24 10:00 10/21/24 09:34 1 PATCH Azithromycin 250 ml @ 125 mls/hr DAILY IV 10/19/24 10:00 10/21/24 09:31 125 MLS/HR Vancomycin HCl 250 ml @ 200 mls/hr Q16H IV 10/19/24 02:00 10/21/24 02:21 200 MLS/HR Laboratory Results Laboratory Tests 10/20/24 04:40 10/21/24 01:36 Urinalysis Test 10/16/24 00:00 10/16/24 00:20 Urine Color Yellow (Yellow) Urine Clarity Clear (Clear) Urine pH 5.0 (5.0-9.0) Urine Specific [place] 1.018 (1.001-1.035) Urine Protein Negative (Negative) Urine Ketones Negative (Negative) Urine Blood Negative /uL (Negative) Urine Nitrite Negative (Negative) Urine Bilirubin Negative (Negative) Urine Urobilinogen 2 mg/dL (Negative) H Urine Leukocyte Esterase Negative /uL (Negative) Urine RBC 3 /hpf (0 - 3) Urine WBC 1 /hpf (0 - 3) Urine Squamous Epithelial Cells Few /hpf (<5) Urine Bacteria None seen /hpf (None Seen) Urine Hyaline Casts Few /lpf (0 - 2) Urine Glucose Normal mg/dL (Normal) Urine Creatinine 80.29 mg/dL (30.0-125.0) Urine Sodium 14 mmol/L (40-220) L Microbiology Microbiology Date/Time Source Procedure Growth Status 10/16/24 08:27 Nose MRSA Screen - Final Complete 10/16/24 00:32 Blood Blood Culture - Final NO GROWTH AFTER 5 DAYS OF INCUBATION. Complete 10/16/24 00:20 Voided Urine Urine Culture - Final Complete Assessment/Plan Assessment/Plan NEUROLOGY # Mechanical fall without LOC # ?Acute metabolic encephalopathy likely secondary to likely due to respiratory failure/sepsis # H/o peripheral neuropathy - Patient has bruising on the right forehead - Head CT scan is normal CARDIOVASCULAR # ? Acute on chronic diastolic heart failure # History of AFib with secondary Hypercoagulable state # H/O CAD with S/P angioplasty stent placement in circumflex artery # H/o peripheral vascular disease s/p stenting in lower extremities # H/o DVT # HTN # HLD - Downgraded to telemetry from CORA status. - Patient is switching to Oxymizer - echocardiogram, LVEF 60% with a grade 1 diastolic dysfunction - EKG shows, normal sinus rate - Started on Levophed for blood pressure support but discontinued 10/16 - discontinued cefepime and doxycycline 10/16, started below - IV antibiotics Zosyn and vancomycin 10/16, started azithromycin on 10/18 - Currently diuresing with lasix 40. - Strict I&Os, discontinued IVF, fluid restriction - Lower extremity venous Doppler negative for DVT - lower extremity arterial Doppler showed occlusion of the left superficial femoral artery from the proximal to the distal segment no intraluminal flow - Lovenox 60 bid - ativan for anxiety RESPIRATORY # Acute hypoxic respiratory failure in setting of pneumonia/COPD exacerbation # COPD exacerbation # ? acute Gram-positive/negative bacterial PNA # Acute pneumonitis # Left-sided effusion, likely parapneumonic # Septic shock, likely due to pneumonia/cellulitis - Downgraded to telemetry from CORA status. - Patient is switching to Oxymizer- Chest x-ray shows multifocal pneumonia throughout the both lung, with small left effusion - Influenza type a, B and COVID-19 negative - IV antibiotics Zosyn and vancomycin 10/16 along with breathing treatments - started azithromycin on 10/18 - ABGs reviewed and it is compensating - Diurese w/ Lasix, monitor renal function and electrolytes - ordered respiratory and blood culture, pending - chest CT showed diffuse bilateral infiltrates, emphysema, CAD - Repeat Chest CT today showed Severe bilateral pulmonary infiltrates, increased since the previous CT study of 10/16/2024 - Changed methylprednisolone dose to 20mg - Monitor lab GI/LIVER - Diabetic diet # Mild protein malnutrition # Transaminitis # Chronic HBV # Hepatitis C antibody positive status - Albumin is decreased at 3.2 - Nutrition consultation - monitor lab /KIDNEY/METABOLIC # BRENNAN likely VMN on chronic- improving # Lactic acidosis # Hypokalemia - Repleting - Monitor lab - Diurese w/ Lasix, monitor renal function and electrolytes - remove herbert tommorrow - IV lasix 40 dialy ENDO # Hyperglycemia likely in setting of sepsis - HbA1c 5.3 - mild ISS # vitamin-D deficiency - repleting MUSCULOSKELETAL # Left leg Cellulitis - CT scan of the leg shows, bony demineralization and mild subcutaneous edema in distal left lower extremity. No acute fracture or traumatic malalignment - Wound consultation - Empiric IV antibiotics HEME-ONC # Normocytic anemia # ? iron deficiency anemia # Ruled out DVT/PE - monitor lab - venous Doppler showed no signs of dvt - ordered iron panel # tobacco dependence # tobacco abuse disorder - counseled regarding cessation for more than 17 minutes - currently on nicotine patch LINES Central line on right internal jugular vein 10/16 DRIPS Levophed stopped 10/16 PUD prophylaxis:Not indicated DVT PPX: Lovenox for now Plan discussed with: Patient Date of Service: Oct 21, 2024 Billing Provider: ZEV ALDANA MD Common Visit Codes: [id number] INP/OBS CARE(HIGH) ZEV ALDANA MD Oct 21, 2024 20:10
[2024-10-21] MEDS: HYDROcodone-ACET 5/325MG TAB PO ONE (23:20)
[2024-10-22] VITALS (21 sets, daily range): BP systolic 92–115; BP diastolic 55–60; PULSE 71–103; RESP 14–19; TEMP 97.5–98.3; O2SAT 83–100
[2024-10-22] MEDS: SODIUM CHLORIDE 0.9% 1,000 ML IV ONE (06:39)
[2024-10-22 08:17] LABS: Hemoglobin 9.7 g/dL (13.5-17.5); Red Cell Distribution Width 14.7 % (11.8-14.3)
[2024-10-22 08:20] LABS: Hematocrit 30.5 % (41.0-53.0); Mean Corpuscular Hemoglobin 30.4 pg (28.0-32.0); Mean Corpuscular Hgb Conc. 31.9 g/dL (32.0-36.0); Mean Corpuscular Volume 95.3 fL (80.0-100.0); Platelet Count (auto) 551 10^3/uL (140-450)
[2024-10-22 08:26] LABS: White Blood Cell 30.7 10^3/uL (4.4-10.8)
[2024-10-22 08:27] LABS: Basophils % (manual) 0 (0.0-2.0); Blast Cells 0; Eosinophils % (manual) 0 (0-7); Promyelocytes % 0; Reactive Lymphocytes 0
[2024-10-22 08:48] LABS: Alanine Aminotransferase 23 U/L (7-40); Albumin 3.3 g/dL (3.2-4.8); Alkaline Phosphatase 59 U/L (46-116); Anion Gap 5 (5-15); Aspartate Aminotransferase 23 U/L (13-40); BUN/Creatinine Ratio 47.3 (10.0-20.0); Calcium 9.2 mg/dL (8.7-10.4); Carbon Dioxide 28 mmol/L (20-31); Magnesium 2.6 mg/dL (1.6-2.6); Sodium 141 mmol/L (136-145)
[2024-10-22 08:49] LABS: Bilirubin, Total 0.4 mg/dL (0.2-1.0); Total Protein 5.8 g/dL (5.7-8.2)
[2024-10-22 08:50] LABS: Blood Urea Nitrogen 44 mg/dL (9-23); Chloride 108 mmol/L (98-107); Glucose 128 mg/dL (74-106)
--- NOTE | 2024-10-22 09:24 | ECG ---
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
[2024-10-22 09:25] LABS: Band Neutrophils % (manual) 1; Lymphocytes % (manual) 17 (10.0-50.0); Metamyelocytes % 1; Monocytes % (manual) 2 (0-12); Myelocytes % 1; Platelet Estimate Increased
[2024-10-22 09:26] LABS: Giant Platelets Few; Large Platelets FEW
--- NOTE | 2024-10-22 09:40 | DVH ---
CHEST RADIOGRAPH Indication: pna Technique: Single frontal view of the chest was obtained Comparison: XY CHEST XRAY 1 VIEW on DOS: 10/20/24, XY CHEST XRAY 1 VIEW on DOS: 10/19/24, XY CHEST XRAY 1 VIEW on DOS: 10/18/24, XY CHEST XRAY 1 VIEW on DOS: 10/17/24, XY CHEST PORTABLE on DOS: 10/16/24 FINDINGS: Lines and Tubes: Right CVC tip in SVC. Lungs: No focal consolidation. Pleura: No effusion. No pneumothorax. Cardiomediastinal contours: Unremarkable Bones: Surgical hardware in the left IMPRESSION: No acute cardiopulmonary disease.
[2024-10-22] MEDS ORDERED: Ensure HIGH Protein Chocolate 8oz Bottle PO SCH (18:00)
[2024-10-22] MEDS: Glucerna Carbsteady SHAKE Vanilla 8oz PO SCH (18:15)
--- NOTE | 2024-10-22 19:51 | DVHPNRES ---
Progress Note Date Seen: Oct 22, 2024 Resident Creating Document: MURPHY MARTINEZ RESIDENT Has the PT tested + for MRSA If YES, has PT been informed?: No Medical Necessity Reason Pt with a Central, PICC or Fol: Yes The following are medically ne: Central Line Subjective Review of Systems Patient seen and examined at bedside. Patient is afebrile, overnight events reviewed, reported no new complaints. Patient is switched to Oxymizer Today. Downgraded to telemetry status. removed Borges and central in today. Patient reports: No new complaints, Feels better Objective vital signs Vital Sign Date Time Temp Pulse Resp B/P (MAP) Pulse Ox O2 Delivery O2 Flow Rate FiO2 10/22/24 18:40 75 16 97 10/22/24 17:00 98.3 106/57 (73) 98.3 10/22/24 10:00 Oxymizer 6.0 10/22/24 10:00 N/A Total Intake and Output 10/21/24 10/21/24 10/22/24 15:00 23:00 07:00 Intake Total 1240 ml 1100 ml Output Total 1350 ml 800 ml Balance -110 ml 300 ml medications Current Medications Medications Dose Ordered Sig/Roseanna Route Start Time Stop Time Status Last Admin Dose Admin Vancomycin HCl 0 ml @ 0 mls/hr UD IV 10/16/24 03:30 UNV Ipratropium [place] 0.5 mg Q4HR NEB 10/16/24 04:15 10/22/24 18:30 0.5 MG Levalbuterol HCl 0.625 mg Q4HR NEB 10/16/24 04:15 10/22/24 18:30 0.625 MG Vancomycin HCl 0 ml @ 0 mls/hr UD IV 10/16/24 12:30 Piperacillin Sod/ Tazobactam Sod 100 ml @ 25 mls/hr Q8HR IV 10/16/24 14:00 10/22/24 13:43 25 MLS/HR Diagnostic Test (Pha) 1 strip ACHS 10/16/24 17:00 10/22/24 11:30 1 STRIP Insulin Human Regular ACHS SC 10/16/24 17:00 10/22/24 11:34 2 UNITS Dextrose 50 ml UD PRN IV 10/16/24 12:30 Enoxaparin Sodium 60 mg Q12HR SC 10/16/24 22:00 10/22/24 09:58 60 MG Lorazepam 0.5 mg Q6HP PRN IV 10/16/24 17:30 10/20/24 00:06 0.5 MG Ergocalciferol 50,000 unit Q7D PO 10/17/24 10:30 10/17/24 10:46 50,000 UNIT Furosemide 40 mg DAILY IV 10/18/24 10:00 10/22/24 09:58 40 MG Nicotine 1 patch DAILY TD 10/18/24 10:00 10/22/24 09:59 1 PATCH Vancomycin HCl 250 ml @ 200 mls/hr Q16H IV 10/19/24 02:00 10/22/24 09:57 200 MLS/HR Prednisone 40 mg DAILY PO 10/23/24 10:00 Enteral Nutritional Formula 240 ml BIDWM PO 10/22/24 18:15 10/22/24 18:15 240 ML Examination Male patient lying on bed General:Alert, Oriented X3, Cooperative, mild distress HEENT: Atraumatic, PERRLA, EOMI, Mucous membrane moist/pink Cardiovascular: Regular S1 and S2. No murmurs, gallops or rubs. No JVD elevation. Respiratory: Decreased basilar b/l breath sounds. B/l crackles, more on the right side, on BiPAP Abdominal: Normal bowel sounds, Soft, No tenderness, No hepatospenomegaly, No masses Genitourinary: Borges in place MSK/skin: Skin is dry and warm Neurological: Pupils are constricted and sluggish to light reflex. No sensory motor deficits for now laboratory and microbiology Laboratory Tests 10/22/24 06:32 Test 10/22/24 06:32 Range/Units Serum Glucose 128 H 74-106 mg/dL Microbiology Date/Time Source Procedure Growth Status 10/16/24 08:27 Nose MRSA Screen - Final Complete 10/16/24 00:32 Blood Blood Culture - Final NO GROWTH AFTER 5 DAYS OF INCUBATION. Complete 10/16/24 00:20 Voided Urine Urine Culture - Final Complete Problem List/Assessment/Plan Problem List/Assessment/Plan NEUROLOGY # Mechanical fall without LOC # ?Acute metabolic encephalopathy likely secondary to likely due to respiratory failure/sepsis # H/o peripheral neuropathy - Patient has bruising on the right forehead - Head CT scan is normal CARDIOVASCULAR # ? Acute on chronic diastolic heart failure # History of AFib with secondary Hypercoagulable state # H/O CAD with S/P angioplasty stent placement in circumflex artery # H/o peripheral vascular disease s/p stenting in lower extremities # H/o DVT # HTN # HLD - Downgraded to telemetry from CORA status. - Patient is switching to Oxymizer - echocardiogram, LVEF 60% with a grade 1 diastolic dysfunction - EKG shows, normal sinus rate - Started on Levophed for blood pressure support but discontinued 10/16 - discontinued cefepime and doxycycline 10/16, started below - IV antibiotics Zosyn and vancomycin 10/16, started azithromycin on 10/18 - Currently diuresing with lasix 40. - Strict I&Os, discontinued IVF, fluid restriction - Lower extremity venous Doppler negative for DVT - lower extremity arterial Doppler showed occlusion of the left superficial femoral artery from the proximal to the distal segment no intraluminal flow - Lovenox 60 bid - ativan for anxiety RESPIRATORY # Acute hypoxic respiratory failure in setting of pneumonia/COPD exacerbation # COPD exacerbation # ? acute Gram-positive/negative bacterial PNA # Acute pneumonitis # Left-sided effusion, likely parapneumonic # Septic shock, likely due to pneumonia/cellulitis - Downgraded to telemetry from CORA status. - Patient is switching to Oxymizer- Chest x-ray shows multifocal pneumonia throughout the both lung, with small left effusion - Influenza type a, B and COVID-19 negative - IV antibiotics Zosyn and vancomycin 10/16 along with breathing treatments - started azithromycin on 10/18 - ABGs reviewed and it is compensating - Diurese w/ Lasix, monitor renal function and electrolytes - ordered respiratory and blood culture, pending - chest CT showed diffuse bilateral infiltrates, emphysema, CAD - Repeat Chest CT today showed Severe bilateral pulmonary infiltrates, increased since the previous CT study of 10/16/2024 - Changed methylprednisolone dose to 20mg - Monitor lab GI/LIVER - Diabetic diet # Mild protein malnutrition # Transaminitis # Chronic HBV # Hepatitis C antibody positive status - Albumin is decreased at 3.2 - Nutrition consultation - monitor lab Add ensure /KIDNEY/METABOLIC # BRENNAN likely VMN on chronic- improving # Lactic acidosis # Hypokalemia - Repleting - Monitor lab - Diurese w/ Lasix, monitor renal function and electrolytes - remove Borges and central line - IV lasix 40 dialy ENDO # Hyperglycemia likely in setting of sepsis - HbA1c 5.3 - mild ISS # vitamin-D deficiency - repleting MUSCULOSKELETAL # Left leg Cellulitis - CT scan of the leg shows, bony demineralization and mild subcutaneous edema in distal left lower extremity. No acute fracture or traumatic malalignment - Wound consultation - Empiric IV antibiotics HEME-ONC # Normocytic anemia # ? iron deficiency anemia # Ruled out DVT/PE - monitor lab - venous Doppler showed no signs of dvt - ordered iron panel # tobacco dependence # tobacco abuse disorder - counseled regarding cessation for more than 17 minutes - currently on nicotine patch LINES Central line on right internal jugular vein dc 10/22 DRIPS Levophed stopped 10/16 PUD prophylaxis:Not indicated DVT PPX: Lovenox for now Goals of care discussed with the patient for more than 27 minutes, full code status Critical care time spent with patient discussing and formulating plan of care: 43 minutes. This does not include time spent performing procedures. Patient reported, is unable to arrange phone number to update family regarding patient clinical status. Case discussed with Dr Westfall Plan discussed with: Patient My Orders My Orders Orders - MURPHY MARTINEZ RESIDENT Procedure Category Date Status Time Chest Xray 1 View XY 10/22/24 Resulted 06:40 Pt Request For Service PT 10/22/24 Logged 08:29 Complete Blood Count LAB 10/23/24 Verified 04:00 Creatinine LAB 10/23/24 Verified 04:00 Vancomycin,Trough LAB 10/23/24 Verified 17:00 Vancomycin Per CARMELINA 10/22/24 In Process Pharmacy Protoc 14:11 Communication Order ORDERS 10/22/24 Transmitted 16:03 Comprehensive LAB 10/23/24 Verified Metabolic Panel 04:00 Lactic Acid W/ Reflex LAB 10/23/24 Verified Order 04:00 Magnesium LAB 10/23/24 Verified 04:00 Chest Xray 1 View XY 10/23/24 Logged 04:00 Discontinue Borges CARMELINA 10/22/24 In Process Catheter 18:12 Nutritional PHA 10/22/24 In Process Supplements (Glucerna 18:15 Date of Service: Oct 22, 2024 Billing Provider: LEEANNE WESTFALL MD Common Visit Codes: [id number] CARE 30-74 MIN MURPHY MARTINEZ Oct 22, 2024 19:51 LEEANNE WESTFALL MD Oct 23, 2024 16:20
[2024-10-22] MEDS: ACETAMINOPHEN 325 MG TAB PO PRN (22:33)
[2024-10-23] VITALS (23 sets, daily range): BP systolic 95–130; BP diastolic 54–60; PULSE 71–107; RESP 14–21; TEMP 98–98.6; O2SAT 91–100
[2024-10-23 06:43] LABS: Red Blood Cells 3.18 10^6/uL (4.5-5.90)
[2024-10-23 06:45] LABS: Hematocrit 30.7 % (41.0-53.0); Hemoglobin 9.9 g/dL (13.5-17.5); Mean Corpuscular Hemoglobin 31.1 pg (28.0-32.0); Mean Corpuscular Hgb Conc. 32.1 g/dL (32.0-36.0); Mean Corpuscular Volume 96.7 fL (80.0-100.0); Platelet Count (auto) 591 10^3/uL (140-450); Red Cell Distribution Width 14.8 % (11.8-14.3)
[2024-10-23 06:55] LABS: Alanine Aminotransferase 26 U/L (7-40); Albumin 3.5 g/dL (3.2-4.8); Alkaline Phosphatase 61 U/L (46-116); Anion Gap 7 (5-15); Aspartate Aminotransferase 28 U/L (13-40); BUN/Creatinine Ratio 35.2 (10.0-20.0); Bilirubin, Total 0.4 mg/dL (0.2-1.0); Calcium 9.3 mg/dL (8.7-10.4); Carbon Dioxide 28 mmol/L (20-31); Chloride 107 mmol/L (98-107); Glucose 92 mg/dL (74-106); Magnesium 2.3 mg/dL (1.6-2.6); Potassium 3.5 mmol/L (3.5-5.1); Sodium 142 mmol/L (136-145); Total Protein 5.9 g/dL (5.7-8.2)
[2024-10-23 06:57] LABS: Blood Urea Nitrogen 31 mg/dL (9-23)
[2024-10-23 07:11] LABS: White Blood Cell 35.1 10^3/uL (4.4-10.8)
[2024-10-23 07:12] LABS: Basophils % (manual) 0 (0.0-2.0); Blast Cells 0; Promyelocytes % 0; Reactive Lymphocytes 0
[2024-10-23 07:48] LABS: Band Neutrophils % (manual) 3; Eosinophils % (manual) 1 (0-7); Lymphocytes % (manual) 23 (10.0-50.0); Metamyelocytes % 3; Monocytes % (manual) 6 (0-12); Myelocytes % 1
[2024-10-23 07:49] LABS: Large Platelets FEW; Platelet Estimate Increased
--- NOTE | 2024-10-23 08:48 | DVH ---
CHEST RADIOGRAPH Indication: PNA Technique: Single frontal view of the chest was obtained Comparison: XY CHEST XRAY 1 VIEW on DOS: 10/22/24, XY CHEST XRAY 1 VIEW on DOS: 10/20/24, XY CHEST XRAY 1 VIEW on DOS: 10/19/24, XY CHEST XRAY 1 VIEW on DOS: 10/18/24, XY CHEST XRAY 1 VIEW on DOS: 10/17/24, XY CHEST XRAY 1 VIEW on DOS: 10/22/24 FINDINGS: Lines and Tubes: Right CVC removed Lungs: No focal consolidation. Pleura: No effusion. No pneumothorax. Cardiomediastinal contours: Unremarkable Bones: Surgical hardware in the left IMPRESSION: No acute cardiopulmonary disease.
[2024-10-23] MEDS: PANTOPRAZOLE 40 MG/10 ML VIAL INJ IV SCH (09:47)
[2024-10-23] MEDS: DOCUSATE SOD 100 MG CAP PO SCH (09:49)
[2024-10-23] MEDS: predniSONE 20 MG TAB PO SCH (09:49)
[2024-10-23] MEDS: AZITHROMYCIN 500MG/ 250ML 250 ML IV ONE (16:15)
[2024-10-23 17:13] LABS: Urine Bacteria None Seen /hpf (None Seen)
[2024-10-23 17:36] LABS: Urine Blood Negative /uL (Negative); Urine Clarity Clear (Clear); Urine Color Light-Yellow (Yellow); Urine Protein, UAD Negative (Negative); Urine Specific Gravity 1.018 (1.001-1.035); Urine Squamous Epithelial Cell None Seen /hpf (<5); Urine Urobilinogen Normal (Negative); Urine WBC 1 /HPF (0-3)
--- NOTE | 2024-10-23 18:29 | DVHPNRES ---
Progress Note Date Seen: Oct 23, 2024 Resident Creating Document: MURPHY MARTINEZ RESIDENT Has the PT tested + for MRSA If YES, has PT been informed?: No Medical Necessity Reason Pt with a Central, PICC or Fol: Yes The following are medically ne: Central Line Subjective Review of Systems Patient seen and examined at bedside. Patient is afebrile, overnight events reviewed, reported no new complaints. Patient is Oxymizer 6 L telemetry status, remove Borges's and central venous catheter yesterday. Continuously monitoring. Patient reports: No new complaints, Feels better Objective vital signs Vital Sign Date Time Temp Pulse Resp B/P (MAP) Pulse Ox O2 Delivery O2 Flow Rate FiO2 10/23/24 17:10 98.0 90 18 112/60 (77) 93 98.0 10/23/24 10:00 Oxymizer 6.0 10/23/24 10:00 N/A Total Intake and Output 10/22/24 10/22/24 10/23/24 14:59 22:59 06:59 Intake Total 1550 ml 990 ml 450 ml Output Total 2200 ml 420 ml Balance 1550 ml -1210 ml 30 ml medications Current Medications Medications Dose Ordered Sig/Roseanna Route Start Time Stop Time Status Last Admin Dose Admin Vancomycin HCl 0 ml @ 0 mls/hr UD IV 10/16/24 03:30 UNV Ipratropium [place] 0.5 mg Q4HR NEB 10/16/24 04:15 10/23/24 14:00 0.5 MG Levalbuterol HCl 0.625 mg Q4HR NEB 10/16/24 04:15 10/23/24 14:00 0.625 MG Vancomycin HCl 0 ml @ 0 mls/hr UD IV 10/16/24 12:30 Piperacillin Sod/ Tazobactam Sod 100 ml @ 25 mls/hr Q8HR IV 10/16/24 14:00 10/23/24 14:31 25 MLS/HR Diagnostic Test (Pha) 1 strip ACHS 10/16/24 17:00 10/23/24 17:00 1 STRIP Insulin Human Regular ACHS SC 10/16/24 17:00 10/23/24 17:57 2 UNITS Dextrose 50 ml UD PRN IV 10/16/24 12:30 Enoxaparin Sodium 60 mg Q12HR SC 10/16/24 22:00 10/23/24 09:48 60 MG Lorazepam 0.5 mg Q6HP PRN IV 10/16/24 17:30 10/20/24 00:06 0.5 MG Ergocalciferol 50,000 unit Q7D PO 10/17/24 10:30 10/17/24 10:46 50,000 UNIT Furosemide 40 mg DAILY IV 10/18/24 10:00 10/23/24 09:48 40 MG Nicotine 1 patch DAILY TD 10/18/24 10:00 10/23/24 09:49 1 PATCH Vancomycin HCl 250 ml @ 200 mls/hr Q16H IV 10/19/24 02:00 10/23/24 02:23 200 MLS/HR Enteral Nutritional Formula 240 ml BIDWM PO 10/22/24 18:15 10/23/24 08:00 240 ML Acetaminophen 650 mg Q6HP PRN PO 10/22/24 20:15 10/22/24 22:33 650 MG Pantoprazole Sodium 40 mg DAILY IV 10/23/24 10:00 10/23/24 09:47 40 MG Docusate Sodium 100 mg BID PO 10/23/24 10:00 10/23/24 09:49 100 MG Prednisone 30 mg DAILY PO 10/24/24 10:00 Azithromycin 250 ml @ 125 mls/hr DAILY IV 10/24/24 10:00 Examination Male patient lying on bed General:Alert, Oriented X3, Cooperative, mild distress HEENT: Atraumatic, PERRLA, EOMI, Mucous membrane moist/pink Cardiovascular: Regular S1 and S2. No murmurs, gallops or rubs. No JVD elevation. Respiratory: Decreased basilar b/l breath sounds. B/l crackles, more on the right side, on BiPAP Abdominal: Normal bowel sounds, Soft, No tenderness, No hepatospenomegaly, No masses Genitourinary: Borges in place MSK/skin: Skin is dry and warm Neurological: Pupils are constricted and sluggish to light reflex. No sensory motor deficits for now laboratory and microbiology Laboratory Tests 10/23/24 05:38 Test 10/23/24 05:38 Range/Units Serum Glucose 92 74-106 mg/dL Microbiology Date/Time Source Procedure Growth Status 10/16/24 08:27 Nose MRSA Screen - Final Complete 10/16/24 00:32 Blood Blood Culture - Final NO GROWTH AFTER 5 DAYS OF INCUBATION. Complete 10/16/24 00:20 Voided Urine Urine Culture - Final Complete Labs and/or images reviewed: Labs reviewed by me, Image(s) reviewed by me Problem List/Assessment/Plan Problem List/Assessment/Plan # Mechanical fall without LOC # ?Acute metabolic encephalopathy likely secondary to likely due to respiratory failure/sepsis # H/o peripheral neuropathy - Patient has bruising on the right forehead - Head CT scan is normal # Acute hypoxic respiratory failure in setting of pneumonia/COPD exacerbation # COPD exacerbation # ? acute Gram-positive/negative bacterial PNA # Acute pneumonitis # Left-sided effusion, likely parapneumonic # Septic shock, likely due to pneumonia/cellulitis # rule out systemic fungal infection - currently on 6 L Oxymizer - evident on CT and CXR, monitoring - currently on vancomycin, Zosyn and azithromycin IV - reduced prednisolone to 30 mg p.o. - started voriconazole for possible fungal infection, ordered antigen tests # ? Acute on chronic diastolic heart failure # History of AFib with secondary Hypercoagulable state # H/O CAD with S/P angioplasty stent placement in circumflex artery # H/o peripheral vascular disease s/p stenting in lower extremities - Patient is switching to Oxymizer - echocardiogram, LVEF 60% with a grade 1 diastolic dysfunction - EKG shows, normal sinus rate - continue Lasix 40 - Strict I&Os, # Mild protein malnutrition # Transaminitis # Chronic HBV # Hepatitis C antibody positive status - Albumin is decreased at 3.2 - Nutrition consultation - monitor lab - Added ensure # BRENNAN likely VMN on chronic- improving # Lactic acidosis # Hypokalemia - Repleting - Monitor lab - Diurese w/ Lasix, monitor renal function and electrolytes # Hyperglycemia likely in setting of sepsis - HbA1c 5.3 - mild ISS # vitamin-D deficiency - repleting # Left leg Cellulitis resolving - CT scan of the leg shows, bony demineralization and mild subcutaneous edema in distal left lower extremity. No acute fracture or traumatic malalignment - Wound consultation - Empiric IV antibiotics Normocytic anemia # ? iron deficiency anemia # Ruled out DVT/PE - monitor lab - venous Doppler showed no signs of dvt - ordered iron panel # tobacco dependence # tobacco abuse disorder - counseled regarding cessation for more than 17 minutes - currently on nicotine patch Goals of care discussed with the patient for more than 27 minutes, full code status Case discussed with Dr Westfall Plan discussed with: Patient My Orders My Orders Orders - MURPHY MARTINEZ Procedure Category Date Status Time Pantoprazole PHA 10/23/24 In Process (Protonix) 10:00 Docusate Sodium PHA 10/23/24 In Process Capsule (Colace 10:00 Voriconazole Inj PHA 10/23/24 Logged (Vfend Inj) 18:30 Voriconazole Inj PHA 10/24/24 Logged (Vfend Inj) 18:30 Complete Blood Count LAB 10/24/24 Verified 04:00 Basic Metabolic Panel LAB 10/24/24 Verified 04:00 Magnesium LAB 10/24/24 Verified 04:00 Date of Service: Oct 23, 2024 Billing Provider: LEEANNE WESTFALL MD Common Visit Codes: [id number] INP/OBS CARE(HIGH) Secondary Visit Codes: [id number] CARE PLAN 30 MINUTES MURPHY MARTINEZ Oct 23, 2024 18:29 LEEANNE WESTFALL MD Oct 24, 2024 15:36
[2024-10-23] MEDS: D5W 5% IV SCH (18:30)
[2024-10-23] MEDS: VORICONAZOLE IV SCH (18:30)
[2024-10-24] VITALS (22 sets, daily range): BP systolic 86–120; BP diastolic 44–61; PULSE 59–94; RESP 16–20; TEMP 97.7–98.4; O2SAT 92–100
[2024-10-24 07:38] LABS: Hemoglobin 9.9 g/dL (13.5-17.5)
[2024-10-24 07:42] LABS: Hematocrit 30.4 % (41.0-53.0); Mean Corpuscular Hemoglobin 31.7 pg (28.0-32.0); Mean Corpuscular Hgb Conc. 32.7 g/dL (32.0-36.0); Mean Corpuscular Volume 96.9 fL (80.0-100.0); Platelet Count (auto) 609 10^3/uL (140-450); Red Blood Cells 3.14 10^6/uL (4.5-5.90); Red Cell Distribution Width 15.1 % (11.8-14.3)
[2024-10-24 07:44] LABS: Potassium 3.5 mmol/L (3.5-5.1); Sodium 142 mmol/L (136-145)
[2024-10-24 07:45] LABS: Anion Gap 6 (5-15); Calcium 9.1 mg/dL (8.7-10.4); Carbon Dioxide 28 mmol/L (20-31)
[2024-10-24 07:50] LABS: BUN/Creatinine Ratio 26.8 (10.0-20.0); Blood Urea Nitrogen 22 mg/dL (9-23); Glucose 102 mg/dL (74-106)
[2024-10-24 07:51] LABS: Magnesium 2.1 mg/dL (1.6-2.6)
[2024-10-24 07:52] LABS: Basophils % (manual) 0 (0.0-2.0); Blast Cells 0; Eosinophils % (manual) 0 (0-7); Promyelocytes % 0; Reactive Lymphocytes 0
[2024-10-24 07:55] LABS: Chloride 108 mmol/L (98-107)
[2024-10-24] MEDS: predniSONE 20 MG TAB PO SCH (09:47)
[2024-10-24] MEDS: AZITHROMYCIN 500MG/ 250ML 250 ML IV SCH (09:48)
[2024-10-24 10:05] LABS: Band Neutrophils % (manual) 2; Giant Platelets Few; Large Platelets FEW; Lymphocytes % (manual) 20 (10.0-50.0); Metamyelocytes % 2; Monocytes % (manual) 4 (0-12); Myelocytes % 1; Platelet Estimate Increa
[2024-10-24] MEDS: POTASSIUM EFFERVESENT TAB 25 MEQ PO ONE (11:02)
--- NOTE | 2024-10-24 16:50 | DVHPNRES ---
Progress Note Date Seen: Oct 24, 2024 Resident Creating Document: MURPHY MARTINEZ RESIDENT Has the PT tested + for MRSA If YES, has PT been informed?: No Medical Necessity Reason Pt with a Central, PICC or Fol: No Subjective Review of Systems Patient seen and examined at bedside. Patient is afebrile, overnight events reviewed, reported no new complaints. Patient is currently on 2 L oxygen [place], continuously monitoring. Discontinued steroids, Lasix and added oral azithromycin. Patient reports: Feels better Objective vital signs Vital Sign Date Time Temp Pulse Resp B/P (MAP) Pulse Ox O2 Delivery O2 Flow Rate FiO2 10/24/24 16:39 97.9 82 18 95/61 (72) 94 97.9 10/24/24 14:32 Nasal Cannula* 2 28 Total Intake and Output 10/23/24 10/23/24 10/24/24 15:00 23:00 07:00 Intake Total 900 ml 240 ml Output Total 740 ml 860 ml Balance 160 ml -620 ml medications Current Medications Medications Dose Ordered Sig/Roseanna Route Start Time Stop Time Status Last Admin Dose Admin Vancomycin HCl 0 ml @ 0 mls/hr UD IV 10/16/24 03:30 UNV Ipratropium [place] 0.5 mg Q4HR NEB 10/16/24 04:15 10/24/24 14:32 0.5 MG Levalbuterol HCl 0.625 mg Q4HR NEB 10/16/24 04:15 10/24/24 14:32 0.625 MG Vancomycin HCl 0 ml @ 0 mls/hr UD IV 10/16/24 12:30 Piperacillin Sod/ Tazobactam Sod 100 ml @ 25 mls/hr Q8HR IV 10/16/24 14:00 10/24/24 14:35 25 MLS/HR Diagnostic Test (Pha) 1 strip ACHS 10/16/24 17:00 10/24/24 13:35 1 STRIP Insulin Human Regular ACHS SC 10/16/24 17:00 10/23/24 17:57 2 UNITS Dextrose 50 ml UD PRN IV 10/16/24 12:30 Enoxaparin Sodium 60 mg Q12HR SC 10/16/24 22:00 10/24/24 09:47 60 MG Lorazepam 0.5 mg Q6HP PRN IV 10/16/24 17:30 10/20/24 00:06 0.5 MG Ergocalciferol 50,000 unit Q7D PO 10/17/24 10:30 10/24/24 11:02 50,000 UNIT Furosemide 40 mg DAILY IV 10/18/24 10:00 Hold 10/23/24 09:48 40 MG Nicotine 1 patch DAILY TD 10/18/24 10:00 10/24/24 09:48 1 PATCH Enteral Nutritional Formula 240 ml BIDWM PO 10/22/24 18:15 10/24/24 09:49 240 ML Acetaminophen 650 mg Q6HP PRN PO 10/22/24 20:15 10/24/24 09:46 650 MG Pantoprazole Sodium 40 mg DAILY IV 10/23/24 10:00 10/24/24 09:46 40 MG Docusate Sodium 100 mg BID PO 10/23/24 10:00 10/24/24 09:47 100 MG Voriconazole 300 mg/Dextrose 280 ml @ 140 mls/hr Q12H IV 10/24/24 18:30 Azithromycin 500 mg DAILY PO 10/25/24 10:00 Examination Male patient lying on bed General:Alert, Oriented X3, Cooperative, mild distress HEENT: Atraumatic, PERRLA, EOMI, Mucous membrane moist/pink Cardiovascular: Regular S1 and S2. No murmurs, gallops or rubs. No JVD elevation. Respiratory: Decreased basilar b/l breath sounds. On NC 2 l Abdominal: Normal bowel sounds, Soft, No tenderness, No hepatospenomegaly, No masses Genitourinary: Borges in place MSK/skin: Skin is dry and warm Neurological: No sensory motor deficits for now laboratory and microbiology Laboratory Tests 10/24/24 07:04 Test 10/24/24 07:04 Range/Units Serum Glucose 102 74-106 mg/dL Microbiology Date/Time Source Procedure Growth Status 10/16/24 08:27 Nose MRSA Screen - Final Complete 10/16/24 00:32 Blood Blood Culture - Final NO GROWTH AFTER 5 DAYS OF INCUBATION. Complete 10/16/24 00:20 Voided Urine Urine Culture - Final Complete Labs and/or images reviewed: Labs reviewed by me, Image(s) reviewed by me Problem List/Assessment/Plan Problem List/Assessment/Plan # Mechanical fall without LOC # ?Acute metabolic encephalopathy likely secondary to likely due to respiratory failure/sepsis # H/o peripheral neuropathy - Patient has bruising on the right forehead - Head CT scan is normal # Acute hypoxic respiratory failure in setting of pneumonia/COPD exacerbation # COPD exacerbation # ? acute Gram-positive/negative bacterial PNA # Acute pneumonitis # Left-sided effusion, likely parapneumonic # Septic shock, likely due to pneumonia/cellulitis # rule out systemic fungal infection - Patient currently on 2 L oxygen [place], - evident on CT and CXR, monitoring - currently on vancomycin, Zosyn and azithromycin oral - Discontinued steroids, Lasix 10/24 - started voriconazole for possible fungal infection, ordered antigen tests 10/23 # ? Acute on chronic diastolic heart failure # History of AFib with secondary Hypercoagulable state # H/O CAD with S/P angioplasty stent placement in circumflex artery # H/o peripheral vascular disease s/p stenting in lower extremities - Patient currently on 2 L oxygen [place], - echocardiogram, LVEF 60% with a grade 1 diastolic dysfunction - EKG shows, normal sinus rate - Discontinued steroids, Lasix 10/24 - Strict I&Os, # Mild protein malnutrition # Transaminitis # Chronic HBV # Hepatitis C antibody positive status - Albumin is decreased at 3.2 - Nutrition consultation - monitor lab - Added ensure # BRENNAN likely VMN on chronic- improving # Lactic acidosis # Hypokalemia - Repleting - Monitor lab - Discontinued steroids, Lasix # Hyperglycemia likely in setting of sepsis - HbA1c 5.3 - mild ISS # vitamin-D deficiency - repleting # Left leg Cellulitis resolving - CT scan of the leg shows, bony demineralization and mild subcutaneous edema in distal left lower extremity. No acute fracture or traumatic malalignment - Wound consultation - Empiric IV antibiotics Normocytic anemia # ? iron deficiency anemia # Ruled out DVT/PE - monitor lab - venous Doppler showed no signs of dvt - ordered iron panel # tobacco dependence # tobacco abuse disorder - counseled regarding cessation for more than 17 minutes - currently on nicotine patch Goals of care discussed with the patient for more than 27 minutes, full code status Case discussed with Dr Westfall. Patient currently on 2 L oxygen [place], consulted director social for DC planning to SNF for rehabilitation Plan discussed with: Patient My Orders My Orders Orders - MURPHY MARTINEZ RESIDENT Procedure Category Date Status Time Voriconazole Inj PHA 10/24/24 In Process (Vfend Inj) 18:30 Sputum Induction RT 10/24/24 Logged 16:42 Respiratory Culture RAMO 10/24/24 Transmitted W/ Gs 16:42 Chest Xray 1 View XY 10/25/24 Logged 04:00 Complete Blood Count LAB 10/25/24 Verified 04:00 Magnesium LAB 10/25/24 Verified 04:00 Comprehensive LAB 10/25/24 Verified Metabolic Panel 04:00 * Burn Crew Member CONS 10/24/24 Transmitted Consult Vancomycin PHA 10/24/24 Verified 20:00 Vancomycin Per CARMELINA 10/26/24 Verified Pharmacy [facility] 21:00 Vancomycin,Trough LAB 10/26/24 Verified 21:00 Basic Metabolic Panel LAB 10/25/24 Verified 04:00 Basic Metabolic Panel LAB 10/26/24 Verified 04:00 Date of Service: Oct 24, 2024 Billing Provider: LEEANNE WESFTALL MD Common Visit Codes: [id number] INP/OBS CARE(HIGH) MURPHY MARTINEZ RESIDENT Oct 24, 2024 16:49 LEEANNE WESTFALL MD Oct 25, 2024 12:03
[2024-10-24] MEDS: VORICONAZOLE INJ 300 MG in D5W 5% 250 ML IV SCH (18:29)
[2024-10-24] MEDS: VANCOMYCIN 1.25GM/250ML 250 ML IV SCH (21:30)
[2024-10-25] VITALS (18 sets, daily range): BP systolic 86–110; BP diastolic 50–88; PULSE 62–90; RESP 16–94; TEMP 97.7–98.4; O2SAT 76–100
--- NOTE | 2024-10-25 05:26 | DVH ---
CHEST RADIOGRAPH Indication: pna Technique: Single frontal view of the chest was obtained Comparison: XY CHEST XRAY 1 VIEW on DOS: 10/23/24, XY CHEST XRAY 1 VIEW on DOS: 10/22/24, XY CHEST XRAY 1 VIEW on DOS: 10/20/24 FINDINGS: Lines and Tubes: None Lungs: Bilateral interstitial prominence. No focal consolidation. Pleura: No effusion. No pneumothorax. Cardiomediastinal contours: Unremarkable Bones: No acute osseous abnormality. There is open reduction internal fixation with intramedullary na il in the left humerus. IMPRESSION: 1. Bilateral interstitial prominence compatible with edema or interstitial lung disease.
[2024-10-25] MEDS: AZITHROMYCIN 250 MG TAB PO SCH (09:57)
[2024-10-25 10:12] LABS: Hemoglobin 10.7 g/dL (13.5-17.5); Mean Corpuscular Volume 98.3 fL (80.0-100.0)
[2024-10-25 10:14] LABS: Hematocrit 34.8 % (41.0-53.0); Mean Corpuscular Hemoglobin 30.2 pg (28.0-32.0); Mean Corpuscular Hgb Conc. 30.8 g/dL (32.0-36.0); Platelet Count (auto) 673 10^3/uL (140-450); Red Blood Cells 3.54 10^6/uL (4.5-5.90); Red Cell Distribution Width 15.7 % (11.8-14.3)
[2024-10-25 10:25] LABS: Basophils % (manual) 0 (0.0-2.0); Blast Cells 0; Metamyelocytes % 0; Promyelocytes % 0; Reactive Lymphocytes 0; White Blood Cell 32.9 10^3/uL (4.4-10.8)
[2024-10-25 10:36] LABS: Alanine Aminotransferase 30 U/L (7-40); Albumin 3.7 g/dL (3.2-4.8); Alkaline Phosphatase 71 U/L (46-116); Anion Gap 8 (5-15); Aspartate Aminotransferase 35 U/L (13-40); BUN/Creatinine Ratio 18.7 (10.0-20.0); Blood Urea Nitrogen 17 mg/dL (9-23); Calcium 9.5 mg/dL (8.7-10.4); Carbon Dioxide 25 mmol/L (20-31); Glucose 92 mg/dL (74-106); Magnesium 2.2 mg/dL (1.6-2.6); Potassium 4.2 mmol/L (3.5-5.1); Sodium 141 mmol/L (136-145)
[2024-10-25 10:37] LABS: Bilirubin, Total 0.4 mg/dL (0.2-1.0); Total Protein 6.2 g/dL (5.7-8.2)
[2024-10-25 10:41] LABS: Chloride 108 mmol/L (98-107)
[2024-10-25 11:45] LABS: Band Neutrophils % (manual) 3; Eosinophils % (manual) 1 (0-7); Lymphocytes % (manual) 22 (10.0-50.0); Monocytes % (manual) 9 (0-12); Myelocytes % 2
[2024-10-25 11:46] LABS: Large Platelets FEW; Platelet Estimate Increa; Target Cell FEW
--- NOTE | 2024-10-25 15:36 | DVHPNRES ---
Progress Note Date Seen: Oct 25, 2024 Resident Creating Document: MURPHY MARTINEZ RESIDENT Has the PT tested + for MRSA If YES, has PT been informed?: No Medical Necessity Reason Pt with a Central, PICC or Fol: No Subjective Review of Systems Patient seen and examined at bedside. Patient is afebrile, overnight events reviewed, reported no new complaints, reported improvement in his symptoms since admission. Patient is currently on 2 L oxygen [place], continuously monitoring. Patient reports: No new complaints, Feels better Objective vital signs Vital Sign Date Time Temp Pulse Resp B/P (MAP) Pulse Ox O2 Delivery O2 Flow Rate FiO2 10/25/24 15:28 80 20 99 10/25/24 13:00 98.4 89/50 (63) 98.4 10/25/24 10:00 Room Air* 0 21 Total Intake and Output 10/24/24 10/24/24 10/25/24 15:00 23:00 07:00 Intake Total 350 ml 100 ml Output Total 150 ml 300 ml Balance 350 ml -50 ml -300 ml medications Current Medications Medications Dose Ordered Sig/Roseanna Route Start Time Stop Time Status Last Admin Dose Admin Vancomycin HCl 0 ml @ 0 mls/hr UD IV 10/16/24 03:30 UNV Ipratropium [place] 0.5 mg Q4HR NEB 10/16/24 04:15 10/25/24 15:24 0.5 MG Levalbuterol HCl 0.625 mg Q4HR NEB 10/16/24 04:15 10/25/24 15:24 0.625 MG Vancomycin HCl 0 ml @ 0 mls/hr UD IV 10/16/24 12:30 Piperacillin Sod/ Tazobactam Sod 100 ml @ 25 mls/hr Q8HR IV 10/16/24 14:00 10/25/24 14:33 25 MLS/HR Diagnostic Test (Pha) 1 strip ACHS 10/16/24 17:00 10/25/24 14:33 1 STRIP Insulin Human Regular ACHS SC 10/16/24 17:00 10/24/24 21:47 2 UNITS Dextrose 50 ml UD PRN IV 10/16/24 12:30 Enoxaparin Sodium 60 mg Q12HR SC 10/16/24 22:00 10/25/24 09:58 60 MG Lorazepam 0.5 mg Q6HP PRN IV 10/16/24 17:30 10/20/24 00:06 0.5 MG Ergocalciferol 50,000 unit Q7D PO 10/17/24 10:30 10/24/24 11:02 50,000 UNIT Nicotine 1 patch DAILY TD 10/18/24 10:00 10/25/24 09:58 1 PATCH Enteral Nutritional Formula 240 ml BIDWM PO 10/22/24 18:15 10/25/24 09:57 240 ML Acetaminophen 650 mg Q6HP PRN PO 10/22/24 20:15 10/24/24 09:46 650 MG Pantoprazole Sodium 40 mg DAILY IV 10/23/24 10:00 10/24/24 09:46 40 MG Docusate Sodium 100 mg BID PO 10/23/24 10:00 10/24/24 21:30 100 MG Voriconazole 300 mg/Dextrose 280 ml @ 140 mls/hr Q12H IV 10/24/24 18:30 10/24/24 18:29 140 MLS/HR Azithromycin 500 mg DAILY PO 10/25/24 10:00 10/25/24 09:57 500 MG Vancomycin HCl 250 ml @ 200 mls/hr Q20H IV 10/24/24 20:00 10/24/24 21:30 200 MLS/HR Examination Male patient lying on bed General:Alert, Oriented X3, Cooperative, mild distress HEENT: Atraumatic, PERRLA, EOMI, Mucous membrane moist/pink Cardiovascular: Regular S1 and S2. No murmurs, gallops or rubs. No JVD elevation. Respiratory: Decreased basilar b/l breath sounds. On [place] 2 l Abdominal: Normal bowel sounds, Soft, No tenderness, No hepatospenomegaly, No masses Extremities: No graham, No cyanosis, mild tenderness in LE MSK/skin: Skin is dry and warm Neurological: No sensory motor deficits for now laboratory and microbiology Laboratory Tests 10/25/24 09:18 Test 10/25/24 09:18 Range/Units Serum Glucose 92 74-106 mg/dL Microbiology Date/Time Source Procedure Growth Status 10/16/24 08:27 Nose MRSA Screen - Final Complete 10/16/24 00:32 Blood Blood Culture - Final NO GROWTH AFTER 5 DAYS OF INCUBATION. Complete 10/16/24 00:20 Voided Urine Urine Culture - Final Complete Labs and/or images reviewed: Labs reviewed by me, Image(s) reviewed by me Problem List/Assessment/Plan Problem List/Assessment/Plan # Mechanical fall without LOC # ?Acute metabolic encephalopathy likely secondary to likely due to respiratory failure/sepsis # H/o peripheral neuropathy - Patient has bruising on the right forehead - Head CT scan is normal # Acute hypoxic respiratory failure in setting of pneumonia/COPD exacerbation # COPD exacerbation # ? acute Gram-positive/negative bacterial PNA # Acute pneumonitis # Left-sided effusion, likely parapneumonic # Septic shock, likely due to pneumonia/cellulitis # rule out systemic fungal infection - Patient currently on 2 L oxygen NC, - evident on CT and CXR, monitoring - currently on vancomycin, Zosyn and azithromycin oral - Discontinued steroids, Lasix 10/24 - started voriconazole for possible fungal infection, ordered antigen tests 10/23 # ? Acute on chronic diastolic heart failure # History of AFib with secondary Hypercoagulable state # H/O CAD with S/P angioplasty stent placement in circumflex artery # H/o peripheral vascular disease s/p stenting in lower extremities - Patient currently on 2 L oxygen [place], - echocardiogram, LVEF 60% with a grade 1 diastolic dysfunction - EKG shows, normal sinus rate - Discontinued steroids, Lasix 10/24 - Strict I&Os, # Mild protein malnutrition # Transaminitis # Chronic HBV # Hepatitis C antibody positive status - Albumin is decreased at 3.2 - Nutrition consultation - monitor lab - Added ensure # BRENNAN likely VMN on chronic- improving # Lactic acidosis # Hypokalemia - Repleting - Monitor lab - Discontinued steroids, Lasix # Hyperglycemia likely in setting of sepsis - HbA1c 5.3 - mild ISS # vitamin-D deficiency - repleting # Left leg Cellulitis resolving - CT scan of the leg shows, bony demineralization and mild subcutaneous edema in distal left lower extremity. No acute fracture or traumatic malalignment - Wound consultation - Empiric IV antibiotics Normocytic anemia # ? iron deficiency anemia # Ruled out DVT/PE - monitor lab - venous Doppler showed no signs of dvt - ordered iron panel # tobacco dependence # tobacco abuse disorder - counseled regarding cessation for more than 17 minutes - currently on nicotine patch Goals of care discussed with the patient for more than 27 minutes, full code status Case discussed with Dr Westfall. Patient currently on 2 L oxygen [place], consulted social welfare research worker for DC planning to SNF for rehabilitation Plan discussed with: Patient My Orders My Orders Orders - MURPHY MARTINEZ Procedure Category Date Status Time Sputum Induction RT 10/24/24 Logged 16:42 Respiratory Culture RAMO 10/24/24 Logged W/ Gs 16:42 Chest Xray 1 View XY 10/25/24 Resulted 04:00 * Budget Clerk CONS 10/24/24 Transmitted Consult Vancomycin PHA 10/24/24 In Process 1.25gm/250ml 20:00 Vancomycin Per CARMELINA 10/26/24 In Process Pharmacy [facility] 21:00 Vancomycin,Trough LAB 10/26/24 Verified 21:00 Date of Service: Oct 25, 2024 Billing Provider: LEEANNE WESTFALL MD Common Visit Codes: [id number] INP/OBS CARE(HIGH) Secondary Visit Codes: [id number] CARE PLAN 30 MINUTES MURPHY MARTINEZ Oct 25, 2024 15:36 LEEANNE WESTFALL MD Oct 28, 2024 12:23
[2024-10-26] VITALS (21 sets, daily range): BP systolic 89–127; BP diastolic 35–82; PULSE 68–91; RESP 16–22; TEMP 97.9–98.7; O2SAT 88–100
[2024-10-26 06:12] LABS: Hemoglobin 9.3 g/dL (13.5-17.5)
[2024-10-26 06:15] LABS: Hematocrit 29.3 % (41.0-53.0); Mean Corpuscular Hemoglobin 31.3 pg (28.0-32.0); Mean Corpuscular Hgb Conc. 31.9 g/dL (32.0-36.0); Mean Corpuscular Volume 97.9 fL (80.0-100.0); Platelet Count (auto) 641 10^3/uL (140-450); Red Blood Cells 2.99 10^6/uL (4.5-5.90)
--- NOTE | 2024-10-26 06:21 | DVH ---
CHEST RADIOGRAPH Indication: pna Technique: Single frontal view of the chest was obtained Comparison: XY CHEST XRAY 1 VIEW on DOS: 10/25/24 FINDINGS: Lines and Tubes: None Lungs: Bilateral interstitial prominence compatible with edema or interstitial lung disease. No signi ficant interval change. Pleura: No effusion. No pneumothorax. Cardiomediastinal contours: Unremarkable Bones: No acute osseous abnormality. ORIF left humerus. IMPRESSION: Bilateral interstitial prominence compatible with edema or interstitial lung disease. No significant interval change.
[2024-10-26 06:35] LABS: Anion Gap 7 (5-15); Carbon Dioxide 24 mmol/L (20-31); Potassium 3.8 mmol/L (3.5-5.1); Sodium 142 mmol/L (136-145)
[2024-10-26 06:37] LABS: Band Neutrophils % (manual) 0; Basophils % (manual) 0 (0.0-2.0); Blast Cells 0; Myelocytes % 0; Promyelocytes % 0; Reactive Lymphocytes 0
[2024-10-26 06:39] LABS: Chloride 111 mmol/L (98-107)
[2024-10-26 06:41] LABS: BUN/Creatinine Ratio 14.8 (10.0-20.0); Blood Urea Nitrogen 13 mg/dL (9-23); Glucose 80 mg/dL (74-106); Magnesium 2.3 mg/dL (1.6-2.6)
[2024-10-26 08:21] LABS: Eosinophils % (manual) 2 (0-7); Lymphocytes % (manual) 29 (10.0-50.0); Metamyelocytes % 1; Monocytes % (manual) 5 (0-12)
[2024-10-26 08:22] LABS: Platelet Estimate Increased
[2024-10-26 08:23] LABS: Polychromasia Slight
--- NOTE | 2024-10-26 09:55 | DVHPNRES ---
Progress Note Date Seen: Oct 26, 2024 Resident Creating Document: MURPHY MARTINEZ RESIDENT Has the PT tested + for MRSA If YES, has PT been informed?: No Medical Necessity Reason Pt with a Central, PICC or Fol: No Subjective Review of Systems Patient seen and examined at bedside. Patient is afebrile, overnight events reviewed, reported no new complaints, reported improvement in his symptoms since admission. Patient is currently on 2 L oxygen [place], continuously monitoring. Patient reports: No new complaints, Feels better Objective vital signs Vital Sign Date Time Temp Pulse Resp B/P (MAP) Pulse Ox O2 Delivery O2 Flow Rate FiO2 10/26/24 09:00 98.0 88 22 127/62 (83) 93 98.0 10/26/24 05:46 Nasal Cannula* 2 28 Total Intake and Output 10/25/24 10/25/24 10/26/24 15:00 23:00 07:00 Intake Total 687 ml 200 ml Output Total 550 ml 250 ml Balance 137 ml -50 ml medications Current Medications Medications Dose Ordered Sig/Roseanna Route Start Time Stop Time Status Last Admin Dose Admin Vancomycin HCl 0 ml @ 0 mls/hr UD IV 10/16/24 03:30 UNV Ipratropium [place] 0.5 mg Q4HR NEB 10/16/24 04:15 10/26/24 05:46 0.5 MG Levalbuterol HCl 0.625 mg Q4HR NEB 10/16/24 04:15 10/26/24 05:46 0.625 MG Vancomycin HCl 0 ml @ 0 mls/hr UD IV 10/16/24 12:30 Piperacillin Sod/ Tazobactam Sod 100 ml @ 25 mls/hr Q8HR IV 10/16/24 14:00 10/26/24 09:02 25 MLS/HR Diagnostic Test (Pha) 1 strip ACHS 10/16/24 17:00 10/26/24 06:48 1 STRIP Insulin Human Regular ACHS SC 10/16/24 17:00 10/24/24 21:47 2 UNITS Dextrose 50 ml UD PRN IV 10/16/24 12:30 Enoxaparin Sodium 60 mg Q12HR SC 10/16/24 22:00 10/26/24 09:04 60 MG Lorazepam 0.5 mg Q6HP PRN IV 10/16/24 17:30 10/20/24 00:06 0.5 MG Ergocalciferol 50,000 unit Q7D PO 10/17/24 10:30 10/24/24 11:02 50,000 UNIT Nicotine 1 patch DAILY TD 10/18/24 10:00 10/25/24 09:58 1 PATCH Enteral Nutritional Formula 240 ml BIDWM PO 10/22/24 18:15 10/26/24 09:01 240 ML Acetaminophen 650 mg Q6HP PRN PO 10/22/24 20:15 10/26/24 09:07 650 MG Pantoprazole Sodium 40 mg DAILY IV 10/23/24 10:00 10/26/24 09:03 40 MG Docusate Sodium 100 mg BID PO 10/23/24 10:00 10/26/24 09:03 100 MG Voriconazole 300 mg/Dextrose 280 ml @ 140 mls/hr Q12H IV 10/24/24 18:30 10/26/24 05:00 140 MLS/HR Azithromycin 500 mg DAILY PO 10/25/24 10:00 10/26/24 09:03 500 MG Vancomycin HCl 250 ml @ 200 mls/hr Q20H IV 10/24/24 20:00 10/25/24 17:47 200 MLS/HR Examination Male patient lying on bed General:Alert, Oriented X3, Cooperative, mild distress HEENT: Atraumatic, PERRLA, EOMI, Mucous membrane moist/pink Cardiovascular: Regular S1 and S2. No murmurs, gallops or rubs. No JVD elevation. Respiratory: Decreased basilar b/l breath sounds. On [place] 2 l Abdominal: Normal bowel sounds, Soft, No tenderness, No hepatospenomegaly, No masses Extremities: No graham, No cyanosis, mild tenderness in LE MSK/skin: Skin is dry and warm Neurological: No sensory motor deficits for now laboratory and microbiology Laboratory Tests 10/26/24 05:44 Test 10/26/24 05:44 Range/Units Serum Glucose 80 74-106 mg/dL Microbiology Date/Time Source Procedure Growth Status 10/16/24 08:27 Nose MRSA Screen - Final Complete 10/16/24 00:32 Blood Blood Culture - Final NO GROWTH AFTER 5 DAYS OF INCUBATION. Complete 10/16/24 00:20 Voided Urine Urine Culture - Final Complete Labs and/or images reviewed: Labs reviewed by me, Image(s) reviewed by me Problem List/Assessment/Plan Problem List/Assessment/Plan # Mechanical fall without LOC # ?Acute metabolic encephalopathy likely secondary to likely due to respiratory failure/sepsis # H/o peripheral neuropathy - Patient has bruising on the right forehead - Head CT scan is normal # Acute hypoxic respiratory failure in setting of pneumonia/COPD exacerbation # COPD exacerbation # ? acute Gram-positive/negative bacterial PNA # Acute pneumonitis # Left-sided effusion, likely parapneumonic # Septic shock, likely due to pneumonia/cellulitis # rule out systemic fungal infection - Patient currently on 2 L oxygen [place], - evident on CT and CXR, monitoring - currently on vancomycin, Zosyn and azithromycin oral - Discontinued steroids, Lasix 10/24 - started voriconazole for possible fungal infection, ordered antigen tests 10/23 # ? Acute on chronic diastolic heart failure # History of AFib with secondary Hypercoagulable state # H/O CAD with S/P angioplasty stent placement in circumflex artery # H/o peripheral vascular disease s/p stenting in lower extremities - Patient currently on 2 L oxygen [place], - echocardiogram, LVEF 60% with a grade 1 diastolic dysfunction - EKG shows, normal sinus rate - Discontinued steroids, Lasix 10/24 - Strict I&Os, # Mild protein malnutrition # Transaminitis # Chronic HBV # Hepatitis C antibody positive status - Albumin is decreased at 3.2 - Nutrition consultation - monitor lab - Added ensure # BRENNAN likely VMN on chronic- improving # Lactic acidosis # Hypokalemia - Repleting - Monitor lab - Discontinued steroids, Lasix # Hyperglycemia likely in setting of sepsis - HbA1c 5.3 - mild ISS # vitamin-D deficiency - repleting # Left leg Cellulitis resolving - CT scan of the leg shows, bony demineralization and mild subcutaneous edema in distal left lower extremity. No acute fracture or traumatic malalignment - Wound consultation - Empiric IV antibiotics Normocytic anemia # ? iron deficiency anemia # Ruled out DVT/PE - monitor lab - venous Doppler showed no signs of dvt - ordered iron panel # tobacco dependence # tobacco abuse disorder - counseled regarding cessation for more than 17 minutes - currently on nicotine patch Goals of care discussed with the patient for more than 27 minutes, full code status Case discussed with Dr Millan. Patient currently on 2 L oxygen [place], consulted social media campaign manager for DC planning to SNF for rehabilitation Plan discussed with: Patient My Orders My Orders Orders - MURPHY MARTINEZ Procedure Category Date Status Time Chest Xray 1 View XY 10/26/24 Resulted 04:00 MURPHY MARTINEZ Oct 26, 2024 09:55
[2024-10-27] VITALS (24 sets, daily range): BP systolic 95–113; BP diastolic 44–61; PULSE 80–95; RESP 16–23; TEMP 97.5–98.6; O2SAT 18–100
[2024-10-27 06:25] LABS: Hemoglobin 8.6 g/dL (13.5-17.5)
[2024-10-27 06:28] LABS: Hematocrit 26.3 % (41.0-53.0); Mean Corpuscular Hemoglobin 31.9 pg (28.0-32.0); Mean Corpuscular Hgb Conc. 32.8 g/dL (32.0-36.0); Mean Corpuscular Volume 97.3 fL (80.0-100.0); Platelet Count (auto) 607 10^3/uL (140-450); Red Cell Distribution Width 16.8 % (11.8-14.3)
[2024-10-27 06:39] LABS: Anion Gap 8 (5-15); Carbon Dioxide 23 mmol/L (20-31); Potassium 3.8 mmol/L (3.5-5.1); Sodium 141 mmol/L (136-145)
[2024-10-27 06:41] LABS: Basophils % (manual) 0 (0.0-2.0); Blast Cells 0; Metamyelocytes % 0; Promyelocytes % 0
[2024-10-27 06:45] LABS: BUN/Creatinine Ratio 18.2 (10.0-20.0); Blood Urea Nitrogen 14 mg/dL (9-23); Calcium 8.4 mg/dL (8.7-10.4); Chloride 110 mmol/L (98-107); Glucose 85 mg/dL (74-106)
[2024-10-27 07:38] LABS: Band Neutrophils % (manual) 2; Eosinophils % (manual) 7 (0-7); Lymphocytes % (manual) 18 (10.0-50.0); Monocytes % (manual) 7 (0-12); Myelocytes % 1; Reactive Lymphocytes 1
[2024-10-27 07:39] LABS: Anisocytosis Slight; Platelet Estimate Increased
--- NOTE | 2024-10-27 12:15 | DVHPN2 ---
Reviewed: Care Plan, H&P, Labs, Medications, Previous Orders, Radiology Changes from previous H/P or p: No Changes Objective Vitals Vital Signs Date Time Temp Pulse Resp B/P (MAP) Pulse Ox O2 Delivery O2 Flow Rate FiO2 10/27/24 10:35 80 18 99 10/27/24 10:00 Nasal Cannula* 3 32 10/27/24 08:30 97.5 113/57 (75) 97.5 Intake/Output Intake and Output 10/27/24 07:00 Intake Total 1167 ml Output Total 1350 ml Balance -183 ml Intake Oral 717 ml IV Total 450 ml Output Urine Total 1350 ml Medications Current Medications Medications Dose Ordered Sig/Roseanna Route Start Time Stop Time Status Last Admin Dose Admin Vancomycin HCl 0 ml @ 0 mls/hr UD IV 10/16/24 03:30 UNV Ipratropium David 0.5 mg Q4HR NEB 10/16/24 04:15 10/27/24 10:24 0.5 MG Levalbuterol HCl 0.625 mg Q4HR NEB 10/16/24 04:15 10/27/24 10:24 0.625 MG Vancomycin HCl 0 ml @ 0 mls/hr UD IV 10/16/24 12:30 Piperacillin Sod/ Tazobactam Sod 100 ml @ 25 mls/hr Q8HR IV 10/16/24 14:00 10/27/24 05:22 25 MLS/HR Diagnostic Test (Pha) 1 strip ACHS 10/16/24 17:00 10/27/24 11:30 1 STRIP Insulin Human Regular ACHS SC 10/16/24 17:00 10/24/24 21:47 2 UNITS Dextrose 50 ml UD PRN IV 10/16/24 12:30 Enoxaparin Sodium 60 mg Q12HR SC 10/16/24 22:00 10/27/24 08:17 60 MG Lorazepam 0.5 mg Q6HP PRN IV 10/16/24 17:30 10/20/24 00:06 0.5 MG Ergocalciferol 50,000 unit Q7D PO 10/17/24 10:30 10/24/24 11:02 50,000 UNIT Nicotine 1 patch DAILY TD 10/18/24 10:00 10/27/24 08:21 1 PATCH Enteral Nutritional Formula 240 ml BIDWM PO 10/22/24 18:15 10/27/24 08:22 240 ML Acetaminophen 650 mg Q6HP PRN PO 10/22/24 20:15 10/26/24 09:07 650 MG Pantoprazole Sodium 40 mg DAILY IV 10/23/24 10:00 10/27/24 08:16 40 MG Docusate Sodium 100 mg BID PO 10/23/24 10:00 10/27/24 08:16 100 MG Voriconazole 300 mg/Dextrose 280 ml @ 140 mls/hr Q12H IV 10/24/24 18:30 10/27/24 05:22 140 MLS/HR Azithromycin 500 mg DAILY PO 10/25/24 10:00 10/27/24 08:16 500 MG Vancomycin HCl 250 ml @ 200 mls/hr Q20H IV 10/24/24 20:00 10/27/24 08:14 200 MLS/HR Laboratory Results Laboratory Tests 10/27/24 05:44 Chemistry Test 10/27/24 05:44 Calcium Level 8.4 mg/dL (8.7-10.4) L Urinalysis Test 10/16/24 00:00 10/16/24 00:20 10/23/24 16:00 Urine WBC 1 /hpf (0 - 3) Urine Hyaline Casts Few /lpf (0 - 2) Urine Creatinine 80.29 mg/dL (30.0-125.0) Urine Sodium 14 mmol/L (40-220) L Urine Color Light-yellow (Yellow) Urine Clarity Clear (Clear) Urine pH 5.0 (5.0-9.0) Urine Specific [place] 1.018 (1.001-1.035) Urine Protein Negative (Negative) Urine Ketones Negative (Negative) Urine Blood Negative /uL (Negative) Urine Nitrite Negative (Negative) Urine Bilirubin Negative (Negative) Urine Urobilinogen Normal mg/dL (Negative) Urine Leukocyte Esterase Negative /uL (Negative) Urine RBC 1 /hpf (0 - 3) Urine Microscopic WBC 1 /HPF (0-3) Urine Squamous Epithelial Cells None seen /hpf (<5) Urine Bacteria None seen /hpf (None Seen) Urine Glucose Normal mg/dL (Normal) Microbiology Microbiology Date/Time Source Procedure Growth Status 10/16/24 08:27 Nose MRSA Screen - Final Complete 10/16/24 00:32 Blood Blood Culture - Final NO GROWTH AFTER 5 DAYS OF INCUBATION. Complete 10/16/24 00:20 Voided Urine Urine Culture - Final Complete Labs and/or images reviewed: Labs reviewed by me, Image(s) reviewed by me Assessment/Plan Assessment/Plan Covering for resident physician # Mechanical fall without LOC # ?Acute metabolic encephalopathy likely secondary to likely due to respiratory failure/sepsis # H/o peripheral neuropathy - Patient has bruising on the right forehead - Head CT scan is normal # Acute hypoxic respiratory failure in setting of pneumonia/COPD exacerbation # COPD exacerbation # ? acute Gram-positive/negative bacterial PNA # Acute pneumonitis # Left-sided effusion, likely parapneumonic # Septic shock, likely due to pneumonia/cellulitis # rule out systemic fungal infection WBC still high Continue current antibiotics Patient refused jail facility placement Plan discussed with: Patient My Orders Orders - ELOISA TRIVEDI MD Procedure Category Date Status Time * Cinder Pitman CONS 10/27/24 Transmitted Consult 12:09 Date of Service: Oct 27, 2024 Billing Provider: ELOISA TRIVEDI MD Common Visit Codes: [id number] INP/OBS CARE(HIGH) ELOISA TRIVEDI MD Oct 27, 2024 12:15
[2024-10-28] VITALS (19 sets, daily range): BP systolic 100–129; BP diastolic 53–88; PULSE 60–89; RESP 16–19; TEMP 97.8–98.9; O2SAT 90–100
--- NOTE | 2024-10-28 13:06 | DVHPN2 ---
Reviewed: Care Plan, H&P, Labs, Medications, Previous Orders, Radiology Changes from previous H/P or p: No Changes Objective Vitals Vital Signs Date Time Temp Pulse Resp B/P (MAP) Pulse Ox O2 Delivery O2 Flow Rate FiO2 10/28/24 10:46 85 18 96 10/28/24 10:00 Nasal Cannula* 2 28 10/28/24 05:00 98.4 100/61 (74) 98.4 Intake/Output Intake and Output 10/28/24 07:00 Intake Total 1057 ml Output Total 1250 ml Balance -193 ml Intake Oral 357 ml IV Total 700 ml Output Urine Total 1250 ml # Bowel Movements 1 Medications Current Medications Medications Dose Ordered Sig/Roseanna Route Start Time Stop Time Status Last Admin Dose Admin Vancomycin HCl 0 ml @ 0 mls/hr UD IV 10/16/24 03:30 UNV Ipratropium [place] 0.5 mg Q4HR NEB 10/16/24 04:15 10/28/24 10:36 0.5 MG Levalbuterol HCl 0.625 mg Q4HR NEB 10/16/24 04:15 10/28/24 10:36 0.625 MG Diagnostic Test (Pha) 1 strip ACHS 10/16/24 17:00 10/28/24 11:11 1 STRIP Insulin Human Regular ACHS SC 10/16/24 17:00 10/24/24 21:47 2 UNITS Dextrose 50 ml UD PRN IV 10/16/24 12:30 Lorazepam 0.5 mg Q6HP PRN IV 10/16/24 17:30 10/20/24 00:06 0.5 MG Ergocalciferol 50,000 unit Q7D PO 10/17/24 10:30 10/24/24 11:02 50,000 UNIT Nicotine 1 patch DAILY TD 10/18/24 10:00 10/28/24 10:20 1 PATCH Enteral Nutritional Formula 240 ml BIDWM PO 10/22/24 18:15 10/28/24 08:00 240 ML Acetaminophen 650 mg Q6HP PRN PO 10/22/24 20:15 10/28/24 00:24 650 MG Pantoprazole Sodium 40 mg DAILY IV 10/23/24 10:00 10/28/24 10:19 40 MG Docusate Sodium 100 mg BID PO 10/23/24 10:00 10/27/24 08:16 100 MG Voriconazole 300 mg/Dextrose 280 ml @ 140 mls/hr Q12H IV 10/24/24 18:30 10/28/24 05:36 140 MLS/HR Azithromycin 500 mg DAILY PO 10/25/24 10:00 10/28/24 10:20 500 MG Vancomycin HCl 250 ml @ 200 mls/hr Q20H IV 10/24/24 20:00 10/28/24 03:16 200 MLS/HR Laboratory Results Laboratory Tests 10/27/24 05:44 10/28/24 05:50 Urinalysis Test 10/16/24 00:00 10/16/24 00:20 10/23/24 16:00 Urine WBC 1 /hpf (0 - 3) Urine Hyaline Casts Few /lpf (0 - 2) Urine Creatinine 80.29 mg/dL (30.0-125.0) Urine Sodium 14 mmol/L (40-220) L Urine Color Light-yellow (Yellow) Urine Clarity Clear (Clear) Urine pH 5.0 (5.0-9.0) Urine Specific [place] 1.018 (1.001-1.035) Urine Protein Negative (Negative) Urine Ketones Negative (Negative) Urine Blood Negative /uL (Negative) Urine Nitrite Negative (Negative) Urine Bilirubin Negative (Negative) Urine Urobilinogen Normal mg/dL (Negative) Urine Leukocyte Esterase Negative /uL (Negative) Urine RBC 1 /hpf (0 - 3) Urine Microscopic WBC 1 /HPF (0-3) Urine Squamous Epithelial Cells None seen /hpf (<5) Urine Bacteria None seen /hpf (None Seen) Urine Glucose Normal mg/dL (Normal) Microbiology Microbiology Date/Time Source Procedure Growth Status 10/26/24 18:00 Sputum Gram Stain - Final Resulted 10/26/24 18:00 Sputum Respiratory Culture - Preliminary Resulted 10/16/24 08:27 Nose MRSA Screen - Final Complete 10/16/24 00:32 Blood Blood Culture - Final NO GROWTH AFTER 5 DAYS OF INCUBATION. Complete 10/16/24 00:20 Voided Urine Urine Culture - Final Complete Labs and/or images reviewed: Labs reviewed by me, Image(s) reviewed by me Assessment/Plan Assessment/Plan Covering for resident physician # Mechanical fall without LOC # ?Acute metabolic encephalopathy likely secondary to likely due to respiratory failure/sepsis # H/o peripheral neuropathy - Patient has bruising on the right forehead - Head CT scan is normal # Acute hypoxic respiratory failure in setting of pneumonia/COPD exacerbation # COPD exacerbation # ? acute Gram-positive/negative bacterial PNA # Acute pneumonitis # Left-sided effusion, likely parapneumonic # Septic shock, likely due to pneumonia/cellulitis # rule out systemic fungal infection Patient changes mind and now wants to go to alf Plan discussed with: Patient Date of Service: Oct 28, 2024 Billing Provider: ELOISA TRIVEDI MD Common Visit Codes: [id number] INP/OBS CARE(HIGH) ELOISA TRIVEDI MD Oct 28, 2024 13:06
--- NOTE | 2024-10-28 13:12 | DVHDS2 ---
Discharge Summary Date of Admission Oct 16, 2024 at 02:33 Date of Discharge: Oct 28, 2024 Admitting Diagnosis Shortness of breath Wounds: None Labs/Diagnostic Data: Laboratory Results Test 10/28/24 10:25 10/28/24 05:50 10/27/24 05:44 10/26/24 05:44 POC Glucose 90 mg/dl (70-106) Creatinine 0.66 mg/dL (0.700-1.30) Glomerular Filtration Rate Calc 98 mL/min (>90) White Blood Count 17.0 10^3/uL (4.4-10.8) Red Blood Count 2.70 10^6/uL (4.5-5.90) Hemoglobin 8.6 g/dL (13.5-17.5) Hematocrit 26.3 % (41.0-53.0) Mean Corpuscular Volume 97.3 fL (80.0-100.0) Mean Corpuscular Hemoglobin 31.9 pg (28.0-32.0) Mean Corpuscular Hemoglobin Concent 32.8 g/dL (32.0-36.0) Red Cell Distribution Width 16.8 % (11.8-14.3) Platelet Count 607 10^3/uL (140-450) Mean Platelet Volume 8.0 fL (6.9-10.8) Neutrophils (%) (Auto) % (37.0-80.0) Lymphocytes (%) (Auto) % (10.0-50.0) Monocytes (%) (Auto) % (0.0-12.0) Basophils (%) (Auto) % (0.0-2.0) Neutrophils # (Auto) 10 ^3/uL (1.6-8.6) Lymphocytes # (Auto) 10 ^3/uL (0.4-5.4) Monocytes # (Auto) 10 ^3/uL (0-1.3) Differential Total Cells Counted 100.0 (100) Neutrophils % (Manual) 64 (37.0-80.0) Band Neutrophils % (Manual) 2 Lymphocytes % (Manual) 18 (10.0-50.0) Monocytes % (Manual) 7 (0-12) Eosinophils % (Manual) 7 (0-7) Basophils % (Manual) 0 (0.0-2.0) Metamyelocytes % (manual) 0 Myelocytes % (Manual) 1 Promyelocytes % (Manual) 0 Blast Cells % (Manual) 0 Reactive Lymphocytes 1 Platelet Estimate Increased Anisocytosis (manual) Slight Sodium Level 141 mmol/L (136-145) Potassium Level 3.8 mmol/L (3.5-5.1) Chloride Level 110 mmol/L (98-107) Carbon Dioxide Level 23 mmol/L (20-31) Anion Gap 8 (5-15) Blood Urea Nitrogen 14 mg/dL (9-23) BUN/Creatinine Ratio 18.2 (10.0-20.0) Serum Glucose 85 mg/dL (74-106) Calcium Level 8.4 mg/dL (8.7-10.4) Vancomycin Level Trough 18.9 ug/mL (5-10) Polychromasia Slight Magnesium Level 2.3 mg/dL (1.6-2.6) Test 10/25/24 09:18 10/24/24 14:30 10/24/24 07:04 10/23/24 16:00 Large Platelets Few Target Cells Few Total Bilirubin 0.4 mg/dL (0.2-1.0) Aspartate Amino Transferase (AST) 35 U/L (13-40) Alanine Aminotransferase (ALT) 30 U/L (7-40) Alkaline Phosphatase 71 U/L (46-116) Total Protein 6.2 g/dL (5.7-8.2) Albumin 3.7 g/dL (3.2-4.8) Random Vancomycin Level 17.3 ug/mL (5-10) Nucleated Red Blood Cells 2.0 % Giant Platelets Few Urine Color Light-yellow (Yellow) Urine Clarity Clear (Clear) Urine pH 5.0 (5.0-9.0) Urine Specific [place] 1.018 (1.001-1.035) Urine Protein Negative (Negative) Urine Ketones Negative (Negative) Urine Blood Negative /uL (Negative) Urine Nitrite Negative (Negative) Urine Bilirubin Negative (Negative) Urine Urobilinogen Normal mg/dL (Negative) Urine Leukocyte Esterase Negative /uL (Negative) Urine RBC 1 /hpf (0 - 3) Urine Microscopic WBC 1 /HPF (0-3) Urine Squamous Epithelial Cells None seen /hpf (<5) Urine Bacteria None seen /hpf (None Seen) Urine Glucose Normal mg/dL (Normal) Test 10/23/24 05:38 10/19/24 08:58 10/18/24 12:06 10/16/24 16:50 Lactic Acid Level 1.4 mmol/L (0.4-2.0) Lactate Dehydrogenase 382 U/L (120-246) Blood Gas Specimen Type Arterial Blood Gas Sample Site Right radial Blood Gas Patient Temperature 37.0 Arterial Blood Date Drawn [id number] Arterial Blood pH 7.502 (7.350-7.450) Arterial Blood Partial Pressure CO2 33.6 mmHg (35.0-48.0) Arterial Blood Partial Pressure O2 81.1 mmHg (83.0-108.0) Arterial Blood HCO3 25.7 mmol/L (21.0-28.0) Arterial Blood Oxygen Saturation 95.5 % (94.0-98.0) Arterial Blood Base Excess 2.8 mmol/L (-2.0-3.0) Arterial Blood Oxyhemoglobin 94.5 % (94.0-98.0) Arterial Blood Carboxyhemoglobin 0.6 % (0.5-1.5) Arterial Blood Methemoglobin 0.4 % (0.0-1.5) Jony Test Modified Blood Gas Total Hemoglobin 11.00 g/dL (13.5-17.5) Blood Gas Set Respiration Rate 16.0 Blood Gas Modality Mask - bipap Blood Gas Spontaneous Rate 26 FiO2 % 55.0 Blood Gas Spontaneous Tidal Volume 605 Blood Gas EPAP 5 Blood Gas IPAP 10 Blood Gas Liter Flow 55.00 Prothrombin Time 15.1 sec (9.3-11.8) Prothrombin Time INR 1.48 (0.9-1.15) Activated Partial Thromboplast Time 54.0 SEC (24.5-34.5) Test 10/16/24 06:04 10/16/24 04:03 10/16/24 02:35 10/16/24 00:36 Eosinophils (%) (Auto) 0.0 % (0.0-7.0) Eosinophils # (Auto) 0 10 ^3/uL (0-0.8) Basophils # (Auto) 0.1 10 ^3/uL (0-0.2) Hemoglobin A1c 5.3 % A1C (<5.7) Iron Level 24 ug/dL (65-175) Total Iron Binding Capacity 274 ug/dL (250-425) Percent Iron Saturation 8.8 % (20-55) Ferritin 151.8 ng/mL (22-322) Vitamin B12 Level 663 pg/mL (211-911) Vitamin D 25-Hydroxy 20.2 ng/mL (30.0-100) Folic Acid 8.75 ng/mL (>5.38) Plasma/Serum Blood Alcohol < 3.0 mg/dL (<10) Hepatitis A IgM Antibody Negative Hepatitis B Surface Antigen Negative (Negative) Hepatitis B Core IgM Antibody Positive (Negative) Hepatitis C Antibody Positive (Negative) HIV (1&2) Antibody Negative (Negative) Influenza Type A Antigen Negative (Negative) Influenza Type B Antigen Negative (Negative) SARS-CoV-2 Antigen (Rapid) Negative (NEGATIVE) Specimen Drawn By Kylie bolton rt Blood Gas Critical Value Read Back Yes Blood Gas Notified Whom ilan Venegas md Blood Gas Notified Time [id number] Blood Gas Notified By Kylie bolton rt Test 10/16/24 00:32 10/16/24 00:20 10/16/24 00:00 [place] Cells Few Schistocytes Few B-Type Natriuretic Peptide 511.92 pg/mL (0-100) Urine Creatinine 80.29 mg/dL (30.0-125.0) Urine Sodium 14 mmol/L (40-220) Urine Opiates Screen Pos (NEGATIVE) Urine Fentanyl Screen Neg (NEGATIVE) Urine Barbiturates Screen Neg (NEGATIVE) Urine Phencyclidine Screen Neg (NEGATIVE) Urine Amphetamines Screen Neg (NEGATIVE) Urine Benzodiazepines Screen Neg (NEGATIVE) Urine Cocaine Screen Neg (NEGATIVE) Urine Cannabinoids Screen Neg (NEGATIVE) Urine WBC 1 /hpf (0 - 3) Urine Hyaline Casts Few /lpf (0 - 2) Other Laboratory Tests 10/28/24 05:50 10/27/24 05:44 Brief Hx & Hospital Course: 74-year-old [facility] brought in for a mechanical fall without loss of consciousness CT head was negative. Patient found to be in acute respiratory failure secondary to sepsis and community-acquired pneumonia and COPD exacerbation treated with the vancomycin azithromycin. COPD exacerbation treated by med neb treatment patient has left-sided pleural effusion possibly parapneumonic patient had septic shock secondary to pneumonitis and cellulitis patient was also placed on voriconazole for possible fungal infection. [facility]. He will receive IV antibiotics for two weeks through [facility] for his pneumonia Patient Originally not willing to go to [facility] facility nowchanged his mind and wants to go to [facility] facility. General condition poor but stable at the time of discharge Consults/Reason for consult None Operations or Procedures CT head Condition at Discharge: Fair Final Diagnosis/Problems List # Mechanical fall without LOC # ?Acute metabolic encephalopathy likely secondary to likely due to respiratory failure/sepsis # H/o peripheral neuropathy - Patient has bruising on the right forehead - Head CT scan is normal # Acute hypoxic respiratory failure in setting of pneumonia/COPD exacerbation # COPD exacerbation # ? acute Gram-positive/negative bacterial PNA # Acute pneumonitis # Left-sided effusion, likely parapneumonic # Septic shock, likely due to pneumonia/cellulitis # rule out systemic fungal infection Discharge Disposition: Custodial Facility Discharge Instruct/Medications Diet: Cardiac 2g Na,low cholest Activity: Light activity Follow Up/Referral: Follow up with the longterm Medications: see list 39 (Time Taken For discharge summary 39 minutes) Discharge Statement: "Patient was advised to return to the ER or call 911 if any headaches, dizziness, shortness of breath, chest pain, abdominal pain, bleeding, fevers, or worsening of medical condition. Patient was counseled about treatment plan, medications, possible side effects, patientverbalized understanding. All questions were answered to the best of my ability. This discharge took greater then 30 minutes in planning, reviewing documentation, counseling the patient, and discussing with other team members." ASSESSMENT ASSESSMENT Hospital Course Improved marginally Assessment # Mechanical fall without LOC # ?Acute metabolic encephalopathy likely secondary to likely due to respiratory failure/sepsis # H/o peripheral neuropathy - Patient has bruising on the right forehead - Head CT scan is normal # Acute hypoxic respiratory failure in setting of pneumonia/COPD exacerbation # COPD exacerbation # ? acute Gram-positive/negative bacterial PNA # Acute pneumonitis # Left-sided effusion, likely parapneumonic # Septic shock, likely due to pneumonia/cellulitis # rule out systemic fungal infection Date of Service: Oct 28, 2024 Billing Provider: ELOISA TRIVEDI MD Common Visit Codes: [id number] DISCH DAY >30min ELOISA TRIVEDI MD Oct 28, 2024 13:12
[2024-10-29] VITALS (21 sets, daily range): BP systolic 109–153; BP diastolic 59–79; PULSE 75–92; RESP 16–18; TEMP 36.8; O2SAT 90–100
[2024-10-29 07:37] LABS: Basophils # (auto) 0.1 10 ^3/uL (0-0.2); Hemoglobin 8.9 g/dL (13.5-17.5); Lymphocytes # (auto) 2.3 10 ^3/uL (0.4-5.4); Monocytes # (auto) 1.6 10 ^3/uL (0-1.3); Neutrophils # (auto) 9.9 10 ^3/uL (1.6-8.6); Nucleated Red Blood Cells % 0.1 %
[2024-10-29 07:39] LABS: Basophils % (auto) 0.6 % (0.0-2.0); Eosinophils % (auto) 6.7 % (0.0-7.0); Hematocrit 27.3 % (41.0-53.0); Lymphocytes % (auto) 15.2 % (10.0-50.0); Mean Corpuscular Hemoglobin 31.3 pg (28.0-32.0); Mean Corpuscular Hgb Conc. 32.5 g/dL (32.0-36.0); Mean Corpuscular Volume 96.2 fL (80.0-100.0); Neutrophils % (auto) 66.5 % (37.0-80.0); Platelet Count (auto) 618 10^3/uL (140-450); Red Blood Cells 2.84 10^6/uL (4.5-5.90); Red Cell Distribution Width 16.1 % (11.8-14.3); White Blood Cell 14.9 10^3/uL (4.4-10.8)
[2024-10-29 08:17] LABS: Alanine Aminotransferase 20 U/L (7-40); Alkaline Phosphatase 79 U/L (46-116); Anion Gap 7 (5-15); Aspartate Aminotransferase 26 U/L (13-40); Bilirubin, Total 0.4 mg/dL (0.2-1.0); Carbon Dioxide 22 mmol/L (20-31); Glucose 78 mg/dL (74-106); Sodium 141 mmol/L (136-145)
[2024-10-29 08:19] LABS: Albumin 3.2 g/dL (3.2-4.8); Blood Urea Nitrogen 8 mg/dL (9-23); Calcium 8.5 mg/dL (8.7-10.4); Chloride 112 mmol/L (98-107); Potassium 3.4 mmol/L (3.5-5.1); Total Protein 5.4 g/dL (5.7-8.2)
[2024-10-29 08:39] LABS: Partial Thromboplastin Time 26.1 SEC (24.5-34.5); Prothrombin Time 10.6 sec (9.3-11.8)
[2024-10-29] MEDS: LIDOCAINE 1% (LOCAL ANESTH.) PF 5ml SDV ID ONE (10:21)
--- NOTE | 2024-10-29 17:39 | DVHPNRES ---
Progress Note Date Seen: Oct 29, 2024 Resident Creating Document: MURPHY MARTINEZ RESIDENT Has the PT tested + for MRSA If YES, has PT been informed?: No Medical Necessity Reason Pt with a Central, PICC or Fol: No Subjective Review of Systems Patient seen and examined at bedside. Patient is afebrile, overnight events reviewed, reported no new complaints, reported improvement in his symptoms since admission. Patient is currently on 2 L oxygen [place], continuously monitoring. Ordered new CT chest tomorrow AM, converted IV voriconazole to oral. Patient reports: No new complaints, Feels better Objective vital signs Vital Sign Date Time Temp Pulse Resp B/P (MAP) Pulse Ox O2 Delivery O2 Flow Rate FiO2 10/29/24 13:55 84 18 98 10/29/24 13:46 Nasal Cannula 2.0 10/29/24 13:27 36.8 10/29/24 13:00 109/64 (79) 10/29/24 09:36 28 Total Intake and Output 10/28/24 10/28/24 10/29/24 15:00 23:00 07:00 Intake Total 280 ml 580 ml 500 ml Output Total 645 ml Balance 280 ml -65 ml 500 ml medications Current Medications Medications Dose Ordered Sig/Roseanna Route Start Time Stop Time Status Last Admin Dose Admin Vancomycin HCl 0 ml @ 0 mls/hr UD IV 10/16/24 03:30 UNV Ipratropium [place] 0.5 mg Q4HR NEB 10/16/24 04:15 10/29/24 13:45 0.5 MG Levalbuterol HCl 0.625 mg Q4HR NEB 10/16/24 04:15 10/29/24 13:45 0.625 MG Diagnostic Test (Pha) 1 strip ACHS 10/16/24 17:00 10/29/24 16:16 1 STRIP Insulin Human Regular ACHS SC 10/16/24 17:00 10/24/24 21:47 2 UNITS Dextrose 50 ml UD PRN IV 10/16/24 12:30 Lorazepam 0.5 mg Q6HP PRN IV 10/16/24 17:30 10/20/24 00:06 0.5 MG Ergocalciferol 50,000 unit Q7D PO 10/17/24 10:30 10/24/24 11:02 50,000 UNIT Nicotine 1 patch DAILY TD 10/18/24 10:00 10/29/24 09:44 1 PATCH Enteral Nutritional Formula 240 ml BIDWM PO 10/22/24 18:15 10/29/24 08:21 240 ML Acetaminophen 650 mg Q6HP PRN PO 10/22/24 20:15 10/28/24 21:37 650 MG Pantoprazole Sodium 40 mg DAILY IV 10/23/24 10:00 10/29/24 09:43 40 MG Docusate Sodium 100 mg BID PO 10/23/24 10:00 10/27/24 08:16 100 MG Azithromycin 500 mg DAILY PO 10/25/24 10:00 10/29/24 09:43 500 MG Sodium Chloride 10 ml QSHIFT@10,22 IV 10/29/24 22:00 Voriconazole 300 mg/Dextrose 280 ml @ 140 mls/hr Q12H IV 10/29/24 18:30 UNV Examination Male patient lying on bed General:Alert, Oriented X3, Cooperative, mild distress HEENT: Atraumatic, PERRLA, EOMI, Mucous membrane moist/pink Cardiovascular: Regular S1 and S2. No murmurs, gallops or rubs. No JVD elevation. Respiratory: Decreased basilar b/l breath sounds. On NC 2 l Abdominal: Normal bowel sounds, Soft, No tenderness, No hepatospenomegaly, No masses Extremities: No graham, No cyanosis, mild tenderness in LE MSK/skin: Skin is dry and warm Neurological: No sensory motor deficits for now laboratory and microbiology Laboratory Tests 10/29/24 05:40 Test 10/29/24 05:40 Range/Units Serum Glucose 78 74-106 mg/dL Microbiology Date/Time Source Procedure Growth Status 10/26/24 18:00 Sputum Gram Stain - Final Complete 10/26/24 18:00 Sputum Respiratory Culture - Final Complete 10/16/24 08:27 Nose MRSA Screen - Final Complete 10/16/24 00:32 Blood Blood Culture - Final NO GROWTH AFTER 5 DAYS OF INCUBATION. Complete 10/16/24 00:20 Voided Urine Urine Culture - Final Complete Labs and/or images reviewed: Labs reviewed by me, Image(s) reviewed by me Problem List/Assessment/Plan Problem List/Assessment/Plan # Mechanical fall without LOC # ?Acute metabolic encephalopathy likely secondary to likely due to respiratory failure/sepsis # H/o peripheral neuropathy - Patient has bruising on the right forehead - Head CT scan is normal # Acute hypoxic respiratory failure in setting of pneumonia/COPD exacerbation # COPD exacerbation # ? acute Gram-positive/negative bacterial PNA # Acute pneumonitis # Left-sided effusion, likely parapneumonic # Septic shock, likely due to pneumonia/cellulitis # rule out systemic fungal infection - Patient currently on 2 L oxygen [place], - evident on CT and CXR, monitoring - currently on , Zosyn and azithromycin oral - DC Vancomysin 10/29 - Discontinued steroids, Lasix 10/24 - started voriconazole for possible fungal infection, ordered antigen tests 10/23 # ? Acute on chronic diastolic heart failure # History of AFib with secondary Hypercoagulable state # H/O CAD with S/P angioplasty stent placement in circumflex artery # H/o peripheral vascular disease s/p stenting in lower extremities - Patient currently on 2 L oxygen [place], - echocardiogram, LVEF 60% with a grade 1 diastolic dysfunction - EKG shows, normal sinus rate - Discontinued steroids, Lasix 10/24 - Strict I&Os, # Mild protein malnutrition # Transaminitis # Chronic HBV # Hepatitis C antibody positive status - Albumin is decreased at 3.2 - Nutrition consultation - monitor lab - Added ensure # BRENNAN likely VMN on chronic- improving # Lactic acidosis # Hypokalemia - Repleting - Monitor lab - Discontinued steroids, Lasix # Hyperglycemia likely in setting of sepsis - HbA1c 5.3 - mild ISS # vitamin-D deficiency - repleting # Left leg Cellulitis resolving - CT scan of the leg shows, bony demineralization and mild subcutaneous edema in distal left lower extremity. No acute fracture or traumatic malalignment - Wound consultation - Empiric IV antibiotics Normocytic anemia # ? iron deficiency anemia # Ruled out DVT/PE - monitor lab - venous Doppler showed no signs of dvt - ordered iron panel # tobacco dependence # tobacco abuse disorder - counseled regarding cessation for more than 17 minutes - currently on nicotine patch Goals of care discussed with the patient for more than 27 minutes, full code status Case discussed with Dr Nichole. Patient currently on 2 L oxygen [place], consulted school social worker for DC planning to SNF for rehabilitation Plan discussed with: Patient My Orders My Orders Orders - MURPHY MARTINEZ RESIDENT Procedure Category Date Status Time Vancomycin Per CARMELINA 10/28/24 In Process Pharmacy Protoc 17:55 Voriconazole Inj PHA 10/29/24 Logged (Vfend Inj) 18:[address] 10/30/24 Logged 04:00 Complete Blood Count LAB 10/30/24 Verified 04:00 Basic Metabolic Panel LAB 10/30/24 Verified 04:00 MURPHY MARTINEZ RESIDENT Oct 29, 2024 17:39
[2024-10-29] MEDS ORDERED: VORICONAZOLE INJ 300 MG in D5W 5% 250 ML IV SCH (18:30)
[2024-10-29 21:06] LABS: Mycoplasma pneumoniae IgG Ab 641 U/mL (0-99); Mycoplasma pneumoniae IgM Ab <770 U/mL (0-769)
[2024-10-29] MEDS ORDERED: VORICONAZOLE 50 MG TAB PO SCH (22:00)
[2024-10-29] MEDS ORDERED: SODIUM CHLOR 0.9% PF (SALINE LOCK) 10ML VIAL/SYR IV SCH (22:00)
[2024-10-29 22:06] LABS: Legionella pneumophila Abs Non Reactive (Non Reactive)
== END 2024-10-29 18:55 | DRG 871 ==
LOC: ER 23:28 → EDBD 23:28 → TELE 10-16 02:33 → TELE-WESTW 10-17 22:51 → OVERFLOW 10-17 23:00 → TELE-WESTW 10-20 13:50
PROVIDERS: ADMIT Internal Medicine; ATTEND Internal Medicine
PROC: 5A09457 Assistance with Respiratory Ventilation, 24-96 Consecutive Hours, Continuous Positive Airway Pressure (ICD-10-PCS; 2024-10-16)
PROC: 02HV33Z Insertion of Infusion Device into Superior Vena Cava, Percutaneous Approach (ICD-10-PCS; 2024-10-16)
PROC: B548ZZA Ultrasonography of Superior Vena Cava, Guidance (ICD-10-PCS; 2024-10-16)
PROC: 5A09357 Assistance with Respiratory Ventilation, Less than 24 Consecutive Hours, Continuous Positive Airway Pressure (ICD-10-PCS; 2024-10-20)
PROC: 02HV33Z Insertion of Infusion Device into Superior Vena Cava, Percutaneous Approach (ICD-10-PCS; principal; 2024-10-29)
PROC: B548ZZA Ultrasonography of Superior Vena Cava, Guidance (ICD-10-PCS; 2024-10-29)
DX: A41.50 Gram-negative sepsis, unspecified (principal); G93.41 Metabolic encephalopathy; I50.33 Acute on chronic diastolic (congestive) heart failure; R65.21 Severe sepsis with septic shock; J15.69 Pneumonia due to other Gram-negative bacteria; J96.21 Acute and chronic respiratory failure with hypoxia; J15.9 Unspecified bacterial pneumonia; N17.0 Acute kidney failure with tubular necrosis; J44.1 Chronic obstructive pulmonary disease with (acute) exacerbation; E44.1 Mild protein-calorie malnutrition; B18.1 Chronic viral hepatitis B without delta-agent; E87.20 Acidosis, unspecified; L03.116 Cellulitis of left lower limb; J44.0 Chronic obstructive pulmonary disease with (acute) lower respiratory infection; Z20.822 Contact with and (suspected) exposure to COVID-19; F17.210 Nicotine dependence, cigarettes, uncomplicated; I11.0 Hypertensive heart disease with heart failure; Z68.25 Body mass index [BMI] 25.0-25.9, adult; D50.9 Iron deficiency anemia, unspecified; E11.65 Type 2 diabetes mellitus with hyperglycemia; J98.4 Other disorders of lung; J43.9 Emphysema, unspecified; I48.91 Unspecified atrial fibrillation; I25.10 Atherosclerotic heart disease of native coronary artery without angina pectoris; F41.9 Anxiety disorder, unspecified; E87.6 Hypokalemia; E78.5 Hyperlipidemia, unspecified; E55.9 Vitamin D deficiency, unspecified; E11.51 Type 2 diabetes mellitus with diabetic peripheral angiopathy without gangrene; Z86.718 Personal history of other venous thrombosis and embolism; Z95.820 Peripheral vascular angioplasty status with implants and grafts; Z79.899 Other long term (current) drug therapy
CPT/HCPCS: 36415; 36556; 36569; 36600; 70450; 71045; 71250; 73700; 76604; 76937; 80048; 80053; 80074; 80202; 80307; 80320; 81001; 82306; 82565; 82570; 82607; 82728; 82746; 82805; 82962; 83036; 83540; 83550; 83605; 83615; 83735; 83880; 84300; 85007; 85025; 85027; 85060; 85610; 85730; 86703; 86738; 87040; 87070; 87081; 87086; 87205; 87278; 87426; 87804; 93005; 93306; 93926; 93970; 94640; 94660; 96361; 96365; 96375; 97110; 97116; 97162; 97530; G0378; J1815; J2470; J2543; J3465; J7060

== ENCOUNTER 2025-02-27 13:51 | Inpatient (IN) | payer MEDICARE, MEDICAID ==
[~2025-02-27] VITALS: Ht 180.3 cm; Wt 79.0 kg
--- NOTE | 2025-02-27 14:04 | ED.PDOC ---
HPI Comments 74 y/o M with PMHx of COPD, CHF, HTN, and arthritis presents to the ED for CC of hypotension. EMS reports, patient is coming from home where emergency medical personal was called d/t patient being out of it and appearing to be slumped over. Upon arrival to scene, patient was found to be hypotensive with a systolic in the 70s. Patient is a poor historian; complains of symptoms of shortness of breath and weakness xdays. Patient denies chest pain, palpitations, or leg swelling. No other symptoms or modifying factors present at this time. Time Seen by MD: 13:50 Primary Care Provider: UNKNOWN Reviewed Notes: Nurses Notes, Bending Roll Hand Notes, Medications, Allergies Allergies: Coded Allergies: NO KNOWN ALLERGIES (Unverified , 03/22/23) Home Meds Reported Medications Diclofenac Sodium (Topical) (Diclofenac Sodium) 1 % Gel, 1 % TD DAILY, GEL 02/12/24 Atorvastatin Calcium (ATORVASTATIN CALCIUM) 80 Mg Tab, 80 MG PO HS, TAB 02/12/24 Nitroglycerin (NTROSTAT SUBLINGUAL) 0.4 Mg Sl, 0.4 MG SL PRN PRN for FOR CHEST PAIN, TAB *MAY REPEAT EVERY 5 MINUTES X 3 TOTAL IF NO RELIEF, INITIATE ANALGESIC THERAPY. NOTIFY PHYSICIAN *Do not crush. 02/12/24 Potassium Chloride (POTASSIUM CHLORIDE CR) 10 Meq Tb, 10 MEQ PO BID, TAB 02/12/24 Divalproex Sodium (Divalproex Sodium Dr) 250 Mg Tab, 1 TAB PO TID, TAB 08/23/22 Olanzapine (OLANZAPINE) 5 Mg Tab, 1 TAB PO DAILY 08/21/22 Fluoxetine Hcl (Fluoxetine Hcl) 10 Mg Tab, 1 TAB PO DAILY 08/21/22 Furosemide (Furosemide) 40 Mg Tab, 1 TAB PO DAILY 08/21/22 Gabapentin (Gabapentin) 100 Mg Cap, 1 CAP PO TID 08/21/22 Information Source: Patient, Emergency Med Personnel Mode of Arrival: EMS Severity: Moderate Timing: Days Duration: Since onset Prehospital treatment: IVF Onset: At Rest Cardiac Risk Factors: Smoker PE Risk Factors: None History of: None Modifying Factors: Nothing Associated Signs and Symptoms: SOB Past Medical History PAST MEDICAL HISTORY: Arthritis, CHF, COPD, HTN Surgical History: Tonsillectomy Family History Family History: Reviewed,noncontributory to illness Social History Smoker: Cigarettes, Less Than 1 Pack/Day Alcohol: Denies ETOH Use Drugs: Denies Drug Use Lives In: Home Constitutional: reports: weakness; denies: chills, diaphoresis, fatigue, fever, malaise, sweats, others EENTM: denies: blurred vision, double vision, ear bleeding, ear discharge, ear drainage, ear pain, ear ringing, eye pain, eye redness, hearing loss, mouth pain, mouth swelling, nasal discharge, nose bleeding, nose congestion, nose pain, photophobia, tearing, throat pain, throat swelling, voice changes, others Respiratory: reports: shortness of breath; denies: cough, hemoptysis, orthopnea, SOB at rest, SOB with excertion, stridor, wheezing, others Cardiovascular: denies: chest pain, dizzy spells, diaphoresis, Dyspnea on exertion, edema, irregular heart beat, left arm pain, lightheadedness, palpitations, PND, syncope, others Gastrointestinal: denies: abdomen distended, abdominal pain, blood streaked bowels, constipated, diarrhea, dysphagia, difficulty swallowing, hematemesis, melena, nausea, poor appetite, poor fluid intake, rectal bleeding, rectal pain, vomiting, others Genitourinary: denies: burning, dysuria, flank pain, frequency, hematuria, incontinence, penile discharge, penile sore, pain, testicle pain, testicle swelling, urgency, others Neurological: denies: dizziness, fainting, headache, left sided numbness, left sided weakness, numbness, paresthesia, pre-existing deficit, right sided numbness, right sided weakness, seizure, speech problems, tingling, tremors, weakness, others Musculoskeletal: denies: back pain, gout, joint pain, joint swelling, muscle pain, muscle stiffness, neck pain, others Integumetry: denies: bruises, change in color, change in hair/nails, dryness, laceration, lesions, lumps, rash, wounds, others Allergic/Immunocompromised: denies: Difficulty Healing, Frequent Infections, Hives, Itching, others Hematologic/Lymphatic: denies: anemia, blood clots, easy bleeding, easy bruising, swollen glands, others Endocrine: denies: excessive hunger, excessive sweating, excessive thirst, excessive urination, flushing, intolerance to cold, intolerance to heat, unexplained weight gain, unexplained weight loss, others Psychiatric: denies: anxiety, bipolar disorder, depression, hopeless, panic disorder, schizophrenia, sleepless, suicidal, others All Other Systems: Reviewed and Negative Physical Exam General Appearance: Moderate Distress HEENT: Normal ENT Inspection, Pharynx Normal, TMs Normal Neck: Full Range of Motion, Non-Tender, Normal, Normal Inspection Respiratory: Chest Non-Tender, Lungs Clear, No Accessory Muscle Use, No Respiratory Distress, Normal Breath Sounds Cardiovascular: No Edema, No JVD, No Murmur, No Gallop, Normal Peripheral Pulses, Regular Rate/Rhythm Breast Exam: Deferred Gastrointestinal: No Organomegaly, Non Tender, No Pulsatile Mass, Normal Bowel Sounds, Soft Genitalia: Deferred Pelvic: Deferred Rectal: Deferred Extremities: No calf tenderness Musculoskeletal : Apperance: Normal Neurologic: Alert Cerebellar Function: NOT DONE Reflexes: NOT DONE Skin: Pallor Peripheral Pulses: 3+ Radial (R), 3+ Radial (L) Lymphatic: No Adenopathy EKG EKG : Pulse Rate (adult): 79 [place]: Normal Cardiac Rhythm: NSR Block: None Hypertrophy: None ST: Normal Was a procedure done? Was a procedure done?: No CP Differential Dx Differential Diagnosis: A-fib, A-Flutter, Angina, Anxiety / Panic Attack, Atrial Dysrhythmia, Electrolyte Disorder, Other (HYPOTENSION ) X-Ray, Labs, Meds, VS Vital Signs Date Time Temp Pulse Resp B/P (MAP) Pulse Ox O2 Delivery O2 Flow Rate FiO2 02/27/25 15:30 98.1 83 18 105/69 (81) 96 98.1 02/27/25 14:30 98.1 74 18 110/70 (83) 97 98.1 02/27/25 14:30 Room Air* 0 21 02/27/25 14:05 79 02/27/25 13:51 79 Lab Test 02/27/25 14:30 02/27/25 14:10 Range/Units Urine Color Colorless Yellow Urine Clarity Clear Clear Urine pH 6.0 5.0-9.0 Urine Specific [place] 1.006 1.001-1.035 Urine Protein Negative Negative Urine Ketones Negative Negative Urine Blood Negative Negative /uL Urine Nitrite Negative Negative Urine Bilirubin Negative Negative Urine Urobilinogen Normal Negative mg/dL Urine Leukocyte Esterase Negative Negative /uL Urine RBC <1 0 - 3 /hpf Urine Microscopic WBC < 1 0-3 /HPF Urine Squamous Epithelial Cells None seen <5 /hpf Urine Bacteria None seen None Seen /hpf Urine Hyaline Casts Few 0 - 2 /lpf Urine Glucose Normal Normal mg/dL White Blood Count 8.7 4.4-10.8 10^3/uL Red Blood Count 4.12 L 4.5-5.90 10^6/uL Hemoglobin 10.1 L 13.5-17.5 g/dL Hematocrit 30.9 L 41.0-53.0 % Mean Corpuscular Volume 75.0 L 80.0-100.0 fL Mean Corpuscular Hemoglobin 24.4 L 28.0-32.0 pg Mean Corpuscular Hemoglobin Concent 32.6 32.0-36.0 g/dL Red Cell Distribution Width 18.2 H 11.8-14.3 % Platelet Count 520 H 140-450 10^3/uL Mean Platelet Volume 6.9 6.9-10.8 fL Neutrophils (%) (Auto) 50.8 37.0-80.0 % Lymphocytes (%) (Auto) 31.2 10.0-50.0 % Monocytes (%) (Auto) 13.6 H 0.0-12.0 % Eosinophils (%) (Auto) 3.6 0.0-7.0 % Basophils (%) (Auto) 0.8 0.0-2.0 % Neutrophils # (Auto) 4.4 1.6-8.6 10 ^3/uL Lymphocytes # (Auto) 2.7 0.4-5.4 10 ^3/uL Monocytes # (Auto) 1.2 0-1.3 10 ^3/uL Eosinophils # (Auto) 0.3 0-0.8 10 ^3/uL Basophils # (Auto) 0.1 0-0.2 10 ^3/uL Nucleated Red Blood Cells 0.1 % Sodium Level 139 136-145 mmol/L Potassium Level 3.7 3.5-5.1 mmol/L Chloride Level 110 H 98-107 mmol/L Carbon Dioxide Level 23 20-31 mmol/L Anion Gap 6 5-15 Blood Urea Nitrogen 9 9-23 mg/dL Creatinine 1.15 0.700-1.30 mg/dL Glomerular Filtration Rate Calc 67 >90 mL/min BUN/Creatinine Ratio 7.8 L 10.0-20.0 Serum Glucose 113 H 74-106 mg/dL Calcium Level 8.8 8.7-10.4 mg/dL Troponin I High Sensitivity 4 </=54 ng/L Current Medications Medications (Trade) Dose Ordered Sig/Roseanna Route Start Time Stop Time Status Last Admin Sodium Chloride 1,000 ml @ 1,000 mls/hr Q1H ONCE IV 02/27/25 14:00 02/27/25 14:59 DC 02/27/25 14:26 Sodium Chloride 1,000 ml @ 150 mls/hr Q6H40M ONCE IV 02/27/25 14:00 02/27/25 20:39 02/27/25 14:44 [place] [id number] Ph: [phone] DIAGNOSTIC IMAGING Diagnostic Imaging Report : [id number] Signed PATIENT: ELVIS SHARMA ACCT: [id number] UNIT: [id number] : 1950 LOC: ER ROOM / BED: / AGE / SEX: 74 / M ADM STATUS: REG ER SERVICE 1353 ORDERING PHYSICIAN: RICHARD ETIENNE MD PROCEDURE(s): CXRP - CHEST PORTABLE REASON: sob ORDER NUMBER(s): [id number], ACCESSION NUMBER(s): [id number] CHEST RADIOGRAPH Indication: sob Technique: Single frontal view of the chest was obtained Comparison: XY CHEST XRAY 1 VIEW on DOS: 10/26/24, XY CHEST XRAY 1 VIEW on DOS: 10/25/24, XY CHEST XRAY 1 VIEW on DOS: 10/23/24 FINDINGS: Lines and Tubes: None Lungs: Improving bilateral interstitial prominence persisting in the bases. Pleura: No effusion. No pneumothorax. Cardiomediastinal contours: Unremarkable Bones: No acute osseous abnormality. IMPRESSION: 1. Improving bilateral interstitial prominence persisting in the bases. ATED BY: ZOE GATES Jr., DO DICTATED DATE/TIME: 02/27/25 144 SIGNED BY: ZOE GATES Jr., SIGNED DATE/TIME: 02/27/25 144 CC: Patient alert. Answering questions. Hypotension. Establish intravenous access. Was given fluids. Complaining of shortness a breath. Possible pneumonia. Chest x-ray does show inflammation. Was given Rocephin. Was given azithromycin. Explained to the patient. Time of 1ST Reevaluation: 14:20 Reevaluation 1ST: Unchanged Patient Education/Counseling: Diagnosis, Treatment Family Education/Counseling: No Family Present Departure 1 Departure Time of Disposition: 16:35 Impression: Primary Impression: Pneumonitis Disposition: 09 ADMITTED INPATIENT Admit to: Med Surg Condition: Guarded Critical Care Note Critical Care Time?: No Stability Stability form required: No Heart Score Heart Score: Heart Score Response (Comments) Value History Slightly Suspicious 0 EKG Normal 0 Age >65 2 Risk Factors >3 or Hx ASHD 2 Troponin Normal limit 0 Total 4 I personally scribed for RICHARD ETIENNE MD ([email or web address]) on 02/27/25 at 14:04. Electronically submitted by Zarina Summers ([email or web address]). I personally scribed for RICHARD ETIENNE MD ([email or web address]) on 02/27/25 at 14:05. Electronically submitted by Zarina Summers ([email or web address]). I personally scribed for RICHARD ETIENNE MD ([email or web address]) on 02/27/25 at 15:00. Electronically submitted by Zarina Summers ([email or web address]). I personally scribed for RICHARD ETIENNE MD ([email or web address]) on 02/27/25 at 15:19. Electronically submitted by Zarina Summers ([email or web address]). I personally scribed for RICHARD ETIENNE MD ([email or web address]) on 02/27/25 at 15:24. Electronically submitted by Zarina Summers ([email or web address]). RICHARD ETIENNE MD February 27, 2025 14:04
[2025-02-27 14:26] LABS: Basophils # (auto) 0.1 10 ^3/uL (0-0.2); Eosinophils # (auto) 0.3 10 ^3/uL (0-0.8); Monocytes # (auto) 1.2 10 ^3/uL (0-1.3); Red Cell Distribution Width 18.2 % (11.8-14.3)
[2025-02-27] MEDS: SODIUM CHLORIDE 0.9% 1,000 ML IV ONE ×2 (14:26→14:44)
[2025-02-27 14:27] LABS: Basophils % (auto) 0.8 % (0.0-2.0); Eosinophils % (auto) 3.6 % (0.0-7.0); Hematocrit 30.9 % (41.0-53.0); Hemoglobin 10.1 g/dL (13.5-17.5); Lymphocytes # (auto) 2.7 10 ^3/uL (0.4-5.4); Lymphocytes % (auto) 31.2 % (10.0-50.0); Mean Corpuscular Hemoglobin 24.4 pg (28.0-32.0); Mean Corpuscular Hgb Conc. 32.6 g/dL (32.0-36.0); Monocytes % (auto) 13.6 % (0.0-12.0); Neutrophils # (auto) 4.4 10 ^3/uL (1.6-8.6); Neutrophils % (auto) 50.8 % (37.0-80.0); Nucleated Red Blood Cells % 0.1 %; Platelet Count (auto) 520 10^3/uL (140-450); Red Blood Cells 4.12 10^6/uL (4.5-5.90); White Blood Cell 8.7 10^3/uL (4.4-10.8)
--- NOTE | 2025-02-27 14:43 | DVH ---
CHEST RADIOGRAPH Indication: sob Technique: Single frontal view of the chest was obtained Comparison: XY CHEST XRAY 1 VIEW on DOS: 10/26/24, XY CHEST XRAY 1 VIEW on DOS: 10/25/24, XY CHEST XRAY 1 VIEW on DOS: 10/23/24 FINDINGS: Lines and Tubes: None Lungs: Improving bilateral interstitial prominence persisting in the bases. Pleura: No effusion. No pneumothorax. Cardiomediastinal contours: Unremarkable Bones: No acute osseous abnormality. IMPRESSION: 1. Improving bilateral interstitial prominence persisting in the bases.
[2025-02-27 14:49] LABS: Anion Gap 6 (5-15); Calcium 8.8 mg/dL (8.7-10.4); Carbon Dioxide 23 mmol/L (20-31); Chloride 110 mmol/L (98-107); Potassium 3.7 mmol/L (3.5-5.1); Sodium 139 mmol/L (136-145)
[2025-02-27 14:54] LABS: BUN/Creatinine Ratio 7.8 (10.0-20.0)
[2025-02-27 14:55] LABS: Blood Urea Nitrogen 9 mg/dL (9-23); Glucose 113 mg/dL (74-106)
[2025-02-27 15:32] LABS: Urine Bacteria None Seen /hpf (None Seen)
[2025-02-27 15:40] LABS: Urine Blood Negative /uL (Negative); Urine Clarity Clear (Clear); Urine Color Colorless (Yellow); Urine Hyaline Cast FEW /lpf (0 - 2); Urine Protein, UAD Negative (Negative); Urine Specific Gravity 1.006 (1.001-1.035); Urine Squamous Epithelial Cell None Seen /hpf (<5); Urine Urobilinogen Normal (Negative); Urine WBC < 1 /HPF (0-3)
[2025-02-27] MEDS: cefTRIAXone 1GM/50ML D5W 50 ML IV ONE (16:56)
[2025-02-27] MEDS ORDERED: DOCUSATE SOD 100 MG CAP PO PRN (17:00)
[2025-02-27] MEDS ORDERED: ONDANSETRON HCL 4 MG/2 ML VIAL IV PRN (17:00)
[2025-02-27] MEDS ORDERED: IPRATROPIUM BROM 0.5 MG/2.5ML INH SOL NEB PRN (17:00)
[2025-02-27] MEDS ORDERED: ACETAMINOPHEN 325 MG TAB PO PRN (17:00)
[2025-02-27] MEDS ORDERED: ALBUTEROL SULF 2.5 MG/0.5ML(0.5%) NEB SOLN NEB PRN (17:00)
[2025-02-27] MEDS: AZITHROMYCIN 500MG/ 250ML 250 ML IV ONE (17:12)
--- NOTE | 2025-02-27 17:33 | DVHHP2 ---
History of Present Illness Reason for Visit: Generalized weakness History of Present Illness The patient is a 74-year-old male with past medical history of neuropathy, CHF, COPD, hypertension, and arthritis who presented to [facility] [place] with complaint of generalized weakness. As reported by EMS, patient appeared to be slumped over, hypotensive on the scene with systolic blood pressure in the 70s, shortness of breaths, and was given IV fluid normal saline EN route to our facility ED. patient was seen and evaluated in the ED, laboratory data shows WBC 8.7, hemoglobin 10.1, hematocrit 30.9, platelets 520, sodium 139, potassium 3.7, BUN 9, creatinine 1.15, glucose 113, troponin 4, blood pressure 105/59, heart rate 74, temperature 98.1 F, O2 saturation 96% on oxygen. Chest x-ray revealing improving bilateral interstitial prominence persistent in the bases. Please see medication orders section in the computer. On my assessment, patient denied chest pain, no headache, no dizziness, currently on oxygen, no diaphoresis, no nausea, no vomiting, no fever, no chills. Patient was admitted for further evaluation and medical management. Past Medical History Arthritis, CHF, COPD, HTN Past Surgical History Tonsillectomy Family History Reviewed, noncontributory to the management of this case. Past Social History Patient lives at home, smokes cigarettes less than 1 pack per day, denies alcohol or illicit drugs abuse. Review of Systems Constitutional: Yes: Weakness; No: Fever, Chills, Sweats, Malaise, Other Eyes: No: Pain, Vision change, Conjunctivae inflammation, Eyelid inflammation, Other, Redness ENT: No: Ear pain, Ear discharge, Nose pain, Nose discharge, Nose congestion, Mouth pain, Mouth swelling, Throat pain, Throat swelling, Other Respiratory: Shortness of breath; No: Cough, Dry, SOB with excertion, Wheezing, Hemoptysis, Pleuritic Pain, Sputum, Wheezing, Other Cardiovascular: No: Chest Pain, Palpitations, Orthopnea, Paroxysmal Noc. Dyspnea, Edema, Lt Headedness, Other Gastrointestinal: No: Nausea, Vomiting, Abdominal Pain, Diarrhea, Constipation, Melena, Hematochezia, Other Genitourinary: No Dysuria, No Frequency, No Incontinence, No Hematuria, No Retention, No Other Musculoskeletal: No: other, neck pain, shoulder pain, arm pain, back pain, hand pain, leg pain, foot pain Skin: No: Rash, Lesions, Jaundice, Bruising, Other Neurological: No: Weakness, Numbness, Incoordination, Change in speech, Confusion, Seizures, Other Allergies: Coded Allergies: NO KNOWN ALLERGIES (Unverified , 03/22/23) Medications Current Medications Medications Dose Ordered Sig/Roseanna Route Start Time Stop Time Status Last Admin Dose Admin Aspirin 81 mg DAILY PO 02/28/25 10:00 Atorvastatin Calcium 40 mg HS PO 02/27/25 22:00 Gabapentin 100 mg TID PO 02/27/25 22:00 Divalproex Sodium 250 mg TID PO 02/27/25 22:00 Fluoxetine HCl 10 mg DAILY PO 02/28/25 10:00 Olanzapine 5 mg DAILY PO 02/28/25 10:00 Albuterol 2.5 mg Q4HPRN PRN NEB 02/27/25 17:00 Ipratropium [place] 0.5 mg Q4HPRN PRN NEB 02/27/25 17:00 Sodium Chloride 10 ml Q8HR IV 02/27/25 22:00 Acetaminophen/ Hydrocodone Bitart 1 tab Q4HP PRN PO 02/27/25 17:00 Ondansetron HCl 4 mg Q4HP PRN IV 02/27/25 17:00 Docusate Sodium 100 mg BIDPRN PRN PO 02/27/25 17:00 Acetaminophen 650 mg Q6HP PRN PO 02/27/25 17:00 Exam Vital Signs Vital Signs Date Time Temp Pulse Resp B/P (MAP) Pulse Ox O2 Delivery O2 Flow Rate FiO2 02/27/25 16:30 74 18 132/72 (92) 94 02/27/25 15:30 98.1 98.1 02/27/25 14:30 Room Air* 0 21 General Appearance: Alert, Oriented X3, Cooperative, No acute distress HEENT: Atraumatic, PERRLA, EOMI, Mucous membr. moist/pink Respiratory: Normal air movement, Other (Diminished breath sounds) Cardiovascular: Regular rate, Normal S1, Normal S2, No murmurs Abdominal: Normal bowel sounds, Soft, No tenderness, No hepatospenomegaly, No masses Extremities: No clubbing, No cyanosis, No edema, Normal pulses, No tenderness/swelling Skin: No rashes, No breakdown, No significant lesion Neuro: Normal speech, Normal tone, Sensation intact, Cranial nerves 3-12 NL, Reflexes 2+, Other (Generalized weakness) Psych/Mental Status: Mental status NL, Mood NL Labs/Xrays Labs Test 02/27/25 14:30 02/27/25 14:10 Range/Units Urine Color Colorless Yellow Urine Clarity Clear Clear Urine pH 6.0 5.0-9.0 Urine Specific [place] 1.006 1.001-1.035 Urine Protein Negative Negative Urine Ketones Negative Negative Urine Blood Negative Negative /uL Urine Nitrite Negative Negative Urine Bilirubin Negative Negative Urine Urobilinogen Normal Negative mg/dL Urine Leukocyte Esterase Negative Negative /uL Urine RBC <1 0 - 3 /hpf Urine Microscopic WBC < 1 0-3 /HPF Urine Squamous Epithelial Cells None seen <5 /hpf Urine Bacteria None seen None Seen /hpf Urine Hyaline Casts Few 0 - 2 /lpf Urine Glucose Normal Normal mg/dL White Blood Count 8.7 4.4-10.8 10^3/uL Red Blood Count 4.12 L 4.5-5.90 10^6/uL Hemoglobin 10.1 L 13.5-17.5 g/dL Hematocrit 30.9 L 41.0-53.0 % Mean Corpuscular Volume 75.0 L 80.0-100.0 fL Mean Corpuscular Hemoglobin 24.4 L 28.0-32.0 pg Mean Corpuscular Hemoglobin Concent 32.6 32.0-36.0 g/dL Red Cell Distribution Width 18.2 H 11.8-14.3 % Platelet Count 520 H 140-450 10^3/uL Mean Platelet Volume 6.9 6.9-10.8 fL Neutrophils (%) (Auto) 50.8 37.0-80.0 % Lymphocytes (%) (Auto) 31.2 10.0-50.0 % Monocytes (%) (Auto) 13.6 H 0.0-12.0 % Eosinophils (%) (Auto) 3.6 0.0-7.0 % Basophils (%) (Auto) 0.8 0.0-2.0 % Neutrophils # (Auto) 4.4 1.6-8.6 10 ^3/uL Lymphocytes # (Auto) 2.7 0.4-5.4 10 ^3/uL Monocytes # (Auto) 1.2 0-1.3 10 ^3/uL Eosinophils # (Auto) 0.3 0-0.8 10 ^3/uL Basophils # (Auto) 0.1 0-0.2 10 ^3/uL Nucleated Red Blood Cells 0.1 % Sodium Level 139 136-145 mmol/L Potassium Level 3.7 3.5-5.1 mmol/L Chloride Level 110 H 98-107 mmol/L Carbon Dioxide Level 23 20-31 mmol/L Anion Gap 6 5-15 Blood Urea Nitrogen 9 9-23 mg/dL Creatinine 1.15 0.700-1.30 mg/dL Glomerular Filtration Rate Calc 67 >90 mL/min BUN/Creatinine Ratio 7.8 L 10.0-20.0 Serum Glucose 113 H 74-106 mg/dL Calcium Level 8.8 8.7-10.4 mg/dL Troponin I High Sensitivity 4 </=54 ng/L PATIENT: ELVIS SHARMA ACCT: [id number] UNIT: [id number] : 1950 LOC: ER ROOM / BED: / AGE / SEX: 74 / M ADM STATUS: REG ER SERVICE 1353 ORDERING PHYSICIAN: RICHARD ETIENNE MD PROCEDURE(s): CXRP - CHEST PORTABLE REASON: sob ORDER NUMBER(s): [id number], ACCESSION NUMBER(s): [id number] CHEST RADIOGRAPH Indication: sob Technique: Single frontal view of the chest was obtained Comparison: XY CHEST XRAY 1 VIEW on DOS: 10/26/24, XY CHEST XRAY 1 VIEW on DOS: 10/25/24, XY CHEST XRAY 1 VIEW on DOS: 10/23/24 FINDINGS: Lines and Tubes: None Lungs: Improving bilateral interstitial prominence persisting in the bases. Pleura: No effusion. No pneumothorax. Cardiomediastinal contours: Unremarkable Bones: No acute osseous abnormality. IMPRESSION: 1. Improving bilateral interstitial prominence persisting in the bases. Assessment/Plan Assessment/Plan Generalized weakness Hypotension Thrombocytosis Acute respiratory distress Plan 1. Admit to telemetry unit 2. Breathing treatment 3. Pain control management 4. Management of fluids and electrolytes 5. Consultation for hospitalist 6. Diagnostic tests chest x-ray 7. DVT prophylaxis-on aspirin 8. Repeat labs CBC, CMP in a.m. 9. Continue with current medical management 10. Treatment plan discussed with patient and RN. Patient verbalized understanding. Plan discussed with: Patient, Other (RN) My Orders Orders - KAREEM CROWDER DNP Procedure Category Date Status Time Aspirin Tablet PHA 02/28/25 In Process 10:00 Atorvastatin (Lipitor) PHA 02/27/25 In Process 22:00 Gabapentin Capsule PHA 02/27/25 In Process (Neurontin Capsule) 22:[address] Tablet PHA 02/27/25 In Process (Depakote "Dr" Tabl 22:00 Fluoxetine Capsule PHA 02/28/25 In Process (Prozac Capsule) 10:00 Olanzapine Tablet PHA 02/28/25 In Process (Zyprexa Tablet) 10:00 Albuterol Medneb PHA 02/27/25 In Process (Ventolin Medneb) 17:00 Ipratropium Medneb PHA 02/27/25 In Process (Atrovent Medneb) 17:00 Allergies CARMELINA 02/27/25 In Process 16:50 Code Status CODE 02/27/25 Transmitted 16:50 Sodium Chloride Lock PHA 02/27/25 In Process (Saline Lock Ns) 22:00 Oxygen Per Hour RT 02/27/25 Transmitted 16:50 Hydrocodone-Acet PHA 02/27/25 In Process 5/325mg Tab (Groom 17:00 Ondansetron Hcl PHA 02/27/25 In Process (Zofran) 17:00 Docusate Sodium PHA 02/27/25 In Process Capsule (Colace 17:00 Fall Risk Precautions CARMELINA 02/27/[address] 16:50 Complete Blood Count LAB 02/28/25 Verified 04:00 Comprehensive LAB 02/28/25 Verified Metabolic Panel 04:00 Cardiac DIET 02/27/25 Transmitted Diet-2gna,Lofat,Lochol Dinner Condition: Serious CARMELINA 02/27/25 In Process 16:50 Acetaminophen Tablet PHA 02/27/25 In Process (Tylenol Tablet) 17:00 Maintain Bed Rest CARMELINA 02/27/25 In Process 16:50 Sequential CARMELINA 02/27/25 In Process Compression Device Problem List: (1) Generalized weakness (2) Hypotension (3) Thrombocytosis (4) Acute respiratory distress Date of Service: February 27, 2025 Billing Provider: KAREEM CROWDER DNP Common Visit Codes: 76182-DEGDLIH INP/OBS CARE (HIGH) KAREEM CROWDER DNP February 27, 2025 17:33
[2025-02-27] MEDS ORDERED: MORPHINE SULFATE INJ 2 MG/ml SYRG IV PRN (17:45)
[2025-02-27] MEDS ORDERED: NITROGLYCERIN 0.4 MG SL TAB SL PRN (17:45)
[2025-02-27 18:10] VITALS: BP 106/66; PULSE 98; RESP 20; O2SAT 98; O2SAT 99
[2025-02-27] MEDS: ASPirin 81 mg TAB PO ONE (18:41)
--- NOTE | 2025-02-27 18:59 | ECG ---
[facility] Test Date: 2025-02-27 Test Time: 13:50:10 Pat Name: ELVIS SHARMA Department: ED Room: 0221T Gender: M Linotyper: AGUSTIN : 1950 Requested By: RICHARD ETIENNE Order Number: [id number] Reading MD: Sean Beverly Measurements Intervals [place] Rate: 79 P: 28 AL: 161 QRS: -6 QRSD: 96 T: 17 QT: 421 QTc: 483 Interpretive Statements Sinus rhythm Inferior infarct, old Baseline wander in lead(s) V1 Electronically Signed On 03-03-2025 22:05:15 PDT by Sean Beverly Please click the below link to view image of tracing.
[2025-02-27 20:07] VITALS: PULSE 74; RESP 20; O2SAT 97
[2025-02-27] MEDS: HYDROcodone-ACET 5/325MG TAB PO PRN (20:46)
[2025-02-27] MEDS: SODIUM CHLOR 0.9% PF (SALINE LOCK) 10ML VIAL/SYR IV SCH (22:11)
[2025-02-27] MEDS: GABAPENTIN 100 MG CAP PO SCH (22:16)
[2025-02-27] MEDS: ATORVASTATIN 20 MG TAB PO SCH (22:16)
[2025-02-28 06:29] LABS: Hemoglobin 11.1 g/dL (13.5-17.5); Lymphocytes # (auto) 0.7 10 ^3/uL (0.4-5.4); Monocytes # (auto) 0.7 10 ^3/uL (0-1.3); Nucleated Red Blood Cells % 0.1 %; Red Cell Distribution Width 18.3 % (11.8-14.3)
[2025-02-28 06:32] LABS: Basophils # (auto) 0.1 10 ^3/uL (0-0.2); Basophils % (auto) 0.6 % (0.0-2.0); Eosinophils # (auto) 0.6 10 ^3/uL (0-0.8); Eosinophils % (auto) 6.4 % (0.0-7.0); Hematocrit 34.7 % (41.0-53.0); Lymphocytes % (auto) 8.2 % (10.0-50.0); Mean Corpuscular Hemoglobin 24.3 pg (28.0-32.0); Mean Corpuscular Hgb Conc. 32.2 g/dL (32.0-36.0); Mean Corpuscular Volume 75.6 fL (80.0-100.0); Neutrophils # (auto) 6.9 10 ^3/uL (1.6-8.6); Neutrophils % (auto) 76.8 % (37.0-80.0); Platelet Count (auto) 571 10^3/uL (140-450); Red Blood Cells 4.59 10^6/uL (4.5-5.90); White Blood Cell 8.9 10^3/uL (4.4-10.8)
[2025-02-28 06:39] LABS: Alanine Aminotransferase 31 U/L (7-40); Albumin 3.7 g/dL (3.2-4.8); Alkaline Phosphatase 86 U/L (46-116); Anion Gap 9 (5-15); Aspartate Aminotransferase 38 U/L (13-40); BUN/Creatinine Ratio 8.7 (10.0-20.0); Bilirubin, Total 0.3 mg/dL (0.2-1.0); Carbon Dioxide 24 mmol/L (20-31); Glucose 82 mg/dL (74-106); Potassium 3.9 mmol/L (3.5-5.1); Sodium 143 mmol/L (136-145); Total Protein 6.6 g/dL (5.7-8.2)
[2025-02-28 06:49] LABS: Blood Urea Nitrogen 8 mg/dL (9-23); Calcium 8.6 mg/dL (8.7-10.4); Chloride 110 mmol/L (98-107)
[2025-02-28 07:30] VITALS: O2SAT 95
[2025-02-28 08:00] VITALS: PULSE 75; RESP 15; O2SAT 92
[2025-02-28] MEDS: OLANZapine 5 MG TAB PO SCH (10:54)
[2025-02-28] MEDS: FLUoxetine HCL 10 MG CAP PO SCH (10:54)
[2025-02-28] MEDS: ASPirin 81 mg TAB PO SCH (10:55)
--- NOTE | 2025-02-28 18:00 | DVHPN2 ---
Subjective Seen and examined at bedside. Patient is on 2-3L nasal cannula oxygen. Does NOT use home oxygen. Patient possibly has Aspiration PNA vs Atypical PNA? Changes from previous H/P or p: No Changes Eyes: No Pain, No Vision change, No Conjunctivae inflammation, No Eyelid inflammation, No Other, No Redness ENT: No Ear pain, No Ear discharge, No Nose pain, No Nose discharge, No Nose congestion, No Mouth pain, No Mouth swelling, No Throat pain, No Throat swelling, No Other Cardiovascular: No Chest Pain, No Palpitations, No Orthopnea, No Paroxysmal Noc. Dyspnea, No Edema, No Lt Headedness, No Other Respiratory: No Cough, No Dry; Shortness of breath; No SOB with excertion, No Wheezing, No Hemoptysis, No Pleuritic Pain, No Sputum, No Other Gastrointestinal: No Nausea, No Vomiting, No Abdominal Pain, No Diarrhea, No Constipation, No Melena, No Hematochezia, No Other Genitourinary: No Dysuria, No Frequency, No Incontinence, No Hematuria, No Retention, No Other Musculoskeletal: No other, No neck pain, No shoulder pain, No arm pain, No back pain, No hand pain, No leg pain, No foot pain Skin: No Rash, No Lesions, No Jaundice, No Bruising, No Other Objective Vitals Vital Signs Date Time Temp Pulse Resp B/P (MAP) Pulse Ox O2 Delivery O2 Flow Rate FiO2 02/28/25 16:00 89 23 121/76 (91) 95 02/28/25 08:00 98.2 98.2 02/28/25 08:00 Nasal Cannula* 2 28 Intake/Output Intake and Output 02/28/25 07:00 Intake Total 1325 ml Balance 1325 ml Intake IV Total 1325 ml General Appearance: Alert, Oriented X3, Cooperative HEENT: Atraumatic Lungs: Other (Diminished) Cardiovascular: Regular rate, Normal S1, Normal S2 Abdomen: Normal bowel sounds, Soft Psych/Mental Status: Mental status NL Medications Current Medications Medications Dose Ordered Sig/Roseanna Route Start Time Stop Time Status Last Admin Dose Admin Aspirin 81 mg DAILY PO 02/28/25 10:00 02/28/25 10:55 81 MG Atorvastatin Calcium 40 mg HS PO 02/27/25 22:00 02/27/25 22:16 40 MG Gabapentin 100 mg TID PO 02/27/25 22:00 02/28/25 15:07 100 MG Divalproex Sodium 250 mg TID PO 02/27/25 22:00 02/28/25 15:07 250 MG Fluoxetine HCl 10 mg DAILY PO 02/28/25 10:00 02/28/25 10:54 10 MG Olanzapine 5 mg DAILY PO 02/28/25 10:00 02/28/25 10:54 5 MG Albuterol 2.5 mg Q4HPRN PRN NEB 02/27/25 17:00 Ipratropium [place] 0.5 mg Q4HPRN PRN NEB 02/27/25 17:00 Sodium Chloride 10 ml Q8HR IV 02/27/25 22:00 02/28/25 15:05 10 ML Acetaminophen/ Hydrocodone Bitart 1 tab Q4HP PRN PO 02/27/25 17:00 02/28/25 03:37 1 TAB Ondansetron HCl 4 mg Q4HP PRN IV 02/27/25 17:00 Docusate Sodium 100 mg BIDPRN PRN PO 02/27/25 17:00 Acetaminophen 650 mg Q6HP PRN PO 02/27/25 17:00 Nitroglycerin 0.4 mg Q5MINP PRN SL 02/27/25 17:45 Morphine Sulfate 2 mg Q30M PRN IV 02/27/25 17:45 Laboratory Results Laboratory Tests 02/28/25 05:10 Chemistry Test 02/28/25 05:10 Albumin 3.7 g/dL (3.2-4.8) Calcium Level 8.6 mg/dL (8.7-10.4) L Total Protein 6.6 g/dL (5.7-8.2) LFT Test 02/28/25 05:10 Alanine Aminotransferase (ALT) 31 U/L (7-40) Alkaline Phosphatase 86 U/L (46-116) Aspartate Amino Transferase (AST) 38 U/L (13-40) Total Bilirubin 0.3 mg/dL (0.2-1.0) Urinalysis Test 02/27/25 14:30 Urine Color Colorless (Yellow) Urine Clarity Clear (Clear) Urine pH 6.0 (5.0-9.0) Urine Specific [place] 1.006 (1.001-1.035) Urine Protein Negative (Negative) Urine Ketones Negative (Negative) Urine Blood Negative /uL (Negative) Urine Nitrite Negative (Negative) Urine Bilirubin Negative (Negative) Urine Urobilinogen Normal mg/dL (Negative) Urine Leukocyte Esterase Negative /uL (Negative) Urine RBC <1 /hpf (0 - 3) Urine Microscopic WBC < 1 /HPF (0-3) Urine Squamous Epithelial Cells None seen /hpf (<5) Urine Bacteria None seen /hpf (None Seen) Urine Hyaline Casts Few /lpf (0 - 2) Urine Glucose Normal mg/dL (Normal) Assessment/Plan Assessment/Plan # Possible Aspiration PNA vs. Atypical PNA??? - Augmentin and Doxy # Acute Resp Failure - Titrate Oxygen as tolerated # Possible Acute Diastolic CHF - One dose Lasix IV Now Plan discussed with: Patient My Orders Orders - MARCIAL AMES MD Procedure Category Date Status Time Drug Screen LAB 02/28/25 Verified 17:55 Thyroid Stimulating LAB 02/28/25 Verified Hormone 17:55 Hemoglobin A1c LAB 02/28/25 Verified 17:55 B-Type Natriuretic LAB 02/28/25 Verified Peptide 17:55 Basic Metabolic Panel LAB 03/01/25 Verified 04:00 Magnesium LAB 03/01/25 Verified 04:00 Pt Request For Service PT 02/28/25 Verified 17:55 Oob To Chair CARMELINA 02/28/25 Verified 17:55 Amoxicillin/Clavulanate PHA 02/28/25 Verified Tablet (Augmenti 22:00 Doxycycline Tablet PHA 02/28/25 Verified (Vibramycin Tablet) 22:00 Incentive Spirometry ORDERS 02/28/25 Verified Q 1hr 17:55 Furosemide Injection PHA 02/28/25 Verified (Lasix Injection) 18:00 Date of Service: February 28, 2025 Billing Provider: MARCIAL AMES MD Common Visit Codes: [id number] INP/OBS CARE(HIGH) MARCIAL AMES MD February 28, 2025 18:00
[2025-02-28 18:17] VITALS: O2SAT 93
[2025-02-28] MEDS: FUROSEMIDE 20 MG/2 ML VIAL IV ONE (18:58)
[2025-02-28 19:51] VITALS: PULSE 88; RESP 18; O2SAT 96
[2025-02-28 21:00] VITALS: BP 110/55; PULSE 86; RESP 16; TEMP 97.7; O2SAT 95
[2025-02-28 21:11] VITALS: O2SAT 93; O2SAT 94
[2025-02-28] MEDS: DOXYCYCLINE 100 MG TAB/CAP PO SCH (22:01)
[2025-02-28] MEDS: AMOXICILLIN/CLAVUL 875 MG TAB PO SCH (22:08)
[2025-03-01] VITALS (11 sets, daily range): BP systolic 106–148; BP diastolic 67–78; PULSE 74–101; RESP 12–18; TEMP 97.5–98.6; O2SAT 91–97
[2025-03-01 08:33] LABS: Potassium 4.2 mmol/L (3.5-5.1); Sodium 142 mmol/L (136-145)
[2025-03-01 08:34] LABS: Calcium 9.9 mg/dL (8.7-10.4)
[2025-03-01 08:36] LABS: Chloride 110 mmol/L (98-107)
[2025-03-01 08:38] LABS: Glucose 86 mg/dL (74-106)
[2025-03-01 08:39] LABS: BUN/Creatinine Ratio 20.9 (10.0-20.0); Blood Urea Nitrogen 19 mg/dL (9-23); Magnesium 2.1 mg/dL (1.6-2.6)
[2025-03-01 09:12] LABS: Anion Gap 6 (5-15); Carbon Dioxide 26 mmol/L (20-31)
[2025-03-01] MEDS ORDERED: NAPR-957 PO (11:11)
[2025-03-01] MEDS ORDERED: GABA-339 PO (11:11)
[2025-03-01] MEDS ORDERED: ATOR10TA PO (11:11)
[2025-03-01] MEDS ORDERED: FURO1TAB31 PO (11:11)
[2025-03-01] MEDS ORDERED: APIX5TAB PO (11:11)
[2025-03-01] MEDS ORDERED: PANT40TA2 PO (11:11)
[2025-03-01] MEDS ORDERED: HYDR-3682 PO (11:11)
--- NOTE | 2025-03-01 12:26 | DVHPN2 ---
Subjective Seen and examined at bedside. Patient is on 2-3L nasal cannula oxygen. Will add Zosyn. Repeat CXR. Changes from previous H/P or p: No Changes Eyes: No Pain, No Vision change, No Conjunctivae inflammation, No Eyelid inflammation, No Other, No Redness ENT: No Ear pain, No Ear discharge, No Nose pain, No Nose discharge, No Nose congestion, No Mouth pain, No Mouth swelling, No Throat pain, No Throat swelling, No Other Cardiovascular: No Chest Pain, No Palpitations, No Orthopnea, No Paroxysmal Noc. Dyspnea, No Edema, No Lt Headedness, No Other Respiratory: No Cough, No Dry; Shortness of breath; No SOB with excertion, No Wheezing, No Hemoptysis, No Pleuritic Pain, No Sputum, No Other Gastrointestinal: No Nausea, No Vomiting, No Abdominal Pain, No Diarrhea, No Constipation, No Melena, No Hematochezia, No Other Genitourinary: No Dysuria, No Frequency, No Incontinence, No Hematuria, No Retention, No Other Musculoskeletal: No other, No neck pain, No shoulder pain, No arm pain, No back pain, No hand pain, No leg pain, No foot pain Skin: No Rash, No Lesions, No Jaundice, No Bruising, No Other Objective Vitals Vital Signs Date Time Temp Pulse Resp B/P (MAP) Pulse Ox O2 Delivery O2 Flow Rate FiO2 03/01/25 09:00 97.8 96 12 125/74 (91) 95 97.8 03/01/25 07:09 Nasal Cannula* 2 28 Intake/Output Intake and Output 03/01/25 07:00 Intake Total 240 ml Output Total 1460 ml Balance -1220 ml Intake Oral 240 ml Output Urine Total 1460 ml # Voids 1 General Appearance: Alert, Oriented X3, Cooperative HEENT: Atraumatic Lungs: Other (Diminished) Cardiovascular: Regular rate, Normal S1, Normal S2 Abdomen: Normal bowel sounds, Soft Psych/Mental Status: Mental status NL Medications Current Medications Medications Dose Ordered Sig/Roseanna Route Start Time Stop Time Status Last Admin Dose Admin Aspirin 81 mg DAILY PO 02/28/25 10:00 03/01/25 11:22 81 MG Atorvastatin Calcium 40 mg HS PO 02/27/25 22:00 02/28/25 22:02 40 MG Gabapentin 100 mg TID PO 02/27/25 22:00 03/01/25 05:00 100 MG Divalproex Sodium 250 mg TID PO 02/27/25 22:00 03/01/25 05:00 250 MG Fluoxetine HCl 10 mg DAILY PO 02/28/25 10:00 02/28/25 10:54 10 MG Olanzapine 5 mg DAILY PO 02/28/25 10:00 02/28/25 10:54 5 MG Albuterol 2.5 mg Q4HPRN PRN NEB 02/27/25 17:00 Ipratropium [place] 0.5 mg Q4HPRN PRN NEB 02/27/25 17:00 Sodium Chloride 10 ml Q8HR IV 02/27/25 22:00 03/01/25 05:00 10 ML Acetaminophen/ Hydrocodone Bitart 1 tab Q4HP PRN PO 02/27/25 17:00 03/01/25 11:26 1 TAB Ondansetron HCl 4 mg Q4HP PRN IV 02/27/25 17:00 Docusate Sodium 100 mg BIDPRN PRN PO 02/27/25 17:00 Acetaminophen 650 mg Q6HP PRN PO 02/27/25 17:00 Nitroglycerin 0.4 mg Q5MINP PRN SL 02/27/25 17:45 Morphine Sulfate 2 mg Q30M PRN IV 02/27/25 17:45 Amoxicillin/ Clavulanate Potassium 875 mg Q12HR PO 02/28/25 22:00 03/01/25 11:22 875 MG Doxycycline Monohydrate 100 mg Q12HR PO 02/28/25 22:00 03/01/25 11:23 100 MG Laboratory Results Laboratory Tests 02/28/25 05:10 03/01/25 07:54 Chemistry Test 03/01/25 07:54 Calcium Level 9.9 mg/dL (8.7-10.4) Magnesium Level 2.1 mg/dL (1.6-2.6) Urinalysis Test 02/27/25 14:30 Urine Color Colorless (Yellow) Urine Clarity Clear (Clear) Urine pH 6.0 (5.0-9.0) Urine Specific [place] 1.006 (1.001-1.035) Urine Protein Negative (Negative) Urine Ketones Negative (Negative) Urine Blood Negative /uL (Negative) Urine Nitrite Negative (Negative) Urine Bilirubin Negative (Negative) Urine Urobilinogen Normal mg/dL (Negative) Urine Leukocyte Esterase Negative /uL (Negative) Urine RBC <1 /hpf (0 - 3) Urine Microscopic WBC < 1 /HPF (0-3) Urine Squamous Epithelial Cells None seen /hpf (<5) Urine Bacteria None seen /hpf (None Seen) Urine Hyaline Casts Few /lpf (0 - 2) Urine Glucose Normal mg/dL (Normal) Assessment/Plan Assessment/Plan # Possible Aspiration PNA vs. Atypical PNA??? - Zosyn and Doxy # Acute Resp Failure - Titrate Oxygen as tolerated # Possible Acute Diastolic CHF - Lasix IV # Goals of care discussion >18 mins FULL CODE Plan discussed with: Patient My Orders Orders - MARCIAL AMES MD Procedure Category Date Status Time Drug Screen LAB 02/28/25 Logged 17:55 Pt Request For Service PT 02/28/25 Logged 17:55 Oob To Chair CARMELINA 02/28/25 In Process 17:55 Amoxicillin/Clavulanate PHA 02/28/25 In Process Tablet (Augmenti 22:00 Doxycycline Tablet PHA 02/28/25 In Process (Vibramycin Tablet) 22:00 Incentive Spirometry ORDERS 02/28/25 Transmitted Q 1hr 17:55 Electrocardigram EKG 03/01/25 Logged 11:12 Zosyn Extended PHA 03/01/25 Transmitted Infusion 14:00 Furosemide Injection PHA 03/01/25 Transmitted (Lasix Injection) 12:30 Furosemide Injection PHA 03/02/25 Transmitted (Lasix Injection) 10:00 Basic Metabolic Panel LAB 03/02/25 Verified 04:00 Complete Blood Count LAB 03/02/25 Verified 04:00 Chest Two Views XY 03/01/25 Verified Routine 12:25 Date of Service: March 01, 2025 Billing Provider: MARCIAL AMES MD Common Visit Codes: [id number] INP/OBS CARE(HIGH) Secondary Visit Codes: [id number] CARE PLAN 30 MINUTES MARCIAL AMES MD March 01, 2025 12:26
[2025-03-01] MEDS: FUROSEMIDE 20 MG/2 ML VIAL IV ONE (12:56)
--- NOTE | 2025-03-01 15:05 | DVH ---
CHEST RADIOGRAPH Indication: PNA Technique: Frontal and lateral view of the chest was obtained Comparison: None FINDINGS: Lines and Tubes: None Lungs: Chronic fibrotic change. Pleura: No effusion. No pneumothorax. Cardiomediastinal contours: Unremarkable Bones: Unremarkable IMPRESSION: Chronic fibrotic change. Improved aeration of the left lower lobe.
[2025-03-01] MEDS: PIPERACILLIN-TAZOB 3.375GM 100 ML IV SCH (15:31)
[2025-03-02] VITALS (10 sets, daily range): BP systolic 93–174; BP diastolic 48–94; PULSE 74–91; RESP 16–18; TEMP 97.4–98.6; O2SAT 92–100
[2025-03-02 08:01] LABS: Anion Gap 8 (5-15); Carbon Dioxide 26 mmol/L (20-31); Potassium 4.2 mmol/L (3.5-5.1); Sodium 143 mmol/L (136-145)
[2025-03-02 08:03] LABS: Calcium 10.1 mg/dL (8.7-10.4)
[2025-03-02 08:08] LABS: Blood Urea Nitrogen 24 mg/dL (9-23); Chloride 109 mmol/L (98-107); Glucose 81 mg/dL (74-106)
[2025-03-02 08:12] LABS: Basophils # (auto) 0.1 10 ^3/uL (0-0.2); Eosinophils # (auto) 0.6 10 ^3/uL (0-0.8)
[2025-03-02 08:17] LABS: Eosinophils % (auto) 8.1 % (0.0-7.0); Hematocrit 35.8 % (41.0-53.0); Hemoglobin 11.4 g/dL (13.5-17.5); Lymphocytes # (auto) 2.2 10 ^3/uL (0.4-5.4); Mean Corpuscular Hemoglobin 23.9 pg (28.0-32.0); Mean Corpuscular Hgb Conc. 31.7 g/dL (32.0-36.0); Mean Corpuscular Volume 75.4 fL (80.0-100.0); Monocytes # (auto) 0.9 10 ^3/uL (0-1.3); Neutrophils # (auto) 3.3 10 ^3/uL (1.6-8.6); Neutrophils % (auto) 46.9 % (37.0-80.0); Platelet Count (auto) 581 10^3/uL (140-450); Red Blood Cells 4.75 10^6/uL (4.5-5.90); Red Cell Distribution Width 18.4 % (11.8-14.3)
--- NOTE | 2025-03-02 10:00 | ECG ---
[facility] Test Date: 2025-03-01 Test Time: 11:33:44 Pat Name: ELVIS SHARMA Department: Respiratoy Room: 0221T B Gender: M Male Model: DAISY : 1950 Requested By: MARCIAL AMES Order Number: [id number] Reading MD: Sean Beverly Measurements Intervals [place] Rate: 80 P: 40 SD: 159 QRS: -6 QRSD: 89 T: 19 QT: 390 QTc: 450 Interpretive Statements Sinus rhythm Electronically Signed On 03-03-2025 22:51:48 PDT by Sean Beverly Please click the below link to view image of tracing.
[2025-03-02] MEDS: FUROSEMIDE 20 MG/2 ML VIAL IV SCH (10:05)
[2025-03-02] MEDS ORDERED: DOXY-286 PO (11:13)
--- NOTE | 2025-03-02 11:15 | DVHPN2 ---
Subjective Seen and examined at bedside. Patient is on 2L nasal cannula oxygen. I spoke with Dario (Home Mgr). Possibly DC in AM with PO Abx. Changes from previous H/P or p: No Changes Eyes: No Pain, No Vision change, No Conjunctivae inflammation, No Eyelid inflammation, No Other, No Redness ENT: No Ear pain, No Ear discharge, No Nose pain, No Nose discharge, No Nose congestion, No Mouth pain, No Mouth swelling, No Throat pain, No Throat swelling, No Other Cardiovascular: No Chest Pain, No Palpitations, No Orthopnea, No Paroxysmal Noc. Dyspnea, No Edema, No Lt Headedness, No Other Respiratory: No Cough, No Dry, No Shortness of breath, No SOB with excertion, No Wheezing, No Hemoptysis, No Pleuritic Pain, No Sputum, No Other Gastrointestinal: No Nausea, No Vomiting, No Abdominal Pain, No Diarrhea, No Constipation, No Melena, No Hematochezia, No Other Genitourinary: No Dysuria, No Frequency, No Incontinence, No Hematuria, No Retention, No Other Musculoskeletal: No other, No neck pain, No shoulder pain, No arm pain, No back pain, No hand pain, No leg pain, No foot pain Skin: No Rash, No Lesions, No Jaundice, No Bruising, No Other Objective Vitals Vital Signs Date Time Temp Pulse Resp B/P (MAP) Pulse Ox O2 Delivery O2 Flow Rate FiO2 03/02/25 10:05 100/63 03/02/25 08:33 98.1 74 16 92 98.1 03/02/25 08:10 Nasal Cannula* 2 28 Intake/Output Intake and Output 03/02/25 07:00 Intake Total 700 ml Balance 700 ml Intake Oral 500 ml IV Total 200 ml # Voids 1 General Appearance: Alert, Oriented X3, Cooperative HEENT: Atraumatic Lungs: Other (Diminished) Cardiovascular: Regular rate, Normal S1, Normal S2 Abdomen: Normal bowel sounds, Soft Psych/Mental Status: Mental status NL Medications Current Medications Medications Dose Ordered Sig/Roseanna Route Start Time Stop Time Status Last Admin Dose Admin Aspirin 81 mg DAILY PO 02/28/25 10:00 03/02/25 10:05 81 MG Atorvastatin Calcium 40 mg HS PO 02/27/25 22:00 03/01/25 22:00 40 MG Gabapentin 100 mg TID PO 02/27/25 22:00 03/02/25 05:12 100 MG Divalproex Sodium 250 mg TID PO 02/27/25 22:00 03/02/25 05:12 250 MG Fluoxetine HCl 10 mg DAILY PO 02/28/25 10:00 03/02/25 10:05 10 MG Olanzapine 5 mg DAILY PO 02/28/25 10:00 03/02/25 10:05 5 MG Albuterol 2.5 mg Q4HPRN PRN NEB 02/27/25 17:00 Ipratropium [place] 0.5 mg Q4HPRN PRN NEB 02/27/25 17:00 Sodium Chloride 10 ml Q8HR IV 02/27/25 22:00 03/02/25 05:12 10 ML Acetaminophen/ Hydrocodone Bitart 1 tab Q4HP PRN PO 02/27/25 17:00 03/01/25 22:01 1 TAB Ondansetron HCl 4 mg Q4HP PRN IV 02/27/25 17:00 Docusate Sodium 100 mg BIDPRN PRN PO 02/27/25 17:00 Acetaminophen 650 mg Q6HP PRN PO 02/27/25 17:00 Nitroglycerin 0.4 mg Q5MINP PRN SL 02/27/25 17:45 Morphine Sulfate 2 mg Q30M PRN IV 02/27/25 17:45 Doxycycline Monohydrate 100 mg Q12HR PO 02/28/25 22:00 03/02/25 10:05 100 MG Piperacillin Sod/ Tazobactam Sod 100 ml @ 25 mls/hr Q8HR IV 03/01/25 14:00 03/02/25 05:13 25 MLS/HR Furosemide 20 mg DAILY IV 03/02/25 10:00 03/02/25 10:05 20 MG Laboratory Results Laboratory Tests 03/02/25 06:27 Chemistry Test 03/02/25 06:27 Calcium Level 10.1 mg/dL (8.7-10.4) Urinalysis Test 02/27/25 14:30 Urine Color Colorless (Yellow) Urine Clarity Clear (Clear) Urine pH 6.0 (5.0-9.0) Urine Specific [place] 1.006 (1.001-1.035) Urine Protein Negative (Negative) Urine Ketones Negative (Negative) Urine Blood Negative /uL (Negative) Urine Nitrite Negative (Negative) Urine Bilirubin Negative (Negative) Urine Urobilinogen Normal mg/dL (Negative) Urine Leukocyte Esterase Negative /uL (Negative) Urine RBC <1 /hpf (0 - 3) Urine Microscopic WBC < 1 /HPF (0-3) Urine Squamous Epithelial Cells None seen /hpf (<5) Urine Bacteria None seen /hpf (None Seen) Urine Hyaline Casts Few /lpf (0 - 2) Urine Glucose Normal mg/dL (Normal) Assessment/Plan Assessment/Plan # Possible Aspiration PNA vs. Atypical PNA??? - Zosyn and Doxy # Acute Resp Failure - Titrate Oxygen as tolerated # Possible Acute Diastolic CHF - Lasix IV # Goals of care discussion >18 mins FULL CODE Plan discussed with: Patient, Other (Dario) My Orders Orders - MARCIAL AMES MD Procedure Category Date Status Time Piperacillin-Tazob PHA 03/01/25 In Process 3.375gm (Zosyn 3.375g 14:00 Furosemide Injection PHA 03/02/25 In Process (Lasix Injection) 10:00 Chest Two Views XY 03/01/25 Resulted Routine 12:25 Basic Metabolic Panel LAB 03/03/25 Verified 04:00 Magnesium LAB 03/03/25 Verified 04:00 Date of Service: March 02, 2025 Billing Provider: MARCIAL AMES MD Common Visit Codes: [id number] INP/OBS CARE(MOD) MARCIAL AMES MD March 02, 2025 11:15
[2025-03-03] VITALS (8 sets, daily range): BP systolic 104–155; BP diastolic 53–79; PULSE 71–89; RESP 16–18; TEMP 97.4–98.2; O2SAT 93–99
[2025-03-03 06:42] LABS: Potassium 4.2 mmol/L (3.5-5.1); Sodium 142 mmol/L (136-145)
[2025-03-03 06:43] LABS: Anion Gap 5 (5-15); Calcium 10.2 mg/dL (8.7-10.4); Carbon Dioxide 27 mmol/L (20-31)
[2025-03-03 06:48] LABS: BUN/Creatinine Ratio 26.5 (10.0-20.0); Blood Urea Nitrogen 27 mg/dL (9-23); Chloride 110 mmol/L (98-107); Glucose 90 mg/dL (74-106)
[2025-03-03 06:49] LABS: Magnesium 2.1 mg/dL (1.6-2.6)
--- NOTE | 2025-03-03 09:49 | DVHDS2 ---
Discharge Summary Date of Admission February 27, 2025 at 17:32 Date of Discharge: Mar 03, 2025 Admitting Diagnosis Possible Aspiration PNA Labs/Diagnostic Data: Laboratory Results Test 03/03/25 06:18 03/02/25 06:27 02/28/25 05:10 02/27/25 14:30 Sodium Level 142 mmol/L (136-145) Potassium Level 4.2 mmol/L (3.5-5.1) Chloride Level 110 mmol/L (98-107) Carbon Dioxide Level 27 mmol/L (20-31) Anion Gap 5 (5-15) Blood Urea Nitrogen 27 mg/dL (9-23) Creatinine 1.02 mg/dL (0.700-1.30) Glomerular Filtration Rate Calc 77 mL/min (>90) BUN/Creatinine Ratio 26.5 (10.0-20.0) Serum Glucose 90 mg/dL (74-106) Calcium Level 10.2 mg/dL (8.7-10.4) Magnesium Level 2.1 mg/dL (1.6-2.6) White Blood Count 7.0 10^3/uL (4.4-10.8) Red Blood Count 4.75 10^6/uL (4.5-5.90) Hemoglobin 11.4 g/dL (13.5-17.5) Hematocrit 35.8 % (41.0-53.0) Mean Corpuscular Volume 75.4 fL (80.0-100.0) Mean Corpuscular Hemoglobin 23.9 pg (28.0-32.0) Mean Corpuscular Hemoglobin Concent 31.7 g/dL (32.0-36.0) Red Cell Distribution Width 18.4 % (11.8-14.3) Platelet Count 581 10^3/uL (140-450) Mean Platelet Volume 7.6 fL (6.9-10.8) Neutrophils (%) (Auto) 46.9 % (37.0-80.0) Lymphocytes (%) (Auto) 31.0 % (10.0-50.0) Monocytes (%) (Auto) 13.0 % (0.0-12.0) Eosinophils (%) (Auto) 8.1 % (0.0-7.0) Basophils (%) (Auto) 1.0 % (0.0-2.0) Neutrophils # (Auto) 3.3 10 ^3/uL (1.6-8.6) Lymphocytes # (Auto) 2.2 10 ^3/uL (0.4-5.4) Monocytes # (Auto) 0.9 10 ^3/uL (0-1.3) Eosinophils # (Auto) 0.6 10 ^3/uL (0-0.8) Basophils # (Auto) 0.1 10 ^3/uL (0-0.2) Nucleated Red Blood Cells 0.0 % Hemoglobin A1c 5.6 % A1C (<5.7) Total Bilirubin 0.3 mg/dL (0.2-1.0) Aspartate Amino Transferase (AST) 38 U/L (13-40) Alanine Aminotransferase (ALT) 31 U/L (7-40) Alkaline Phosphatase 86 U/L (46-116) B-Type Natriuretic Peptide 189.81 pg/mL (0-100) Total Protein 6.6 g/dL (5.7-8.2) Albumin 3.7 g/dL (3.2-4.8) Thyroid Stimulating Hormone (TSH) 0.87 uIU/mL (0.55-4.78) Urine Color Colorless (Yellow) Urine Clarity Clear (Clear) Urine pH 6.0 (5.0-9.0) Urine Specific [place] 1.006 (1.001-1.035) Urine Protein Negative (Negative) Urine Ketones Negative (Negative) Urine Blood Negative /uL (Negative) Urine Nitrite Negative (Negative) Urine Bilirubin Negative (Negative) Urine Urobilinogen Normal mg/dL (Negative) Urine Leukocyte Esterase Negative /uL (Negative) Urine RBC <1 /hpf (0 - 3) Urine Microscopic WBC < 1 /HPF (0-3) Urine Squamous Epithelial Cells None seen /hpf (<5) Urine Bacteria None seen /hpf (None Seen) Urine Hyaline Casts Few /lpf (0 - 2) Urine Glucose Normal mg/dL (Normal) Test 02/27/25 14:10 Troponin I High Sensitivity 4 ng/L (</=54) Other Laboratory Tests 03/03/25 06:18 03/02/25 06:27 Brief Hx & Hospital Course: The patient is a 74-year-old male with past medical history of neuropathy, CHF, COPD, hypertension, and arthritis who presented to [facility] with complaint of generalized weakness. As reported by EMS, patient appeared to be slumped over, hypotensive on the scene with systolic blood pressure in the 70s, shortness of breaths, and was given IV fluid normal saline EN route to our facility ED. patient was seen and evaluated in the ED, laboratory data shows WBC 8.7, hemoglobin 10.1, hematocrit 30.9, platelets 520, sodium 139, potassium 3.7, BUN 9, creatinine 1.15, glucose 113, troponin 4, blood pressure 105/59, heart rate 74, temperature 98.1 F, O2 saturation 96% on oxygen. Chest x-ray revealing improving bilateral interstitial prominence persistent in the bases. Patient was treated with Lasix, IV Abx. Patient is back on room air now, wishes to be discharged home. 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 Patient will be discharged home with Doxy. Will need to followup with [facility] in 1 week. Operations or Procedures CHEST RADIOGRAPH Indication: PNA Technique: Frontal and lateral view of the chest was obtained Comparison: None FINDINGS: Lines and Tubes: None Lungs: Chronic fibrotic change. Pleura: No effusion. No pneumothorax. Cardiomediastinal contours: Unremarkable Bones: Unremarkable IMPRESSION: Chronic fibrotic change. Improved aeration of the left lower lobe. Condition at Discharge: Poor Final Diagnosis/Problems List # Possible Aspiration PNA vs. Atypical PNA??? - Doxy # Acute Resp Failure - Titrate Oxygen as tolerated # Possible Acute Diastolic CHF - Lasix Discharge Disposition: Home Discharge Instruct/Medications Diet: Cardiac 2g Na,low cholest (2 gm sodium, low cholesterol) Activity: Light activity Follow Up/Referral: [facility] Medications: see [facility] Discharge Statement: "Patient was advised to return to the ER or call 911 if any headaches, dizziness, shortness of breath, chest pain, abdominal pain, bleeding, fevers, or worsening of medical condition. Patient was counseled about treatment plan, medications, possible side effects, patientverbalized understanding. All questions were answered to the best of my ability. This discharge took greater then 30 minutes in planning, reviewing documentation, counseling the patient, and discussing with other team members." ASSESSMENT ASSESSMENT Assessment Date of Service: Mar 03, 2025 Billing Provider: MARCIAL AMES MD Common Visit Codes: [id number] DISCH DAY >30min MARCIAL AMES MD Mar 03, 2025 09:49
[2025-03-03] MEDS: POTASSIUM CHL 20 Meq TABLET PO ONE (10:37)
[2025-03-03] MEDS: FUROSEMIDE 40 MG/4 ML VIAL IV ONE (10:37)
== END 2025-03-03 13:12 | disposition home or self-care (01) | DRG 177 ==
LOC: EDBD 13:51 → ER 13:54 → OVERFLOW 17:32 → TELE-CENTR 02-28 21:11
PROVIDERS: ADMIT Internal Medicine; ATTEND Internal Medicine
DX: J69.0 Pneumonitis due to inhalation of food and vomit (principal); I50.31 Acute diastolic (congestive) heart failure; J96.00 Acute respiratory failure, unspecified whether with hypoxia or hypercapnia; J44.0 Chronic obstructive pulmonary disease with (acute) lower respiratory infection; I11.0 Hypertensive heart disease with heart failure; D75.839 Thrombocytosis, unspecified; F17.210 Nicotine dependence, cigarettes, uncomplicated; G62.9 Polyneuropathy, unspecified; I95.9 Hypotension, unspecified; Z79.899 Other long term (current) drug therapy; J18.9 Pneumonia, unspecified organism
CPT/HCPCS: 36415; 71045; 71046; 80048; 80053; 81001; 83036; 83735; 83880; 84443; 84484; 85025; 93005; 96361; 96365; 97163; G0378; J2543

== ENCOUNTER 2025-05-26 11:23 | Emergency (ER) | payer MEDICARE, MEDICAID ==
[~2025-05-26] VITALS: Ht 180.3 cm; Wt 86.0 kg
[~2025-05-26 11:23] MED LIST changes: +APIX5TAB PO; +ATOR10TA PO; +DOXY-286 PO; +HYDR-3682 PO; -NITR0.4S29 SL; +PANT40TA2 PO
[2025-05-26 11:30] VITALS: BP 122/79; RESP 17; TEMP 98.9; O2SAT 96
[2025-05-26 11:36] VITALS: PULSE 94
--- NOTE | 2025-05-26 11:45 | ED.PDOC ---
History of Present Illness HPI Comments 74 y.o male with PMHx of HTN, COPD, CHF and arthritis, presents to the ED via EMS for an evaluation of generalized weakness. Patient is a poor historian, when asked what brought him into the ED, states his caregiver called 911. Patient upon examination complains of leg pain. Patient states" leave me alone I do not want to talk to anyone right now" states he feels unwell but is unable to tell why his caregiver called 911 today. Chief Complaint: General Weakness Time Seen by MD: 11:40 Primary Care Provider: UNKNOWN Reviewed Notes: Nurses Notes, Fiscal Economist Notes, Medications, Allergies Allergies: Coded Allergies: NO KNOWN ALLERGIES (Unverified , 03/22/23) Home Meds Active Scripts Doxycycline Hyclate (DOXYCYCLINE HYCLATE) 100 Mg Tab, 1 TAB PO BID, #14 TAB Prov:MARCIAL AMES MD 03/02/25 Reported Medications Atorvastatin Calcium (Lipitor) 10 Mg Tab, PO, TAB 03/01/25 Hydroxyzine Hcl (Hydroxyzine Hcl) 25 Mg Tab, 25 MG PO TID for 30 Days, MG 03/01/25 Apixaban Base (ELIQUIS) 5 Mg Tab, 1 TAB PO BID 03/01/25 Pantoprazole Sodium Sesquihydr (Protonix) 40 Mg Tab, 40 MG PO DAILY, #30 TAB 03/01/25 Diclofenac Sodium (Topical) (Diclofenac Sodium) 1 % Gel, 1 % TD DAILY, GEL 02/12/24 Atorvastatin Calcium (ATORVASTATIN CALCIUM) 80 Mg Tab, 80 MG PO HS, TAB 02/12/24 Potassium Chloride (POTASSIUM CHLORIDE CR) 10 Meq Tb, 10 MEQ PO BID, TAB 02/12/24 Divalproex Sodium (Divalproex Sodium Dr) 250 Mg Tab, 1 TAB PO TID, TAB 08/23/22 Olanzapine (OLANZAPINE) 5 Mg Tab, 1 TAB PO DAILY 08/21/22 Fluoxetine Hcl (Fluoxetine Hcl) 10 Mg Tab, 1 TAB PO DAILY 08/21/22 Furosemide (Furosemide) 40 Mg Tab, 1 TAB PO DAILY 08/21/22 Gabapentin (Gabapentin) 100 Mg Cap, 1 CAP PO TID 08/21/22 Information Source: Patient, Emergency Med Personnel Mode of Arrival: EMS Duration: Since onset Past Medical History PAST MEDICAL HISTORY: Arthritis, CHF, COPD, HTN Surgical History: Tonsillectomy Family History Family History: Reviewed,noncontributory to illness Social History Smoker: Cigarettes, Less Than 1 Pack/Day Alcohol: Denies ETOH Use Drugs: Denies Drug Use Lives In: Home Unable to Obtain due to: Other (pt poor historian, states " leave me alone I do not want to talk to anyone right now" states he feels unwell- unable to specify symptoms. ) Physical Exam General Appearance: No Apparent Distress, Normal HEENT: NOT DONE Neck: Normal Inspection Respiratory: No Accessory Muscle Use, No Respiratory Distress Cardiovascular: Normal Peripheral Pulses, Regular Rate/Rhythm Breast Exam: Deferred Gastrointestinal: NOT DONE Genitalia: Deferred Pelvic: Deferred Rectal: Deferred Extremities: NOT DONE Neurologic: Alert Cerebellar Function: Unable to Test Reflexes: NOT DONE Skin: Dry, Normal Color Lymphatic: NOT DONE Was a procedure done? Was a procedure done?: No Differential Dx Considerations may include: viral syndrome, electrolyte imbalance, dehydration X-Ray, Labs, Meds, VS Vital Signs Date Time Temp Pulse Resp B/P (MAP) Pulse Ox O2 Delivery O2 Flow Rate FiO2 05/26/25 11:36 94 05/26/25 11:30 98.9 84 17 122/79 96 98.9 Lab Test 05/26/25 13:35 05/26/25 12:05 Range/Units Troponin I High Sensitivity 27 28 </=54 ng/L White Blood Count 12.6 H 4.4-10.8 10^3/uL Red Blood Count 5.25 4.5-5.90 10^6/uL Hemoglobin 12.3 L 13.5-17.5 g/dL Hematocrit 39.1 L 41.0-53.0 % Mean Corpuscular Volume 74.5 L 80.0-100.0 fL Mean Corpuscular Hemoglobin 23.4 L 28.0-32.0 pg Mean Corpuscular Hemoglobin Concent 31.5 L 32.0-36.0 g/dL Red Cell Distribution Width 19.4 H 11.8-14.3 % Platelet Count 606 H 140-450 10^3/uL Mean Platelet Volume 7.7 6.9-10.8 fL Neutrophils (%) (Auto) 62.8 37.0-80.0 % Lymphocytes (%) (Auto) 22.9 10.0-50.0 % Monocytes (%) (Auto) 13.8 H 0.0-12.0 % Eosinophils (%) (Auto) 0.2 0.0-7.0 % Basophils (%) (Auto) 0.3 0.0-2.0 % Neutrophils # (Auto) 7.9 1.6-8.6 10 ^3/uL Lymphocytes # (Auto) 2.9 0.4-5.4 10 ^3/uL Monocytes # (Auto) 1.7 H 0-1.3 10 ^3/uL Eosinophils # (Auto) 0 0-0.8 10 ^3/uL Basophils # (Auto) 0 0-0.2 10 ^3/uL Nucleated Red Blood Cells 0.3 % Platelet Estimate Increa Large Platelets Few Hypochromasia (manual) Slight Anisocytosis (manual) Slight Microcytosis Slight Prothrombin Time 11.0 9.3-11.8 sec Prothrombin Time INR 1.04 0.9-1.15 Activated Partial Thromboplast Time 26.8 24.5-34.5 SEC D-Dimer, Quantitative 1.10 H 0.0-0.49 mg/L FEU Sodium Level 139 136-145 mmol/L Potassium Level 2.7 L 3.5-5.1 mmol/L Chloride Level 104 98-107 mmol/L Carbon Dioxide Level 25 20-31 mmol/L Anion Gap 10 5-15 Blood Urea Nitrogen 5 L 9-23 mg/dL Creatinine 0.96 0.700-1.30 mg/dL Glomerular Filtration Rate Calc 83 >90 mL/min BUN/Creatinine Ratio 5.2 L 10.0-20.0 Serum Glucose 120 H 74-106 mg/dL Calcium Level 9.7 8.7-10.4 mg/dL Magnesium Level 2.1 1.6-2.6 mg/dL Total Bilirubin 0.5 0.2-1.0 mg/dL Aspartate Amino Transferase (AST) 35 13-40 U/L Alanine Aminotransferase (ALT) 24 7-40 U/L Alkaline Phosphatase 87 46-116 U/L Total Protein 8.1 5.7-8.2 g/dL Albumin 4.6 3.2-4.8 g/dL Plasma/Serum Blood Alcohol < 3.0 <10 mg/dL Current Medications Medications (Trade) Dose Ordered Sig/Roseanna Route Start Time Stop Time Status Last Admin Sodium Chloride 1,000 ml @ 1,000 mls/hr Q1H ONCE IV 05/26/25 12:00 05/26/25 12:59 DC 05/26/25 13:19 X-Ray, Labs, Meds, VS Comment 74-year-old male who was brought in secondary to increased weakness. At the time I initially interviewed, the patient endorses feeling weak and did not like answering questions. Upon reassessment and proximally 3:00 p.m., the patient was substantially more vocal. However, his workup was significant for multiple findings including a hypokalemia potassium 2.6 and elevated D-dimer. Patient was provided with 40 mEq p.o. and IV, respectively, a potassium. CT angio of the chest was ordered and the patient will be admitted further workup management multiple complaints. Please note the patient had not provided a urine sample at the time of admission. UA and U tox are pending. Time of 1ST Reevaluation: 11:46 Reevaluation 1ST: Unchanged Time of 2ND Reevaluation: 15:10 Reevaluation 2ND: Improved Patient Education/Counseling: Diagnosis, Treatment Family Education/Counseling: No Family Present SEPSIS Sepsis Screen Physician Orders Chest Portable (05/26/25 11:46) Urinalysis (05/26/25 11:46) Drug Screen (05/26/25 11:46) Head Without Contrast (05/26/25 11:46) Straight Cath Patient (05/26/25 11:46) Vital Signs Date Time Temp Pulse Resp B/P (MAP) Pulse Ox O2 Delivery O2 Flow Rate FiO2 05/26/25 11:36 94 05/26/25 11:30 98.9 84 17 122/79 96 98.9 Laboratory Tests Test 05/26/25 12:05 White Blood Count 12.6 10^3/uL (4.4-10.8) H Medications Medications Dose Ordered Sig/Roseanna Route Start Time Stop Time Status Last Admin Dose Admin Sodium Chloride 1,000 ml @ 1,000 mls/hr Q1H ONCE IV 05/26/25 12:00 05/26/25 12:59 DC 05/26/25 13:19 Departure 1 Departure Time of Disposition: 15:11 Impression: Primary Impression: Acute hypokalemia Additional Impressions: Generalized weakness elevated d-dimer rule out PE Confusion Agitation Disposition: ADMITTED INPATIENT Admit to: Tele Condition: Serious Critical Care Note Critical Care Time?: No Stability Stability form required: No Heart Score Heart Score: Heart Score Response (Comments) Value History N/A 0 EKG N/A 0 Age N/A 0 Risk Factors N/A 0 Troponin N/A 0 Total 0 I personally scribed for ROJAS ORTA MD ([email or web address]) on 05/26/25 at 11:45. Electronically submitted by Cass Thomason (DE Spirits). I personally scribed for ROJAS ORTA MD ([email or web address]) on 05/26/25 at 11:50. Electronically submitted by Cass Thomason (DE [employer]irits). ROJAS ORTA MD May 26, 2025 11:45
--- NOTE | 2025-05-26 11:55 | ECG ---
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
[2025-05-26 12:43] LABS: Hemoglobin 12.3 g/dL (13.5-17.5); Mean Corpuscular Volume 74.5 fL (80.0-100.0)
[2025-05-26 12:44] LABS: Hematocrit 39.1 % (41.0-53.0); Mean Corpuscular Hemoglobin 23.4 pg (28.0-32.0); Nucleated Red Blood Cells % 0.3 %
[2025-05-26 12:52] LABS: Alanine Aminotransferase 24 U/L (7-40); Albumin 4.6 g/dL (3.2-4.8); Alkaline Phosphatase 87 U/L (46-116); Anion Gap 10 (5-15); BUN/Creatinine Ratio 5.2 (10.0-20.0); Calcium 9.7 mg/dL (8.7-10.4); Carbon Dioxide 25 mmol/L (20-31); Chloride 104 mmol/L (98-107); Magnesium 2.1 mg/dL (1.6-2.6); Sodium 139 mmol/L (136-145); Total Protein 8.1 g/dL (5.7-8.2)
[2025-05-26 12:53] LABS: Bilirubin, Total 0.5 mg/dL (0.2-1.0)
[2025-05-26 12:55] LABS: Blood Urea Nitrogen 5 mg/dL (9-23); Glucose 120 mg/dL (74-106); Potassium 2.7 mmol/L (3.5-5.1)
[2025-05-26 12:57] LABS: INR 1.04 (0.9-1.15); Partial Thromboplastin Time 26.8 SEC (24.5-34.5); Prothrombin Time 11.0 sec (9.3-11.8)
--- NOTE | 2025-05-26 13:13 | DVH ---
CLINICAL INFORMATION: No clinical information provided. TECHNIQUE: Single AP portable chest radiograph was obtained. COMPARISON: XY CHEST TWO VIEWS ROUTINE on DOS: 03/01/25, XY CHEST PORTABLE on DOS: 02/27/25, XY CHEST X RAY 1 VIEW on DOS: 10/26/24 FINDINGS: Lungs: Interstitial opacities appear similar to the prior exam and have a chronic appearance, likely due to chronic interstitial lung disease. No focal consolidation, pneumothorax, or pleural effusion. Cardiac: Heart size is within normal limits. Pulmonary vasculature: Unremarkable. Mediastinum/inocencia: Moderate atherosclerotic calcification of the aortic arch. Bones: No acute osseous abnormality identified. Other: No other significant findings. IMPRESSION: 1. Chronic interstitial opacities, likely chronic interstitial lung disease. 2. Otherwise, no evidence of acute disease in the chest.
[2025-05-26 13:18] LABS: Anisocytosis Slight
[2025-05-26] MEDS: SODIUM CHLORIDE 0.9% 1,000 ML IV ONE (13:19)
--- NOTE | 2025-05-26 13:21 | DVH ---
CLINICAL INFORMATION: Acute loss of consciousness. TECHNIQUE: Axial imaging was obtained through the brain without contrast. Coronal and sagittal reform atted images were obtained, reviewed, and stored. Images were reviewed in brain and bone windows. Al l CT scans at this medical facility are performed using dose modulation techniques as appropriate to a performed exam including the following: Automated exposure control was utilized; adjustment of the MA and/or KV according to patient size; and use of iterative reconstruction technique. CTDIvol = 53.6 3 mGy DLP = 1076.03 mGy-cm COMPARISON: CT STROKE CTH on DOS: 10/16/24, MRI BRAIN HEAD WO CONTRAST on DOS: 02/14/24, CT HEAD WITHOU T CONTRAST on DOS: 02/10/24 FINDINGS: There is no acute intracranial hemorrhage. No mass effect or midline shift. Scattered areas of hypoattenuation are seen in the periventricular and subcortical white matter, which are nonspecif ic but most likely sequelae of small vessel ischemic disease. The ventricles and sulci are within nor mal limits in size for age. Basal cisterns are patent. The calvarium is unremarkable. Paranasal sinu ses and mastoid air cells are clear. IMPRESSION: 1. No CT evidence of acute intracranial abnormality. 2. Nonacute findings as described above.
[2025-05-26] MEDS ORDERED: POTASSIUM CHL 20 Meq TABLET PO ONE (15:15)
[2025-05-26] MEDS ORDERED: POTASSIUM CHL 20MEQ/100ML 100 ML IV SCH (15:15)
== END 2025-05-26 15:48 | disposition left against medical advice (07) ==
LOC: ER 11:23 → EDBD 11:23 → ER 15:48
DX: E87.6 Hypokalemia (principal); R53.1 Weakness; R41.0 Disorientation, unspecified; R45.1 Restlessness and agitation; I26.99 Other pulmonary embolism without acute cor pulmonale; M19.90 Unspecified osteoarthritis, unspecified site; J44.9 Chronic obstructive pulmonary disease, unspecified; I11.0 Hypertensive heart disease with heart failure; I50.9 Heart failure, unspecified; F17.210 Nicotine dependence, cigarettes, uncomplicated; Z79.899 Other long term (current) drug therapy; Z90.89 Acquired absence of other organs; Z79.01 Long term (current) use of anticoagulants
CPT/HCPCS: 36415; 70450; 71045; 80053; 80320; 83735; 84484; 85025; 85379; 85610; 85730; 93005; 96360; 99285; J7030

== ENCOUNTER 2025-06-16 15:28 | Inpatient (IN) | payer OTHER, MEDICARE, MEDICAID ==
[~2025-06-16] VITALS: Ht 172.7 cm; Wt 74.8 kg
--- NOTE | 2025-06-16 15:46 | ECG ---
[facility] Test Date: 2025-06-16 Test Time: 15:33:39 Pat Name: ELVIS SHARMA Department: Room: 0223T Gender: M Surgical Assistant: AUGUSTO : 1950 Requested By: EMERGENCY EMERGENCY Order Number: [id number] Reading MD: Sean Beverly Measurements Intervals [place] Rate: 80 P: 53 IA: 189 QRS: 11 QRSD: 106 T: 31 QT: 407 QTc: 470 Interpretive Statements Sinus rhythm Ventricular premature complex Aberrant complex Consider left atrial enlargement Low voltage, precordial leads Nonspecific T abnormalities, anterior leads Electronically Signed On 06-19-2025 9:41:11 PDT by Sean Beverly Please click the below link to view image of tracing.
[2025-06-16] MEDS: SODIUM CHLORIDE 0.9% 1,000 ML IV ONE (16:15)
--- NOTE | 2025-06-16 16:21 | ED.PDOC ---
Altered Mental Status HPI Comments 74 y/o M, BIBA, with PMHx of arthritis, CHF, COPD, and HTN presents to the ED for CC ALOC. EMS reports, patient is coming from home where family called d/t patient displaying decreased alertness. Per EMS, last known well is unknown. Upon arrival to scene, patient was stating at 79% on room air; patient was placed on a non-rebreather at 15lpm and was given 1.5mg of Narcan in the field. No other symptoms or modifying factors are obtainable at this time. Chief Complaint: ALOC Time Seen by MD: 16:05 Primary Care Provider: UNKNOWN Reviewed Notes: Nurses Notes, Medications, Allergies Allergies: Coded Allergies: NO KNOWN ALLERGIES (Unverified , 03/22/23) Home Meds Active Scripts Doxycycline Hyclate (DOXYCYCLINE HYCLATE) 100 Mg Tab, 1 TAB PO BID, #14 TAB Prov:MARCIAL AMES MD 03/02/25 Reported Medications Atorvastatin Calcium (Lipitor) 10 Mg Tab, PO, TAB 03/01/25 Hydroxyzine Hcl (Hydroxyzine Hcl) 25 Mg Tab, 25 MG PO TID for 30 Days, MG 03/01/25 Apixaban Base (ELIQUIS) 5 Mg Tab, 1 TAB PO BID 03/01/25 Pantoprazole Sodium Sesquihydr (Protonix) 40 Mg Tab, 40 MG PO DAILY, #30 TAB 03/01/25 Diclofenac Sodium (Topical) (Diclofenac Sodium) 1 % Gel, 1 % TD DAILY, GEL 02/12/24 Atorvastatin Calcium (ATORVASTATIN CALCIUM) 80 Mg Tab, 80 MG PO HS, TAB 02/12/24 Potassium Chloride (POTASSIUM CHLORIDE CR) 10 Meq Tb, 10 MEQ PO BID, TAB 02/12/24 Divalproex Sodium (Divalproex Sodium Dr) 250 Mg Tab, 1 TAB PO TID, TAB 08/23/22 Olanzapine (OLANZAPINE) 5 Mg Tab, 1 TAB PO DAILY 08/21/22 Fluoxetine Hcl (Fluoxetine Hcl) 10 Mg Tab, 1 TAB PO DAILY 08/21/22 Furosemide (Furosemide) 40 Mg Tab, 1 TAB PO DAILY 08/21/22 Gabapentin (Gabapentin) 100 Mg Cap, 1 CAP PO TID 08/21/22 Information Source: Patient Mode of Arrival: EMS Severity: Moderate Timing: Days Duration: Since onset Prehospital treatment: None Quality: Decreased Alertness Recent: None History of: None Associated Signs and Symptoms: None Past Medical History PAST MEDICAL HISTORY: Arthritis, CHF, COPD, HTN Surgical History: Tonsillectomy Family History Family History: Reviewed,noncontributory to illness Social History Smoker: Cigarettes, Less Than 1 Pack/Day Alcohol: Denies ETOH Use Drugs: Denies Drug Use Lives In: Home Unable to Obtain due to: Altered Mental Status Physical Exam General Appearance: Moderate Distress HEENT: Normal ENT Inspection, Pharynx Normal, TMs Normal Neck: Full Range of Motion, Non-Tender, Normal, Normal Inspection Respiratory: Chest Non-Tender, Lungs Clear, No Accessory Muscle Use, No Respiratory Distress, Normal Breath Sounds Cardiovascular: No Edema, No JVD, No Murmur, No Gallop, Normal Peripheral Pulses, Regular Rate/Rhythm Breast Exam: Deferred Gastrointestinal: No Organomegaly, Non Tender, No Pulsatile Mass, Normal Bowel Sounds, Soft Genitalia: Deferred Pelvic: Deferred Rectal: Deferred Extremities: No calf tenderness, Normal capillary refill, No pedal edema, Swelling Musculoskeletal : Apperance: Normal 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 Was a procedure done?: No Differential Diagnosis (ALOC) Differential Diagnosis: Dehydration, Hypoglycemia, Sepsis, Other (uti) X-Ray, Labs, Meds, VS Vital Signs Date Time Temp Pulse Resp B/P (MAP) Pulse Ox O2 Delivery O2 Flow Rate FiO2 06/16/25 15:47 98.9 86 19 146/88 94 98.9 06/16/25 15:33 80 Lab Test 06/16/25 16:28 Range/Units White Blood Count 10.8 4.4-10.8 10^3/uL Red Blood Count 4.98 4.5-5.90 10^6/uL Hemoglobin 11.8 L 13.5-17.5 g/dL Hematocrit 37.0 L 41.0-53.0 % Mean Corpuscular Volume 74.3 L 80.0-100.0 fL Mean Corpuscular Hemoglobin 23.7 L 28.0-32.0 pg Mean Corpuscular Hemoglobin Concent 31.9 L 32.0-36.0 g/dL Red Cell Distribution Width 20.2 H 11.8-14.3 % Platelet Count 503 H 140-450 10^3/uL Mean Platelet Volume 7.1 6.9-10.8 fL Neutrophils (%) (Auto) 62.2 37.0-80.0 % Lymphocytes (%) (Auto) 27.4 10.0-50.0 % Monocytes (%) (Auto) 8.6 0.0-12.0 % Eosinophils (%) (Auto) 1.0 0.0-7.0 % Basophils (%) (Auto) 0.8 0.0-2.0 % Neutrophils # (Auto) 6.7 1.6-8.6 10 ^3/uL Lymphocytes # (Auto) 3.0 0.4-5.4 10 ^3/uL Monocytes # (Auto) 0.9 0-1.3 10 ^3/uL Eosinophils # (Auto) 0.1 0-0.8 10 ^3/uL Basophils # (Auto) 0.1 0-0.2 10 ^3/uL Nucleated Red Blood Cells 0.2 % Sodium Level 136 136-145 mmol/L Potassium Level 3.3 L 3.5-5.1 mmol/L Chloride Level 97 L 98-107 mmol/L Carbon Dioxide Level 32 H 20-31 mmol/L Anion Gap 7 5-15 Blood Urea Nitrogen 16 9-23 mg/dL Creatinine 1.83 H 0.700-1.30 mg/dL Glomerular Filtration Rate Calc 38 >90 mL/min BUN/Creatinine Ratio 8.7 L 10.0-20.0 Serum Glucose 90 74-106 mg/dL Lactic Acid Level 1.6 0.4-2.0 mmol/L Calcium Level 8.9 8.7-10.4 mg/dL Total Bilirubin 0.4 0.2-1.0 mg/dL Aspartate Amino Transferase (AST) 45 H 13-40 U/L Alanine Aminotransferase (ALT) 17 7-40 U/L Alkaline Phosphatase 85 46-116 U/L Troponin I High Sensitivity 1070 *H </=54 ng/L Total Protein 7.5 5.7-8.2 g/dL Albumin 3.9 3.2-4.8 g/dL Plasma/Serum Blood Alcohol < 3.0 <10 mg/dL Patient answering to name only. Vitals stable. Unable to get a good history from the patient. No sign of any trauma. He does have bruising of the right knee. Bilateral lower extremity swelling. He probably does not ambulate. Possible sepsis from urine. Establish intravenous access. Was given fluids. Was given Rocephin. Was given azithromycin. Cardiac marker elevated. Was given Lovenox. Was given potassium. Continue to monitor. [place] [address] Ph: [phone] DIAGNOSTIC IMAGING Diagnostic Imaging Report : [id number] Signed PATIENT: ELVIS SHARMA ACCT: [id number] UNIT: [id number] : 1950 LOC: ER ROOM / BED: / AGE / SEX: 74 / M ADM STATUS: REG ER SERVICE 1605 ORDERING PHYSICIAN: RIHCARD ETIENNE MD PROCEDURE(s): CXRP - CHEST PORTABLE REASON: sob ORDER NUMBER(s): [id number], ACCESSION NUMBER(s): [id number] CHEST RADIOGRAPH Indication: sob Technique: Single frontal view of the chest was obtained COMPARISON: XY CHEST PORTABLE on DOS: 05/26/25, XY CHEST TWO VIEWS ROUTINE on DOS: 03/01/25, XY CHEST PORTABLE on DOS: 02/27/25, XY CHEST XRAY 1 VIEW on DOS: 10/26/24, XY CHEST XRAY 1 VIEW on DOS: 10/25/24 FINDINGS: Lines and Tubes: None Lungs: Chronic fibrotic change. Pleura: No effusion. No pneumothorax. Cardiomediastinal contours: Cardiomegaly Bones: Unremarkable IMPRESSION: Chronic fibrotic change. ATED BY: ED THOMAS MD DICTATED DATE/TIME: 06/16/251705 SIGNED BY: ED THOMAS MD SIGNED DATE/TIME: 06/16/251705 CC: Time of 1ST Reevaluation: 16:35 Reevaluation 1ST: Unchanged Patient Education/Counseling: Diagnosis, Treatment Family Education/Counseling: No Family Present SEPSIS Sepsis Screen Date sepsis recognized/suspect: Jun 16, 2025 Time Sepsis recognized/suspect: 1534 Recent Procedure: No On Antibiotic Therapy: No Respiratory Rate >20: No Heart Rate >90: No Temp<36 C (96.8 F) or >38.3 C: No SBP <90 or MAP <65 mmHG: No New Acute Mental Status Change: No Is the patient on CPAP, BIPAP,: No Physician Orders Urinalysis (06/16/25 16:05) Chest Portable (06/16/25 16:05) Wrestling Coach (06/16/25 16:05) Blood Culture (06/16/25 16:05) Sodium Chloride 0.9% (06/16/25 16:15) Troponin-I Hs (06/16/25 17:05) Troponin-I Hs (06/16/25 19:05) Azithromycin 500mg/ 250ml (Zithromax 50 (06/16/25 16:30) Electrocardigram (06/16/25 17:27) * Cardiology Consult (06/16/25 17:27) Potassium Chl 20meq/100ml (06/16/25 17:30) Vital Signs Date Time Temp Pulse Resp B/P (MAP) Pulse Ox O2 Delivery O2 Flow Rate FiO2 06/16/25 15:47 98.9 86 19 146/88 94 98.9 06/16/25 15:33 80 Laboratory Tests Test 06/16/25 16:28 Lactic Acid Level 1.6 mmol/L (0.4-2.0) White Blood Count 10.8 10^3/uL (4.4-10.8) Departure 1 Departure Time of Disposition: 16:30 Impression: Primary Impression: Metabolic encephalopathy Additional Impression: NSTEMI (non-ST elevated myocardial infarction) Disposition: 09 ADMITTED INPATIENT Admit to: Med Surg Condition: Guarded Critical Care Note Critical Care Time?: Yes (90 min-critical care time only) Stability Stability form required: No Heart Score Heart Score: Heart Score Response (Comments) Value History Slightly Suspicious 0 EKG Normal 0 Age >65 2 Risk Factors >3 or Hx ASHD 2 Troponin Normal limit 0 Total 4 I personally scribed for RICHARD ETIENNE MD ([email or web address]) on 06/16/25 at 16:21. Electronically submitted by Zarina Summers ([email or web address]). I personally scribed for RICHARD ETIENNE MD ([email or web address]) on 06/16/25 at 17:39. Electronically submitted by Zarina Summers ([email or web address]). RICHARD ETIENNE MD Jun 16, 2025 16:21
[2025-06-16] MEDS: AZITHROMYCIN 500MG/ 250ML 250 ML IV ONE ×2 (16:30→21:32)
[2025-06-16 16:41] LABS: Hematocrit 37.0 % (41.0-53.0); Hemoglobin 11.8 g/dL (13.5-17.5); Mean Corpuscular Hemoglobin 23.7 pg (28.0-32.0); Nucleated Red Blood Cells % 0.2 %
[2025-06-16 16:43] LABS: Mean Corpuscular Volume 74.3 fL (80.0-100.0)
[2025-06-16 17:03] LABS: Alanine Aminotransferase 17 U/L (7-40); Albumin 3.9 g/dL (3.2-4.8); Alkaline Phosphatase 85 U/L (46-116); Anion Gap 7 (5-15); BUN/Creatinine Ratio 8.7 (10.0-20.0); Bilirubin, Total 0.4 mg/dL (0.2-1.0); Blood Urea Nitrogen 16 mg/dL (9-23); Calcium 8.9 mg/dL (8.7-10.4); Glucose 90 mg/dL (74-106); Sodium 136 mmol/L (136-145); Total Protein 7.5 g/dL (5.7-8.2)
[2025-06-16 17:04] LABS: Carbon Dioxide 32 mmol/L (20-31); Chloride 97 mmol/L (98-107); Potassium 3.3 mmol/L (3.5-5.1)
--- NOTE | 2025-06-16 17:08 | DVH ---
CHEST RADIOGRAPH Indication: sob Technique: Single frontal view of the chest was obtained COMPARISON: XY CHEST PORTABLE on DOS: 05/26/25, XY CHEST TWO VIEWS ROUTINE on DOS: 03/01/25, XY CHEST P ORTABLE on DOS: 02/27/25, XY CHEST XRAY 1 VIEW on DOS: 10/26/24, XY CHEST XRAY 1 VIEW on DOS: 10/25/24 FINDINGS: Lines and Tubes: None Lungs: Chronic fibrotic change. Pleura: No effusion. No pneumothorax. Cardiomediastinal contours: Cardiomegaly Bones: Unremarkable IMPRESSION: Chronic fibrotic change.
[2025-06-16 17:30] VITALS: PULSE 81; RESP 13; O2SAT 90
[2025-06-16] MEDS: ENOXAPARIN SOD 80 MG/0.8ML SYRINGE SC ONE ×2 (17:58→20:25)
[2025-06-16] MEDS: POTASSIUM CHL 20MEQ/100ML 100 ML IV ONE ×3 (17:59→20:30)
[2025-06-16] MEDS: SODIUM CHLORIDE 0.9% 1,000 ML IVB ONE (17:59)
[2025-06-16 19:55] VITALS: PULSE 76; RESP 14; O2SAT 94
--- NOTE | 2025-06-16 20:23 | ECG ---
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
--- NOTE | 2025-06-16 20:24 | DVHHPRES ---
History of Present Illness Resident Creating Document: KRISTA MORALES RESIDENT History of Present Illness 74-year-old male with past medical history of arthritis, coronary artery disease status post PCI, CHF, COPD and hypertension presented with complaints of altered level of consciousness. As per the ED physician's note, patient is coming from a facility where patient was having altered level of consciousness and family called EMS. On arrival to the ED, patient had desaturation at 79% on room air, patient was initially placed on non-rebreather mask at 15 L that is 1 minute and was given 1.5 mg of Narcan in the field. Patient is currently confused, and mentioned with no active complaints. Past medical history Arthritis, CHF, COPD and hypertension Past surgical history unobtainable Social history unobtainable Medication history unobtainable Allergic history No known allergies Review of Systems Review of Systems Review of system can not be done as patient is confused Allergies: Coded Allergies: NO KNOWN ALLERGIES (Unverified , 03/22/23) Exam Vital Signs Vital Signs Date Time Temp Pulse Resp B/P (MAP) Pulse Ox O2 Delivery O2 Flow Rate FiO2 06/16/25 19:55 76 14 94 Nasal Cannula* 4 36 06/16/25 19:54 98.4 108/61 (77) 98.4 Exam Examination General Appearance: Confused, on 2 L of oxygen HEENT: EOMI Respiratory: Clear to auscultation, Normal air movement Cardiovascular: Regular rate, Normal S1, Normal S2 Abdominal: Normal bowel sounds Extremities: No cyanosis, No edema, Normal pulses, No tenderness/swelling Skin: No rashes, No breakdown Neuro: Confused Labs/Xrays Labs Test 06/16/25 19:50 06/16/25 16:28 Range/Units White Blood Count 10.8 4.4-10.8 10^3/uL Red Blood Count 4.98 4.5-5.90 10^6/uL Hemoglobin 11.8 L 13.5-17.5 g/dL Hematocrit 37.0 L 41.0-53.0 % Mean Corpuscular Volume 74.3 L 80.0-100.0 fL Mean Corpuscular Hemoglobin 23.7 L 28.0-32.0 pg Mean Corpuscular Hemoglobin Concent 31.9 L 32.0-36.0 g/dL Red Cell Distribution Width 20.2 H 11.8-14.3 % Platelet Count 503 H 140-450 10^3/uL Mean Platelet Volume 7.1 6.9-10.8 fL Neutrophils (%) (Auto) 62.2 37.0-80.0 % Lymphocytes (%) (Auto) 27.4 10.0-50.0 % Monocytes (%) (Auto) 8.6 0.0-12.0 % Eosinophils (%) (Auto) 1.0 0.0-7.0 % Basophils (%) (Auto) 0.8 0.0-2.0 % Neutrophils # (Auto) 6.7 1.6-8.6 10 ^3/uL Lymphocytes # (Auto) 3.0 0.4-5.4 10 ^3/uL Monocytes # (Auto) 0.9 0-1.3 10 ^3/uL Eosinophils # (Auto) 0.1 0-0.8 10 ^3/uL Basophils # (Auto) 0.1 0-0.2 10 ^3/uL Nucleated Red Blood Cells 0.2 % Sodium Level 136 136-145 mmol/L Potassium Level 3.3 L 3.5-5.1 mmol/L Chloride Level 97 L 98-107 mmol/L Carbon Dioxide Level 32 H 20-31 mmol/L Anion Gap 7 5-15 Blood Urea Nitrogen 16 9-23 mg/dL Creatinine 1.83 H 0.700-1.30 mg/dL Glomerular Filtration Rate Calc 38 >90 mL/min BUN/Creatinine Ratio 8.7 L 10.0-20.0 Serum Glucose 90 74-106 mg/dL Lactic Acid Level 1.6 0.4-2.0 mmol/L Calcium Level 8.9 8.7-10.4 mg/dL Total Bilirubin 0.4 0.2-1.0 mg/dL Aspartate Amino Transferase (AST) 45 H 13-40 U/L Alanine Aminotransferase (ALT) 17 7-40 U/L Alkaline Phosphatase 85 46-116 U/L Total Protein 7.5 5.7-8.2 g/dL Albumin 3.9 3.2-4.8 g/dL Plasma/Serum Blood Alcohol < 3.0 <10 mg/dL SEPSIS Sepsis Screen Date sepsis recognized/suspect: Jun 16, 2025 Time Sepsis recognized/suspect: 1954 Recent Procedure: No On Antibiotic Therapy: No Respiratory Rate >20: No Heart Rate >90: No Temp<36 C (96.8 F) or >38.3 C: No SBP <90 or MAP <65 mmHG: No New Acute Mental Status Change: No Is the patient on CPAP, BIPAP,: No Physician Orders Urinalysis (06/16/25 16:05) Chest Portable (06/16/25 16:05) School Clerk (06/16/25 16:05) Blood Culture (06/16/25 16:05) Sodium Chloride 0.9% (06/16/25 16:15) Troponin-I Hs (06/16/25 19:05) Electrocardigram (06/16/25 17:27) * Cardiology Consult (06/16/25 17:27) Admit (06/16/25 20:16) Morphine Sulfate Injection (06/16/25 20:30) Oxygen By Nasal Cannula (06/16/25 20:16) Stat Ekg For Chest Pain (06/16/25 20:16) Notify Md Of Changes From Base (06/16/25 20:16) Carrier Operator For 24 Hours (06/16/25 20:16) Emergency Dysrhythmia Protocol (06/16/25 20:16) Rhythm Strips Once Every Shift (06/16/25 20:16) Nitroglycerin Sublingual (Ntrostat Subli (06/16/25 20:30) Electrocardigram (06/16/25 20:16) Troponin-I Hs (06/16/25 20:16) D-Dimer (06/16/25 20:16) Urinalysis (06/16/25 20:16) Lactic Acid W/ Reflex Order (06/16/25 20:16) Thyroid Stimulating Hormone (06/16/25 20:16) Head Without Contrast (06/16/25 20:16) Mrsa Screen (06/16/25 20:16) Covid19 Antigen Adwoa (06/16/25 ) Rapid Influenza A&B (06/16/25 20:16) B-Type Natriuretic Peptide (06/16/25 20:16) Troponin-I Hs (06/16/25 21:16) Troponin-I Hs (06/16/25 23:16) Zosyn Extended Infusion (06/16/25 20:30) Zosyn Extended Infusion (06/16/25 22:00) Kidney (06/16/25 20:16) Urine Sodium (06/16/25 20:16) Urine Protein (06/16/25 20:16) Urine Protein/Creatinine Ratio (06/16/25 ) Vital Signs Date Time Temp Pulse Resp B/P (MAP) Pulse Ox O2 Delivery O2 Flow Rate FiO2 06/16/25 19:55 76 14 94 Nasal Cannula* 4 36 06/16/25 19:54 98.4 76 14 108/61 (77) 94 98.4 06/16/25 19:00 79 17 106/54 (71) 93 06/16/25 17:30 81 13 90 Nasal Cannula* 6 44 06/16/25 17:17 81 13 102/77 (85) 95 06/16/25 15:47 98.9 86 19 146/88 94 98.9 06/16/25 15:33 80 Laboratory Tests Test 06/16/25 16:28 Lactic Acid Level 1.6 mmol/L (0.4-2.0) White Blood Count 10.8 10^3/uL (4.4-10.8) Medications Medications Dose Ordered Sig/Roseanna Route Start Time Stop Time Status Last Admin Dose Admin Enoxaparin Sodium 80 mg ONCE ONCE SC 06/16/25 17:30 06/16/25 17:31 DC 06/16/25 17:58 80 MG Potassium Chloride 100 ml @ 50 mls/hr ONCE ONCE IV 06/16/25 17:30 06/16/25 19:29 DC 06/16/25 17:59 50 MLS/HR Sodium Chloride 1,000 ml @ 1,000 mls/hr Q1H ONCE IVB 06/16/25 16:15 06/16/25 17:14 DC 06/16/25 17:59 1,000 MLS/HR Assessment/Plan Assessment/Plan Assessment/plan # metabolic encephalopathy IV antibiotics Head CT TSH, B12, folate Urinalysis, chest x-ray # acute hypoxic respiratory failure, likely due to ? COPD exacerbation/CHF exacerbation/pneumonia/sepsis On 2 L of oxygen through nasal cannula Ipratropium albuterol p.r.n. X-ray shows chronic fibrotic changes and cardiomegaly #hypokalemia -replace with IV potassium -Monitor BMP # COPD, possible exacerbation IV methylprednisolone received Albuterol, ipratropium p.r.n. # BRENNAN due to VMN IV fluids Renal ultrasound Urine studies #?Acute on chronic CHF -held IV fluids BNP Tropes EKG # NSTEMI likely type 2 due to demand ischemia BNP Tropes EKG Received Lovenox therapeutic once # mild, microcytic anemia We will order iron studies # coronary artery disease status post PCI Resume antiplatelets and atorvastatin, currently patient is NPO, pending swallow evaluation # Hypertension, currently low normal blood pressure Monitor blood pressure Code status could not be discussed as patient is confused, we will continue with full code as of now Case discussion with Dr. Carreno Plan discussed with: Other My Orders Orders - KRISTA MORALES RESIDENT Procedure Category Date Status Time Admit ADMIT 06/16/25 Transmitted 20:16 Morphine Sulfate PHA 06/16/25 Transmitted Injection 20:30 Oxygen By Nasal RT 06/16/25 Transmitted Cannula 20:16 Stat Ekg For Chest [facility] 06/16/25 Transmitted Pain 20:16 Notify Md Of Changes [facility] 06/16/25 Transmitted From Base 20:16 Carrier Operator For [facility] 06/16/25 Transmitted 24 Hours 20:16 Emergency Dysrhythmia [facility] 06/16/25 Transmitted Protocol 20:16 Rhythm Strips Once [facility] 06/16/25 Transmitted Every Shift 20:16 Nitroglycerin [facility] 06/16/25 Transmitted Sublingual (Ntrostat 20:30 Electrocardigram EKG 06/16/25 Transmitted 20:16 Troponin-I Hs LAB 06/16/25 Transmitted 20:16 D-Dimer LAB 06/16/25 Transmitted 20:16 Urinalysis LAB 06/16/25 Transmitted 20:16 Lactic Acid W/ Reflex LAB 06/16/25 Transmitted Order 20:16 Thyroid Stimulating LAB 06/16/25 Transmitted Hormone 20:[address] 06/16/25 Transmitted 20:16 Mrsa Screen [facility] 06/16/25 Transmitted 20:16 Covid19 Antigen [facility] LAB 06/16/25 Transmitted Rapid Influenza A&B LAB 06/16/25 Transmitted 20:16 B-Type Natriuretic LAB 06/16/25 Transmitted Peptide 20:16 Troponin-I Hs LAB 06/16/25 Transmitted 21:16 Troponin-I Hs LAB 06/16/25 Transmitted 23:16 Zosyn Extended PHA 06/16/25 Transmitted Infusion 20:30 Zosyn Extended PHA 06/16/25 Transmitted Infusion 22:00 Kidney US 06/16/25 Transmitted 20:16 Urine Sodium LAB 06/16/25 Transmitted 20:16 Urine Protein LAB 06/16/25 Transmitted 20:16 Urine LAB 06/16/25 Transmitted Protein/Creatinine KRISTA MORALES RESIDENT Jun 16, 2025 20:24
[2025-06-16] MEDS ORDERED: MORPHINE SULFATE INJ 2 MG/ml SYRG IV PRN (20:30)
[2025-06-16] MEDS ORDERED: NITROGLYCERIN 0.4 MG SL TAB SL PRN (20:30)
--- NOTE | 2025-06-16 20:53 | DVH ---
CT HEAD WITHOUT CONTRAST INDICATION: ALOC EXAM DATE: 06/16/2025 08:22 PM COMPARISON: CT HEAD WITHOUT CONTRAST on DOS: 05/26/25, CT STROKE CTH on DOS: 10/16/24, MRI BRAIN HEAD W O CONTRAST on DOS: 02/14/24, CT HEAD WITHOUT CONTRAST on DOS: 02/10/24, HEAD WITHOUT CONTRAST on DOS: 10/20/21 RADIATION DOSE: CTDIvol: 54.05 mGy, DLP: 54.05 mGy*cm PROCEDURE: CT scans of the head were obtained from the vertex to the skull base. Sagittal and coronal reconstructions were provided. All CT scans at this medical facility are performed using dose modulation techniques as appropriate t o a performed exam including the following: Automated exposure control was utilized; adjustment of th e MA and/or KV according to patient size; and use of iterative reconstruction technique. FINDINGS: Evaluation is degraded by motion artifact. No acute territorial infarct, intracranial hemorrhage, or mass effect. There are global involutional changes with compensatory prominence of the ventricles and sulci. Patchy periventricular and subcorti evens white matter hypoattenuation is nonspecific but may be related to small vessel ischemic disease. The orbits are normal. The paranasal sinuses and mastoid air cells are clear. The osseous structures are unremarkable. IMPRESSION: 1. No acute territorial infarct, intracranial hemorrhage, or mass effect. 2. Age-related involutional changes. Chronic microvascular changes. 3. If clinical symptoms persist, MRI may be beneficial in further evaluation.
--- NOTE | 2025-06-16 21:03 | DVH ---
US KIDNEY HISTORY: BRENNAN COMPARISON: None TECHNIQUE: Sonographic grayscale and color doppler evaluation of the kidneys and urinary bladder was performed. FINDINGS: RIGHT: 9.1 cm. Increased echogenicity with cortical thinning. No hydronephrosis. No focal renal mass lesion or shadowing stone LEFT: 9.7 cm. Increased echogenicity with cortical thinning. No hydronephrosis. No focal renal mass lesion or shadowing stone BLADDER: The urinary bladder is well distended and appears unremarkable. Right and left ureteral jets are visualized. OTHER: None IMPRESSION: 1. Bilateral echogenic kidneys noted, which may reflect medical renal disease. 2. No evidence for hydronephrosis.
[2025-06-16 21:41] LABS: Urine Protein, UAD Negative (Negative)
[2025-06-16 21:46] LABS: Protein, Urine 24.0 mg/dL (1-14)
[2025-06-16 21:49] LABS: Amphetamine Screen, Urine Neg (NEGATIVE); Barbiturate Scree,Urine Neg (NEGATIVE); Benzodiazephine Screen, Urine Neg (NEGATIVE); Cannabinoid Screen, Urine Neg (NEGATIVE); Cocaine Screen, Urine Neg (NEGATIVE); Opiate Scree,Urine Pos (NEGATIVE); Phencyclidine Screen, Urine Neg (NEGATIVE)
[2025-06-16 22:11] LABS: COVID19 ANTIGEN SOFIA FIA NEGATIVE (NEGATIVE)
[2025-06-16 22:40] LABS: Chloride 101 mmol/L (98-107); Potassium 3.7 mmol/L (3.5-5.1); Sodium 140 mmol/L (136-145)
[2025-06-16 22:41] LABS: Anion Gap 7 (5-15)
[2025-06-16 22:46] LABS: Glucose 87 mg/dL (74-106)
[2025-06-16 22:47] LABS: BUN/Creatinine Ratio 11.0 (10.0-20.0); Blood Urea Nitrogen 17 mg/dL (9-23)
[2025-06-16 22:53] LABS: Calcium 8.5 mg/dL (8.7-10.4); Carbon Dioxide 32 mmol/L (20-31)
--- NOTE | 2025-06-16 23:07 | DVH ---
Bilateral lower extremity venous duplex Clinical History: elevated ddimer Comparison: US LT LOW EXT ART DUPLEX on DOS: 10/16/24, US BILAT LOWER DVT on DOS: 10/16/24, US BILAT LO WER DVT on DOS: 03/22/23, BI LOWER DVT on DOS: 09/19/22, BLDVT on DOS: 09/19/22 Technique: Duplex Doppler evaluation of the deep venous systems of both lower extremities from the common femora l veins to the popliteal veins including color Doppler and spectral/pulsed waveform analysis was perf ormed. Findings: RIGHT SIDE: The common femoral vein demonstrates appropriate compressibility and waveform variability. There is compressibility/patency of the great saphenous vein at the proximal thigh. The femoral vein demonstrates appropriate compressibility and waveform variability. The deep femoral vein demonstrates appropriate compressibility and waveform variability. The popliteal vein demonstrates appropriate compressibility and waveform variability. There is normal compressibility at the tibioperoneal trunk with the right posterior tibial vein not v isualized. LEFT SIDE: The common femoral vein demonstrates appropriate compressibility and waveform variability. There is compressibility/patency of the great saphenous vein at the proximal thigh. The femoral vein demonstrates appropriate compressibility and waveform variability. The deep femoral vein demonstrates appropriate compressibility and waveform variability. The popliteal vein demonstrates appropriate compressibility and waveform variability. There is normal compressibility at the tibioperoneal trunk. Impression: 1. No right or left femoropopliteal venous thrombosis. 2. Right posterior tibial vein not visualized. 3. If clinical concern/symptoms persist or worsen, short-interval follow-up study is suggested.
[2025-06-17 05:05] LABS: Alanine Aminotransferase 17 U/L (7-40); Albumin 3.3 g/dL (3.2-4.8); Alkaline Phosphatase 72 U/L (46-116); Anion Gap 9 (5-15); BUN/Creatinine Ratio 12.8 (10.0-20.0); Blood Urea Nitrogen 16 mg/dL (9-23); Chloride 99 mmol/L (98-107); Glucose 86 mg/dL (74-106); Magnesium 1.7 mg/dL (1.6-2.6); Potassium 3.7 mmol/L (3.5-5.1); Sodium 140 mmol/L (136-145); Total Protein 6.4 g/dL (5.7-8.2)
[2025-06-17 05:06] LABS: Bilirubin, Total 0.3 mg/dL (0.2-1.0)
[2025-06-17 05:18] LABS: Calcium 8.7 mg/dL (8.7-10.4); Carbon Dioxide 32 mmol/L (20-31)
[2025-06-17] MEDS: PIPERACILLIN-TAZOB 3.375GM 100 ML IV SCH (05:22)
--- NOTE | 2025-06-17 05:23 | DVH ---
CHEST RADIOGRAPH Indication: sob Technique: Single frontal view of the chest was obtained COMPARISON: XY CHEST PORTABLE on DOS: 06/16/25, XY CHEST PORTABLE on DOS: 05/26/25, XY CHEST TWO VIEWS ROUTINE on DOS: 03/01/25, XY CHEST PORTABLE on DOS: 02/27/25, XY CHEST XRAY 1 VIEW on DOS: 10/26/24 FINDINGS: Lines and Tubes: None Lungs: Stable chronic appearing bilateral interstitial pulmonary markings and mild bibasilar pulmonar y airspace disease. The left costophrenic sulcus is excluded. Pleura: No effusion. No pneumothorax. Cardiomediastinal contours: Cardiomegaly. Atherosclerotic vascular calcifications. Bones: Unremarkable IMPRESSION: 1. Stable chronic appearing bilateral interstitial pulmonary markings and mild bibasilar pulmonary ai rspace disease. 2. The left costophrenic sulcus is excluded. 3. Cardiomegaly.
[2025-06-17] MEDS: PIPERACILLIN-TAZOB 3.375GM 100 ML IV ONE ×3 (05:31→16:39)
[2025-06-17 07:28] LABS: Hematocrit 30.8 % (41.0-53.0); Hemoglobin 10.3 g/dL (13.5-17.5); Mean Corpuscular Hemoglobin 23.9 pg (28.0-32.0); Mean Corpuscular Volume 71.3 fL (80.0-100.0); Nucleated Red Blood Cells % 0.0 %
[2025-06-17 07:42] VITALS: PULSE 67; RESP 14; O2SAT 96
[2025-06-17] MEDS: PIPERACILLIN-TAZO 4.5GM 100 ML IV ONE (07:45)
[2025-06-17 08:46] LABS: Total Iron Binding Capacity 341.0 ug/dL (250-425)
[2025-06-17 08:47] LABS: Iron 35.0 ug/dL (65-175)
[2025-06-17 09:37] LABS: Anisocytosis Slight; Ovalocytes FEW
--- NOTE | 2025-06-17 12:57 | DVHCONRES ---
ANDREW AUGUSTINE RESIDENT 06/17/25 1257: Date Seen: Jun 17, 2025 Resident Creating Document: ANDREW AUGUSTINE RESIDENT Referring Physician RICHARD ETIENNE MD Reason for Consultation nstemi History of Present Illness 74-year-old male with history of CAD s/p multiple PCI ( with stent to LCx), prior carotid angioplasty, DVT, AFib on apixaban, CHF, COPD, hypertension, arthritis, prior hip and shoulder fractures with surgical repair, presents with altered level of consciousness and hypoxemia (SpO? 79% on RA, improved after Narcan and O?). 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 Patient is confused, unable to provide full history. Todays Events / Progress: * Persistent confusion, poor compliance with meds. * Troponins remain elevated (1177 ? 1183 ? 1106), concerning for NSTEMI vs demand ischemia. * WBC 10.2, neutrophils 90% (possible infection but no fever, already on Zosyn). * Hb 10.3 with microcytosis, iron deficiency anemia. * Creatinine 1.251.54 (GFR 4760). * BNP elevated at 371, consistent with CHF exacerbation. * CXR: cardiomegaly, chronic bilateral interstitial changes, mild bibasilar pulmonary disease. * Duplex BLE: No DVT. * EKG: Sinus rhythm, RBBB, possible LA enlargement. * D-dimer 1.37 (elevated). * Tox screen: Positive for opiates, otherwise negative. Plan from cardiology standpoint: * Continue anticoagulation with apixaban 5 mg BID. * Initiate aspirin (dual therapy given CAD history and recent troponin rise). * Continue atorvastatin high intensity. * Risk factor modification (counseled on smoking cessation, medication adherence, diet). * Not a candidate for intervention due to poor compliance, high comorbidity burden. * PE workup deferred to primary team if clinical suspicion persists. Past Medical History CAD s/p PCI , carotid angioplasty, CHF, AFib, COPD, HTN, arthritis. Past Surgical History PCI, carotid angioplasty, right intertrochanteric fracture repair, left proximal humerus nail, rotator cuff repair. Family History: FH: kidney disease G8 MOTHER FH: prostate cancer G8 FATHER Family history: Hypercholesterolemia (situation) G8 MOTHER Social History Chronic smoker, poor compliance with oxygen therapy, cane use, sedentary. Allergies: Coded Allergies: NO KNOWN ALLERGIES (Unverified , 03/22/23) Home Meds Active Scripts Doxycycline Hyclate (DOXYCYCLINE HYCLATE) 100 Mg Tab, 1 TAB PO BID, #14 TAB Prov:MARCIAL AMES MD 03/02/25 Reported Medications Atorvastatin Calcium (Lipitor) 10 Mg Tab, PO, TAB 03/01/25 Hydroxyzine Hcl (Hydroxyzine Hcl) 25 Mg Tab, 25 MG PO TID for 30 Days, MG 03/01/25 Apixaban Base (ELIQUIS) 5 Mg Tab, 1 TAB PO BID 03/01/25 Pantoprazole Sodium Sesquihydr (Protonix) 40 Mg Tab, 40 MG PO DAILY, #30 TAB 03/01/25 Diclofenac Sodium (Topical) (Diclofenac Sodium) 1 % Gel, 1 % TD DAILY, GEL 02/12/24 Atorvastatin Calcium (ATORVASTATIN CALCIUM) 80 Mg Tab, 80 MG PO HS, TAB 02/12/24 Potassium Chloride (POTASSIUM CHLORIDE CR) 10 Meq Tb, 10 MEQ PO BID, TAB 02/12/24 Divalproex Sodium (Divalproex Sodium Dr) 250 Mg Tab, 1 TAB PO TID, TAB 08/23/22 Olanzapine (OLANZAPINE) 5 Mg Tab, 1 TAB PO DAILY 08/21/22 Fluoxetine Hcl (Fluoxetine Hcl) 10 Mg Tab, 1 TAB PO DAILY 08/21/22 Furosemide (Furosemide) 40 Mg Tab, 1 TAB PO DAILY 08/21/22 Gabapentin (Gabapentin) 100 Mg Cap, 1 CAP PO TID 08/21/22 Current Medications Current Medications Medications (Trade) Dose Ordered Sig/Roseanna Route PRN Reason Start Time Stop Time Status Last Admin Morphine Sulfate 2 mg Q30M PRN IV FOR CHEST PAIN 06/16/25 20:30 Nitroglycerin (Ntrostat Sublingual) 0.4 mg Q5MINP PRN SL FOR CHEST PAIN 06/16/25 20:30 Piperacillin Sod/ Tazobactam Sod 100 ml @ 25 mls/hr Q8HR IV 06/17/25 06:00 06/17/25 05:22 Review of Systems * General: Confused, no fever reported. * CV: no chest pain reported today. * Resp: SOB, hypoxemia, smoker, COPD history. * GI: No nausea/vomiting reported. * : No urinary complaints reported. * Neuro: Confusion, altered mentation, no focal weakness noted. * MSK: Limited mobility, falls, chronic arthritis. Vital Signs Vital Signs Date Time Temp Pulse Resp B/P (MAP) Pulse Ox O2 Delivery O2 Flow Rate FiO2 06/17/25 08:00 76 06/17/25 07:42 14 96 Nasal Cannula* 3 32 06/17/25 07:41 97.9 114/62 (79) 97.9 Physical Exam * Vitals: Stable BP, O? sat 79% RA ? improved on O?. * General: Confused, mildly dyspneic. * Cardiac: Regular rate, RBBB on EKG, no acute murmurs. * Respiratory: Bibasilar crackles, diminished breath sounds. * Extremities: no DVT. * Neuro: Confused, moving all extremities. Labs/Diagnostic Data Labs Test 06/17/25 07:05 06/17/25 04:02 06/16/25 21:23 06/16/25 21:20 Range/Units White Blood Count 10.2 4.4-10.8 10^3/uL Red Blood Count 4.32 L 4.5-5.90 10^6/uL Hemoglobin 10.3 L 13.5-17.5 g/dL Hematocrit 30.8 #L 41.0-53.0 % Mean Corpuscular Volume 71.3 #L 80.0-100.0 fL Mean Corpuscular Hemoglobin 23.9 L 28.0-32.0 pg Mean Corpuscular Hemoglobin Concent 33.6 32.0-36.0 g/dL Red Cell Distribution Width 20.0 H 11.8-14.3 % Platelet Count 489 H 140-450 10^3/uL Mean Platelet Volume 7.4 6.9-10.8 fL Neutrophils (%) (Auto) 90.2 H 37.0-80.0 % Lymphocytes (%) (Auto) 3.5 L 10.0-50.0 % Monocytes (%) (Auto) 5.0 0.0-12.0 % Eosinophils (%) (Auto) 0.8 0.0-7.0 % Basophils (%) (Auto) 0.5 0.0-2.0 % Neutrophils # (Auto) 9.2 H 1.6-8.6 10 ^3/uL Lymphocytes # (Auto) 0.4 0.4-5.4 10 ^3/uL Monocytes # (Auto) 0.5 0-1.3 10 ^3/uL Eosinophils # (Auto) 0.1 0-0.8 10 ^3/uL Basophils # (Auto) 0 0-0.2 10 ^3/uL Nucleated Red Blood Cells 0.0 % Platelet Estimate Increased Large Platelets Few Hypochromasia (manual) Moderate Anisocytosis (manual) Slight Microcytosis Moderate Target Cells Few Ovalocytes Few Stomatocytes Schistocytes Few Iron Level 35 L 65-175 ug/dL Total Iron Binding Capacity 341 250-425 ug/dL Percent Iron Saturation 10.3 L 20-55 % Sodium Level 140 136-145 mmol/L Potassium Level 3.7 3.5-5.1 mmol/L Chloride Level 99 98-107 mmol/L Carbon Dioxide Level 32 H 20-31 mmol/L Anion Gap 9 5-15 Blood Urea Nitrogen 16 9-23 mg/dL Creatinine 1.25 0.700-1.30 mg/dL Glomerular Filtration Rate Calc 60 >90 mL/min BUN/Creatinine Ratio 12.8 10.0-20.0 Serum Glucose 86 74-106 mg/dL Calcium Level 8.7 8.7-10.4 mg/dL Magnesium Level 1.7 1.6-2.6 mg/dL Total Bilirubin 0.3 0.2-1.0 mg/dL Aspartate Amino Transferase (AST) 75 H 13-40 U/L Alanine Aminotransferase (ALT) 17 7-40 U/L Alkaline Phosphatase 72 46-116 U/L Troponin I High Sensitivity 1106 *H </=54 ng/L Total Protein 6.4 5.7-8.2 g/dL Albumin 3.3 3.2-4.8 g/dL Influenza Type A Antigen Negative Negative Influenza Type B Antigen Negative Negative SARS-CoV-2 Antigen (Rapid) Negative NEGATIVE Urine Opiates Screen Pos NEGATIVE Urine Fentanyl Screen Neg NEGATIVE Urine Barbiturates Screen Neg NEGATIVE Urine Phencyclidine Screen Neg NEGATIVE Urine Amphetamines Screen Neg NEGATIVE Urine Benzodiazepines Screen Neg NEGATIVE Urine Cocaine Screen Neg NEGATIVE Urine Cannabinoids Screen Neg NEGATIVE Test 06/16/25 21:07 06/16/25 21:00 06/16/25 19:50 06/16/25 17:39 Range/Units Lactic Acid Level 2.0 0.4-2.0 mmol/L Urine Color Yellow Yellow Urine Clarity Clear Clear Urine pH 5.5 5.0-9.0 Urine Specific [place] 1.016 1.001-1.035 Urine Protein Negative Negative Urine Ketones Negative Negative Urine Blood Negative Negative /uL Urine Nitrite Negative Negative Urine Bilirubin Negative Negative Urine Urobilinogen Normal Negative mg/dL Urine Leukocyte Esterase Negative Negative /uL Urine RBC None seen 0 - 3 /hpf Urine Microscopic WBC < 1 0-3 /HPF Urine Squamous Epithelial Cells Few <5 /hpf Urine Bacteria None seen None Seen /hpf Urine Hyaline Casts Mod 0 - 2 /lpf Urine Creatinine 150.48 H 30.0-125.0 mg/dL Urine Protein/Creatinine Ratio 0.16 Urine Sodium 23 L 40-220 mmol/L Urine Glucose Normal Normal mg/dL Urine Total Protein 24.0 H 1-14 mg/dL Thyroid Stimulating Hormone (TSH) 0.52 L 0.55-4.78 uIU/mL D-Dimer, Quantitative 1.37 H 0.0-0.49 mg/L FEU Test 06/16/25 16:28 Range/Units B-Type Natriuretic Peptide 371.49 0-100 pg/mL Plasma/Serum Blood Alcohol < 3.0 <10 mg/dL Assessment 1. NSTEMI vs demand ischemia elevated troponins, CAD with prior PCI, poor compliance. TRUONG/ARACELI risk stratification elevated. 2. Acute on chronic CHF exacerbation cardiomegaly, BNP elevated, pedal edema, dyspnea. 3. Hypoxemia in COPD with possible pneumonia vs CHF overlap chronic interstitial changes, bibasilar opacities. 4. AFib history on anticoagulation currently sinus rhythm, RBBB, LA enlargement. 5. Iron deficiency anemia microcytic anemia, likely chronic, may worsen ischemia. 6. CKD stage 3a Cr 1.54, GFR 47. 7. Polypharmacy / opiate effect altered mental status, Narcan responsive, tox screen positive for opiates. 8.History of DVT Plan/Recommendation Treatment Plan (Cardiology-focused) Cardiac / ACS * Continue apixaban 5 mg BID on outpatient basis while in the hospital continue lovenox * Start aspirin 81 mg daily * Continue atorvastatin 80 mg daily * Risk factor modification (counseled on smoking cessation, medication adherence, diet). * Not a candidate for intervention due to poor compliance, high comorbidity burden. * PE workup deferred to primary team if clinical suspicion persists. * Hold beta-enrique until hemodynamics and oxygenation stable; consider metoprolol succinate if tolerated * Trend troponins, repeat EKG if symptom develop again. Ordered an echo * Monitor telemetry for arrhythmias CHF / Volume status * Strict I&O, daily weights * Resume furosemide 40 mg PO/IV daily, adjust per volume status * Low sodium, fluid restriction Rhythm / Anticoagulation * Continue apixaban (AFib, DVT history) * No role for rhythm intervention at present Risk modification * Smoking cessation counseling * Casting Technician consult (low sodium, cardiac diet) Prophylaxis (inpatient) * Continue anticoagulation (VTE prophylaxis already covered) * GI prophylaxis: Pantoprazole * Bowel regimen if on narcotics Case discussed in detail with the DR. Araujo, including the clinical pres entation, diagnostic workup, and comprehensive management plan. The patient was present for the discussion and demonstrated understanding of his condition and the proposed plan. Plan discussed with: Other (RN) Visit Coding Cardiology RES Date of Service: Jun 17, 2025 Billing Provider: KATELYN ARAUJO MD Cardiology Common Codes: [id number] INP/OBS CARE (High) KATELYN ARAUJO MD 06/17/25 1408: Family History: FH: kidney disease G8 MOTHER FH: prostate cancer G8 FATHER Family history: Hypercholesterolemia (situation) G8 MOTHER Allergies: Coded Allergies: NO KNOWN ALLERGIES (Unverified , 03/22/23) Home Meds Active Scripts Doxycycline Hyclate (DOXYCYCLINE HYCLATE) 100 Mg Tab, 1 TAB PO BID, #14 TAB Prov:MARCIAL AMES MD 03/02/25 Reported Medications Atorvastatin Calcium (Lipitor) 10 Mg Tab, PO, TAB 03/01/25 Hydroxyzine Hcl (Hydroxyzine Hcl) 25 Mg Tab, 25 MG PO TID for 30 Days, MG 03/01/25 Apixaban Base (ELIQUIS) 5 Mg Tab, 1 TAB PO BID 03/01/25 Pantoprazole Sodium Sesquihydr (Protonix) 40 Mg Tab, 40 MG PO DAILY, #30 TAB 03/01/25 Diclofenac Sodium (Topical) (Diclofenac Sodium) 1 % Gel, 1 % TD DAILY, GEL 02/12/24 Atorvastatin Calcium (ATORVASTATIN CALCIUM) 80 Mg Tab, 80 MG PO HS, TAB 02/12/24 Potassium Chloride (POTASSIUM CHLORIDE CR) 10 Meq Tb, 10 MEQ PO BID, TAB 02/12/24 Divalproex Sodium (Divalproex Sodium Dr) 250 Mg Tab, 1 TAB PO TID, TAB 08/23/22 Olanzapine (OLANZAPINE) 5 Mg Tab, 1 TAB PO DAILY 08/21/22 Fluoxetine Hcl (Fluoxetine Hcl) 10 Mg Tab, 1 TAB PO DAILY 08/21/22 Furosemide (Furosemide) 40 Mg Tab, 1 TAB PO DAILY 08/21/22 Gabapentin (Gabapentin) 100 Mg Cap, 1 CAP PO TID 08/21/22 Plan/Recommendation pt seen and examined pt is non compliant, etoh abuse, tobacco indepently reviwed his CX ostial pci not on antiplatelet per notes hx of afib and dvt from oct 2024 notes, on doac add asa medical therapy for pt , no chest pain consider hospice Plan discussed with: Patient Visit Coding Cardiology RES Date of Service: Jun 17, 2025 Cardiology Common Codes: NOT BILLABLE ANDREW AUGUSTINE RESIDENT Jun 17, 2025 12:57 KATELYN ARAUJO MD Jun 17, 2025 14:08
--- NOTE | 2025-06-17 16:49 | DVHPN2 ---
Subjective I am assuming the care of the patient from today onwards. Patient is currently on therapeutic Lovenox. 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 Medications Current Medications Medications Dose Ordered Sig/Roseanna Route Start Time Stop Time Status Last Admin Dose Admin Morphine Sulfate 2 mg Q30M PRN IV 06/16/25 20:30 Nitroglycerin 0.4 mg Q5MINP PRN SL 06/16/25 20:30 Piperacillin Sod/ Tazobactam Sod 100 ml @ 25 mls/hr Q8HR IV 06/17/25 06:00 06/17/25 14:32 25 MLS/HR Furosemide 40 mg DAILY PO 06/18/25 10:00 Atorvastatin Calcium 80 mg HS PO 06/17/25 22:00 Potassium Chloride 10 meq BID PO 06/17/25 22:00 Aspirin 81 mg DAILY PO 06/18/25 10:00 Enoxaparin Sodium 80 mg Q12HR SC 06/17/25 22:00 Laboratory Results Laboratory Tests 06/17/25 04:02 06/17/25 07:05 Chemistry Test 06/16/25 21:07 06/17/25 04:02 Calcium Level 8.5 mg/dL (8.7-10.4) L 8.7 mg/dL (8.7-10.4) Albumin 3.3 g/dL (3.2-4.8) Magnesium Level 1.7 mg/dL (1.6-2.6) Total Protein 6.4 g/dL (5.7-8.2) Coagulation Test 06/16/25 17:39 D-Dimer, Quantitative 1.37 mg/L FEU (0.0-0.49) H LFT Test 06/17/25 04:02 Alanine Aminotransferase (ALT) 17 U/L (7-40) Alkaline Phosphatase 72 U/L (46-116) Aspartate Amino Transferase (AST) 75 U/L (13-40) H Total Bilirubin 0.3 mg/dL (0.2-1.0) HgA1c, TSH Test 06/16/25 19:50 Thyroid Stimulating Hormone (TSH) 0.52 uIU/mL (0.55-4.78) L Urinalysis Test 06/16/25 21:00 Urine Color Yellow (Yellow) Urine Clarity Clear (Clear) Urine pH 5.5 (5.0-9.0) Urine Specific [place] 1.016 (1.001-1.035) Urine Protein Negative (Negative) Urine Ketones Negative (Negative) Urine Blood Negative /uL (Negative) Urine Nitrite Negative (Negative) Urine Bilirubin Negative (Negative) Urine Urobilinogen Normal mg/dL (Negative) Urine Leukocyte Esterase Negative /uL (Negative) Urine RBC None seen /hpf (0 - 3) Urine Microscopic WBC < 1 /HPF (0-3) Urine Squamous Epithelial Cells Few /hpf (<5) Urine Bacteria None seen /hpf (None Seen) Urine Hyaline Casts Mod /lpf (0 - 2) Urine Creatinine 150.48 mg/dL (30.0-125.0) H Urine Protein/Creatinine Ratio 0.16 Urine Sodium 23 mmol/L (40-220) L Urine Glucose Normal mg/dL (Normal) Urine Total Protein 24.0 mg/dL (1-14) H Microbiology Microbiology Date/Time Source Procedure Growth Status 06/17/25 08:00 Nose MRSA Screen - Final Complete Assessment/Plan Assessment/Plan 74-year-old male with a known history of CAD status post PCI, previous history of carotid angioplasty, history of DVT, chronic AFib on Eliquis, congestive heart failure, hypertension, COPD who was brought in by paramedics with altered mental status and low saturation on room air about 79% which improved after Narcan found to have 1. Metabolic encephalopathy 2. NSTEMI 3. Known CAD status post PCI 4. Acute on chronic hypoxic respiratory failure low suspicious for pulmonary embolism bolism 5. Congestive heart failure with diastolic dysfunction currently compensated 6. Acute kidney injury suspected secondary to vasomotor nephropathy 7. Paroxysmal AFib currently in normal sinus rhythm -continue aspirin, statin, Eliquis, Cardiology recommended risk factor modification and medical management , deferred ischemia workup because of patient's noncompliance. Plan discussed with: Patient My Orders Orders - PARVIN RIVERS MD Procedure Category Date Status Time Cardiac DIET 06/17/25 Transmitted Diet-2gna,Lofat,Lochol Dinner Date of Service: Jun 17, 2025 Billing Provider: PARVIN RIVERS MD Common Visit Codes: [id number] INP/OBS CARE(MOD) PARVIN RIVERS MD Jun 17, 2025 16:49
[2025-06-17 19:30] VITALS: PULSE 68; RESP 16; O2SAT 98
[2025-06-17] MEDS: ATORVASTATIN 20 MG TAB PO SCH (22:59)
[2025-06-17] MEDS: ENOXAPARIN SOD 80 MG/0.8ML SYRINGE SC SCH (22:59)
[2025-06-17] MEDS: POTASSIUM CHL 10 Meq TABLET PO SCH (23:00)
[2025-06-18 07:27] VITALS: PULSE 73; RESP 20; O2SAT 98
[2025-06-18] MEDS ORDERED: ENOXAPARIN SOD 40 MG/0.4 ML SYRINGE SC SCH (10:00)
[2025-06-18] MEDS: FUROSEMIDE 40 MG TAB PO SCH (10:55)
--- NOTE | 2025-06-18 16:58 | DVHPN2 ---
Subjective Patient's D-dimer is were high, ordered CT angio to rule out pulmonary embolism. Patient is already on Eliquis for AFib. 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 Medications Current Medications Medications Dose Ordered Sig/Roseanna Route Start Time Stop Time Status Last Admin Dose Admin Morphine Sulfate 2 mg Q30M PRN IV 06/16/25 20:30 Nitroglycerin 0.4 mg Q5MINP PRN SL 06/16/25 20:30 Piperacillin Sod/ Tazobactam Sod 100 ml @ 25 mls/hr Q8HR IV 06/17/25 06:00 06/18/25 14:23 25 MLS/HR Atorvastatin Calcium 80 mg HS PO 06/17/25 22:00 06/17/25 22:59 80 MG Potassium Chloride 10 meq BID PO 06/17/25 22:00 06/18/25 10:54 10 MEQ Aspirin 81 mg DAILY PO 06/18/25 10:00 06/18/25 10:54 81 MG Enoxaparin Sodium 80 mg Q12HR SC 06/17/25 22:00 06/18/25 10:55 80 MG Laboratory Results Laboratory Tests 06/17/25 04:02 06/17/25 07:05 Urinalysis Test 06/16/25 21:00 Urine Color Yellow (Yellow) Urine Clarity Clear (Clear) Urine pH 5.5 (5.0-9.0) Urine Specific [place] 1.016 (1.001-1.035) Urine Protein Negative (Negative) Urine Ketones Negative (Negative) Urine Blood Negative /uL (Negative) Urine Nitrite Negative (Negative) Urine Bilirubin Negative (Negative) Urine Urobilinogen Normal mg/dL (Negative) Urine Leukocyte Esterase Negative /uL (Negative) Urine RBC None seen /hpf (0 - 3) Urine Microscopic WBC < 1 /HPF (0-3) Urine Squamous Epithelial Cells Few /hpf (<5) Urine Bacteria None seen /hpf (None Seen) Urine Hyaline Casts Mod /lpf (0 - 2) Urine Creatinine 150.48 mg/dL (30.0-125.0) H Urine Protein/Creatinine Ratio 0.16 Urine Sodium 23 mmol/L (40-220) L Urine Glucose Normal mg/dL (Normal) Urine Total Protein 24.0 mg/dL (1-14) H Microbiology Microbiology Date/Time Source Procedure Growth Status 06/17/25 08:00 Nose MRSA Screen - Final Complete 06/16/25 17:40 Blood Blood Culture - Preliminary NO GROWTH AFTER 24 HOURS OF INCUBATION. Resulted Assessment/Plan Assessment/Plan 74-year-old male with a known history of CAD status post PCI, previous history of carotid angioplasty, history of DVT, chronic AFib on Eliquis, congestive heart failure, hypertension, COPD who was brought in by paramedics with altered mental status and low saturation on room air about 79% which improved after Narcan found to have 1. Acute Metabolic encephalopathy , improved 2. NSTEMI, medical management as per Cardiology 3. Known CAD status post PCI 4. Acute on chronic hypoxic respiratory failure ruled out pulmonary embolism 5. Congestive heart failure with diastolic dysfunction currently compensated 6. Acute kidney injury suspected secondary to vasomotor nephropathy 7. Paroxysmal AFib currently in normal sinus rhythm 8. Chronic tobacco use disorder, nicotine cessation counseling has been discussed -continue aspirin, statin, Eliquis, CT angio to rule out PE Cardiology recommended risk factor modification and medical management , deferred ischemia workup because of patient's noncompliance. Plan discussed with: Patient My Orders Orders - PARVIN RIVERS MD Procedure Category Date Status Time Chest With Contrast CT 06/18/25 Logged 16:47 Sodium Chloride 0.9% PHA 06/18/25 Logged 17:00 Date of Service: Jun 18, 2025 Billing Provider: PARVIN RIVERS MD Common Visit Codes: [id number] INP/OBS CARE(MOD) PARVIN RIVERS MD Jun 18, 2025 16:58
[2025-06-18] MEDS: SODIUM CHLORIDE 0.9% 1,000 ML IV SCH (17:42)
[2025-06-18] MEDS: IOHEXOL 350 MG/ML 100ML IJ ONE (18:05)
--- NOTE | 2025-06-18 18:35 | DVH ---
Indication: R/O PE Technique: CT axial images of the chest are obtained with intravenous contrast per CT angiogram prot ocol. Coronal and sagittal reformats were obtained. Radiation Dose Information: CTDI volume is 23.86 mGy. Dose-length product is 728.76 mGy*cm Comparison: CTACH on DOS: 09/19/22, CT ANGIO CHEST CONTRAST on DOS: 09/19/22, CTACH on DOS: 08/21/22, CT ANGIO CHEST CONTRAST on DOS: 08/21/22 FINDINGS: No filling defects within the main left right pulmonary arteries. Segmental and subsegmental branches suboptimally characterized, no large defects identified. Trachea patent. No pneumothorax. Pulmonary emphysematous changes. Bilateral atelectasis. Tiny bilate ral pleural effusions. Bilateral lower lobe bronchial plugging. Right hilar lymph node measuring 2.1 cm. Subcarinal lymph node measuring 1.1 cm. Pretracheal lymph no de measuring 1.6 cm. Aortopulmonary lymph node measuring 1.4 cm. Postsurgical changes left upper quadrant abdomen. 2.8 cm splenule. Small hiatal hernia. Coronary artery calcification disease. Aortic atherosclerotic disease. Postsurgical changes left humeral head. Moderate right and [id number] left shoulder degenerativ e changes. Old posterior right rib fractures. [id number] thoracic degenerative disc disease. IMPRESSION: No evidence for large pulmonary embolism. Pulmonary emphysematous changes. Tiny bilateral pleural effusions. Coronary artery calcification disease. Bilateral lower lobe bronchial plugging, possibly secondary to mucous plugging / aspiration. Correla te exclude any type of endobronchial obstructing lesion. Mediastinal/ hilar lymphadenopathy. Correlate for infectious, inflammatory, neoplastic etiologies. Other findings as described.
[2025-06-18 21:35] VITALS: BP 131/82; PULSE 78; RESP 18; TEMP 98.1; O2SAT 98
[2025-06-18 22:44] VITALS: BP 131/82; PULSE 78; RESP 18; TEMP 98.1; O2SAT 98
[2025-06-19] VITALS (8 sets, daily range): BP systolic 122–138; BP diastolic 67–87; PULSE 66–72; RESP 16–18; TEMP 98–98.9; O2SAT 2–100
--- NOTE | 2025-06-19 07:29 | DVHSR ---
APPROVED REPORT EXAM: Two-dimensional and M-mode echocardiogram with Doppler and color Doppler. Blood Pressure: 114/62 mmHg INDICATION Evaluate for myocardial function RISK FACTORS Height: 5'10", Weight: 170 DIMENSIONS LVDd3.8 (3.8-5.7cm)LA (2D)4.3 (1.9-4.0cm)Aortic Root3.6 (2.0-3.7cm) LVDs2.5 (2.5-4.0cm)LA (MM) (1.9-4.0cm)Aortic Cusp Exc1.7 (1.5-2.0cm) EF (%) 60.0 (55-70%)Rt. Atrium3.9 (1.9-4.0cm)Asc. Aorta cm IVSd1.1 (0.7-1.1cm)RV (D) (1.8-2.4cm) PWd1.0 (0.7-1.1cm) Mitral Valve MitralMitral Stenosis E wave0.67m/sMV Mean GR.mmHg A wave0.66m/sMV Peak GR.mmHg E/A ratio1.02D MVAcm2 DECEL [id number] 1/2 [place] Aortic Valve Aortic ValveAortic Stenosis V11.09m/Gaby Mean GR.2mmHg V21.13m/Gaby Peak GR.5mmHg LVOT Diameter2.3 (1.8-2.4cm)Doppler AVA4.01cm2 Pulmonic Valve V20.83m/s Other Information Technically limited study due to body habitus, patient lying flat. Conclusion lvef 55% mild lvh RVmoderate enlarged left atrium enlarged mild no severe valve abnormality noted
[2025-06-19 13:08] LABS: Chloride 103 mmol/L (98-107); Sodium 144 mmol/L (136-145)
[2025-06-19 13:09] LABS: Anion Gap 8 (5-15)
[2025-06-19 13:10] LABS: Calcium 8.8 mg/dL (8.7-10.4)
[2025-06-19 13:11] LABS: Carbon Dioxide 33 mmol/L (20-31); Potassium 3.3 mmol/L (3.5-5.1)
[2025-06-19 13:15] LABS: BUN/Creatinine Ratio 11.4 (10.0-20.0); Glucose 100 mg/dL (74-106)
[2025-06-19 13:16] LABS: Blood Urea Nitrogen 9 mg/dL (9-23)
--- NOTE | 2025-06-19 13:43 | DVHPN2 ---
Reviewed: Care Plan, H&P, Labs, Medications, Previous Orders, Radiology Changes from previous H/P or p: No Changes Objective Vitals Vital Signs Date Time Temp Pulse Resp B/P (MAP) Pulse Ox O2 Delivery O2 Flow Rate FiO2 06/19/25 08:53 98.0 66 18 134/82 (99) 95 98.0 06/18/25 22:44 Nasal Cannula* 2 28 Intake/Output Intake and Output 06/19/25 07:00 Intake Total 175 ml Output Total 400 ml Balance -225 ml Intake IV Total 175 ml Output Urine Total 400 ml # Voids 4 Medications Current Medications Medications Dose Ordered Sig/Roseanna Route Start Time Stop Time Status Last Admin Dose Admin Morphine Sulfate 2 mg Q30M PRN IV 06/16/25 20:30 Nitroglycerin 0.4 mg Q5MINP PRN SL 06/16/25 20:30 Piperacillin Sod/ Tazobactam Sod 100 ml @ 25 mls/hr Q8HR IV 06/17/25 06:00 06/19/25 05:29 25 MLS/HR Atorvastatin Calcium 80 mg HS PO 06/17/25 22:00 06/18/25 22:35 80 MG Potassium Chloride 10 meq BID PO 06/17/25 22:00 06/19/25 10:29 10 MEQ Aspirin 81 mg DAILY PO 06/18/25 10:00 06/19/25 10:29 81 MG Enoxaparin Sodium 80 mg Q12HR SC 06/17/25 22:00 06/19/25 10:29 80 MG Sodium Chloride 1,000 ml @ 100 mls/hr Q10H IV 06/18/25 17:00 06/18/25 17:42 100 MLS/HR Laboratory Results Laboratory Tests 06/17/25 07:05 06/19/25 11:37 Chemistry Test 06/19/25 11:37 Calcium Level 8.8 mg/dL (8.7-10.4) Urinalysis Test 06/16/25 21:00 Urine Color Yellow (Yellow) Urine Clarity Clear (Clear) Urine pH 5.5 (5.0-9.0) Urine Specific [place] 1.016 (1.001-1.035) Urine Protein Negative (Negative) Urine Ketones Negative (Negative) Urine Blood Negative /uL (Negative) Urine Nitrite Negative (Negative) Urine Bilirubin Negative (Negative) Urine Urobilinogen Normal mg/dL (Negative) Urine Leukocyte Esterase Negative /uL (Negative) Urine RBC None seen /hpf (0 - 3) Urine Microscopic WBC < 1 /HPF (0-3) Urine Squamous Epithelial Cells Few /hpf (<5) Urine Bacteria None seen /hpf (None Seen) Urine Hyaline Casts Mod /lpf (0 - 2) Urine Creatinine 150.48 mg/dL (30.0-125.0) H Urine Protein/Creatinine Ratio 0.16 Urine Sodium 23 mmol/L (40-220) L Urine Glucose Normal mg/dL (Normal) Urine Total Protein 24.0 mg/dL (1-14) H Microbiology Microbiology Date/Time Source Procedure Growth Status 06/17/25 08:00 Nose MRSA Screen - Final Complete 06/16/25 17:40 Blood Blood Culture - Preliminary NO GROWTH AFTER 48 HOURS OF INCUBATION. Resulted Labs and/or images reviewed: Labs reviewed by me, Image(s) reviewed by me Assessment/Plan Assessment/Plan Covering for Dr. Saha 1. Acute Metabolic encephalopathy , improved 2. NSTEMI, medical management as per Cardiology 3. Known CAD status post PCI 4. Acute on chronic hypoxic respiratory failure ruled out pulmonary embolism 5. Congestive heart failure with diastolic dysfunction currently compensated 6. Acute kidney injury suspected secondary to vasomotor nephropathy 7. Paroxysmal AFib currently in normal sinus rhythm 8. Chronic tobacco use disorder, nicotine cessation counseling has been discussed Time spent 65 minutes Advanced care planning time 20 minutes Patient is full code Lives alone Hospice revoked Plan discussed with: Patient Date of Service: Jun 19, 2025 Billing Provider: ELOISA TRIVEDI MD Common Visit Codes: [id number] CARE 30-74 MIN ELOISA TRIVEDI MD Jun 19, 2025 13:43
[2025-06-20] VITALS (7 sets, daily range): BP systolic 113–137; BP diastolic 60–99; PULSE 65–71; RESP 14–20; TEMP 36.5; O2SAT 94–98
--- NOTE | 2025-06-20 10:29 | DVHPN2 ---
Reviewed: Care Plan, H&P, Labs, Medications, Previous Orders, Radiology Changes from previous H/P or p: No Changes Objective Vitals Vital Signs Date Time Temp Pulse Resp B/P (MAP) Pulse Ox O2 Delivery O2 Flow Rate FiO2 06/20/25 09:00 98.6 65 16 113/60 (77) 95 98.6 06/19/25 20:00 Nasal Cannula* 2 28 Intake/Output Intake and Output 06/20/25 07:00 Intake Total 2060 ml Balance 2060 ml Intake Oral 1360 ml IV Total 700 ml # Voids 3 Medications Current Medications Medications Dose Ordered Sig/Roseanna Route Start Time Stop Time Status Last Admin Dose Admin Morphine Sulfate 2 mg Q30M PRN IV 06/16/25 20:30 Nitroglycerin 0.4 mg Q5MINP PRN SL 06/16/25 20:30 Piperacillin Sod/ Tazobactam Sod 100 ml @ 25 mls/hr Q8HR IV 06/17/25 06:00 06/20/25 06:49 25 MLS/HR Atorvastatin Calcium 80 mg HS PO 06/17/25 22:00 06/19/25 22:13 80 MG Potassium Chloride 10 meq BID PO 06/17/25 22:00 06/20/25 09:46 10 MEQ Aspirin 81 mg DAILY PO 06/18/25 10:00 06/20/25 09:46 81 MG Enoxaparin Sodium 80 mg Q12HR SC 06/17/25 22:00 06/20/25 09:46 80 MG Sodium Chloride 1,000 ml @ 100 mls/hr Q10H IV 06/18/25 17:00 06/19/25 15:49 100 MLS/HR Laboratory Results Laboratory Tests 06/17/25 07:05 06/19/25 11:37 Chemistry Test 06/19/25 11:37 Calcium Level 8.8 mg/dL (8.7-10.4) Urinalysis Test 06/16/25 21:00 Urine Color Yellow (Yellow) Urine Clarity Clear (Clear) Urine pH 5.5 (5.0-9.0) Urine Specific [place] 1.016 (1.001-1.035) Urine Protein Negative (Negative) Urine Ketones Negative (Negative) Urine Blood Negative /uL (Negative) Urine Nitrite Negative (Negative) Urine Bilirubin Negative (Negative) Urine Urobilinogen Normal mg/dL (Negative) Urine Leukocyte Esterase Negative /uL (Negative) Urine RBC None seen /hpf (0 - 3) Urine Microscopic WBC < 1 /HPF (0-3) Urine Squamous Epithelial Cells Few /hpf (<5) Urine Bacteria None seen /hpf (None Seen) Urine Hyaline Casts Mod /lpf (0 - 2) Urine Creatinine 150.48 mg/dL (30.0-125.0) H Urine Protein/Creatinine Ratio 0.16 Urine Sodium 23 mmol/L (40-220) L Urine Glucose Normal mg/dL (Normal) Urine Total Protein 24.0 mg/dL (1-14) H Microbiology Microbiology Date/Time Source Procedure Growth Status 06/17/25 08:00 Nose MRSA Screen - Final Complete 06/16/25 17:40 Blood Blood Culture - Preliminary NO GROWTH AFTER 72 HOURS OF INCUBATION. Resulted Labs and/or images reviewed: Labs reviewed by me, Image(s) reviewed by me Assessment/Plan Assessment/Plan Covering for Dr. Saha 1. Acute Metabolic encephalopathy , improved 2. NSTEMI, medical management as per Cardiology 3. Known CAD status post PCI 4. Acute on chronic hypoxic respiratory failure ruled out pulmonary embolism 5. Congestive heart failure with diastolic dysfunction currently compensated 6. Acute kidney injury suspected secondary to vasomotor nephropathy 7. Paroxysmal AFib currently in normal sinus rhythm 8. Chronic tobacco use disorder, nicotine cessation counseling has been discussed Time spent 65 minutes Advanced care planning time 20 minutes Patient is full code Lives alone Hospice revoked Patient needs physical therapy for rehabilitation and willing to go to alf facility Plan discussed with: Patient Date of Service: Jun 20, 2025 Billing Provider: ELOISA TRIVEDI MD Common Visit Codes: [id number] INP/OBS CARE(HIGH) ELOISA TRIVEDI MD Jun 20, 2025 10:29
--- NOTE | 2025-06-20 11:52 | DVHDS2 ---
Discharge Summary Date of Admission Jun 16, 2025 at 20:16 Date of Discharge: Jun 20, 2025 Admitting Diagnosis Shortness of breaths and generalized weakness Wounds: None Labs/Diagnostic Data: Laboratory Results Test 06/19/25 11:37 06/17/25 17:34 06/17/25 07:05 06/17/25 04:02 Sodium Level 144 mmol/L (136-145) Potassium Level 3.3 mmol/L (3.5-5.1) Chloride Level 103 mmol/L (98-107) Carbon Dioxide Level 33 mmol/L (20-31) Anion Gap 8 (5-15) Blood Urea Nitrogen 9 mg/dL (9-23) Creatinine 0.79 mg/dL (0.700-1.30) Glomerular Filtration Rate Calc 93 mL/min (>90) BUN/Creatinine Ratio 11.4 (10.0-20.0) Serum Glucose 100 mg/dL (74-106) Calcium Level 8.8 mg/dL (8.7-10.4) Troponin I High Sensitivity 573 ng/L (</=54) White Blood Count 10.2 10^3/uL (4.4-10.8) Red Blood Count 4.32 10^6/uL (4.5-5.90) Hemoglobin 10.3 g/dL (13.5-17.5) Hematocrit 30.8 % (41.0-53.0) Mean Corpuscular Volume 71.3 fL (80.0-100.0) Mean Corpuscular Hemoglobin 23.9 pg (28.0-32.0) Mean Corpuscular Hemoglobin Concent 33.6 g/dL (32.0-36.0) Red Cell Distribution Width 20.0 % (11.8-14.3) Platelet Count 489 10^3/uL (140-450) Mean Platelet Volume 7.4 fL (6.9-10.8) Neutrophils (%) (Auto) 90.2 % (37.0-80.0) Lymphocytes (%) (Auto) 3.5 % (10.0-50.0) Monocytes (%) (Auto) 5.0 % (0.0-12.0) Eosinophils (%) (Auto) 0.8 % (0.0-7.0) Basophils (%) (Auto) 0.5 % (0.0-2.0) Neutrophils # (Auto) 9.2 10 ^3/uL (1.6-8.6) Lymphocytes # (Auto) 0.4 10 ^3/uL (0.4-5.4) Monocytes # (Auto) 0.5 10 ^3/uL (0-1.3) Eosinophils # (Auto) 0.1 10 ^3/uL (0-0.8) Basophils # (Auto) 0 10 ^3/uL (0-0.2) Nucleated Red Blood Cells 0.0 % Platelet Estimate Increased Large Platelets Few Hypochromasia (manual) Moderate Anisocytosis (manual) Slight Microcytosis Moderate Target Cells Few Ovalocytes Few Stomatocytes Schistocytes Few Iron Level 35 ug/dL (65-175) Total Iron Binding Capacity 341 ug/dL (250-425) Percent Iron Saturation 10.3 % (20-55) Magnesium Level 1.7 mg/dL (1.6-2.6) Total Bilirubin 0.3 mg/dL (0.2-1.0) Aspartate Amino Transferase (AST) 75 U/L (13-40) Alanine Aminotransferase (ALT) 17 U/L (7-40) Alkaline Phosphatase 72 U/L (46-116) Total Protein 6.4 g/dL (5.7-8.2) Albumin 3.3 g/dL (3.2-4.8) Test 06/16/25 21:23 06/16/25 21:20 06/16/25 21:07 06/16/25 21:00 Influenza Type A Antigen Negative (Negative) Influenza Type B Antigen Negative (Negative) SARS-CoV-2 Antigen (Rapid) Negative (NEGATIVE) Urine Opiates Screen Pos (NEGATIVE) Urine Fentanyl Screen Neg (NEGATIVE) Urine Barbiturates Screen Neg (NEGATIVE) Urine Phencyclidine Screen Neg (NEGATIVE) Urine Amphetamines Screen Neg (NEGATIVE) Urine Benzodiazepines Screen Neg (NEGATIVE) Urine Cocaine Screen Neg (NEGATIVE) Urine Cannabinoids Screen Neg (NEGATIVE) Lactic Acid Level 2.0 mmol/L (0.4-2.0) Urine Color Yellow (Yellow) Urine Clarity Clear (Clear) Urine pH 5.5 (5.0-9.0) Urine Specific [place] 1.016 (1.001-1.035) Urine Protein Negative (Negative) Urine Ketones Negative (Negative) Urine Blood Negative /uL (Negative) Urine Nitrite Negative (Negative) Urine Bilirubin Negative (Negative) Urine Urobilinogen Normal mg/dL (Negative) Urine Leukocyte Esterase Negative /uL (Negative) Urine RBC None seen /hpf (0 - 3) Urine Microscopic WBC < 1 /HPF (0-3) Urine Squamous Epithelial Cells Few /hpf (<5) Urine Bacteria None seen /hpf (None Seen) Urine Hyaline Casts Mod /lpf (0 - 2) Urine Creatinine 150.48 mg/dL (30.0-125.0) Urine Protein/Creatinine Ratio 0.16 Urine Sodium 23 mmol/L (40-220) Urine Glucose Normal mg/dL (Normal) Urine Total Protein 24.0 mg/dL (1-14) Test 06/16/25 19:50 06/16/25 17:39 06/16/25 16:28 Thyroid Stimulating Hormone (TSH) 0.52 uIU/mL (0.55-4.78) D-Dimer, Quantitative 1.37 mg/L FEU (0.0-0.49) B-Type Natriuretic Peptide 371.49 pg/mL (0-100) Plasma/Serum Blood Alcohol < 3.0 mg/dL (<10) Other Laboratory Tests 06/19/25 11:37 06/17/25 07:05 Brief Hx & Hospital Course: 74-year-old male with a history of coronary artery disease status post stents acute on chronic respiratory failure congestive heart failure paroxysmal AFib chronic current smoker on hospice hospice revoked and admitted for generalized weakness and shortness of breaths found to have non ST-elevation [place] cardiology advised medical management. Patient was placed on Zosyn 3.375 g IV q.8 hours for possible community-acquired pneumonia which he will continue for two more weeks in the custodial. Patient being discharged to retirement facility for IV antibiotics for two weeks He will receive Zosyn 3.375 g IV q.8 hours for two weeks Patient is hospice revoked General condition stable but poor at the time of discharge Consults/Reason for consult None Operations or Procedures None Condition at Discharge: Fair Final Diagnosis/Problems List 1. Acute Metabolic encephalopathy , improved 2. NSTEMI, medical management as per Cardiology 3. Known CAD status post PCI 4. Acute on chronic hypoxic respiratory failure ruled out pulmonary embolism 5. Congestive heart failure with diastolic dysfunction currently compensated 6. Acute kidney injury suspected secondary to vasomotor nephropathy 7. Paroxysmal AFib currently in normal sinus rhythm 8. Chronic tobacco use disorder, nicotine cessation counseling has been discussed 9. Possible community-acquired pneumonia, Zosyn 3.375 g IV q.8 hours for two weeks Discharge Disposition: Snf Facility Discharge Instruct/Medications Diet: Cardiac 2g Na,low cholest Activity: Light activity Follow Up/Referral: Follow up with resume home Medications: Zosyn 3.375 g IV q.8 hours for two weeks See list for other meds Scheduled Apixaban Base (Eliquis), 1 TAB PO BID, (Reported) Atorvastatin Calcium (Atorvastatin Calcium), 80 MG PO HS, (Reported) Diclofenac Sodium (Topical) (Diclofenac Sodium), 1 % TD DAILY, (Reported) Divalproex Sodium (Divalproex Sodium Dr), 1 TAB PO TID, (Reported) Doxycycline Hyclate (Doxycycline Hyclate), 1 TAB PO BID Fluoxetine Hcl (Fluoxetine Hcl), 1 TAB PO DAILY, (Reported) Furosemide (Furosemide), 1 TAB PO DAILY, (Reported) Gabapentin (Gabapentin), 1 CAP PO TID, (Reported) Hydroxyzine Hcl (Hydroxyzine Hcl), 25 MG PO TID, (Reported) Olanzapine (Olanzapine), 1 TAB PO DAILY, (Reported) Pantoprazole Sodium Sesquihydr (Protonix), 40 MG PO DAILY, (Reported) Potassium Chloride (Potassium Chloride Cr), 10 MEQ PO BID, (Reported) Miscellaneous Medications Atorvastatin Calcium (Lipitor), Unknown Dose PO, (Reported) 39 (Time taken for discharge summary 39 minutes) Discharge Statement: "Patient was advised to return to the ER or call 911 if any headaches, dizziness, shortness of breath, chest pain, abdominal pain, bleeding, fevers, or worsening of medical condition. Patient was counseled about treatment plan, medications, possible side effects, patientverbalized understanding. All questions were answered to the best of my ability. This discharge took greater then 30 minutes in planning, reviewing documentation, counseling the patient, and discussing with other team members." ASSESSMENT ASSESSMENT Hospital Course Improved Assessment 1. Acute Metabolic encephalopathy , improved 2. NSTEMI, medical management as per Cardiology 3. Known CAD status post PCI 4. Acute on chronic hypoxic respiratory failure ruled out pulmonary embolism 5. Congestive heart failure with diastolic dysfunction currently compensated 6. Acute kidney injury suspected secondary to vasomotor nephropathy 7. Paroxysmal AFib currently in normal sinus rhythm 8. Chronic tobacco use disorder, nicotine cessation counseling has been discussed 9. Possible community-acquired pneumonia, Zosyn 3.375 g IV q.8 hours for two weeks Date of Service: Jun 20, 2025 Billing Provider: ELOISA TRIVEDI MD Common Visit Codes: [id number] DISCH DAY >30min ELOISA TRIVEDI MD Jun 20, 2025 11:52
== END 2025-06-20 19:00 | DRG 280 ==
LOC: EDBD 15:28 → ER 15:33 → OVERFLOW 20:16 → TELE-CENTR 06-18 21:35
PROVIDERS: ADMIT Family Medicine; ATTEND Family Medicine
PROC: 05HC33Z Insertion of Infusion Device into Left Basilic Vein, Percutaneous Approach (ICD-10-PCS; principal; 2025-06-20)
PROC: B54NZZA Ultrasonography of Left Upper Extremity Veins, Guidance (ICD-10-PCS; 2025-06-20)
DX: I21.4 Non-ST elevation (NSTEMI) myocardial infarction (principal); G93.41 Metabolic encephalopathy; N17.0 Acute kidney failure with tubular necrosis; J18.9 Pneumonia, unspecified organism; J96.21 Acute and chronic respiratory failure with hypoxia; J44.0 Chronic obstructive pulmonary disease with (acute) lower respiratory infection; I13.0 Hypertensive heart and chronic kidney disease with heart failure and stage 1 through stage 4 chronic kidney disease, or unspecified chronic kidney disease; I50.32 Chronic diastolic (congestive) heart failure; Z20.822 Contact with and (suspected) exposure to COVID-19; E87.6 Hypokalemia; D50.9 Iron deficiency anemia, unspecified; N18.31 Chronic kidney disease, stage 3a; I25.10 Atherosclerotic heart disease of native coronary artery without angina pectoris; F17.210 Nicotine dependence, cigarettes, uncomplicated; I48.0 Paroxysmal atrial fibrillation; Z95.5 Presence of coronary angioplasty implant and graft; Z91.199 Patient's noncompliance with other medical treatment and regimen due to unspecified reason; Z86.718 Personal history of other venous thrombosis and embolism; Z79.01 Long term (current) use of anticoagulants; Z80.42 Family history of malignant neoplasm of prostate; Z84.1 Family history of disorders of kidney and ureter; Z83.42 Family history of familial hypercholesterolemia; Z79.899 Other long term (current) drug therapy; Z91.148 Patient's other noncompliance with medication regimen for other reason
CPT/HCPCS: 36415; 70450; 71045; 71275; 76775; 80048; 80053; 80307; 80320; 81001; 82570; 83540; 83550; 83605; 83735; 83880; 84156; 84300; 84443; 84484; 85025; 85379; 87040; 87081; 87426; 87804; 93005; 93306; 93970; 96365; 97163; 99291; 99292; G0378; J2543; J3480